=== PATIENT | female | born 1960 | race Caucasian/White ===

== ENCOUNTER 2017-10-13 09:09 | Inpatient (IN) | payer BC, SELFPAY ==
[2017-10-09 15:07] VITALS: BP 134/87; BMI 38.6
[2017-10-13] VITALS (36 sets, daily range): BP systolic 96–147; BP diastolic 53–96; PULSE 82–109; RESP 12–24; TEMP 36.4–37.4; O2SAT 92–100; BMI 38.4; BMI 38.5; BMI 38.7
--- NOTE | 2017-10-13 09:12 | RAD_ITS ---
STUDY: X-RAY CHEST REASON FOR EXAM: Female, 57 years old. Chest pain. TECHNIQUE: Single AP portable view of the chest. COMPARISON: Comparison is made with prior study dated August 28, 2014. FINDINGS: Stable elevation of the right hemidiaphragm. There is no demonstrated pleural abnormality. Normal size heart. Normal mediastinum and maria [place] carmen. Normal visualized pulmonary arteries. There is atherosclerotic tortuosity of the aortic arch and descending thoracic aorta. Normal visualized thoracic spine. Normal visualized ribs, clavicles, and shoulders. There is no demonstrated abnormality of the visualized soft tissue structures of the upper abdomen. RAD/Chest 1 View (Portable) IMPRESSION: Stable elevation of the right hemidiaphragm. The lungs are clear. Electronically Signed: Herb Ibarra MD at 9:41 EST Tel [phone], Service support ,
--- NOTE | 2017-10-13 09:12 | EKG12_ITS ---
Test Reason : CP REPEAT Blood Pressure : / mmHG Vent. Rate : 094 BPM Atrial Rate : 094 BPM P-R Int : 132 ms QRS Dur : 090 ms QT Int : 368 ms P-R-T Axes : 044 -17 065 degrees QTc Int : 460 ms AGE AND GENDER SPECIFIC ECG ANALYSIS Normal sinus rhythm Inferior infarct , possibly acute ACUTE AL / STEMI Consider right ventricular involvement in acute inferior infarct Abnormal ECG Confirmed by JOSE MARIA PETERSEN, BARBRA ([id number]), editor greeting card GRETCHEN TRUONG ([id number]) on 10/16/2017 1:05:50 PM Referred By: Robert Javed Confirmed By:BARBRA MOISE MD
--- NOTE | 2017-10-13 09:28 | ED.VISSUMM ---
- ER Visit Summary Date of Service: 10/13/17 Chief Complaint: Chest pain History of Present Illness: The patient is a 57 F 3 of nve-jbrospe-ububatgmt diabetes, cholesterolemia and sleep apnea. Long-term smoker. Currently significant family history his mom in her late 70s had coronary disease and MIs. Patient never had DVT or PE. She has no recent travel, surgery or mobilization. No hemoptysis. The pain is not pleuritic. She states she is having burning chest pain nearly constantly last 4 days. Worse supine. She also states that she does get exertional dyspnea with stairs or walking. She states she had a stress test at the [facility] approximately 1 year ago which was negative. Physical Examination: Well-appearing middle-age female. Vital signs are stable and afebrile. Pulse ox 96% on room air no signs of hypoxia. H EENT exam unremarkable. Neck nontender no JVD. Lungs clear to auscultation bilaterally. Heart regular rate and rhythm no murmur. Chest wall nontender. Abdomen soft nontender. Extremities moves all 4. Neurovascular intact. Calves nontender. Neurologic exam she is awake and alert without focal motor deficits. Test Results: Initial EKG was a sinus rhythm rate of 93 appears to be Q waves in the inferior leads and also a subtle ST elevation but similar to a recent EKG done within the past week that was a preop study. BC normal. BMP normal. Troponin is elevated 1.24. Chest x-ray normal with a normal cardiac silhouette and mediastinum read both by myself and the radiologist. Patient was given sublingual nitroglycerin after the first her pain got worse. After the second the pain improved. A repeat EKG was done with the worsening chest pain which appears to be an evolving acute inferior MD. Emergency Department Course and Treatment: To undergo cardiac workup. She will receive p.o. aspirin and sublingual nitro. One component of her pain does sound much more like reflux. However she is middle age. She is overweight and she is a smoker. She does have significant risk factors for underlying coronary disease and is having exertional dyspnea and at times chest pain. Treatment Plan: After the second EKG I spoke with Dr. Shaw Javed he and his team are awaiting the patient in the Assignment Clerk. Patient has been given IV heparin bolus and p.o. Brilinta. She had already received aspirin. Spoke at length with both her and her . Directly to the Assignment Clerk. Disposition: Admission Impression: Chest pain secondary to acute inferior MD History of jbi-ozjrgfl-bukvhyvbl diabetes and hypercholesterolemia. Tobacco abuse This note was generated with [employer] Angel dictation software. It may contain incorrect words, spelling, and punctuation that were not noted in review of the chart prior to signing ED Disposition - Plan for ED Patient: Chief Complaint: Chest Pain Referrals: Reese Elizalde MD [Primary Care Provider] -
[2017-10-13 09:31] LABS: Basophil# 0.03 X10^3/uL; Basophil% 0.3 % (0-1); Eosinophil# 0.08 X10^3/uL; Eosinophils% 0.8 % (0-5); Hematocrit 41.5 % (37-47); Hemoglobin 13.2 g/dl (12.0-15.0); Lymphocyte % 25.7 % (19-41); Mean Corp Hgb Conc 31.8 g/gl (32-36); Mean Corpuscular Hgb 27.6 pg (27.0-32.0); Mean Corpuscular Volume 86.8 fL (81-99); Mean Platelet Vol. 10.5 fl (6.2-12.0); Monocyte# 0.41 X10^3/uL; Monocyte% 4.1 % (0-10); Neutrophil # 6.98 X10^3/uL (2.7-7.7); Platelet Count 277 K/mm3 (150-450); RBC Distribution Width CV 14.1 % (11.6-14.6); RBC Distribution Width SD 44.2 fl (35.1-43.9); Red Blood Count 4.78 M/mm3 (4.2-5.4); White Blood Count 10.1 K/mm3 (4.4-11.0)
[2017-10-13] MEDS: Aspirin 81 MG TAB.CHEW 324 MG PO (09:40)
--- NOTE | 2017-10-13 09:40 | ED.DCSUM_ITS ---
- ER Visit Summary Date of Service: 10/13/17 Chief Complaint: Chest pain History of Present Illness: The patient is a 57 F 3 of zjx-qfwozye-gmtboibsf diabetes, cholesterolemia and sleep apnea. Long-term smoker. Currently significant family history his mom in her late 70s had coronary disease and MIs. Patient never had DVT or PE. She has no recent travel, surgery or mobilization. No hemoptysis. The pain is not pleuritic. She states she is having burning chest pain nearly constantly last 4 days. Worse supine. She also states that she does get exertional dyspnea with stairs or walking. She states she had a stress test at the [facility] approximately 1 year ago which was negative. Physical Examination: Well-appearing middle-age female. Vital signs are stable and afebrile. Pulse ox 96% on room air no signs of hypoxia. H EENT exam unremarkable. Neck nontender no JVD. Lungs clear to auscultation bilaterally. Heart regular rate and rhythm no murmur. Chest wall nontender. Abdomen soft nontender. Extremities moves all 4. Neurovascular intact. Calves nontender. Neurologic exam she is awake and alert without focal motor deficits. Test Results: Initial EKG was a sinus rhythm rate of 93 appears to be Q waves in the inferior leads and also a subtle ST elevation but similar to a recent EKG done within the past week that was a preop study. BC normal. BMP normal. Troponin is elevated 1.24. Chest x-ray normal with a normal cardiac silhouette and mediastinum read both by myself and the radiologist. Patient was given sublingual nitroglycerin after the first her pain got worse. After the second the pain improved. A repeat EKG was done with the worsening chest pain which appears to be an evolving acute inferior DE. Emergency Department Course and Treatment: To undergo cardiac workup. She will receive p.o. aspirin and sublingual nitro. One component of her pain does sound much more like reflux. However she is middle age. She is overweight and she is a smoker. She does have significant risk factors for underlying coronary disease and is having exertional dyspnea and at times chest pain. Treatment Plan: After the second EKG I spoke with Dr. Shaw Javed he and his team are awaiting the patient in the Title I Teacher. Patient has been given IV heparin bolus and p.o. Brilinta. She had already received aspirin. Spoke at length with both her and her . Directly to the Title I Teacher. Disposition: Admission Impression: Chest pain secondary to acute inferior DE History of efw-ywyicdj-bqtrjdyae diabetes and hypercholesterolemia. Tobacco abuse This note was generated with Lingoing dictation software. It may contain incorrect words, spelling, and punctuation that were not noted in review of the chart prior to signing ED Disposition - Plan for ED Patient: Chief Complaint: Chest Pain Referrals: Reese Elizalde MD [Primary Care Provider] -
[2017-10-13 09:41] LABS: POSITIVE COUNT NO; POSITIVE DIFFERENTIAL NO; POSITIVE MORPHOLOGY NO
--- NOTE | 2017-10-13 09:43 | NURSING ---
NO LW OR POA
--- NOTE | 2017-10-13 09:48 | ED.RN ---
Addendum entered by Nancy Bethea 10/13/17 10:24: Per patient, reported initial Nitroglycerin increased pain to chest. Also discussed ST elevation on 5 lead and noted old inferior infarct on 1st EKG. Will cont to monitor. Original Note: 0945-Dr. Avila notified of effects of Nitroglycerin. Requests 2nd dose be administered.
--- NOTE | 2017-10-13 09:49 | ED.RN ---
trop 1.[address] from [address] lab[address] dr tolbert aware
[2017-10-13 09:50] LABS: Anion Gap 5 (5-15); BUN 14 mg/dL (7-18); BUN/Creat Ratio 17.2 RATIO (10-20); Calcium,Total 8.7 mg/dL (8.5-10.1); Chloride 105 mmol/L (98-107); Creatinine, Serum 0.82 mg/dL (0.55-1.02); EST Glomerular Filtration Rate 77 mL/min (>60); Est Glom Filt Rate - Afr Amer 93 mL/min (>60); Estimated Creatinine Clearance 68.11 ml/min; Glucose 188 mg/dL (74-106); Potassium 3.9 mmol/L (3.5-5.1); Sodium Level 138 mmol/L (136-145)
--- NOTE | 2017-10-13 09:56 | NURSING ---
STEMI CALLED DR CANDELARIA CALLED BACK
[2017-10-13] MEDS: TICAGRELOR 90 MG TABLET 180 MG PO (10:00)
[2017-10-13] MEDS: Heparin 10,000 UNITS/10 ML Vial 4000 UNITS IV (10:00)
--- NOTE | 2017-10-13 10:01 | NURSING ---
NON LICENSED NUCLEAR PLANT OPERATOR READY
--- NOTE | 2017-10-13 10:09 | ED.DEP ---
ED Disposition - Plan for ED Patient: Chief Complaint: Chest Pain Referrals: Reese Elizalde MD [Primary Care Provider] -
--- NOTE | 2017-10-13 10:21 | ED.RN ---
0950-Critical Troponin result received and reported to Dr. Avila. Also notified of EKG changes. Repeat EKG completed and shown to Dr. Avila. Code STEMI activated. 1005-Transported to laboratory machinist and moved to table without incident. Report given. Dr. Javed and laboratory machinist team assumed care.
--- NOTE | 2017-10-13 10:30 | CASEMGMT ---
Social Work: Responded to STEMI alert in ED. Patient was already in warehouse laborer. Spent time with patient's in the warehouse laborer waiting area. Patient's was making calls to family members and voiced no other needs at this time. Patient's verbalized that patient has both a living will and DPOAHC and that the documents are in the car. Patient's stated that he will bring documents in when he is able. Emotional support and active listening provided as well as encouragement to contact this SW if additional needs arise. LILIA Linder
--- NOTE | 2017-10-13 10:46 | EKG12_ITS ---
Test Reason : Blood Pressure : / mmHG Vent. Rate : 092 BPM Atrial Rate : 092 BPM P-R Int : 134 ms QRS Dur : 086 ms QT Int : 380 ms P-R-T Axes : 053 -21 018 degrees QTc Int : 469 ms Normal sinus rhythm Left ventricular hypertrophy Inferior infarct , age undetermined Abnormal ECG When compared with ECG of 13-OCT-2017 09:55, MANUAL COMPARISON REQUIRED, DATA IS UNCONFIRMED Confirmed by ROSLYN PETERSEN, CONNER ([id number]), acquisition editor GRETCHEN TRUONG ([id number]) on 10/17/2017 2:00:15 PM Referred By: Robert Javed Confirmed By:CONNER MCGOWAN MD
--- NOTE | 2017-10-13 10:52 | CL.I_ITS ---
Patient Name: MC MICHAEL Study Date: 10/13/2017 Performing: Robert Javed MD Ht: 64.96 inches 165 cm : 1960 Wt: 231.49 lbs 105 kg Age: 57 Gender: female BSA: 2.1 PROCEDURE(S) PERFORMED SG32-FQC/COR/LV FZ38-OXO, JASSI AND/OR PTCA, ARTERY OR GRAFT, SINGLE VESSEL CLINICAL PROFILE AND CO-MORBIDITIES INDICATIONS: Unstable Angina Stress/Imaging Stress/Image Study Performed: No Angina Classification Anginal Classification w/in 2 Weeks: CCS II CAD Presentations: STEMI. 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 RECOMMENDATIONS Referred for immediate PCI Elective PCI of mid LAD in 3 weeks. Highly recommend quitting all tobacco products Follow up with primary ammonia print operator Risk factor modification ASA Indefinitley Plavix for at least 12 months Routine post interventional care Refer for Outpatient Cardiac Rehab Manual sheath removal per protocol Follow up with Dr. Javed Elective PCI of mid LAD in 3 weeks. Medical management of proximal and distal RCA lesions. Pt had evolving ECG in ER which progressed to acute inferior STEMI. D2B time taken off of 2nd ECG at 9:55 am. DESCRIPTION OF PROCEDURE The patient arrived to the procedure lab. The risks and benefits of the procedure as well as a full d escription of our services here and lack of surgical backup were fully explained to the patient and/o r their significant other prior to the catheterization. The Timeout was completed, verifying the jax ect patient and procedure. The patient's procedural site was prepped and draped in the usual fashion. Local anesthetic was given subcutaneously to right groin region with Lidocaine 2%. Using a modified Seldinger technique, arterial access was obtained via the right femoral artery, a 6Fr sheath was inse rted.. Left Coronary Artery selective angiography was performed in multiple views using a 6 Fr. JL 5 catheter. Right Coronary Artery selective angiography was then performed in multiple views using a 6 Fr. HS 2. Left Ventriculography was performed in DERAS projection using a 4 Fr. Pigtail catheter. LV t o AO pullback pressures were then recorded HS 2 Guide catheter was inserted and engaged into the RCA. Runthrough Guide wire was advanced to the RCA. 2.0 by 12 Balloon catheter was inserted. Balloon catheter was advanced across lesion in the righ t coronary, mid. PTCA balloon inflated at 6 atms for 10 secs Balloon catheter was advanced across les ion in the right coronary, mid. PTCA balloon inflated at 12 atms for 8 secs 3.5 by 8 synergy Drug Elu ting stent was inserted Drug Eluting stent was advanced across the lesion in the right coronary, mid. . . The arterial sheath was sutured in place and capped. CORONARY ANGIOGRAPHY DOMINANCE: Right Dominant LEFT HEART ASSESSMENT Left Ventricular Ejection Fraction: by LV Gram 55 % Inferior Mid Hypokinesis - Mild LEFT MAIN: Angiographically normal LEFT ANTERIOR DECENDING ARTERY: MID LAD: 80 % Stenosis CIRCUMFLEX ARTERY: Mild luminal irregularities less than 30% RIGHT CORONARY ARTERY: PROX RCA: Mild luminal irregularities less than 30% MID RCA: is occluded DISTAL RCA: Moderate luminal irregularities up to 50% COLLATERAL FLOW: Collateral flow from Left to Right INTERVENTION INFORMATION LESION SITE: RCA (Mid) Lesion Complexity: High/C, lesion at bifurcation: No, thrombus present: Yes, lesion length: 38 mm, cu lprit lesion: Yes Pre Stenosis: 100 % Pre intervention ISI flow: 0 PROCEDURE: Drug Eluting Stent with pre and post dilatation, Drug Eluting Stent with pre dilatation. Post Stenosis: 0 % Post intervention ISI flow: 3 Lesion Devices: E-House 6 Fr HSII 100cm Guide Catheter Edward Sci EMERGE MR 2.00x12 BALLOON Terumo .014 Runthrough Extra Floppy 180cm straight Edward Sci Synergy MR JASSI 3.50x38 COMPLICATIONS No Complications PROCEDURE MEDICATIONS Oxygen: 2 L/min via nasal cannula Atropine 1mg/10ml .25 amp @ 10/13/2017 10:16:32 Heparin 6000 unit(s) IV 10/13/2017 10:18:40 Nitro 200 mcg IC 10/13/2017 10:18:16 IV Bolus: .9 NaCl 500 ml total 10/13/2017 10:34:31 IV Fluids: .9 NaCl increased to wide open ml/hr 10/13/2017 10:23:06 IV Fluids: .9 NaCl decreased to kvo ml/hr 10/13/2017 10:34:24 SUMMARY OF HEMODYNAMIC DATA Time AIR REST ECG 10:09:12 AO 135/105 (119) SA 10:12:06 AO 139/69 (99) 10:13:36 AO 113/78 (92) 10:22:28 LV 146/-19, 6 10:29:36 LV 137/-24, 5 10:29:43 LVp 138/-25, 6 10:29:50 AOp 127/70 (94) 10:29:56 Signed By Robert Javed MD On 10/13/2017 10:52:03 Robert Javed MD
[2017-10-13 11:24] LABS: Hematocrit 37.5 % (37-47); Hemoglobin 12.1 g/dl (12.0-15.0); Mean Corp Hgb Conc 32.3 g/gl (32-36); Mean Corpuscular Hgb 28.1 pg (27.0-32.0); Mean Corpuscular Volume 87.2 fL (81-99); Mean Platelet Vol. 10.4 fl (6.2-12.0); Platelet Count 258 K/mm3 (150-450); RBC Distribution Width CV 14.1 % (11.6-14.6); RBC Distribution Width SD 44.7 fl (35.1-43.9); White Blood Count 11.1 K/mm3 (4.4-11.0)
[2017-10-13 11:25] LABS: Scan Indicated on CBC? Y/N NO
[2017-10-13 11:26] LABS: ACT Activated Clotting Time 175 sec (74-137)
[2017-10-13 11:26] LABS: ACT Activated Clotting Time 252 sec (74-137)
[2017-10-13] MEDS: 0.9% Normal Saline 1,000 ML 150 ML IV (11:30)
--- NOTE | 2017-10-13 11:57 | CRPHASE1 ---
Patient Data/Charges Byproducts Operator:: Robert Javed Date/Diagnosis #1:: 10/13/2017 STEMI /INT/PCI Phase II Referral:: [facility] Risk Factors/Lifestyle Smoking Status: Current every day smoker Hx Hypertension: Yes Hx Diabetes Mellitus Type 1: Yes Hx Dyslipidemia: Yes Hx Obesity: Yes Height: 1.65 m Weight:: 105 kg BMI: 38.5 ETOH: No Family History: Heart Disease - DAD HEART HX Issues Affecting Care:: None Medical/Surgical History Angina:: Yes CAD:: Yes Diabetes:: Yes Hypertension:: Yes Dyslipidemia:: Yes Thyroid:: Yes PTCA:: Yes Discharge/Home/Social Eval Discharge Disposition: Home Marital Status:
[2017-10-13 11:58] LABS: CPK Total, Creatine Kinase 165 U/L (26-192)
--- NOTE | 2017-10-13 12:02 | CRPHASE1_ITS ---
Patient Data/Charges Impregnating Helper:: Robert Javed Date/Diagnosis #1:: 10/13/2017 STEMI /INT/PCI Phase II Referral:: [facility] Risk Factors/Lifestyle Smoking Status: Current every day smoker Hx Hypertension: Yes Hx Diabetes Mellitus Type 1: Yes Hx Dyslipidemia: Yes Hx Obesity: Yes Height: 1.65 m Weight:: 105 kg BMI: 38.5 ETOH: No Family History: Heart Disease - DAD HEART HX Issues Affecting Care:: None Medical/Surgical History Angina:: Yes CAD:: Yes Diabetes:: Yes Hypertension:: Yes Dyslipidemia:: Yes Thyroid:: Yes PTCA:: Yes Discharge/Home/Social Eval Discharge Disposition: Home Marital Status:
--- NOTE | 2017-10-13 12:02 | CRPH1.INSTRU ---
General Education CAD and cardiac anatomy and function:: Not instructed Explanation of diagnoses and procedures:: Not instructed Sign/Symptoms of [place]:: Needs reinforcement Antiplatelet therapy: Needs reinforcement Proper use of NTG-SL: Not instructed Emergency procedures and activation of EMS: Not instructed Compliance of all prescribed medications: Not instructed Smoking Patient Nicotine/Smoking Risk Factors Are:: Cigarettes Nicotine/Smoking Response Code:: Not instructed Dyslipidemia Dyslipidemia Response Code:: Needs reinforcement Overweight/Obesity Patient Overweight/Obesity Risk Factors Are:: Obesity - > or = 30 Overweight/Obesity:: Not instructed Hypertension Hypertension:: Needs reinforcement Heart Disease Patient Heart Disease Risk Factors Are:: Family history of heart disease < 65 years old Heart Disease Response Code:: Needs reinforcement Diabetes Patient Diabetes Risk Factors Are:: Elevated blood sugars Diabetes:: Needs reinforcement Metabolic Syndrome Metabolic Syndrome Response Code:: Not instructed Sedentary Sedentary Response Code:: Not instructed Stress Stress Response Code:: Not instructed - PT STATES SHE IS TO HAVE A SECOND STENT IN APPOX 2-3 WEEKS, WILL F/U WITH REHAB AT THAT TIME. PROGRAM INTRODUCED, EXPLAINED AND BOOKLET GIVEN
--- NOTE | 2017-10-13 12:02 | PCM.HP.STD ---
Problem List (1) STEMI (ST elevation myocardial infarction) Status: Acute Qualifiers: Involved coronary artery: right coronary artery Qualified Code(s): I21.11 - ST elevation (STEMI) myocardial infarction involving right coronary artery (2) Hyperlipidemia Status: Chronic Qualifiers: Hyperlipidemia type: unspecified Qualified Code(s): E78.5 - Hyperlipidemia, unspecified (3) DM type 2 (diabetes mellitus, type 2) Status: Chronic Qualifiers: Diabetes mellitus complication status: with unspecified complications Diabetes mellitus nursing home insulin use: unspecified [facility] insulin use status Qualified Code(s): E11.8 - Type 2 diabetes mellitus with unspecified complications History of Present Illness Date of Admission: 10/13/17 Chief Complaint: Chest pain The patient is a 57 year old F with past medical history of DM type II, hypercholesterolemia, chronic smoker, positive family history of CAD in her mom with an NH after the age of 50, who comes in with complaints of chest pain with shortness of breath. Patient states she had a recent stress test that was reported as negative. Patient had come into the ED, EKG shows normal sinus rhythm with Q waves in inferior leads and a subtle ST elevation> She had improvement of her chest pain after sublingual nitro. Patient was diagnosed as evolving acute inferior NH and a STEMI alert was called and she was sent into the [facility]. Findings in the analyst microbiology lab was significant for acutely occluded RCA and 80% mid LAD. Patient underwent successful PCI with drug-eluting stent to the mid RCA. Her EF was assessed as 55% with mild inferior hypokinesis. She was started on Plavix and continued on aspirin, patient was transferred to the ICU for post cardiac cath management. Discussed with Dr. Javed, as a plan of elective PCI of the mid LAD in 3 weeks. Seen and examined in the ICU. She is undergoing post cardiac cath management. She denies any chest pain or dizziness or palpitations or shortness of breath. Past Medical History Past Medical History (Chronic Problems): Chronic Problems Hyperlipidemia (Chronic) DM type 2 (diabetes mellitus, type 2) (Chronic) Hypothyroidism following radioiodine therapy (Chronic) Allergies No Known Allergies Allergy (Verified 10/13/17 09:11) Home Medications: Ambulatory Orders Medication Instructions Recorded Atorvastatin Calcium [Lipitor] 10 mg PO DAILY 10/09/17 Cholecalciferol (Vitamin D3) 1,000 unit PO DAILY 10/09/17 [Vitamin D3] Levothyroxine [Synthroid] 75 mcg PO DAILY 10/09/17 Meloxicam [Mobic] 15 mg PO DAILY 10/09/17 Metformin HCl [Glucophage] 500 mg PO DAILY 10/09/17 Omeprazole [Prilosec] 20 mg PO BID 10/09/17 TraMADol [Ultram (G)] 100 mg PO Q6H PRN PRN 10/09/17 Varenicline Tartrate [Chantix] 1 each PO UD 10/09/17 Surgical History: - - ankle surgery Psychiatric History: No pertinent psych hx CUSTOMER SERVICE CONSULTANT History: No pertinent CUSTOMER SERVICE CONSULTANT history Lives: Spouse/ Significant Other Smoking Status: Current every day smoker Tobacco Use: Non-smoker Alcohol: None Drugs: None - *Family History Maternal History Items: Heart Disease Review of Systems Constitutional: Denies: Anorexia, Chills, Fever, Weakness, Weight Change Eyes: Denies: Blurred vision, Cataracts, Conjunctivae Inflammation, Redness, Vision Change HEENT: Denies: Difficulty Hearing, Difficulty Swallowing, Head Aches, Sinus Congestion, Sinus Drainage, Sore Throat Cardiovascular: Denies: Chest Pain, Claudication, Chest Pressure, Orthopnea, Palpitations Respiratory: Reports: Shortness of Breath. Denies: Cough, Hemoptysis, Shortness of breath at rest, Shortness of breath upon exertion, Sputum production Gastrointestinal: Denies: Abdominal Pain, Constipation, Dyspepsia, Nausea, Vomiting Genitourinary: Denies: Dysuria, Frequency, Incontinence Musculoskeletal: Denies: Joint Pain, Joint stiffness, Joint swelling, Joint Tenderness Skin: Denies: Dryness, Rash, Wounds Neurological: Denies: Numbness, Tingling, Focal weakness Psychiatric: Denies: Anxiety, Depression, Homicidal Ideations, Suicidal Ideations Hematologic/ Lymphatic: Denies: Easy Bruising, Easy Bleeding VTE Information - Inpt Only VTE Present on Admission: No VTE Mechan Device Prophylaxis: SCD's VTE Pharm Prophylaxis ordered?: No Patient Problems: Active and Suspected Problems STEMI (ST elevation myocardial infarction) (Acute) - Physical Exam General: Alert, Oriented x3, Cooperative, No apparent distress HEENT: Atraumatic, PERRLA, EOMI, Normocephalic Oral: Moist Mucosa Neck: Supple Lungs: Clear to auscultation, Normal air movement Cardiovascular: Regular rate, Regular Rhythm, Normal S1, Normal S2, No murmurs Abdomen: Bowel Sounds Present, Soft, Non Tender, Non-Distended, No Hepato-splenomegaly Extremities: No edema Skin: No rashes, No breakdown Musculoskeletal: No Tenderness to Palpation of Joints or Extremities Lymphatic: No Cervical, Supraclavicular, or Inguinal Adenopathy Neurological: Cranial nerves II-XII grossly intact Psych/Mental Status: Normal Affect, Appropriate Vital Signs Temp Pulse Resp BP Pulse Ox 97.6 F L 98 20 H 140/79 H 94 10/13/17 09:10 10/13/17 09:52 10/13/17 10:03 10/13/17 09:52 10/13/17 09:47 Weight: 105 kg Laboratory Tests Past 24 Hrs 10/13/17 10/13/17 10/13/17 10:13 10:34 11:20 WBC RBC Hgb Hct MCV MCH MCHC RDW RDW Differential Plt Count MPV Activated Clotting Time 175 H 252 H Total Creatine Kinase 165 MRSA (PCR) 10/13/17 10/13/17 11:20 11:20 WBC 11.1 H RBC 4.30 Hgb 12.1 Hct 37.5 MCV 87.2 MCH 28.1 MCHC 32.3 RDW 14.1 RDW Differential 44.7 H Plt Count 258 MPV 10.4 Activated Clotting Time Total Creatine Kinase MRSA (PCR) Pending Assessment/Plan Active and Suspected Problems STEMI (ST elevation myocardial infarction) (Acute) 57 year old F with past medical history of DM type II, hypercholesterolemia, chronic smoker, positive family history of CAD in her mom with an NH after the age of 50, who comes in with complaints of chest pain with shortness of breath. 1. Acute STEMI s/p PTCA, stent to the RCA, mid LAD has 80% stenosis, stable vitals, currently being managed in ICU, plan for mid-LAD PCI in 3 weeks On aspirin, brilinta, atorvastatin, lisinopril, follow with post-cath recommendations, cardiology following 2. Ischemic cardiomyopathy, EF 55%, no signs of active exacerbation 3. Hyperlipidemia, on statin 4. Hypothyroidism, on levothyroxine 5. Type 2DM, HbA1c 6.5, on metformin. Metformin held on account of contrast during cardiac cath, will put on accucheks and ISS. 6. Leucocytosis, likely reactive, will recheck in am. 7. DVT PPx - SCDs, early ambulation when able. Code Visit Inpatient E&M: 27977 Init Hosp L3
--- NOTE | 2017-10-13 12:05 | CRPH1.INST_ITS ---
General Education CAD and cardiac anatomy and function:: Not instructed Explanation of diagnoses and procedures:: Not instructed Sign/Symptoms of [place]:: Needs reinforcement Antiplatelet therapy: Needs reinforcement Proper use of NTG-SL: Not instructed Emergency procedures and activation of EMS: Not instructed Compliance of all prescribed medications: Not instructed Smoking Patient Nicotine/Smoking Risk Factors Are:: Cigarettes Nicotine/Smoking Response Code:: Not instructed Dyslipidemia Dyslipidemia Response Code:: Needs reinforcement Overweight/Obesity Patient Overweight/Obesity Risk Factors Are:: Obesity - > or = 30 Overweight/Obesity:: Not instructed Hypertension Hypertension:: Needs reinforcement Heart Disease Patient Heart Disease Risk Factors Are:: Family history of heart disease < 65 years old Heart Disease Response Code:: Needs reinforcement Diabetes Patient Diabetes Risk Factors Are:: Elevated blood sugars Diabetes:: Needs reinforcement Metabolic Syndrome Metabolic Syndrome Response Code:: Not instructed Sedentary Sedentary Response Code:: Not instructed Stress Stress Response Code:: Not instructed - PT STATES SHE IS TO HAVE A SECOND STENT IN APPOX 2-3 WEEKS, WILL F/U WITH REHAB AT THAT TIME. PROGRAM INTRODUCED, EXPLAINED AND BOOKLET GIVEN
[2017-10-13 12:56] LABS: ACT Activated Clotting Time 164 sec (74-137)
[2017-10-13 13:00] LABS: M R Staph aureus DNA By PCR Negative (Negative); Probe Check PASS; Specimen Processing Control PASS
--- NOTE | 2017-10-13 13:53 | CASEMGMT ---
DC PLAN: Home on discharge -Per pt no dc needs identified. [employer] savings card given.
[2017-10-13 13:56] LABS: ACT Activated Clotting Time 147 sec (74-137)
--- NOTE | 2017-10-13 15:42 | PCM.PN.BLA ---
Progress Note Pt. is scheduled for an office visit follow-up appointment with the [facility] on 11/02/2017 with Dao Driscoll Nurse Practitioner. At that time we will re-evaluate blood work, schedule left heart cath, and update H&P prior to staged PCI to the LAD.
--- NOTE | 2017-10-13 15:55 | CASEMGMT ---
Pt's is here, brought in POA papers and LW papers. SW copied for pt and put a copy in the chart, originals given back to . SW did point out to that the notary signature page is missing from the living will. No further needs at this time. LILIA Chadwick, DRUG INSPECTOR
[2017-10-13 17:26] LABS: Hematocrit 40.4 % (37-47); Hemoglobin 12.9 g/dl (12.0-15.0); Mean Corp Hgb Conc 31.9 g/gl (32-36); Mean Corpuscular Hgb 27.6 pg (27.0-32.0); Mean Corpuscular Volume 86.3 fL (81-99); Mean Platelet Vol. 10.6 fl (6.2-12.0); Platelet Count 280 K/mm3 (150-450); RBC Distribution Width CV 14.2 % (11.6-14.6); RBC Distribution Width SD 44.3 fl (35.1-43.9); Red Blood Count 4.68 M/mm3 (4.2-5.4); White Blood Count 11.6 K/mm3 (4.4-11.0)
[2017-10-13 17:27] LABS: Scan Indicated on CBC? Y/N NO
[2017-10-13 17:47] LABS: CPK Total, Creatine Kinase 181 U/L (26-192)
[2017-10-13 18:21] LABS: Bedside Glucose 111 mg/dL (70-110)
[2017-10-13] MEDS: 0.9% NaCl Peripheral Flush Adult/Peds IV (20:33)
[2017-10-13] MEDS: Metoprolol Tartrate 25 MG Tablet 12.5 MG PO (21:25)
[2017-10-13] MEDS: TICAGRELOR 90 MG TABLET PO (21:25)
[2017-10-13] MEDS: Atorvastatin Calcium 80 MG Tablet PO (21:25)
[2017-10-13] MEDS: Pantoprazole Sodium 20 MG Tablet PO (21:26)
[2017-10-13 21:36] LABS: Bedside Glucose 130 mg/dL (70-110)
--- NOTE | 2017-10-13 21:40 | NURSING ---
Pt still has Femostop on right groin, at this time this RN let out 10mm/Hg no bleeding, tenderness or hematoma noted at the site.
--- NOTE | 2017-10-13 21:45 | NURSING ---
At this time this RN reduced the pressure on the femostop from 30mm/Hg to 20mm/Hg again this RN noted no hematoma or bleeding at the site and pt has no tenderness at the site at this time.
--- NOTE | 2017-10-13 21:50 | NURSING ---
At this time this RN reduced the pressure on the Femostop from 20mm/Hg to 10mm/Hg pt tolerated well no hematoma or bleeding noted at the site and the site is still soft and without tenderness at this time.
[2017-10-13 22:10] LABS: Mucous, Urine 0 SEEN /hpf (<or=2+); Squamous Epithelial Cells - UA 0 SEEN /hpf (5-10)
[2017-10-13 22:11] LABS: Color, Urine Yellow (Yellow); Glucose, Dipstick Normal (Normal); Ketone-Dipstick 5 mg/dl (Negative); Leukocyte Esterase-Dipstick 100 /ul (Negative); Nitrite-Dipstick Negative (Negative); Occult Blood-Urine 250 /ul (Negative); Protein-Dipstick 30 mg/dl (Negative); Specific Gravity, Urine 1.025 (1.002-1.030); Urine Bilirubin Dipstick Negative (Negative); Urine Clarity Cloudy (Clear); Urine Urobilinogen 1 mg/dl (Normal)
[2017-10-13 22:18] LABS: Red Blood Cells-Urine 50-100 SEEN /hpf (0-5); White Blood Cells 10-25 SEEN /hpf (0-5)
[2017-10-13 22:20] LABS: Bacteria RARE /hpf (None Seen)
[2017-10-13 22:41] LABS: Hematocrit 39.6 % (37-47); Hemoglobin 12.5 g/dl (12.0-15.0); Mean Corp Hgb Conc 31.6 g/gl (32-36); Mean Corpuscular Hgb 27.4 pg (27.0-32.0); Mean Corpuscular Volume 86.8 fL (81-99); Mean Platelet Vol. 10.8 fl (6.2-12.0); Platelet Count 274 K/mm3 (150-450); RBC Distribution Width CV 14.3 % (11.6-14.6); RBC Distribution Width SD 45.2 fl (35.1-43.9); Red Blood Count 4.56 M/mm3 (4.2-5.4); White Blood Count 12.1 K/mm3 (4.4-11.0)
[2017-10-13 22:42] LABS: Scan Indicated on CBC? Y/N NO
[2017-10-13 23:00] LABS: CPK Total, Creatine Kinase 195 U/L (26-192)
[2017-10-14] VITALS (22 sets, daily range): BP systolic 94–139; BP diastolic 42–80; PULSE 72–100; RESP 11–118; TEMP 36.3–36.9; O2SAT 86–99
[2017-10-14] MEDS: 0.9% NaCl Peripheral Flush Adult/Peds IV ×3 (00:48→22:27)
[2017-10-14 04:04] LABS: Hematocrit 39.3 % (37-47); Hemoglobin 12.5 g/dl (12.0-15.0); Mean Corp Hgb Conc 31.8 g/gl (32-36); Mean Corpuscular Hgb 27.7 pg (27.0-32.0); Mean Corpuscular Volume 87.1 fL (81-99); Mean Platelet Vol. 10.5 fl (6.2-12.0); Platelet Count 277 K/mm3 (150-450); RBC Distribution Width CV 14.3 % (11.6-14.6); RBC Distribution Width SD 45.5 fl (35.1-43.9); Red Blood Count 4.51 M/mm3 (4.2-5.4); White Blood Count 11.2 K/mm3 (4.4-11.0)
[2017-10-14 04:05] LABS: Scan Indicated on CBC? Y/N NO
[2017-10-14 04:55] LABS: Anion Gap 9 (5-15); BUN 16 mg/dL (7-18); BUN/Creat Ratio 21.5 RATIO (10-20); Calcium,Total 8.4 mg/dL (8.5-10.1); Chloride 105 mmol/L (98-107); Cholesterol 146 mg/dL (200); Creatinine, Serum 0.74 mg/dL (0.55-1.02); EST Glomerular Filtration Rate 86 mL/min (>60); Est Glom Filt Rate - Afr Amer 104 mL/min (>60); Estimated Creatinine Clearance 75.48 ml/min; Glucose 126 mg/dL (74-106); High Density Lipoprotein 39 mg/dL; Potassium 4.1 mmol/L (3.5-5.1); Sodium Level 138 mmol/L (136-145); Triglycerides 143 mg/dL; Very Low Density Lipoprotein 29 mg/dL (5-40)
--- NOTE | 2017-10-14 05:55 | EKG12_ITS ---
Test Reason : AM EKG Blood Pressure : / mmHG Vent. Rate : 079 BPM Atrial Rate : 079 BPM P-R Int : 134 ms QRS Dur : 084 ms QT Int : 404 ms P-R-T Axes : 053 -24 048 degrees QTc Int : 463 ms Normal sinus rhythm Inferior infarct , age undetermined Abnormal ECG When compared with ECG of 13-OCT-2017 09:55, MANUAL COMPARISON REQUIRED, DATA IS UNCONFIRMED Confirmed by ROSLYN PETERSEN, CONNER ([id number]), field map editor GRETCHEN TRUONG ([id number]) on 10/17/2017 1:59:49 PM Referred By: Robert Javed Confirmed By:CONNER MCGOWAN MD
[2017-10-14] MEDS: Levothyroxine 75 MCG Tablet PO (06:42)
[2017-10-14 06:51] LABS: Bedside Glucose 118 mg/dL (70-110)
[2017-10-14] MEDS: Pantoprazole Sodium 20 MG Tablet PO ×2 (08:57→22:25)
[2017-10-14] MEDS: Aspirin E.C. 81 MG Tablet PO (08:57)
[2017-10-14] MEDS: TICAGRELOR 90 MG TABLET PO ×2 (08:57→22:25)
[2017-10-14] MEDS: Metoprolol Tartrate 25 MG Tablet 12.5 MG PO ×2 (08:58→22:25)
[2017-10-14] MEDS: Lisinopril 5 MG Tablet PO (09:00)
--- NOTE | 2017-10-14 09:57 | PCM.DC ---
- Discharge Diagnoses Current Active Problems: Current Active and Chronic Problems STEMI (ST elevation myocardial infarction) (Acute) Hyperlipidemia (Chronic) DM type 2 (diabetes mellitus, type 2) (Chronic) Reason(s) for Visit for Discharge Instructions: Chest pain You will use the following diet at home:: Calorie/Carbohydrate Controlled (specify 1200, 1400, etc), Cardiac Your food should be the consistency of: Regular Your liquids should be the consistency of: Regular/Thin Discharge Activity: Return to Normal Activity Allergies/Adverse Reactions: Allergies No Known Allergies Allergy (Verified 10/13/17 09:11) Medications to take at Discharge Cholecalciferol (Vitamin D3) [Vitamin D3] 1,000 unit PO DAILY 10/09/17 Levothyroxine [Synthroid] 75 mcg PO DAILY 10/09/17 Metformin HCl [Glucophage] 500 mg PO DAILY 10/09/17 Omeprazole [Prilosec] 20 mg PO BID 10/09/17 TraMADol [Ultram] 100 mg PO Q6H PRN PRN 10/09/17 Varenicline Tartrate [Chantix] 1 each PO UD 10/09/17 Aspirin E.C. [Ecotrin] 81 mg PO DAILY@0800 #30 tablet 10/14/17 Atorvastatin Calcium [Lipitor] 80 mg PO QHS #30 tablet 10/14/17 Lisinopril [Zestril] 5 mg PO DAILY #30 tablet 10/14/17 Metoprolol Tartrate [Lopressor (beta melania)] 12.5 mg PO BID #60 tablet 10/14/17 Ticagrelor [Brilinta] 90 mg PO BID #60 tablet 10/14/17 The following prescriptions were given: Aspirin E.C. [Ecotrin] 81 mg PO DAILY@0800 #30 tablet Atorvastatin Calcium [Lipitor] 80 mg PO QHS #30 tablet Lisinopril [Zestril] 5 mg PO DAILY #30 tablet Metoprolol Tartrate [Lopressor (beta melania)] 12.5 mg PO BID #60 tablet Ticagrelor [Brilinta] 90 mg PO BID #60 tablet Primary Care Physician: Reese Elizalde MD [Primary Care Provider] - Please follow up with your Primary Care Physician in: within 2 weeks Please Follow Up With: Robert Javed MD When: as scheduled Proposed Discharge Date: 10/14/17
--- NOTE | 2017-10-14 10:00 | PCM.PN.HOSP ---
Patient Problems: Active and Suspected Problems STEMI (ST elevation myocardial infarction) (Acute) Subjective: Patient was seen and examined. No new complains. Femstop kept in place; to be re-evaluated by cardiology. Denies chest pain, dizziness. Has back pain from lying flat the whole night. Objective: Physical Exam General: Alert, Oriented x3, Cooperative, No apparent distress HEENT: Atraumatic, PERRLA, EOMI, Normocephalic Oral: Moist Mucosa Neck: Supple Lungs: Clear to auscultation, Normal air movement Cardiovascular: Regular rate, Regular Rhythm, Normal S1, Normal S2, No murmurs Abdomen: Bowel Sounds Present, Soft, Non Tender, Non-Distended, No Hepato-splenomegaly Extremities: No edema, fem stop in right groin Skin: No rashes, No breakdown Musculoskeletal: No Tenderness to Palpation of Joints or Extremities Lymphatic: No Cervical, Supraclavicular, or Inguinal Adenopathy Neurological: Cranial nerves II-XII grossly intact Psych/Mental Status: Normal Affect, Appropriate Vitals/I&O's: Vital Signs Temp Pulse Resp BP Pulse Ox 97.7 F L 99 22 H 121/56 H 99 10/14/17 09:00 10/14/17 09:00 10/14/17 09:00 10/14/17 08:58 10/14/17 09:00 Oxygen Delivery Method Room Air Weight: 102.8 kg Body Mass Index (BMI) 38.7 Intake and Output for Last 24 Hours 10/12/17 10/13/17 10/14/17 23:59 23:59 23:59 Intake Total 1663.5 / 1663.5 400 / 400 Output Total 1950 / 1950 200 / 200 Balance -286.5 / -286.5 200 / 200 Laboratory Results 10/13/17 10:13: Activated Clotting Time 175 H 10/13/17 10:34: Activated Clotting Time 252 H 10/13/17 11:20: Total Creatine Kinase 165 10/13/17 11:20: WBC 11.1 H, RBC 4.30, Hgb 12.1, Hct 37.5, MCV 87.2, MCH 28.1, MCHC 32.3, RDW 14.1, RDW Differential 44.7 H, Plt Count 258, MPV 10.4 10/13/17 11:20: MRSA (PCR) Negative 10/13/17 12:44: Activated Clotting Time 164 H 10/13/17 13:41: Activated Clotting Time 147 H 10/13/17 13:55: Troponin I 2.05 H* 10/13/17 17:15: Total Creatine Kinase 181 10/13/17 17:15: WBC 11.6 H, RBC 4.68, Hgb 12.9, Hct 40.4, MCV 86.3, MCH 27.6, MCHC 31.9 L, RDW 14.2, RDW Differential 44.3 H, Plt Count 280, MPV 10.6 10/13/17 17:15: Troponin I 3.11 H* 10/13/17 18:14: POC Glucose 111 H 10/13/17 21:27: POC Glucose 130 H 10/13/17 21:45: Urine Color Yellow, Urine Clarity Cloudy, Urine pH 5.0, Ur Specific [place] 1.025, Urine Protein 30 H, Urine Glucose (UA) Normal, Urine Ketones 5 H, Urine Occult Blood 250 H, Urine Nitrite Negative, Urine Bilirubin Negative, Urine Urobilinogen 1 H, Ur Leukocyte Esterase 100 H, Urine RBC 50-100 SEEN, Urine WBC 10-25 SEEN, Ur Squamous Epith Cells 0 SEEN, Urine Bacteria RARE, Urine Mucus 0 SEEN 10/13/17 22:25: Total Creatine Kinase 195 H 10/13/17 22:25: WBC 12.1 H, RBC 4.56, Hgb 12.5, Hct 39.6, MCV 86.8, MCH 27.4, MCHC 31.6 L, RDW 14.3, RDW Differential 45.2 H, Plt Count 274, MPV 10.8 10/13/17 22:25: Troponin I 3.49 H* 10/14/17 03:50: WBC 11.2 H, RBC 4.51, Hgb 12.5, Hct 39.3, MCV 87.1, MCH 27.7, MCHC 31.8 L, RDW 14.3, RDW Differential 45.5 H, Plt Count 277, MPV 10.5 10/14/17 03:50: Sodium 138, Potassium 4.1, Chloride 105, Carbon Dioxide 24.0, Anion Gap 9, BUN 16, Creatinine 0.74, Estim Creat Clear Calc 75.48, Est GFR (MDRD) Af Amer 104, Est GFR (MDRD) Non-Af 86, BUN/Creatinine Ratio 21.5 H, Glucose 126 H, Calcium 8.4 L, Triglycerides 143, Cholesterol 146, LDL Cholesterol 78, VLDL Cholesterol 29, HDL Cholesterol 39 L 10/14/17 03:50: Troponin I 2.62 H* 10/14/17 06:41: POC Glucose 118 H Current Medications Aspirin (Ecotrin) 81 mg PO DAILY@0800 [facility] Last Admin: 10/14/17 08:57 Dose: 81 mg Atorvastatin Calcium (Lipitor) 80 mg PO QHS [facility] Last Admin: 10/13/17 21:25 Dose: 80 mg Atropine Sulfate () 0.5 mg IV UD PRN PRN Reason: HR <50 bpm Cholecalciferol (Vitamin D) 1,000 unit PO DAILY [facility] Last Admin: 10/14/17 08:57 Dose: 1,000 unit Dextrose (D50w Syringe) 0 gm IV X1 PRN; Protocol PRN Reason: Hypoglycemia Diazepam (Valium) 5 mg PO Q6H PRN PRN PRN Reason: BACK SPASMS/ANXIETY Glucagon () 1 mg IM .X1 PRN PRN Reason: Hypoglycemia Insulin Aspart (Novolog Flexpen (Bkc)) 0 units SC ACHS JAVIER PRN Reason: Protocol Last Admin: 10/14/17 06:43 Dose: Not Given Levothyroxine Sodium (Synthroid) 75 mcg PO DAILY@0600 [facility] Last Admin: 10/14/17 06:42 Dose: 75 mcg Lisinopril (Zestril) 5 mg PO DAILY [facility] Last Admin: 10/14/17 09:00 Dose: 5 mg Metoclopramide HCl (Reglan) 5 mg IV Q6H PRN PRN PRN Reason: NAUSEA/VOMITING Metoprolol Tartrate (Lopressor (Beta Daphnie)) 12.5 mg PO BID [facility] Last Admin: 10/14/17 08:58 Dose: 12.5 mg Pantoprazole Sodium (Protonix) 20 mg PO BID [facility] Last Admin: 10/14/17 08:57 Dose: 20 mg Sodium Chloride () 500 ml IV BOLUS PRN PRN Reason: VASO-VAGAL PROTOCOL Sodium Chloride () 5 - 30 ml IV UD PRN PRN Reason: SALINE FLUSH Last Admin: 10/14/17 06:43 Dose: 20 ml Ticagrelor (Brilinta) 90 mg PO BID [facility] Last Admin: 10/14/17 08:57 Dose: 90 mg Tramadol HCl (Ultram (G)) 100 mg PO Q6H PRN PRN PRN Reason: PAIN Last Admin: 10/14/17 00:46 Dose: 100 mg Assessment/Plan Active and Suspected Problems STEMI (ST elevation myocardial infarction) (Acute) 57 year old female with past medical history of DM type II, hypercholesterolemia, chronic smoker, positive family history of CAD(mom), [place] after the age of 50, who comes in with complaints of chest pain and shortness of breath. 1. Acute STEMI s/p PTCA, stent to the RCA, mid LAD has 80% stenosis, stable vitals, there is a plan for mid-LAD PCI in 3 weeks, on aspirin, brilinta, atorvastatin, lisinopril, managed in ICU, will transfer to PCU 2. Ischemic cardiomyopathy, EF 55%, no signs of active exacerbation 3. Hyperlipidemia, on statin 4. Hypothyroidism, on levothyroxine 5. Type 2DM, HbA1c 6.5, on metformin, BS are stable, will continue accucheks and ISS, metformin held. 6. Leucocytosis, likely reactive, slightly improved, 12.1 to 11.2. 7. DVT PPx - SCDs, early ambulation when able. Code Visit Inpatient E&M: 78160 Subs Hosp L2
--- NOTE | 2017-10-14 10:08 | PN_ITS ---
Patient Problems: Active and Suspected Problems STEMI (ST elevation myocardial infarction) (Acute) Subjective: Patient was seen and examined. No new complains. Femstop kept in place; to be re -evaluated by cardiology. Denies chest pain, dizziness. Has back pain from lying flat the whole night. Objective: Physical Exam General: Alert, Oriented x3, Cooperative, No apparent distress HEENT: Atraumatic, PERRLA, EOMI, Normocephalic Oral: Moist Mucosa Neck: Supple Lungs: Clear to auscultation, Normal air movement Cardiovascular: Regular rate, Regular Rhythm, Normal S1, Normal S2, No murmurs Abdomen: Bowel Sounds Present, Soft, Non Tender, Non-Distended, No Hepato- splenomegaly Extremities: No edema, fem stop in right groin Skin: No rashes, No breakdown Musculoskeletal: No Tenderness to Palpation of Joints or Extremities Lymphatic: No Cervical, Supraclavicular, or Inguinal Adenopathy Neurological: Cranial nerves II-XII grossly intact Psych/Mental Status: Normal Affect, Appropriate Vitals/I&O's: Vital Signs Temp Pulse Resp BP Pulse Ox 97.7 F L 99 22 H 121/56 H 99 10/14/17 09:00 10/14/17 09:00 10/14/17 09:00 10/14/17 08:58 10/14/17 09:00 Oxygen Delivery Method Room Air Weight: 102.8 kg Body Mass Index (BMI) 38.7 Intake and Output for Last 24 Hours 10/12/17 10/13/17 10/14/17 23:59 23:59 23:59 Intake Total 1663.5 / 1663.5 400 / 400 Output Total 1950 / 1950 200 / 200 Balance -286.5 / -286.5 200 / 200 Laboratory Results 10/13/17 10:13: Activated Clotting Time 175 H 10/13/17 10:34: Activated Clotting Time 252 H 10/13/17 11:20: Total Creatine Kinase 165 10/13/17 11:20: WBC 11.1 H, RBC 4.30, Hgb 12.1, Hct 37.5, MCV 87.2, MCH 28.1, MCHC 32.3, RDW 14.1, RDW Differential 44.7 H, Plt Count 258, MPV 10.4 10/13/17 11:20: MRSA (PCR) Negative 10/13/17 12:44: Activated Clotting Time 164 H 10/13/17 13:41: Activated Clotting Time 147 H 10/13/17 13:55: Troponin I 2.05 H* 10/13/17 17:15: Total Creatine Kinase 181 10/13/17 17:15: WBC 11.6 H, RBC 4.68, Hgb 12.9, Hct 40.4, MCV 86.3, MCH 27.6, MCHC 31.9 L, RDW 14.2, RDW Differential 44.3 H, Plt Count 280, MPV 10.6 10/13/17 17:15: Troponin I 3.11 H* 10/13/17 18:14: POC Glucose 111 H 10/13/17 21:27: POC Glucose 130 H 10/13/17 21:45: Urine Color Yellow, Urine Clarity Cloudy, Urine pH 5.0, Ur Specific [place] 1.025, Urine Protein 30 H, Urine Glucose (UA) Normal, Urine Ketones 5 H, Urine Occult Blood 250 H, Urine Nitrite Negative, Urine Bilirubin Negative, Urine Urobilinogen 1 H, Ur Leukocyte Esterase 100 H, Urine RBC 50-100 SEEN, Urine WBC 10-25 SEEN, Ur Squamous Epith Cells 0 SEEN, Urine Bacteria RARE , Urine Mucus 0 SEEN 10/13/17 22:25: Total Creatine Kinase 195 H 10/13/17 22:25: WBC 12.1 H, RBC 4.56, Hgb 12.5, Hct 39.6, MCV 86.8, MCH 27.4, MCHC 31.6 L, RDW 14.3, RDW Differential 45.2 H, Plt Count 274, MPV 10.8 10/13/17 22:25: Troponin I 3.49 H* 10/14/17 03:50: WBC 11.2 H, RBC 4.51, Hgb 12.5, Hct 39.3, MCV 87.1, MCH 27.7, MCHC 31.8 L, RDW 14.3, RDW Differential 45.5 H, Plt Count 277, MPV 10.5 10/14/17 03:50: Sodium 138, Potassium 4.1, Chloride 105, Carbon Dioxide 24.0, Anion Gap 9, BUN 16, Creatinine 0.74, Estim Creat Clear Calc 75.48, Est GFR ( MDRD) Af Amer 104, Est GFR (MDRD) Non-Af 86, BUN/Creatinine Ratio 21.5 H, Glucose 126 H, Calcium 8.4 L, Triglycerides 143, Cholesterol 146, LDL Cholesterol 78, VLDL Cholesterol 29, HDL Cholesterol 39 L 10/14/17 03:50: Troponin I 2.62 H* 10/14/17 06:41: POC Glucose 118 H Current Medications Aspirin (Ecotrin) 81 mg PO DAILY@0800 [facility] Last Admin: 10/14/17 08:57 Dose: 81 mg Atorvastatin Calcium (Lipitor) 80 mg PO QHS [facility] Last Admin: 10/13/17 21:25 Dose: 80 mg Atropine Sulfate () 0.5 mg IV UD PRN PRN Reason: HR <50 bpm Cholecalciferol (Vitamin D) 1,000 unit PO DAILY [facility] Last Admin: 10/14/17 08:57 Dose: 1,000 unit Dextrose (D50w Syringe) 0 gm IV X1 PRN; Protocol PRN Reason: Hypoglycemia Diazepam (Valium) 5 mg PO Q6H PRN PRN PRN Reason: BACK SPASMS/ANXIETY Glucagon () 1 mg IM .X1 PRN PRN Reason: Hypoglycemia Insulin Aspart (Novolog Flexpen (Bkc)) 0 units SC ACHS JAVIER PRN Reason: Protocol Last Admin: 10/14/17 06:43 Dose: Not Given Levothyroxine Sodium (Synthroid) 75 mcg PO DAILY@0600 [facility] Last Admin: 10/14/17 06:42 Dose: 75 mcg Lisinopril (Zestril) 5 mg PO DAILY [facility] Last Admin: 10/14/17 09:00 Dose: 5 mg Metoclopramide HCl (Reglan) 5 mg IV Q6H PRN PRN PRN Reason: NAUSEA/VOMITING Metoprolol Tartrate (Lopressor (Beta Daphnie)) 12.5 mg PO BID [facility] Last Admin: 10/14/17 08:58 Dose: 12.5 mg Pantoprazole Sodium (Protonix) 20 mg PO BID [facility] Last Admin: 10/14/17 08:57 Dose: 20 mg Sodium Chloride () 500 ml IV BOLUS PRN PRN Reason: VASO-VAGAL PROTOCOL Sodium Chloride () 5 - 30 ml IV UD PRN PRN Reason: SALINE FLUSH Last Admin: 10/14/17 06:43 Dose: 20 ml Ticagrelor (Brilinta) 90 mg PO BID [facility] Last Admin: 10/14/17 08:57 Dose: 90 mg Tramadol HCl (Ultram (G)) 100 mg PO Q6H PRN PRN PRN Reason: PAIN Last Admin: 10/14/17 00:46 Dose: 100 mg Assessment/Plan Active and Suspected Problems STEMI (ST elevation myocardial infarction) (Acute) 57 year old female with past medical history of DM type II, hypercholesterolemia , chronic smoker, positive family history of CAD(mom), [place] after the age of 50, who comes in with complaints of chest pain and shortness of breath. 1. Acute STEMI s/p PTCA, stent to the RCA, mid LAD has 80% stenosis, stable vitals, there is a plan for mid-LAD PCI in 3 weeks, on aspirin, brilinta, atorvastatin, lisinopril, managed in ICU, will transfer to PCU 2. Ischemic cardiomyopathy, EF 55%, no signs of active exacerbation 3. Hyperlipidemia, on statin 4. Hypothyroidism, on levothyroxine 5. Type 2DM, HbA1c 6.5, on metformin, BS are stable, will continue accucheks and ISS, metformin held. 6. Leucocytosis, likely reactive, slightly improved, 12.1 to 11.2. 7. DVT PPx - SCDs, early ambulation when able. Code Visit Inpatient E&M: 74779 Subs Hosp L2
--- NOTE | 2017-10-14 10:12 | NURSING ---
notified dr donnelly trop 2.62, no further orders received
--- NOTE | 2017-10-14 10:39 | ECHOCS_ITS ---
Version 2 Reason For Study: CAD/ASHD Procedure This was a 2D Doppler, Color Flow transthoracic echocardiogram. The exam was of poor technical quality due to body habitus. The study was technically difficult. Contrast injection was performed. Exam performed portable in ICU/CCU. Left Ventricle Normal LV size. Segmental dysfunction with preserved ejection fraction (see wall motion). The estimated ejection fraction is 65 %. Transmitral doppler flow suggestive of impaired relaxation of left ventricle. Infero-Basal: Severely Hypokinetic. Basal inferoseptal: Hypokinetic. Mid-Inferior: Hypokinetic. Right Ventricle Normal RV size. Normal systolic function. Atria Normal left atrium. Normal right atrium. No doppler evidence for ASD. Mitral Valve There is no mitral annular calcification. Normal mitral valve. Trivial mitral valve insufficiency. Tricuspid Valve Normal tricuspid valve. Trivial tricuspid valve insufficiency. Unable to estimate RV systolic pressure/pulmonary artery pressure due to technically difficult study. Aortic Valve Trisinus/trileaflet aortic valve. Normal aortic valve. Pulmonic Valve The pulmonic valve is not well visualized. Great Vessels Normal sized aortic root. Pericardium/Pleural No pericardial effusion. Medication Definity0.3ml given slow IV push to enhance endocardial definition. MMode/2D Measurements & Calculations LVIDd: 3.4 cm IVSd: 1.2 cm Ao root diam: 2.9 cm LVIDs: 2.4 cm LVPWd: 1.2 cm LA dimension: 3.6 cm RVDd: 2.9 cm FS: 31.2 % LAV(MOD-bp): 14.3 ml LA A4 area: 7.7 cm2 RA A4 area: 8.4 cm2 LAV(MOD-bp) Indexed: 6.9 ml/m2 LAV(MOD-sp2): 17.8 ml LAV(MOD-sp4): 11.2 ml Doppler Measurements & Calculations MV E max himanshu: 53.9 cm/sec Lat Peak E' Himanshu: 10.3 cm/sec Med Peak E' Himanshu: 5.8 cm/sec MV A max himanshu: 75.2 cm/sec E/E' lat: 5.2 E/E' med: 9.3 MV E/A: 0.72 Ao V2 max: 140.1 cm/sec LV V1 max: 105.7 cm/sec PA V2 max: 64.2 cm/sec Ao max P.8 mmHg LV V1 max P.5 mmHg Ao V2 mean: 95.4 cm/sec Ao mean P.0 mmHg Ao V2 VTI: 22.5 cm Interpretation Summary The study was technically difficult. Contrast injection was performed. Segmental dysfunction with preserved ejection fraction (see wall motion). The estimated ejection fraction is 65 %. Trivial mitral valve insufficiency. Trivial tricuspid valve insufficiency. Unable to estimate RV systolic pressure/pulmonary artery pressure due to technically difficult study. Transmitral doppler flow suggestive of impaired relaxation of left ventricle Ordering Physician: Robert Javed Referring Physician: Reese Elizalde Performed By: Margaux Dye RDCS, RVT
[2017-10-14 11:46] LABS: Bedside Glucose 171 mg/dL (70-110)
--- NOTE | 2017-10-14 13:18 | PCM.PN.CARD ---
Subjectve: The patient is awake and alert. She notes overall she feels better other than chronic back discomfort from being supine for prolonged period of time. She is not having any ongoing chest discomfort or difficulty breathing. She has had no adverse complications from her cardiovascular catheterization site-right femoral artery area. Objective: Vital Signs Temp Pulse Resp BP Pulse Ox 97.9 F 97 19 H 116/73 96 10/14/17 12:00 10/14/17 12:00 10/14/17 12:00 10/14/17 12:00 10/14/17 12:00 Oxygen Delivery Method Room Air Weight: 226 lb 10.163 oz Body Mass Index (BMI) 38.7 Intake and Output for Last 24 Hours 10/12/17 10/13/17 10/14/17 23:59 23:59 23:59 Intake Total 1663.5 / 1663.5 700 / 700 Output Total 1950 / 1950 350 / 350 Balance -286.5 / -286.5 350 / 350 General: Awake, Alert, Oriented x 3, Cooperative, No Acute Distress, Obese Neck: No JVD Lungs: Clear to auscultation Cardiovascular: Regular Rhythm, Normal S1, Normal S2 Vascular: Normal Femoral Pulses Abdomen: Bowel Sounds Present, Soft, Non Tender Extremities: No edema 10/13/17 13:55: Troponin I 2.05 H* 10/13/17 17:15: WBC 11.6 H, RBC 4.68, Hgb 12.9, Hct 40.4, MCV 86.3, MCH 27.6, MCHC 31.9 L, RDW 14.2, RDW Differential 44.3 H, Plt Count 280, MPV 10.6 10/13/17 17:15: Troponin I 3.11 H* 10/13/17 21:45: Urine Color Yellow, Urine Clarity Cloudy, Urine pH 5.0, Ur Specific [place] 1.025, Urine Protein 30 H, Urine Glucose (UA) Normal, Urine Ketones 5 H, Urine Occult Blood 250 H, Urine Nitrite Negative, Urine Bilirubin Negative, Urine Urobilinogen 1 H, Ur Leukocyte Esterase 100 H, Urine RBC 50-100 SEEN, Urine WBC 10-25 SEEN 10/13/17 22:25: WBC 12.1 H, RBC 4.56, Hgb 12.5, Hct 39.6, MCV 86.8, MCH 27.4, MCHC 31.6 L, RDW 14.3, RDW Differential 45.2 H, Plt Count 274, MPV 10.8 10/13/17 22:25: Troponin I 3.49 H* 10/14/17 03:50: WBC 11.2 H, RBC 4.51, Hgb 12.5, Hct 39.3, MCV 87.1, MCH 27.7, MCHC 31.8 L, RDW 14.3, RDW Differential 45.5 H, Plt Count 277, MPV 10.5 10/14/17 03:50: Sodium 138, Potassium 4.1, Chloride 105, Carbon Dioxide 24.0, Anion Gap 9, BUN 16, Creatinine 0.74, Est GFR (MDRD) Af Amer 104, Est GFR (MDRD) Non-Af 86, BUN/Creatinine Ratio 21.5 H, Glucose 126 H, Calcium 8.4 L, Triglycerides 143, Cholesterol 146, LDL Cholesterol 78, VLDL Cholesterol 29, HDL Cholesterol 39 L 10/14/17 03:50: Troponin I 2.62 H* Rhythm: Sinus rhythm EKG: Sinus rhythm; inferior LA of indeterminate age cannot be excluded ECHO: Preliminary evaluation: Left ventricle: Regional wall motion abnormalities-inferior with overall preserved LVEF of 65%: Please see official report Cardiac Cath: Please see official report PCI: Please see official report Assessment/Plan 1. Acute inferior ST segment elevation [place] The patient presented with an acute inferior ST segment elevation [place]. She underwent urgent/emergent diagnostic cardiac catheterization. This demonstrated an RCA lesion that required PCI. She appears to be symptomatically improved. Her cardiac enzymes are being followed. They are decreasing. Her ECG is being followed. She has had a transthoracic echocardiogram as noted above. At the present time she will continue medical management. This will include a combination of aspirin, antiplatelets, nitrates as needed, beta-blockers, afterload reducing agents as deemed appropriate, and lipid-lowering agents. The patient will be transferred from the ICU to the PCU. She will be followed. Over time she will be considered for discharge home for continued outpatient cardiovascular follow-up. 2. CAD The patient does have underlying CAD. She has undergone evaluation care as noted above. However, she does have an LAD lesion that will require a staged PCI. This is to be arranged by Dr. Javed to be performed in the near future barring unforeseen events in the interim. In the interim she will continue medical management as noted above. 3. Hyperlipidemia The patient will need to continue lipid-lowering therapy. 4. Diabetes mellitus The patient will continue under the care of her primary care physician. Comment: The above was discussed and reviewed with the patient and her spouse. This note was generated with [employer] software. It may contain incorrect words, spelling, and punctuation that were not noted in checking the note before signing.
--- NOTE | 2017-10-14 13:23 | PN.CARD_ITS ---
Subjectve: The patient is awake and alert. She notes overall she feels better other than chronic back discomfort from being supine for prolonged period of time. She is not having any ongoing chest discomfort or difficulty breathing. She has had no adverse complications from her cardiovascular catheterization site-right femoral artery area. Objective: Vital Signs Temp Pulse Resp BP Pulse Ox 97.9 F 97 19 H 116/73 96 10/14/17 12:00 10/14/17 12:00 10/14/17 12:00 10/14/17 12:00 10/14/17 12:00 Oxygen Delivery Method Room Air Weight: 226 lb 10.163 oz Body Mass Index (BMI) 38.7 Intake and Output for Last 24 Hours 10/12/17 10/13/17 10/14/17 23:59 23:59 23:59 Intake Total 1663.5 / 1663.5 700 / 700 Output Total 1950 / 1950 350 / 350 Balance -286.5 / -286.5 350 / 350 General: Awake, Alert, Oriented x 3, Cooperative, No Acute Distress, Obese Neck: No JVD Lungs: Clear to auscultation Cardiovascular: Regular Rhythm, Normal S1, Normal S2 Vascular: Normal Femoral Pulses Abdomen: Bowel Sounds Present, Soft, Non Tender Extremities: No edema 10/13/17 13:55: Troponin I 2.05 H* 10/13/17 17:15: WBC 11.6 H, RBC 4.68, Hgb 12.9, Hct 40.4, MCV 86.3, MCH 27.6, MCHC 31.9 L, RDW 14.2, RDW Differential 44.3 H, Plt Count 280, MPV 10.6 10/13/17 17:15: Troponin I 3.11 H* 10/13/17 21:45: Urine Color Yellow, Urine Clarity Cloudy, Urine pH 5.0, Ur Specific [place] 1.025, Urine Protein 30 H, Urine Glucose (UA) Normal, Urine Ketones 5 H, Urine Occult Blood 250 H, Urine Nitrite Negative, Urine Bilirubin Negative, Urine Urobilinogen 1 H, Ur Leukocyte Esterase 100 H, Urine RBC 50-100 SEEN, Urine WBC 10-25 SEEN 10/13/17 22:25: WBC 12.1 H, RBC 4.56, Hgb 12.5, Hct 39.6, MCV 86.8, MCH 27.4, MCHC 31.6 L, RDW 14.3, RDW Differential 45.2 H, Plt Count 274, MPV 10.8 10/13/17 22:25: Troponin I 3.49 H* 10/14/17 03:50: WBC 11.2 H, RBC 4.51, Hgb 12.5, Hct 39.3, MCV 87.1, MCH 27.7, MCHC 31.8 L, RDW 14.3, RDW Differential 45.5 H, Plt Count 277, MPV 10.5 10/14/17 03:50: Sodium 138, Potassium 4.1, Chloride 105, Carbon Dioxide 24.0, Anion Gap 9, BUN 16, Creatinine 0.74, Est GFR (MDRD) Af Amer 104, Est GFR (MDRD ) Non-Af 86, BUN/Creatinine Ratio 21.5 H, Glucose 126 H, Calcium 8.4 L, Triglycerides 143, Cholesterol 146, LDL Cholesterol 78, VLDL Cholesterol 29, HDL Cholesterol 39 L 10/14/17 03:50: Troponin I 2.62 H* Rhythm: Sinus rhythm EKG: Sinus rhythm; inferior [place] of indeterminate age cannot be excluded ECHO: Preliminary evaluation: Left ventricle: Regional wall motion abnormalities -inferior with overall preserved LVEF of 65%: Please see official report Cardiac Cath: Please see official report PCI: Please see official report Assessment/Plan 1. Acute inferior ST segment elevation [place] The patient presented with an acute inferior ST segment elevation [place]. She underwent urgent/emergent diagnostic cardiac catheterization. This demonstrated an RCA lesion that required PCI. She appears to be symptomatically improved. Her cardiac enzymes are being followed. They are decreasing. Her ECG is being followed. She has had a transthoracic echocardiogram as noted above. At the present time she will continue medical management. This will include a combination of aspirin, antiplatelets, nitrates as needed, beta-blockers, afterload reducing agents as deemed appropriate, and lipid-lowering agents. The patient will be transferred from the ICU to the PCU. She will be followed. Over time she will be considered for discharge home for continued outpatient cardiovascular follow-up. 2. CAD The patient does have underlying CAD. She has undergone evaluation care as noted above. However, she does have an LAD lesion that will require a staged PCI. This is to be arranged by Dr. Javed to be performed in the near future barring unforeseen events in the interim. In the interim she will continue medical management as noted above. 3. Hyperlipidemia The patient will need to continue lipid-lowering therapy. 4. Diabetes mellitus The patient will continue under the care of her primary care physician. Comment: The above was discussed and reviewed with the patient and her spouse. This note was generated with [employer] software. It may contain incorrect words, spelling, and punctuation that were not noted in checking the note before signing.
--- NOTE | 2017-10-14 14:00 | NURSING ---
report called to [facility] for transfer to room 108
[2017-10-14 16:41] LABS: Bedside Glucose 105 mg/dL (70-110)
[2017-10-14 16:52] LABS: Hematocrit 40.4 % (37-47); Hemoglobin 12.9 g/dl (12.0-15.0); Mean Corp Hgb Conc 31.9 g/gl (32-36); Mean Corpuscular Hgb 27.9 pg (27.0-32.0); Mean Corpuscular Volume 87.4 fL (81-99); Mean Platelet Vol. 10.8 fl (6.2-12.0); Platelet Count 257 K/mm3 (150-450); RBC Distribution Width CV 14.5 % (11.6-14.6); RBC Distribution Width SD 46.3 fl (35.1-43.9); Red Blood Count 4.62 M/mm3 (4.2-5.4); White Blood Count 13.3 K/mm3 (4.4-11.0)
[2017-10-14 16:53] LABS: Scan Indicated on CBC? Y/N NO
[2017-10-14] MEDS: Atorvastatin Calcium 80 MG Tablet PO (22:25)
[2017-10-14 22:41] LABS: Bedside Glucose 126 mg/dL (70-110)
[2017-10-15] VITALS (15 sets, daily range): BP systolic 111–122; BP diastolic 61–74; PULSE 78–97; RESP 14–18; TEMP 36.4–36.8; O2SAT 95–96
[2017-10-15] MEDS: Levothyroxine 75 MCG Tablet PO (05:22)
--- NOTE | 2017-10-15 05:55 | EKG12_ITS ---
Test Reason : AM EKG Blood Pressure : / mmHG Vent. Rate : 085 BPM Atrial Rate : 085 BPM P-R Int : 144 ms QRS Dur : 084 ms QT Int : 382 ms P-R-T Axes : 032 -27 031 degrees QTc Int : 454 ms Normal sinus rhythm Inferior infarct , age undetermined Abnormal ECG When compared with ECG of 14-OCT-2017 04:52, MANUAL COMPARISON REQUIRED, DATA IS UNCONFIRMED Confirmed by ROSLYN PETERSEN, CONNER ([id number]), editor news GRETCHEN TRUONG ([id number]) on 10/17/2017 2:01:23 PM Referred By: Robert Javed Confirmed By:CONNER MCGOWAN MD
[2017-10-15 07:06] LABS: Bedside Glucose 116 mg/dL (70-110)
[2017-10-15] MEDS: Aspirin E.C. 81 MG Tablet PO (08:21)
[2017-10-15] MEDS: Metoprolol Tartrate 25 MG Tablet 12.5 MG PO ×2 (10:33→21:48)
[2017-10-15] MEDS: Pantoprazole Sodium 20 MG Tablet PO ×2 (10:33→21:50)
[2017-10-15] MEDS: TICAGRELOR 90 MG TABLET PO ×2 (10:33→21:50)
[2017-10-15] MEDS: Lisinopril 5 MG Tablet PO (10:33)
[2017-10-15 11:01] LABS: Bedside Glucose 153 mg/dL (70-110)
--- NOTE | 2017-10-15 13:12 | PCM.PN.CARD ---
Subjectve: The patient is awake and alert. She states she is feeling better overall. She is not complaining of recurrent chest discomfort, etc. She has been up in the chair. She has had limited ambulation in the hallway. Objective: Vital Signs Temp Pulse Resp BP Pulse Ox 98.3 F 89 16 111/64 96 10/15/17 10:30 10/15/17 11:08 10/15/17 10:30 10/15/17 10:33 10/15/17 10:30 Oxygen Delivery Method Room Air Weight: 226 lb 10.163 oz Body Mass Index (BMI) 38.7 Intake and Output for Last 24 Hours 10/13/17 10/14/17 10/15/17 23:59 23:59 23:59 Intake Total 1663.5 / 1663.5 940 / 940 890 / 890 Output Total 1950 / 1950 350 / 350 Balance -286.5 / -286.5 590 / 590 890 / 890 General: Awake, Alert, Oriented x 3, Cooperative, No Acute Distress, Obese Neck: No JVD Lungs: Clear to auscultation Cardiovascular: Regular Rhythm, Normal S1, Normal S2, Positive S4 Vascular: No Carotid Bruits Abdomen: Bowel Sounds Present, Soft, Non Tender Extremities: No edema 10/14/17 16:30: WBC 13.3 H, RBC 4.62, Hgb 12.9, Hct 40.4, MCV 87.4, MCH 27.9, MCHC 31.9 L, RDW 14.5, RDW Differential 46.3 H, Plt Count 257, MPV 10.8 Rhythm: Sinus rhythm EKG: Sinus rhythm; leftward axis; poor R-wave progression; inferior FL of indeterminate age-possibly recent ECHO: Left ventricle: Left ventricular regional wall motion abnormality; estimated LVEF of 65%; trivial TR; decreased diastolic compliance Assessment/Plan 1. Acute inferior ST segment elevation [place] The patient presented with an acute inferior ST segment elevation [place]. She underwent urgent/emergent diagnostic cardiac catheterization. This demonstrated an RCA lesion that required PCI. She appears to be symptomatically improved. Her cardiac enzymes are being followed. They are decreasing. Her ECG is being followed. She has had a transthoracic echocardiogram as noted above. At the present time she will continue medical management. This will include a combination of aspirin, antiplatelets, nitrates as needed, beta-blockers, afterload reducing agents as deemed appropriate, and lipid-lowering agents. The patient will continue medical management. She will continue to be up and ambulating. She will be followed. 2. CAD The patient does have underlying CAD. She has undergone evaluation care as noted above. However, she does have an LAD lesion that will require a staged PCI. This is to be arranged by Dr. Javed to be performed in the near future barring unforeseen events in the interim. In the interim she will continue medical management as noted above. 3. Hyperlipidemia The patient will need to continue lipid-lowering therapy. 4. Diabetes mellitus The patient will continue under the care of her primary care physician. Overall, the tentative plan will be for continued monitoring, medical therapy, up and ambulating, and follow-up with the whole that if the patient continues to progress in a positive fashion she will be able to be released home on 10/16/2017. He will then need continued outpatient cardiovascular follow-up, staged PCI to the LAD, and subsequent cardiac rehabilitation therapy. Comment: The above was discussed and reviewed with the patient. This note was generated with [employer] dictation software. It may contain incorrect words, spelling, and punctuation that were not noted in checking the note before signing.
--- NOTE | 2017-10-15 13:17 | PN.CARD_ITS ---
Subjectve: The patient is awake and alert. She states she is feeling better overall. She is not complaining of recurrent chest discomfort, etc. She has been up in the chair. She has had limited ambulation in the hallway. Objective: Vital Signs Temp Pulse Resp BP Pulse Ox 98.3 F 89 16 111/64 96 10/15/17 10:30 10/15/17 11:08 10/15/17 10:30 10/15/17 10:33 10/15/17 10:30 Oxygen Delivery Method Room Air Weight: 226 lb 10.163 oz Body Mass Index (BMI) 38.7 Intake and Output for Last 24 Hours 10/13/17 10/14/17 10/15/17 23:59 23:59 23:59 Intake Total 1663.5 / 1663.5 940 / 940 890 / 890 Output Total 1950 / 1950 350 / 350 Balance -286.5 / -286.5 590 / 590 890 / 890 General: Awake, Alert, Oriented x 3, Cooperative, No Acute Distress, Obese Neck: No JVD Lungs: Clear to auscultation Cardiovascular: Regular Rhythm, Normal S1, Normal S2, Positive S4 Vascular: No Carotid Bruits Abdomen: Bowel Sounds Present, Soft, Non Tender Extremities: No edema 10/14/17 16:30: WBC 13.3 H, RBC 4.62, Hgb 12.9, Hct 40.4, MCV 87.4, MCH 27.9, MCHC 31.9 L, RDW 14.5, RDW Differential 46.3 H, Plt Count 257, MPV 10.8 Rhythm: Sinus rhythm EKG: Sinus rhythm; leftward axis; poor R-wave progression; inferior [place] of indeterminate age-possibly recent ECHO: Left ventricle: Left ventricular regional wall motion abnormality; estimated LVEF of 65%; trivial TR; decreased diastolic compliance Assessment/Plan 1. Acute inferior ST segment elevation [place] The patient presented with an acute inferior ST segment elevation [place]. She underwent urgent/emergent diagnostic cardiac catheterization. This demonstrated an RCA lesion that required PCI. She appears to be symptomatically improved. Her cardiac enzymes are being followed. They are decreasing. Her ECG is being followed. She has had a transthoracic echocardiogram as noted above. At the present time she will continue medical management. This will include a combination of aspirin, antiplatelets, nitrates as needed, beta-blockers, afterload reducing agents as deemed appropriate, and lipid-lowering agents. The patient will continue medical management. She will continue to be up and ambulating. She will be followed. 2. CAD The patient does have underlying CAD. She has undergone evaluation care as noted above. However, she does have an LAD lesion that will require a staged PCI. This is to be arranged by Dr. Javed to be performed in the near future barring unforeseen events in the interim. In the interim she will continue medical management as noted above. 3. Hyperlipidemia The patient will need to continue lipid-lowering therapy. 4. Diabetes mellitus The patient will continue under the care of her primary care physician. Overall, the tentative plan will be for continued monitoring, medical therapy, up and ambulating, and follow-up with the whole that if the patient continues to progress in a positive fashion she will be able to be released home on 2017. He will then need continued outpatient cardiovascular follow-up, staged PCI to the LAD, and subsequent cardiac rehabilitation therapy. Comment: The above was discussed and reviewed with the patient. This note was generated with [employer] dictation software. It may contain incorrect words, spelling, and punctuation that were not noted in checking the note before signing.
--- NOTE | 2017-10-15 13:25 | PCM.PN.HOSP ---
Patient Problems: Active and Suspected Problems STEMI (ST elevation myocardial infarction) (Acute) Subjective: Patient was seen and examined. no new complains. Been ambulating without chest pain or SOB. No acute events on telemetry. Objective: Physical Exam General: Alert, Oriented x3, Cooperative, No apparent distress HEENT: Atraumatic, PERRLA, EOMI, Normocephalic Oral: Moist Mucosa Neck: Supple Lungs: Clear to auscultation, Normal air movement Cardiovascular: Regular rate, Regular Rhythm, Normal S1, Normal S2, No murmurs Abdomen: Bowel Sounds Present, Soft, Non Tender, Non-Distended, No Hepato-splenomegaly Extremities: No edema, fem stop in right groin Skin: No rashes, No breakdown Musculoskeletal: No Tenderness to Palpation of Joints or Extremities Lymphatic: No Cervical, Supraclavicular, or Inguinal Adenopathy Neurological: Cranial nerves II-XII grossly intact Psych/Mental Status: Normal Affect, Appropriate Vitals/I&O's: Vital Signs Temp Pulse Resp BP Pulse Ox 98.3 F 89 16 111/64 96 10/15/17 10:30 10/15/17 11:08 10/15/17 10:30 10/15/17 10:33 10/15/17 10:30 Oxygen Delivery Method Room Air Weight: 102.8 kg Body Mass Index (BMI) 38.7 Intake and Output for Last 24 Hours 10/13/17 10/14/17 10/15/17 23:59 23:59 23:59 Intake Total 1663.5 / 1663.5 940 / 940 890 / 890 Output Total 1950 / 1950 350 / 350 Balance -286.5 / -286.5 590 / 590 890 / 890 Laboratory Results 10/14/17 16:30: WBC 13.3 H, RBC 4.62, Hgb 12.9, Hct 40.4, MCV 87.4, MCH 27.9, MCHC 31.9 L, RDW 14.5, RDW Differential 46.3 H, Plt Count 257, MPV 10.8 10/14/17 16:38: POC Glucose 105 10/14/17 22:29: POC Glucose 126 H 10/15/17 06:50: POC Glucose 116 H 10/15/17 10:48: POC Glucose 153 H Current Medications Aspirin (Ecotrin) 81 mg PO DAILY@0800 [facility] Last Admin: 10/15/17 08:21 Dose: 81 mg Atorvastatin Calcium (Lipitor) 80 mg PO QHS [facility] Last Admin: 10/14/17 22:25 Dose: 80 mg Atropine Sulfate () 0.5 mg IV UD PRN PRN Reason: HR <50 bpm Cholecalciferol (Vitamin D) 1,000 unit PO DAILY [facility] Last Admin: 10/15/17 10:33 Dose: 1,000 unit Dextrose (D50w Syringe) 0 gm IV X1 PRN; Protocol PRN Reason: Hypoglycemia Diazepam (Valium) 5 mg PO Q6H PRN PRN PRN Reason: BACK SPASMS/ANXIETY Glucagon () 1 mg IM .X1 PRN PRN Reason: Hypoglycemia Insulin Aspart (Novolog Flexpen (Bkc)) 0 units SC ACHS JAVIER PRN Reason: Protocol Last Admin: 10/15/17 11:50 Dose: Not Given Levothyroxine Sodium (Synthroid) 75 mcg PO DAILY@0600 [facility] Last Admin: 10/15/17 05:22 Dose: 75 mcg Lisinopril (Zestril) 5 mg PO DAILY [facility] Last Admin: 10/15/17 10:33 Dose: 5 mg Metoclopramide HCl (Reglan) 5 mg IV Q6H PRN PRN PRN Reason: NAUSEA/VOMITING Metoprolol Tartrate (Lopressor (Beta Daphnie)) 12.5 mg PO BID [facility] Last Admin: 10/15/17 10:33 Dose: 12.5 mg Pantoprazole Sodium (Protonix) 20 mg PO BID [facility] Last Admin: 10/15/17 10:33 Dose: 20 mg Sodium Chloride () 500 ml IV BOLUS PRN PRN Reason: VASO-VAGAL PROTOCOL Sodium Chloride () 5 - 30 ml IV UD PRN PRN Reason: SALINE FLUSH Last Admin: 10/14/17 22:27 Dose: 10 ml Ticagrelor (Brilinta) 90 mg PO BID [facility] Last Admin: 10/15/17 10:33 Dose: 90 mg Tramadol HCl (Ultram (G)) 100 mg PO Q6H PRN PRN PRN Reason: PAIN Last Admin: 10/14/17 18:31 Dose: 100 mg Assessment/Plan Active and Suspected Problems STEMI (ST elevation myocardial infarction) (Acute) 57 year old female with past medical history of DM type II, hypercholesterolemia, chronic smoker, positive family history of CAD(mom), [place] after the age of 50, who comes in with complaints of chest pain and shortness of breath. 1. Acute STEMI s/p PTCA, stent to the RCA, mid LAD has 80% stenosis, plan for mid-LAD PCI in 3 weeks, on aspirin, brilinta, atorvastatin, lisinopril, no acute events, will continue to monitor per cardiology recommendations. 2. Ischemic cardiomyopathy, EF 55%, no signs of active exacerbation 3. Hyperlipidemia, on statin 4. Hypothyroidism, on levothyroxine 5. Type 2DM, HbA1c 6.5, on metformin, BS are stable, on accucheks and ISS, metformin held during this admission 6. Leucocytosis, likely reactive 7. DVT PPx - SCDs, early ambulation when able. Code Visit Inpatient E&M: 17692 Subs Hosp L2
[2017-10-15 15:13] LABS: Anion Gap 9 (5-15); BUN 17 mg/dL (7-18); BUN/Creat Ratio 20.5 RATIO (10-20); Calcium,Total 8.7 mg/dL (8.5-10.1); Chloride 105 mmol/L (98-107); Creatinine, Serum 0.83 mg/dL (0.55-1.02); EST Glomerular Filtration Rate 75 mL/min (>60); Est Glom Filt Rate - Afr Amer 91 mL/min (>60); Estimated Creatinine Clearance 67.29 ml/min; Glucose 123 mg/dL (74-106); Sodium Level 139 mmol/L (136-145)
[2017-10-15 17:21] LABS: Bedside Glucose 97 mg/dL (70-110)
[2017-10-15] MEDS: 0.9% NaCl Peripheral Flush Adult/Peds IV (17:22)
[2017-10-15] MEDS: Atorvastatin Calcium 80 MG Tablet PO (21:50)
[2017-10-15 22:16] LABS: Bedside Glucose 111 mg/dL (70-110)
[2017-10-16] VITALS (7 sets, daily range): BP systolic 110–115; BP diastolic 55–72; PULSE 74–97; RESP 18; TEMP 36.3–36.6; O2SAT 94–95
--- NOTE | 2017-10-16 05:55 | EKG12_ITS ---
Test Reason : AM Blood Pressure : / mmHG Vent. Rate : 079 BPM Atrial Rate : 079 BPM P-R Int : 150 ms QRS Dur : 084 ms QT Int : 402 ms P-R-T Axes : 032 -22 011 degrees QTc Int : 460 ms Normal sinus rhythm Inferior infarct , age undetermined Abnormal ECG When compared with ECG of 15-OCT-2017 05:38, MANUAL COMPARISON REQUIRED, DATA IS UNCONFIRMED Confirmed by ROSLYN PETERSEN, CONNER ([id number]), editor & co founder GRETCHEN TRUONG ([id number]) on 10/17/2017 2:00:50 PM Referred By: Robert Javed Confirmed By:CONNER MCGOWAN MD
[2017-10-16 06:07] LABS: Absolute Lymphocyte Count 3.08 X10^3/ul (0.83-4.51); Absolute Neutrophil Count 6.2 X10^3/uL (2.0-7.7); Basophil# 0.03 X10^3/uL; Basophil% 0.3 % (0-1); Eosinophil# 0.15 X10^3/uL; Eosinophils% 1.5 % (0-5); Hematocrit 38.3 % (37-47); Hemoglobin 12.1 g/dl (12.0-15.0); Lymphocyte # 3.08 X10^3/ul (4.0); Mean Corp Hgb Conc 31.6 g/gl (32-36); Mean Corpuscular Hgb 27.4 pg (27.0-32.0); Mean Corpuscular Volume 86.7 fL (81-99); Mean Platelet Vol. 10.8 fl (6.2-12.0); Monocyte# 0.52 X10^3/uL; Monocyte% 5.2 % (0-10); Neutrophil # 6.15 X10^3/uL (2.7-7.7); Neutrophil % 61.8 % (47-70); Platelet Count 256 K/mm3 (150-450); RBC Distribution Width CV 14.3 % (11.6-14.6); RBC Distribution Width SD 44.9 fl (35.1-43.9); Red Blood Count 4.42 M/mm3 (4.2-5.4)
[2017-10-16] MEDS: Levothyroxine 75 MCG Tablet PO (06:12)
[2017-10-16 06:31] LABS: POSITIVE COUNT NO; POSITIVE DIFFERENTIAL NO; POSITIVE MORPHOLOGY NO
[2017-10-16 07:05] LABS: Bedside Glucose 116 mg/dL (70-110)
[2017-10-16 07:25] LABS: BUN 15 mg/dL (7-18); Creatinine, Serum 0.72 mg/dL (0.55-1.02); Estimated Creatinine Clearance 77.57 ml/min; Glucose 114 mg/dL (74-106)
[2017-10-16 07:26] LABS: Anion Gap 9 (5-15); BUN/Creat Ratio 20.9 RATIO (10-20); Calcium,Total 8.9 mg/dL (8.5-10.1); Chloride 106 mmol/L (98-107); EST Glomerular Filtration Rate 89 mL/min (>60); Est Glom Filt Rate - Afr Amer 108 mL/min (>60); Potassium 3.9 mmol/L (3.5-5.1); Sodium Level 140 mmol/L (136-145)
[2017-10-16] MEDS: Metoprolol Tartrate 25 MG Tablet PO (08:48)
[2017-10-16] MEDS: TICAGRELOR 90 MG TABLET PO (08:48)
[2017-10-16] MEDS: Aspirin E.C. 81 MG Tablet PO (08:48)
[2017-10-16] MEDS: Pantoprazole Sodium 20 MG Tablet PO (08:48)
[2017-10-16] MEDS: Lisinopril 5 MG Tablet PO (08:48)
--- NOTE | 2017-10-16 09:31 | DCINST_ITS ---
- Discharge Diagnoses Current Active Problems: Current Active and Chronic Problems STEMI (ST elevation myocardial infarction) (Acute) Hyperlipidemia (Chronic) DM type 2 (diabetes mellitus, type 2) (Chronic) You will use the following diet at home:: Calorie/Carbohydrate Controlled ( specify 1200, 1400, etc) - 1800 Jossue ADA diet Discharge Activity: May not drive while taking narcotic pain medications. Allergies/Adverse Reactions: Allergies No Known Allergies Allergy (Verified 10/13/17 09:11) Medications to take at Discharge Cholecalciferol (Vitamin D3) [Vitamin D3] 1,000 unit PO DAILY 10/09/17 Levothyroxine [Synthroid] 75 mcg PO DAILY 10/09/17 Metformin HCl [Glucophage] 500 mg PO DAILY 10/09/17 Omeprazole [Prilosec] 20 mg PO BID 10/09/17 TraMADol [Ultram] 100 mg PO Q6H PRN PRN 10/09/17 Varenicline Tartrate [Chantix] 1 each PO UD 10/09/17 Aspirin E.C. [Ecotrin] 81 mg PO DAILY@0800 #30 tablet 10/14/17 Atorvastatin Calcium [Lipitor] 80 mg PO QHS #30 tablet 10/14/17 Lisinopril [Zestril] 5 mg PO DAILY #30 tablet 10/14/17 Ticagrelor [Brilinta] 90 mg PO BID #60 tablet 10/14/17 Metoprolol Tartrate 25 mg PO BID #60 tab 10/16/17 The following prescriptions were given: Aspirin E.C. [Ecotrin] 81 mg PO DAILY@0800 #30 tablet Atorvastatin Calcium [Lipitor] 80 mg PO QHS #30 tablet Lisinopril [Zestril] 5 mg PO DAILY #30 tablet Metoprolol Tartrate 25 mg PO BID #60 tab Ticagrelor [Brilinta] 90 mg PO BID #60 tablet Primary Care Physician: Reese Elizalde MD [Primary Care Provider] - Please follow up with your Primary Care Physician in: in 2 weeks Please Follow Up With: Jose Clarke MD When: in 2-3 weeks for staged PCI in 3 weeks
--- NOTE | 2017-10-16 09:39 | PCM.PN.CARD ---
Subjectve: The patient remains awake and alert. She has been up and ambulating in the hallways without difficulty. She has had no new complaints of chest discomfort or difficulty breathing. Objective: Vital Signs Temp Pulse Resp BP Pulse Ox 97.9 F 97 18 115/72 94 10/16/17 08:42 10/16/17 08:48 10/16/17 08:56 10/16/17 08:42 10/16/17 08:42 Oxygen Delivery Method Room Air Weight: 223 lb 5.252 oz Body Mass Index (BMI) 38.7 Intake and Output for Last 24 Hours 10/14/17 10/15/17 10/16/17 23:59 23:59 23:59 Intake Total 940 / 940 1260 / 1260 Output Total 350 / 350 Balance 590 / 590 1260 / 1260 General: Awake, Alert, Oriented x 3, Cooperative, No Acute Distress Lungs: Clear to auscultation Cardiovascular: Regular Rhythm, Normal S1, Normal S2, Positive S4 Vascular: Normal Femoral Pulses Abdomen: Bowel Sounds Present, Soft, Non Tender Extremities: No edema 10/15/17 14:30: Sodium 139, Potassium 4.0, Chloride 105, Carbon Dioxide 25.0, Anion Gap 9, BUN 17, Creatinine 0.83, Est GFR (MDRD) Af Amer 91, Est GFR (MDRD) Non-Af 75, BUN/Creatinine Ratio 20.5 H, Glucose 123 H, Calcium 8.7 10/16/17 05:25: Sodium 140, Potassium 3.9, Chloride 106, Carbon Dioxide 25.0, Anion Gap 9, BUN 15, Creatinine 0.72, Est GFR (MDRD) Af Amer 108, Est GFR (MDRD) Non-Af 89, BUN/Creatinine Ratio 20.9 H, Glucose 114 H, Calcium 8.9 10/16/17 05:25: WBC 10.0, RBC 4.42, Hgb 12.1, Hct 38.3, MCV 86.7, MCH 27.4, MCHC 31.6 L, RDW 14.3, RDW Differential 44.9 H, Plt Count 256, MPV 10.8, Immature Gran % (Auto) 0.200, Neut % (Auto) 61.8, Lymph % (Auto) 31.0, Mccreary % (Auto) 5.2, Eos % (Auto) 1.5, Baso % (Auto) 0.3, Absolute Neuts (auto) 6.2, Total Counted Not Reportable Rhythm: Sinus rhythm EKG: Sinus rhythm; inferior DC of indeterminate age-possibly recent ECHO: As previously noted Assessment/Plan 1. Acute inferior ST segment elevation [place] The patient presented with an acute inferior ST segment elevation [place]. She underwent urgent/emergent diagnostic cardiac catheterization. This demonstrated an RCA lesion that required PCI. She appears to be symptomatically improved. At the present time she will continue medical management. This will include a combination of aspirin, antiplatelets, nitrates as needed, beta-blockers, afterload reducing agents as deemed appropriate, and lipid-lowering agents. Her beta-melania dose is being adjusted. 2. CAD The patient does have underlying CAD. She has undergone evaluation care as noted above. However, she does have an LAD lesion that will require a staged PCI. This is to be arranged by Dr. Javed to be performed in the near future barring unforeseen events in the interim. In the interim she will continue medical management as noted above. 3. Hyperlipidemia The patient will need to continue lipid-lowering therapy. 4. Diabetes mellitus The patient will continue under the care of her primary care physician. At the present time the patient does appear to be symptomatically improved. She will continue medical management. The tentative plan is for discharge home for continued outpatient cardiovascular follow-up and staged PCI of the LAD under the direction of Dr. Javed. Comment: The above was discussed and reviewed with the patient and her spouse. This note was generated with [employer] software. It may contain incorrect words, spelling, and punctuation that were not noted in checking the note before signing.
--- NOTE | 2017-10-16 09:44 | PN.CARD_ITS ---
Subjectve: The patient remains awake and alert. She has been up and ambulating in the hallways without difficulty. She has had no new complaints of chest discomfort or difficulty breathing. Objective: Vital Signs Temp Pulse Resp BP Pulse Ox 97.9 F 97 18 115/72 94 10/16/17 08:42 10/16/17 08:48 10/16/17 08:56 10/16/17 08:42 10/16/17 08:42 Oxygen Delivery Method Room Air Weight: 223 lb 5.252 oz Body Mass Index (BMI) 38.7 Intake and Output for Last 24 Hours 10/14/17 10/15/17 10/16/17 23:59 23:59 23:59 Intake Total 940 / 940 1260 / 1260 Output Total 350 / 350 Balance 590 / 590 1260 / 1260 General: Awake, Alert, Oriented x 3, Cooperative, No Acute Distress Lungs: Clear to auscultation Cardiovascular: Regular Rhythm, Normal S1, Normal S2, Positive S4 Vascular: Normal Femoral Pulses Abdomen: Bowel Sounds Present, Soft, Non Tender Extremities: No edema 10/15/17 14:30: Sodium 139, Potassium 4.0, Chloride 105, Carbon Dioxide 25.0, Anion Gap 9, BUN 17, Creatinine 0.83, Est GFR (MDRD) Af Amer 91, Est GFR (MDRD) Non-Af 75, BUN/Creatinine Ratio 20.5 H, Glucose 123 H, Calcium 8.7 10/16/17 05:25: Sodium 140, Potassium 3.9, Chloride 106, Carbon Dioxide 25.0, Anion Gap 9, BUN 15, Creatinine 0.72, Est GFR (MDRD) Af Amer 108, Est GFR (MDRD ) Non-Af 89, BUN/Creatinine Ratio 20.9 H, Glucose 114 H, Calcium 8.9 10/16/17 05:25: WBC 10.0, RBC 4.42, Hgb 12.1, Hct 38.3, MCV 86.7, MCH 27.4, MCHC 31.6 L, RDW 14.3, RDW Differential 44.9 H, Plt Count 256, MPV 10.8, Immature Gran % (Auto) 0.200, Neut % (Auto) 61.8, Lymph % (Auto) 31.0, Clinch % ( Auto) 5.2, Eos % (Auto) 1.5, Baso % (Auto) 0.3, Absolute Neuts (auto) 6.2, Total Counted Not Reportable Rhythm: Sinus rhythm EKG: Sinus rhythm; inferior [place] of indeterminate age-possibly recent ECHO: As previously noted Assessment/Plan 1. Acute inferior ST segment elevation [place] The patient presented with an acute inferior ST segment elevation [place]. She underwent urgent/emergent diagnostic cardiac catheterization. This demonstrated an RCA lesion that required PCI. She appears to be symptomatically improved. At the present time she will continue medical management. This will include a combination of aspirin, antiplatelets, nitrates as needed, beta-blockers, afterload reducing agents as deemed appropriate, and lipid-lowering agents. Her beta-melania dose is being adjusted. 2. CAD The patient does have underlying CAD. She has undergone evaluation care as noted above. However, she does have an LAD lesion that will require a staged PCI. This is to be arranged by Dr. Javed to be performed in the near future barring unforeseen events in the interim. In the interim she will continue medical management as noted above. 3. Hyperlipidemia The patient will need to continue lipid-lowering therapy. 4. Diabetes mellitus The patient will continue under the care of her primary care physician. At the present time the patient does appear to be symptomatically improved. She will continue medical management. The tentative plan is for discharge home for continued outpatient cardiovascular follow-up and staged PCI of the LAD under the direction of Dr. Javed. Comment: The above was discussed and reviewed with the patient and her spouse. This note was generated with [employer] software. It may contain incorrect words, spelling, and punctuation that were not noted in checking the note before signing.
--- NOTE | 2017-10-16 09:56 | CASEMGMT ---
Addendum entered by Sigrid Mallika 10/16/17 10:40: [facility] until tomorrow. Per pt, she would like Brilinta script transferred to [facility] retail pharm at this time so that they can pharmacy picking tech on their way out. Call to [facility] and they ask to have [facility] retail pharmacy to call them and get script transferred. Call to Bryan at [facility] retail pharm, made aware of situation and he states that he will call [facility] to get script transferred at this time. Florentin BARNES CM Original Note: Chart reviewed. Pt to be sent home on Brilinta and already has Brinlinta savings card. Pt states has been a 1pack/day smoker for over 30 years but states is no longer going to smoke now that she has had [facility]. Pt states drinks occasionally. 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 Pt states has CPAP at home from [employer] but does not use consistently. Pt states has the following specialists: Kirk, CHERELLE Clarke, and now [facility]. Pt states no further DME or need for any further DME at this time. Pt states living will and HPOA on file, as they brought them in on Monday and they were copied and placed on chart. Pt does inquire about having FMLA paperwork completed and advised pt to take paperwork to Dr. Elizalde or to Dr. Javed's office, voices understanding. Pt/ state no further concerns/needs at this time. Florentin BRANES CM
--- NOTE | 2017-10-16 15:06 | PCM.DC.SUM ---
Discharge Date and Diagnosis Date of Admission: 10/13/17 Date of Discharge: 10/16/17 - Primary Discharge Diagnosis 1. Acute inferior wall STEMI s/p PTCA, stent to the RCA, mid LAD has 80% stenosis: - Secondary Discharge Diagnosis Chronic Problems Hyperlipidemia (Chronic) DM type 2 (diabetes mellitus, type 2) (Chronic) Hypothyroidism following radioiodine therapy (Chronic) Hospital Course and Treatment Summary of Care Provided: The patient is a 57 year old female with past medical history of DM type II, hypercholesterolemia, chronic smoker, positive family history of CAD(mom), [place] after the age of 50, who comes in with complaints of chest pain and shortness of breath. 1. Acute inferior wall STEMI s/p PTCA, stent to the RCA, mid LAD has 80% stenosis: Patient was directly transferred to the propagator laborer from ER and then admitted in ICU. Patient was seen by the open cut examiner. Dose of beta-daphnie, metoprolol increased to 25 mg twice daily. Plan for mid-LAD PCI in 3 weeks, on aspirin, brilinta, atorvastatin, lisinopril. Discussed with the open cut examiner. Patient to follow-up with Dr. Javed in 2-3 weeks for staged PCI of mid LAD. 2. 2D echo was done and shows EF 65%. Inferobasal, mid inferior was hypokinetic. 3. Hyperlipidemia, on statin 4. Hypothyroidism, on levothyroxine 5. Type 2DM, HbA1c 6.5, on metformin, BS are stable, on accucheks and ISS, metformin held during this admission. Metformin resumed. 6. Leucocytosis, likely reactive 7. DVT PPx - SCDs, early ambulation when able. Discharge medication reconciliation done. Prescription sent to the pharmacy. Follow-up discharge instructions given to the patient and discussed with the patient and her . Total time spent more than 35 minutes in the discharge process and communication. Discharge Activity: May not drive while taking narcotic pain medications. Home Medications: Medications to take at Discharge Cholecalciferol (Vitamin D3) [Vitamin D3] 1,000 unit PO DAILY 10/09/17 Levothyroxine [Synthroid] 75 mcg PO DAILY 10/09/17 Metformin HCl [Glucophage] 500 mg PO DAILY 10/09/17 Omeprazole [Prilosec] 20 mg PO BID 10/09/17 TraMADol [Ultram] 100 mg PO Q6H PRN PRN 10/09/17 Varenicline Tartrate [Chantix] 1 each PO UD 10/09/17 Aspirin E.C. [Ecotrin] 81 mg PO DAILY@0800 #30 tab 10/14/17 Atorvastatin Calcium [Lipitor] 80 mg PO QHS #30 tab 10/14/17 Lisinopril [Zestril] 5 mg PO DAILY #30 tab 10/14/17 Ticagrelor [Brilinta] 90 mg PO BID #60 tab 10/14/17 Metoprolol Tartrate 25 mg PO BID #60 tab 10/16/17 Following Prescrptions Were Given to Patient: Aspirin E.C. [Ecotrin] 81 mg PO DAILY@0800 #30 tab Atorvastatin Calcium [Lipitor] 80 mg PO QHS #30 tab Lisinopril [Zestril] 5 mg PO DAILY #30 tab Metoprolol Tartrate 25 mg PO BID #60 tab Ticagrelor [Brilinta] 90 mg PO BID #60 tab Primary Care Physician: Reese Elizalde MD [Primary Care Provider] - Please follow up with your Primary Care Physician in: in 2 weeks Please Follow Up With: Jose Clarke MD When: in 2-3 weeks for staged PCI in 3 weeks Meaningful Use Info Meaningful Use Diagnoses (Choose all that apply): AMI - AMI Aspirin given w/in 24hrs of arrival?: Yes ASA at discharge?: Yes Statins at discharge?: Yes Gilmer/ARB at discharge?: Yes Beta Daphnie at discharge?: Yes Done w/ Acute [place] measure.: Yes Code Visit Inpatient E&M: 54655 Disch Hosp
--- NOTE | 2017-10-16 15:15 | DS.PCM_ITS ---
Discharge Date and Diagnosis Date of Admission: 10/13/17 Date of Discharge: 10/16/17 - Primary Discharge Diagnosis 1. Acute inferior wall STEMI s/p PTCA, stent to the RCA, mid LAD has 80% stenosis: - Secondary Discharge Diagnosis Chronic Problems Hyperlipidemia (Chronic) DM type 2 (diabetes mellitus, type 2) (Chronic) Hypothyroidism following radioiodine therapy (Chronic) Hospital Course and Treatment Summary of Care Provided: The patient is a 57 year old female with past medical history of DM type II, hypercholesterolemia, chronic smoker, positive family history of CAD(mom), [place] after the age of 50, who comes in with complaints of chest pain and shortness of breath. 1. Acute inferior wall STEMI s/p PTCA, stent to the RCA, mid LAD has 80% stenosis: Patient was directly transferred to the grinding and polishing laborer from ER and then admitted in ICU. Patient was seen by the email administrator. Dose of beta-daphnie, metoprolol increased to 25 mg twice daily. Plan for mid-LAD PCI in 3 weeks, on aspirin, brilinta, atorvastatin, lisinopril. Discussed with the email administrator. Patient to follow-up with Dr. Javed in 2-3 weeks for staged PCI of mid LAD. 2. 2D echo was done and shows EF 65%. Inferobasal, mid inferior was hypokinetic. 3. Hyperlipidemia, on statin 4. Hypothyroidism, on levothyroxine 5. Type 2DM, HbA1c 6.5, on metformin, BS are stable, on accucheks and ISS, metformin held during this admission. Metformin resumed. 6. Leucocytosis, likely reactive 7. DVT PPx - SCDs, early ambulation when able. Discharge medication reconciliation done. Prescription sent to the pharmacy. Follow-up discharge instructions given to the patient and discussed with the patient and her . Total time spent more than 35 minutes in the discharge process and communication. Discharge Activity: May not drive while taking narcotic pain medications. Home Medications: Medications to take at Discharge Cholecalciferol (Vitamin D3) [Vitamin D3] 1,000 unit PO DAILY 10/09/17 Levothyroxine [Synthroid] 75 mcg PO DAILY 10/09/17 Metformin HCl [Glucophage] 500 mg PO DAILY 10/09/17 Omeprazole [Prilosec] 20 mg PO BID 10/09/17 TraMADol [Ultram] 100 mg PO Q6H PRN PRN 10/09/17 Varenicline Tartrate [Chantix] 1 each PO UD 10/09/17 Aspirin E.C. [Ecotrin] 81 mg PO DAILY@0800 #30 tab 10/14/17 Atorvastatin Calcium [Lipitor] 80 mg PO QHS #30 tab 10/14/17 Lisinopril [Zestril] 5 mg PO DAILY #30 tab 10/14/17 Ticagrelor [Brilinta] 90 mg PO BID #60 tab 10/14/17 Metoprolol Tartrate 25 mg PO BID #60 tab 10/16/17 Following Prescrptions Were Given to Patient: Aspirin E.C. [Ecotrin] 81 mg PO DAILY@0800 #30 tab Atorvastatin Calcium [Lipitor] 80 mg PO QHS #30 tab Lisinopril [Zestril] 5 mg PO DAILY #30 tab Metoprolol Tartrate 25 mg PO BID #60 tab Ticagrelor [Brilinta] 90 mg PO BID #60 tab Primary Care Physician: Reese Elizalde MD [Primary Care Provider] - Please follow up with your Primary Care Physician in: in 2 weeks Please Follow Up With: Jose Clarke MD When: in 2-3 weeks for staged PCI in 3 weeks Meaningful Use Info Meaningful Use Diagnoses (Choose all that apply): AMI - AMI Aspirin given w/in 24hrs of arrival?: Yes ASA at discharge?: Yes Statins at discharge?: Yes Gilmer/ARB at discharge?: Yes Beta Daphnie at discharge?: Yes Done w/ Acute [place] measure.: Yes Code Visit Inpatient E&M: 55200 Disch Hosp
== END 2017-10-16 10:15 | disposition home or self-care (01) | DRG 247 ==
LOC: ED 10:00 → ICU 10:06 → PCU 10-14 14:26
PROVIDERS: Internal Medicine Cardiovascular Disease; Admitting Provider Internal Medicine Cardiovascular Disease; Emergency Provider Emergency Medicine; Family Provider Family Medicine; PCP Family Medicine; Visit Provider Internal Medicine
DX: I21.19 ST elevation (STEMI) myocardial infarction involving other coronary artery of inferior wall (principal); E03.9 Hypothyroidism, unspecified; I25.110 Atherosclerotic heart disease of native coronary artery with unstable angina pectoris; E11.9 Type 2 diabetes mellitus without complications; E78.5 Hyperlipidemia, unspecified; I25.5 Ischemic cardiomyopathy; F17.200 Nicotine dependence, unspecified, uncomplicated; Z79.84 Long term (current) use of oral hypoglycemic drugs; Z82.49 Family history of ischemic heart disease and other diseases of the circulatory system
CPT/HCPCS: 36415; 71045; 80048; 80061; 81001; 82550; 82962; 84484; 85025; 85027; 85347; 87641; 92941; 93005; 93306; 93458; 99284; 99406; J7030; Q9957; A4216; C1725; C1769; C1874; C1887; C1894; C8929; C9606; J1327; Q9967

== ENCOUNTER → 2017-10-18 10:44 | Outpatient (CLI) | payer BC, SELFPAY ==
[2017-10-13 12:02] VITALS: BMI 38.5
[2017-10-18 11:55] LABS: Absolute Lymphocyte Count 1.98 X10^3/ul (0.83-4.51); Absolute Neutrophil Count 5.2 X10^3/uL (2.0-7.7); Basophil# 0.02 X10^3/uL; Basophil% 0.3 % (0-1); Eosinophil# 0.11 X10^3/uL; Eosinophils% 1.4 % (0-5); Hemoglobin 12.5 g/dl (12.0-15.0); Lymphocyte # 1.98 X10^3/ul (4.0); Mean Corp Hgb Conc 32.1 g/gl (32-36); Mean Corpuscular Hgb 27.7 pg (27.0-32.0); Mean Corpuscular Volume 86.5 fL (81-99); Mean Platelet Vol. 11.4 fl (6.2-12.0); Monocyte# 0.35 X10^3/uL; Monocyte% 4.6 % (0-10); Neutrophil # 5.15 X10^3/uL (2.7-7.7); Neutrophil % 67.6 % (47-70); Platelet Count 306 K/mm3 (150-450); RBC Distribution Width CV 14.1 % (11.6-14.6); RBC Distribution Width SD 43.2 fl (35.1-43.9); Red Blood Count 4.51 M/mm3 (4.2-5.4); White Blood Count 7.6 K/mm3 (4.4-11.0)
[2017-10-18 11:56] LABS: POSITIVE COUNT NO; POSITIVE DIFFERENTIAL NO; POSITIVE MORPHOLOGY NO
[2017-10-18 12:00] LABS: Prothrombin Time (Protime)PT. 12.9 SECONDS (11.7-14.9)
[2017-10-18 12:15] LABS: Anion Gap 11 (5-15); BUN 17 mg/dL (7-18); BUN/Creat Ratio 23.2 RATIO (10-20); Calcium,Total 8.9 mg/dL (8.5-10.1); Chloride 106 mmol/L (98-107); Creatinine, Serum 0.73 mg/dL (0.55-1.02); EST Glomerular Filtration Rate 87 mL/min (>60); Est Glom Filt Rate - Afr Amer 105 mL/min (>60); Glucose 133 mg/dL (74-106); Sodium Level 139 mmol/L (136-145)
== END ==
PROVIDERS: Family Provider Family Medicine; PCP Family Medicine; Visit Provider Internal Medicine Cardiovascular Disease
DX: I25.10 Atherosclerotic heart disease of native coronary artery without angina pectoris (principal); I21.3 ST elevation (STEMI) myocardial infarction of unspecified site; E11.9 Type 2 diabetes mellitus without complications; Z95.5 Presence of coronary angioplasty implant and graft
CPT/HCPCS: 36415; 80048; 85025; 85610

== ENCOUNTER → 2017-10-20 14:09 | Outpatient (CLI) | payer BC, SELFPAY ==
[2017-10-13 12:02] VITALS: BMI 38.5
--- NOTE | 2017-10-20 14:44 | ADUL_ITS ---
Reason For Study: S/P injury to vessels, R/O pseudoaneurym Right Velocities Left Velocities RT TENNIS NET MAKER 0.78 x 0.78 cm. LEFT TENNIS NET MAKER 0.85 x 0.85 cm. Ext. Iliac Artery, dist = 151.3 cm./sec. Common Femoral Artery, mid = 99.0 cm./sec. Common Femoral Artery, mid = 112.9 cm./sec. Supf Femoral Artery, prox = 108.4 cm./sec. Profunda Femoral Artery = 92.7 cm./sec. NO evidence of pseudoaneurysm or fistula. Interpretation Summary 1. No pseudoaneurysm or fistula. Ordering Physician: Dao Dye Referring Physician: Dao Dye Performed By: Mayte Coker, RDCS, RVT
== END ==
PROVIDERS: Family Provider Family Medicine; PCP Family Medicine; Visit Provider Nurse Practitioner Family
DX: T14.8XXA Other injury of unspecified body region, initial encounter (principal)
CPT/HCPCS: 93926

== ENCOUNTER 2017-11-02 07:50 | Day surgery (SDC) | payer BC, SELFPAY ==
[2017-10-13 12:02] VITALS: BMI 38.5
[2017-11-02] VITALS (27 sets, daily range): BP systolic 92–149; BP diastolic 39–92; PULSE 63–91; RESP 14–22; TEMP 36.6–37.2; O2SAT 93–98; BMI 37.5
--- NOTE | 2017-11-02 09:25 | CL.I_ITS ---
Patient Name: MC MICHAEL Study Date: 11/02/2017 Performing: Robert Javed MD Ht: 65 inches 165.1 cm : 1960 Wt: 230.01 lbs 104.33 kg Age: 57 Gender: female BSA: 2.1 PROCEDURE(S) PERFORMED [id number] W OR WO PTCA, SINGLE CORONARY ARTERY [id number], CORONARY OR GRAFT, INITIAL VESSEL CLINICAL PROFILE AND CO-MORBIDITIES Angina Classification Anginal Classification w/in 2 Weeks: CCS IV CAD Presentations: No Sxs, no angina. Comorbidities/Risk Factors: Hypertension Dyslipidemia Prior AK Prior PCI Diabetes Mellitus: Diabetes Therapy: Oral CONCLUSIONS Successful PTCA/JASSI of the of mid LAD with a 3.0 x 16 Promus Synergy, post dilated with a 3.0 x 8 NC balloon, stent placement confirmed with IVUS; no evidence of proximal stent edge dissection. RECOMMENDATIONS Highly recommend quitting all tobacco products Follow up with primary bander operator Risk factor modification ASA Indefinitley Plavix for at least 12 months Routine post interventional care Refer for Outpatient Cardiac Rehab Manual sheath removal per protocol Follow up with Dr. Jvaed DESCRIPTION OF PROCEDURE The patient arrived to the procedure lab. The risks and benefits of the procedure as well as a full d escription of our services here and current unavailability of surgical backup were fully explained to the patient and/or their significant other prior to the catheterization. The Timeout was completed, verifying the correct patient and procedure. The patient's procedural site was prepped and draped in the usual fashion. Local anesthetic was given subcutaneously to right groin region with Lidocaine 2%. Using a modified Seldinger technique, arterial access was obtained via the right femoral artery, a 6 Fr sheath was inserted.. ebu 3.75 Guide catheter was inserted and engaged into the LCA. bmw Guide wire was advanced to the LAD . emerge 2.0x12 Balloon catheter was inserted. Angiogram performed pre balloon dilatation. PTCA ballo on inflated at 8 atms for 13 secs PTCA balloon inflated at 10 atms for 10 secs Angiogram performed po st balloon dilatation. synergy 3.0x16 Drug Eluting stent was inserted Angiogram performed post stent deployment. nc emerge 3.00x8 Balloon catheter was inserted. Angiogram performed pre balloon dilatatio n. PTCA balloon inflated at 12 atms for 9 secs PTCA balloon inflated at 14 atms for 12 secs Angiogram performed post balloon dilatation. IVUS pullback recording was performed on the LAD for post PCI as sessment. . The arterial sheath was sutured in place and capped. INTERVENTION INFORMATION LESION SITE: LAD (Mid) Lesion Complexity: Non-High/Non-C, lesion at bifurcation: No, thrombus present: No, lesion length: 16 mm Pre Stenosis: 75 % Pre intervention ISI flow: 3 PROCEDURE: Drug Eluting Stent with pre and post dilatation Post Stenosis: 0 % Post intervention ISI flow: 3 Lesion Devices: Mercari 6 Fr EBU3.75 100cm Guide Catheter Edward Sci EMERGE MR 2.00x12 BALLOON Edward Sci Synergy MR JASSI 3.00x16 Edward Sci NC EMERGE MR 3.00x08 BALLOON COMPLICATIONS No Complications PROCEDURE MEDICATIONS Oxygen: 2 L/min via nasal cannula Heparin 6000 unit(s) IV 11/02/2017 08:48:13 Nitro 200 mcg IC 11/02/2017 08:53:59 IV Bolus: .9 NaCl 500 ml total 11/02/2017 08:48:57 SUMMARY OF HEMODYNAMIC DATA Time AIR REST ECG 08:10:25 AO 96/54 (71) SA 08:49:16 Signed By Robert Javed MD On 11/02/2017 09:24:26 Robert Javed MD
--- NOTE | 2017-11-02 09:30 | EKG12_ITS ---
Test Reason : POST PCI Blood Pressure : / mmHG Vent. Rate : 064 BPM Atrial Rate : 064 BPM P-R Int : 156 ms QRS Dur : 092 ms QT Int : 432 ms P-R-T Axes : 009 -14 -10 degrees QTc Int : 445 ms Normal sinus rhythm Inferior infarct (cited on or before 09-OCT-2017) Abnormal ECG When compared with ECG of 16-OCT-2017 04:58, No significant change was found Confirmed by ROSLYN PETERSEN, CONNER ([id number]), purchasing expeditor GRETCHEN TRUONG ([id number]) on 11/08/2017 1:53:45 PM Referred By: Robert Javed Confirmed By:CONNER MCGOWAN MD
[2017-11-02 09:36] LABS: ACT Activated Clotting Time 191 sec (74-137)
[2017-11-02] MEDS: 0.9% Normal Saline 1,000 ML 150 ML IV (10:04)
[2017-11-02 11:26] LABS: ACT Activated Clotting Time 136 sec (74-137)
[2017-11-02 13:43] LABS: M R Staph aureus DNA By PCR Negative (Negative); Probe Check PASS; Specimen Processing Control PASS
[2017-11-02 14:35] LABS: Hematocrit 38.7 % (37-47); Hemoglobin 12.3 g/dl (12.0-15.0); Mean Corp Hgb Conc 31.8 g/gl (32-36); Mean Corpuscular Hgb 27.5 pg (27.0-32.0); Mean Corpuscular Volume 86.6 fL (81-99); Mean Platelet Vol. 10.9 fl (6.2-12.0); Platelet Count 234 K/mm3 (150-450); RBC Distribution Width SD 44.1 fl (35.1-43.9); Red Blood Count 4.47 M/mm3 (4.2-5.4); Scan Indicated on CBC? Y/N NO; White Blood Count 7.3 K/mm3 (4.4-11.0)
[2017-11-02 14:52] LABS: CPK Total, Creatine Kinase 108 U/L (26-192)
[2017-11-02 15:20] LABS: Bedside Glucose 135 mg/dL (70-110)
--- NOTE | 2017-11-02 15:34 | NURSING ---
resuming care of patient at 1515 report received from lamine BARNES
[2017-11-02] MEDS: 0.9% NaCl Peripheral Flush Adult/Peds IV (15:58)
--- NOTE | 2017-11-02 17:39 | DCINST_ITS ---
Discharge Diet: Low fat/ Low Cholesterol Discharge Activity: Return to Normal Activity May shower in (days): 1 May resume sexual activity in: 1-2 weeks Lifting Restrictions: Do not lift anything greater than 10 pounds for three days Call your doctor if your incision/area has: Continuous Slow Oozing, Sudden Increased Bleeding, Increased Pain/ Swelling, Increased Redness, Foul Smelling Discharge, Swelling at the incision site Call your doctor if you observe: Fever of 101 or Higher, Shortness of breath, Chest pain Remove Dressing in (days):: 1 Cleanse incision/area with: Soap & Water Additional Instructions: You will be on Brilinta for at least one year. You will be on Aspirin for life. If anyone asks you to stop your Brilinta, please call our office, , first. We will see you in the [facility] Office on December 19, 2017 at 10:30 AM. You will see Nurse Patrice Practitioner, for further evaluation. You may receive a phone call from cardiac rehab first. Allergies/Adverse Reactions: Allergies No Known Allergies Allergy (Verified 10/13/17 09:11) Medications to take at Discharge Cholecalciferol (Vitamin D3) [Vitamin D3] 1,000 unit PO DAILY 10/09/17 Levothyroxine [Synthroid] 75 mcg PO DAILY 10/09/17 Metformin HCl [Glucophage] 500 mg PO DAILY 10/09/17 Omeprazole [Prilosec] 20 mg PO BID 10/09/17 TraMADol [Ultram] 100 mg PO Q6H PRN PRN 10/09/17 Aspirin E.C. [Ecotrin] 81 mg PO DAILY@0800 #30 tab 10/14/17 Atorvastatin Calcium [Lipitor] 80 mg PO QHS #30 tab 10/14/17 Ticagrelor [Brilinta] 90 mg PO BID #60 tab 10/14/17 Lisinopril [Zestril] 5 mg PO DAILY 11/02/17 Metoprolol Tartrate 25 mg PO BID 11/02/17 Primary Care Physician: Reese Elizalde MD [Primary Care Provider] - Please Follow Up With: Dao Dye Nurse Practitioner When: [facility] Office December 19, 2017 at 10:30 AM Cardiac Rehabilitation Info Cardiac Rehabilitation Program Information: Cardiac Rehabilitation is important for patients like you who are recovering from a heart problem. Cardiac rehabilitation programs are recognized as integral to the continued care of the patient with coronary heart disease. The cardiac rehabilitation program is designed to optimize a patient's physical, psychological, and social functioning. Health healthcare administration intern work in cardiac rehabilitation programs and assist you with getting the treatments you need to get stronger and healthier - like exercise, healthy eating habits, and medications. Cardiac rehabilitation has been show to help people with heart problems live longer and have better life enjoyment than people who do not go to cardiac rehabilitation. Please contact the Cardiac Rehabilitation Program at [facility] at in two weeks if you have not heard from them.
[2017-11-02] MEDS: TICAGRELOR 90 MG TABLET PO (20:38)
[2017-11-02] MEDS: Atorvastatin Calcium 80 MG Tablet PO (20:39)
[2017-11-02] MEDS: Pantoprazole Sodium 20 MG Tablet PO (20:40)
[2017-11-02] MEDS: Metoprolol Tartrate 25 MG Tablet PO (20:40)
[2017-11-02 21:56] LABS: Hematocrit 35.9 % (37-47); Hemoglobin 11.6 g/dl (12.0-15.0); Mean Corp Hgb Conc 32.3 g/gl (32-36); Mean Corpuscular Hgb 27.9 pg (27.0-32.0); Mean Corpuscular Volume 86.3 fL (81-99); Mean Platelet Vol. 10.9 fl (6.2-12.0); Platelet Count 224 K/mm3 (150-450); RBC Distribution Width CV 14.1 % (11.6-14.6); RBC Distribution Width SD 44.4 fl (35.1-43.9); Red Blood Count 4.16 M/mm3 (4.2-5.4); White Blood Count 6.6 K/mm3 (4.4-11.0)
[2017-11-02 22:01] LABS: Bedside Glucose 98 mg/dL (70-110)
[2017-11-02 22:07] LABS: Scan Indicated on CBC? Y/N NO
[2017-11-02 22:10] LABS: CPK Total, Creatine Kinase 89 U/L (26-192)
[2017-11-03] VITALS (10 sets, daily range): BP systolic 99–132; BP diastolic 42–67; PULSE 69–86; RESP 10–20; TEMP 36.3–37.1; O2SAT 92–97
[2017-11-03 03:56] LABS: Hematocrit 38.1 % (37-47); Hemoglobin 12.4 g/dl (12.0-15.0); Mean Corp Hgb Conc 32.5 g/gl (32-36); Mean Corpuscular Hgb 28.1 pg (27.0-32.0); Mean Corpuscular Volume 86.4 fL (81-99); Mean Platelet Vol. 11.4 fl (6.2-12.0); Platelet Count 246 K/mm3 (150-450); RBC Distribution Width SD 43.4 fl (35.1-43.9); Red Blood Count 4.41 M/mm3 (4.2-5.4); White Blood Count 7.2 K/mm3 (4.4-11.0)
[2017-11-03 03:57] LABS: Scan Indicated on CBC? Y/N NO
[2017-11-03 04:23] LABS: AST(SGOT) 14 U/L (15-37); Alanine Aminotransfer ALT/SGPT 27 U/L (13-56); Albumin, Serum 3.3 g/dL (3.2-5.0); Alkaline Phosphatase 79 U/L (45-117); Anion Gap 7 (5-15); BUN 13 mg/dL (7-18); BUN/Creat Ratio 16.2 RATIO (10-20); Calcium,Total 8.6 mg/dL (8.5-10.1); Chloride 106 mmol/L (98-107); EST Glomerular Filtration Rate 78 mL/min (>60); Est Glom Filt Rate - Afr Amer 95 mL/min (>60); Estimated Creatinine Clearance 69.82 ml/min; Globulin 3.4 g/dL (2.2-4.2); Glucose 130 mg/dL (74-106); Protein, Total 6.7 g/dL (6.4-8.2); Sodium Level 140 mmol/L (136-145)
--- NOTE | 2017-11-03 05:55 | EKG12_ITS ---
Test Reason : Blood Pressure : / mmHG Vent. Rate : 085 BPM Atrial Rate : 085 BPM P-R Int : 142 ms QRS Dur : 088 ms QT Int : 384 ms P-R-T Axes : 047 -06 049 degrees QTc Int : 456 ms Normal sinus rhythm Possible Left atrial enlargement Left ventricular hypertrophy Inferior infarct , age undetermined Anterolateral infarct , age undetermined Abnormal ECG Confirmed by CONNER MCGOWAN MD ([id number]), department editor GRETCHEN TRUONG ([id number]) on 10/10/2017 8:28:21 AM Also confirmed by CONNER MCGOWAN MD ([id number]), department editor GRETCHEN TRUONG ([id number]) on 11/14/2017 11:57:31 AM Referred By: Robert Javed Confirmed By:CONNER MCGOWAN MD
[2017-11-03] MEDS: Pantoprazole Sodium 20 MG Tablet PO (07:41)
[2017-11-03] MEDS: TICAGRELOR 90 MG TABLET PO (07:41)
[2017-11-03] MEDS: Levothyroxine 75 MCG Tablet PO (07:41)
[2017-11-03] MEDS: Metoprolol Tartrate 25 MG Tablet PO (07:41)
[2017-11-03] MEDS: Lisinopril 5 MG Tablet PO (07:41)
[2017-11-03] MEDS: 0.9% NaCl Peripheral Flush Adult/Peds IV (07:41)
[2017-11-03] MEDS: Aspirin E.C. 81 MG Tablet PO (07:41)
[2017-11-03 07:45] LABS: Bedside Glucose 130 mg/dL (70-110)
--- NOTE | 2017-11-03 07:56 | PCM.DC.CCA ---
Discharge Diet: Low fat/ Low Cholesterol Discharge Activity: Return to Normal Activity May shower in (days): 1 May resume sexual activity in: 1-2 weeks Lifting Restrictions: Do not lift anything greater than 10 pounds for three days Call your doctor if your incision/area has: Continuous Slow Oozing, Sudden Increased Bleeding, Increased Pain/ Swelling, Increased Redness, Foul Smelling Discharge, Swelling at the incision site Call your doctor if you observe: Fever of 101 or Higher, Shortness of breath, Chest pain Remove Dressing in (days):: 1 Cleanse incision/area with: Soap & Water Additional Instructions: You will be on Brilinta for at least one year. You will be on Aspirin for life. If anyone asks you to stop your Brilinta, please call our office, , first. We will see you in the [facility] Office on December 19, 2017 at 10:30 AM. You will see Nurse Patrice Practitioner, for further evaluation. You may receive a phone call from cardiac rehab first. Allergies/Adverse Reactions: Allergies No Known Allergies Allergy (Verified 10/13/17 09:11) Medications to take at Discharge Cholecalciferol (Vitamin D3) [Vitamin D3] 1,000 unit PO DAILY 10/09/17 Levothyroxine [Synthroid] 75 mcg PO DAILY 10/09/17 Metformin HCl [Glucophage] 500 mg PO DAILY 10/09/17 Omeprazole [Prilosec] 20 mg PO BID 10/09/17 TraMADol [Ultram] 100 mg PO Q6H PRN PRN 10/09/17 Aspirin E.C. [Ecotrin] 81 mg PO DAILY@0800 #30 tab 10/14/17 Atorvastatin Calcium [Lipitor] 80 mg PO QHS #30 tab 10/14/17 Ticagrelor [Brilinta] 90 mg PO BID #60 tab 10/14/17 Lisinopril [Zestril] 5 mg PO DAILY 11/02/17 Metoprolol Tartrate 25 mg PO BID 11/02/17 Primary Care Physician: Reese Elizalde MD [Primary Care Provider] - Please Follow Up With: Dao Dye Nurse Practitioner When: [facility] December 19, 2017 at 10:30 AM Cardiac Rehabilitation Info Cardiac Rehabilitation Program Information: Cardiac Rehabilitation is important for patients like you who are recovering from a heart problem. Cardiac rehabilitation programs are recognized as integral to the continued care of the patient with coronary heart disease. The cardiac rehabilitation program is designed to optimize a patient's physical, psychological, and social functioning. Health career transition specialist work in cardiac rehabilitation programs and assist you with getting the treatments you need to get stronger and healthier - like exercise, healthy eating habits, and medications. Cardiac rehabilitation has been show to help people with heart problems live longer and have better life enjoyment than people who do not go to cardiac rehabilitation. Please contact the Cardiac Rehabilitation Program at [facility] at in two weeks if you have not heard from them.
--- NOTE | 2017-11-03 09:23 | PCM.PN.CARD ---
Subjectve: Patient doing very well, no 24 hour events. Right groin is clean/dry/intact, no thrills, bruits or hematoma. No chest pain overnight. Telemetry negative. EKG shows normal sinus rhythm, no acute changes. Hemoglobin and creatinine are within nominal limits. Objective: Vital Signs Temp Pulse Resp BP Pulse Ox 97.3 F L 74 10 L 107/65 93 11/03/17 08:00 11/03/17 08:00 11/03/17 08:00 11/03/17 08:00 11/03/17 08:00 Oxygen Delivery Method Room Air Weight: 225 lb 8.526 oz Body Mass Index (BMI) 37.5 Intake and Output for Last 24 Hours 11/01/17 11/02/17 11/03/17 23:59 23:59 23:59 Intake Total 1318 / 1318 720 / 720 Output Total 1050 / 1050 Balance 268 / 268 720 / 720 General: Awake, Alert, Oriented x 3 HEENT: PERRL, EOMI, Sclera Non Icteric Neck: Supple, Good ROM, No Lymph Node Enlargement Lungs: Clear to auscultation Cardiovascular: Regular Rhythm, Normal S1, Normal S2, No Murmurs, No Rubs, No Gallops Vascular: No Carotid Bruits, Normal Femoral Pulses, Normal Radial Pulses, Normal Dorsalis Pedal Pulse, Normal Posterior Tibial Pulses Abdomen: Bowel Sounds Present, Soft, Non Tender, No HSM, No Organomegaly Extremities: No Cyanosis, No Clubbing, No edema Neurological: No Focal Motor or Sensory Deficit 11/02/17 14:23: WBC 7.3, RBC 4.47, Hgb 12.3, Hct 38.7, MCV 86.6, MCH 27.5, MCHC 31.8 L, RDW 14.0, RDW Differential 44.1 H, Plt Count 234, MPV 10.9 11/02/17 21:35: WBC 6.6, RBC 4.16 L, Hgb 11.6 L, Hct 35.9 L, MCV 86.3, MCH 27.9, MCHC 32.3, RDW 14.1, RDW Differential 44.4 H, Plt Count 224, MPV 10.9 11/03/17 03:15: WBC 7.2, RBC 4.41, Hgb 12.4, Hct 38.1, MCV 86.4, MCH 28.1, MCHC 32.5, RDW 14.0, RDW Differential 43.4, Plt Count 246, MPV 11.4 11/03/17 03:15: Sodium 140, Potassium 4.0, Chloride 106, Carbon Dioxide 27.0, Anion Gap 7, BUN 13, Creatinine 0.80, Est GFR (MDRD) Af Amer 95, Est GFR (MDRD) Non-Af 78, BUN/Creatinine Ratio 16.2, Glucose 130 H, Calcium 8.6, Total Bilirubin 0.60 Rhythm: EKG: ECHO: Stress Test: Cardiac Cath: PCI: CT Surgery: Holter monitor: EPS: PPM: CXR: Chest CT Scan: Assessment/Plan 1. Coronary artery disease: Patient is status post elective angioplasty and drug-eluting stenting to the mid LAD with an excellent result. She is status post acute inferior wall myocardial infarction requiring emergent angioplasty and stenting ?2 to the RCA approximately 2 weeks ago. Her EKG shows no acute changes. CKs are negative. Hemoglobin and creatinine are within nominal limits. At this point she will continue baby aspirin and Plavix going forward as well as her other antihypertensive medications. She has a nonobstructive tubular 50% stenosis in her mid left circumflex, but we will leave this for medical management as it does not appear to be critically stenosed at this time. Should the patient have recurrent anginal symptoms, I have a low threshold to proceed with intervention of this vessel assuming all other stented areas are appropriately patent. Patient will be discharged home today and follow-up with Dao in 2 weeks time for a groin check followed by in several weeks time for follow-up. 2. Hyperlipidemia: Continue Lipitor therapy. Repeat lipid profile in 4 weeks. 3. Patient may be discharged home. Code Visit Inpatient E&M: 57868 Subs Hosp L2
--- NOTE | 2017-11-03 09:26 | PN.CARD_ITS ---
Subjectve: Patient doing very well, no 24 hour events. Right groin is clean/dry/intact, no thrills, bruits or hematoma. No chest pain overnight. Telemetry negative. EKG shows normal sinus rhythm, no acute changes. Hemoglobin and creatinine are within nominal limits. Objective: Vital Signs Temp Pulse Resp BP Pulse Ox 97.3 F L 74 10 L 107/65 93 11/03/17 08:00 11/03/17 08:00 11/03/17 08:00 11/03/17 08:00 11/03/17 08:00 Oxygen Delivery Method Room Air Weight: 225 lb 8.526 oz Body Mass Index (BMI) 37.5 Intake and Output for Last 24 Hours 11/01/17 11/02/17 11/03/17 23:59 23:59 23:59 Intake Total 1318 / 1318 720 / 720 Output Total 1050 / 1050 Balance 268 / 268 720 / 720 General: Awake, Alert, Oriented x 3 HEENT: PERRL, EOMI, Sclera Non Icteric Neck: Supple, Good ROM, No Lymph Node Enlargement Lungs: Clear to auscultation Cardiovascular: Regular Rhythm, Normal S1, Normal S2, No Murmurs, No Rubs, No Gallops Vascular: No Carotid Bruits, Normal Femoral Pulses, Normal Radial Pulses, Normal Dorsalis Pedal Pulse, Normal Posterior Tibial Pulses Abdomen: Bowel Sounds Present, Soft, Non Tender, No HSM, No Organomegaly Extremities: No Cyanosis, No Clubbing, No edema Neurological: No Focal Motor or Sensory Deficit 11/02/17 14:23: WBC 7.3, RBC 4.47, Hgb 12.3, Hct 38.7, MCV 86.6, MCH 27.5, MCHC 31.8 L, RDW 14.0, RDW Differential 44.1 H, Plt Count 234, MPV 10.9 11/02/17 21:35: WBC 6.6, RBC 4.16 L, Hgb 11.6 L, Hct 35.9 L, MCV 86.3, MCH 27.9 , MCHC 32.3, RDW 14.1, RDW Differential 44.4 H, Plt Count 224, MPV 10.9 11/03/17 03:15: WBC 7.2, RBC 4.41, Hgb 12.4, Hct 38.1, MCV 86.4, MCH 28.1, MCHC 32.5, RDW 14.0, RDW Differential 43.4, Plt Count 246, MPV 11.4 11/03/17 03:15: Sodium 140, Potassium 4.0, Chloride 106, Carbon Dioxide 27.0, Anion Gap 7, BUN 13, Creatinine 0.80, Est GFR (MDRD) Af Amer 95, Est GFR (MDRD) Non-Af 78, BUN/Creatinine Ratio 16.2, Glucose 130 H, Calcium 8.6, Total Bilirubin 0.60 Rhythm: EKG: ECHO: Stress Test: Cardiac Cath: PCI: CT Surgery: Holter monitor: EPS: PPM: CXR: Chest CT Scan: Assessment/Plan 1. Coronary artery disease: Patient is status post elective angioplasty and drug-eluting stenting to the mid LAD with an excellent result. She is status post acute inferior wall myocardial infarction requiring emergent angioplasty and stenting ?2 to the RCA approximately 2 weeks ago. Her EKG shows no acute changes. CKs are negative. Hemoglobin and creatinine are within nominal limits. At this point she will continue baby aspirin and Plavix going forward as well as her other antihypertensive medications. She has a nonobstructive tubular 50 % stenosis in her mid left circumflex, but we will leave this for medical management as it does not appear to be critically stenosed at this time. Should the patient have recurrent anginal symptoms, I have a low threshold to proceed with intervention of this vessel assuming all other stented areas are appropriately patent. Patient will be discharged home today and follow-up with [facility] in 2 weeks time for a groin check followed by in several weeks time for follow-up. 2. Hyperlipidemia: Continue Lipitor therapy. Repeat lipid profile in 4 weeks. 3. Patient may be discharged home. Code Visit Inpatient E&M: 26393 Subs Hosp L2
--- NOTE | 2017-11-03 09:30 | EKG12_ITS ---
Test Reason : AM EKG Blood Pressure : / mmHG Vent. Rate : 079 BPM Atrial Rate : 079 BPM P-R Int : 138 ms QRS Dur : 086 ms QT Int : 400 ms P-R-T Axes : 059 -18 -01 degrees QTc Int : 458 ms Normal sinus rhythm Inferior infarct (cited on or before 09-OCT-2017) Abnormal ECG When compared with ECG of 16-OCT-2017 04:58, No significant change was found Confirmed by ROSLYN PETERSEN, CONNER ([id number]), editor continuity and script GRETCHEN TRUONG ([id number]) on 11/08/2017 1:53:33 PM Referred By: Robert Javed Confirmed By:CONNER MCGOWAN MD
== END 2017-11-03 09:35 | disposition home or self-care (01) ==
LOC: CLSP 07:51 → ICU 10:02
PROVIDERS: Family Provider Family Medicine; PCP Family Medicine; Visit Provider Internal Medicine Cardiovascular Disease
DX: I21.19 ST elevation (STEMI) myocardial infarction involving other coronary artery of inferior wall (principal); I25.10 Atherosclerotic heart disease of native coronary artery without angina pectoris; E78.5 Hyperlipidemia, unspecified; E11.9 Type 2 diabetes mellitus without complications
CPT/HCPCS: 80053; 82550; 82962; 85027; 85347; 87641; 92928; 92978; 93005; J3010; J7030; J7040; Q9967; A4216; C1725; C1753; C1769; C1874; C1887; C9600

== ENCOUNTER → 2017-11-16 06:02 | Outpatient (CLI) | payer BC, SELFPAY ==
[2017-10-13 12:02] VITALS: BMI 38.5
--- NOTE | 2017-11-16 06:06 | PCM.CR.ITP ---
Exercise - Initial Assessment - Visit Date of Eval: 11/16/17 - establisehd initial ITP; starting CR 11/20/2017 - Stages of Change Stages of Change:: Action - Stress Test EKG: normal sinus rhythm - Exercise Prescription Mode:: Treadmill, Rower, Airdyne, NuStep Target Heart Rate:: 122-130 - Hypertension Do any of the following apply?: Yes, Medication Resting Blood Pressure:: 106/70 - Intervention Home Exercise/Activity Goal:: Sitting Time <3 hrs/day - Education Goals:: Warm-up, RPE ULICES Scale, S/S, Safe Exercise, Self-Monitoring - Exercise Program Goals Exercise Program Goals: Aerobic Activity >30 min Nutrition - Initial Assessment - Program Goals Nutrition Program Goals: LDL <70. Total Cholesterol <200. HDL >45. Triglycerides <150. HgbA1C <7%. BMI <25 - Visit Date of Assessment:: 11/16/17 - established initial ITP; starting CR 11/20/2017 - Stages of Change Stages of Change:: Action - Diabetes Diabetes:: Yes Insulin: No Non-Insulin Dependent?: Yes Do you monitor your blood sugar at home?: No - Weight Management Height: 5 ft 5 in Weight:: 230 lb Body Fat %:: 38.2 - Intervention Referral to dietitian:: Yes - Patient interested in Why Weight structured weight loss. Referral to Diabetic Clinic:: Yes Will attend diet classes:: Yes - Education Gave educational materials for:: Relate diabetes to coronary artery disease, Healthy eating Nutrition - 30-Day Assessment - Program Goals Nutrition Program Goals: LDL <70. Total Cholesterol <200. HDL >45. Triglycerides <150. HgbA1C <7%. BMI <25 - Diabetes Diabetes:: Yes Insulin: No Nutrition - 60-Day Assessment - Program Goals Nutrition Program Goals: LDL <70. Total Cholesterol <200. HDL >45. Triglycerides <150. HgbA1C <7%. BMI <25 - Diabetes Diabetes:: Yes Insulin: No Nutrition - 90-Day Assessment - Program Goals Nutrition Program Goals: LDL <70. Total Cholesterol <200. HDL >45. Triglycerides <150. HgbA1C <7%. BMI <25 - Diabetes Diabetes:: Yes Insulin: No Nutrition - Final Assessment - Program Goals Nutrition Program Goals: LDL <70. Total Cholesterol <200. HDL >45. Triglycerides <150. HgbA1C <7%. BMI <25 - Diabetes Diabetes:: Yes Insulin: No Tobacco - Initial Assessment - Program Goals Tobacco Program Goals: Complete smoking cessation. Attend education classes. Improve Knowledge Test score - Stage of Change Stages of Change:: Action - Learning Barriers Learning Barriers: Vision - wears glasses, Ready to Learn - Family Support Do you have family support?: Yes - Tobacco Use Tobacco Use: Cigarettes How long ago did you quit using tobacco products?: Less than 6 months ago How many cigarettes do you smoke per day?: 20 - Quit Oct 13, 2017 Years Smokin Do you use smokeless tobacco?: No - Intervention Smoking Cessation Referral:: Yes Individual Education/Counseling:: No Education Schedule Given:: Yes - Education Gave educational material for:: Tobacco triggers, Coronary artery disease, Risk factors, Sexuality, Medical compliance, Cardiac A&P, Angina signs & symptoms Psychosocial - Initial Assess - Target Goals Target Goals: Assess presence or absence of depression. Using a valid screening tool, maximizes coping skills. Positive support system - Stages of Change Stages of Change:: Action - Psychosocial Test Tool Used:: HANDS Depression Questionnaire Tests Completed: Mood Scale Test - Intervention PS - Interventions: Yes Attend Stress Management Classes, No Referral to Mental Health, No Referral to [facility] Case Management, No Referral to Physician, No Uses Stress Management Skills - Education Gave educational materials for:: Coping techniques, Signs & symptoms of depression, Stress management, Relaxation techniques - Patient/Program Goal Preventative Medication(s):: Aspirin, FRANK inhibitor, Clopidogrel, Beta melania, Statin/lipid - Assistive Devices Assistive Devices:: None Fall Risk Assessed:: Yes Patient Health Questionnaire Initial Assessment 1. Little interest or pleasure in doing things: Several days 2. Feeling down, depressed, or hopeless: Several days 3. Trouble falling or staying asleep, or sleeping too much: Not at all 4. Feeling tired or having little energy: Several days 5. Poor appetite or overeating: More than half the days 6. Feeling bad about yourself -- or that you are a failure or have let yourself or your family down: Not at all 7. Trouble concentrating on things, such as reading the newspaper or watching television: Not at all 8. Moving or speaking so slowly that other people could have noticed. Or the opposite - being so fidgety or restless that you have been moving around a lot more than usual: Not at all 9. Thoughts that you would be better off , or of hurting yourself in some way: Not at all How difficult have these problems made it for you to do your work, take care of things at home, or get along with other people?: Not difficult at all Total Score: 5 Knowledge Test - Check your knowledge Initial The #1 cause of in the [place] each year is:: Heart disease Which of the following is a common treatment for heart disease?: All of the above The arteries that feed the heart are called:: Coronary arteries HDL cholesterol is known as the good cholesterol.: True What disease increases your risk for heart disease?: Diabetes What food product raises blood cholesterol level the most?: Saturated fat The bad cholesterol in the blood is called:: LDL Hypertension is another word for:: High blood pressure A blood pressure reading of 148/88 is considered normal.: False Exercise will only benefit your health when your heart rate reaches a target level.: True Total Score:: 9 Self-Efficacy Initial Assessment We would like to know how confident you are in doing certain activities. Please select your confidence level for:: Select your confidence level for the following using the scale 1-10 where 1 is not at all confident and 10 is totally confident. Your score is the average of all 6 responses. Fatigue: How confident are you that you can keep the fatigue caused by your disease from interfering with the things you want to do? Select Number: 7 Physical Discomfort or Pain: How confident are you that you can keep the physical discomfort or pain of your disease from interfering with the things you want to do? Select Number: 7 Emotional Distress: How confident are you that you can keep the emotional distress caused by your disease from interfering with the things you want to do? Select Number: 6 Other Symptoms or Health Problems: How confident are you that you can keep other symptoms or health problems from interfering with the things you want to do? Select Number: 6 Different Tasks and Activities: How confident are you that you can do the different tasks and activities needed to manage your health condition so as to reduce your need to see a doctor? Select Number: 6 Medication: How confident are you that you can do things other than just taking medication to reduce how much your illness affects your everyday life? Select Number: 6 Total Score:: 6 Nutrition Survey - Nutrition Survey Instructions Scoring Instructions: Scoring is as follows: Yes = 1 points. No = 0 point. Patient score that is >/=12 is considered to be at potential nutritional risk and could benefit from a referral to a registered dietitian. - Nutrition Survey Initial Have you lost >10 lbs over the past 2 months without trying?: No Are you following a special diet at home for diabetes, low fat, or low salt?: No Are you interested in meeting with a dietitian for help understanding your diet?: Yes Do you eat less than 3 meals a day?: Yes Do you eat fatty meats (alva, sausage, ribs, etc), fried foods, desserts, large amounts of salad dressings, margarine, butter, or cheese most days?: Yes Do you have food allergies? [Enter types in comment field]: No Do you eat in restaurants more than 3 times a week?: Yes Do you season food with salt, seasoning salt, or garlic salt?: Yes Do you used canned, boxed, frozen meals, or soups, seasoning packets?: Yes - Potential Risk; patient referred to diabetic education clinic and Why Weight programs. Electronic referral non-order sent to Nutritional Services. Total Score:: 6 Cardiac Rehabilitation Goals - Cardiac Rehab Goals Cardiac Rehabilitation Goals: 1. Maintain the individual as the primary focus of care. 2. To improve the patient's quality of life. 3. Identification of cardiac risk factors and provide cardiac risk factor management. 4. Enhance the psychosocial status of the patient. 5. Reconditioning enough to allow the patient to resume customary activities. 6. Control symptoms of cardiac disease - Scale Scale for measuring improvement of personal goals: Enter appropriate number in Comments. 2 = Unchanged. 3 = Slightly Better. 4 = Moderate Improvement. 5 = Met my Goal Initial Assessment Personal Goals: 30-day Re-assessment: Quit smoking (participate in smoking cessation, Improve energy level, Participate in home exercise program, Improve diet and eating habits (eat healthier), Control risk factors (learn risk factor modification), Other goal: - Lose Weight.
--- NOTE | 2017-11-16 06:08 | PCM.CR.HP2 ---
CR - History & Physical - General Arrival date:: 11/16/17 Arrival time:: 06:08 Date of Admission: 11/16/17 Referring Physician: Dr. Jose Clarke Primary Diagnosis: STEMI, s/p coronary stent placement 10/13/17 - History of Present Cardiac Event Onset Date: Enter Onset Date of cardiac illnesses in Comment field below [facility]:: Yes - 05/2018 PTCA:: Yes - 10/13/2017 emergency; 11/02/2017 scheduled Type of Symptoms:: Burning in the chest in numbness and weakness in the arms. Interventions with present event:: Emergency cardiac cath w/coronary stent Were there any complications?: none - Medications Home Medications: Ambulatory Orders Medication Instructions Recorded Cholecalciferol (Vitamin D3) 1,000 unit PO DAILY 10/09/17 [Vitamin D3] Levothyroxine [Synthroid] 75 mcg PO DAILY 10/09/17 Metformin HCl [Glucophage] 500 mg PO DAILY 10/09/17 Omeprazole [Prilosec] 20 mg PO BID 10/09/17 TraMADol [Ultram] 100 mg PO Q6H PRN PRN 10/09/17 ticagrelor 90 mg tablet 90 mg PO BID #60 tab 11/07/17 aspirin 81 mg tablet,delayed 81 mg PO DAILY@0800 #30 tab 11/13/17 release atorvastatin 80 mg tablet 80 mg PO QHS #30 tab 11/13/17 lisinopril 5 mg tablet 5 mg PO DAILY #30 tab 11/13/17 metoprolol tartrate 25 mg tablet 25 mg PO BID #60 tab 11/13/17 - Allergies Allergies/Adverse Reactions: Allergies No Known Allergies Allergy (Verified 10/13/17 09:11) - Sleep Disorder Evaluation Hx of Sleep Apnea: Yes Do you snore loudly (louder than talking or can be heard through closed doors)?: Yes - has NELLY and uses CPAP at home. Do you often feel tired/ fatigued/ sleepy during daytime?: No Has anyone observed you stop breathing during sleep?: No History of Hypertension (for STOP score): Yes STOP Results: Positive Advanced Directives - Advanced Directives Power of Biomedical Equipment Specialist: Yes Living Will: Yes Advance Directives on File: Yes Past Medical History - Problems and Co-Morbidities Problems & Co-Morbidities: Smoking, Dyslipidemia, Diabetes, Obesity, Hypertension, - - hypothyroidism - Past Medical Illness Past Medical Illness: Diabetes - Past Cardiac Illness Past Cardiac Illness: Ejection Fraction - 55-59%, Coronary Artery Disease - Other Other: Vision/Eye Problems - wears glasses daily. - Cardiology Procedures/Interventions Cardiology Procedures/Interventions: Angioplasty, Heart Catheterization, Echocardiogram - Past Surgical History Surgical History: - - ankle surgery - Family History Summary Additional Family History: maternal family history of heart disease Review of Systems - Review of Systems Hints: Right click = Denies (Slash). Left click = Reports ([place]) Review of Present Symptoms: Reports: Shortness of Breath at Rest - describes as almost forgets to breathe and will suddenly take a deep breath, Shortness of Breath with Exertion - describes as same feeling, Angina - not the same burning a nd feeling as before, but on Monday after the second procedure still had some pressure described as feelig as if he was still putting the stent in place, continued to monitor and since has resolved itself., Appetite - Normal - there are days since the procudre that dont feel like eating though. Associated it with not really knowing what she can eat., Appetite - Special Diet - trying to read labels more, cut out saturated fats and sodium., Sleep - Normal. Denies: Dizziness/Lightheadedness, Fatigue - not any more than usual., Heart Arrhythmia/Irregularities Risk Factor Assessment - Chief Complaint Chief Complaint: Patient is a 57 female who presents to [facility] under the care of Dr. Jose Clarke. The patient was first seen as an emergency STEMI and s/p coronary stent placement. She was rescheduled for an additional stent a few weeks later. - Pulse Pulse Rate: 70 Pulse Rhythm: Regular - Hypertension Blood Pressure Sitting - Right Arm: 106/74 - Diabetes Diabetic History: Type II, Medication Dependent Nutrition Referral for Diabetes: Yes - Obesity Height: 5 ft 5 in Weight:: 230 lb Weight in Pounds: 230.0 lbs Body Mass Index (BMI): 38.2 Realistic Weight Goal (Loss of 1-2 lbs/week): 206 Nutritional Referral for Obesity: Yes - Physical Inactivity Physical Inactivity: None - Risk Stratification Risk Guidelines: Lowest Risk: Risk Factor for Diabetes, Risk Factor for Hypertension, Risk Factor for Depression, Highest Risk: Risk Factor for Smoking, Risk Factor for Obesity, Risk Factor for Sedentary Lifestyle - For Smoking Smoking Risk Guidelines: Smoking Low Risk: None or quit greater than 6 months ago. Smoking Moderate Risk: Smoker or quit 6 months or less ago. Smoking High Risk: Smoker - For Dyslipidemia Dyslipidemia Risk Guidelines: Low Risk: Moderate Risk: High Risk: 15-25% fat 25.1-29% fat >/= 30% fat. <7% sat fat 7-9% sat fat >9% sat fat. <150 mg chol 150-299 mg chol >/= 300 mg chol. LDL <100 LDL 100-129 LDL >/= 130. Chol/HDL ratio <5.0 Chol/HDL ratio 5.0-6.0 Chol/HDL ratio >6.0. Triglycerides <100 Triglycerides 100-149 Triglycerides >/= 150 - For Diabetes Mellitus Diabetes Risk Guidelines: Diabetes Low Risk: HgA1c <6.5% and/or FBG <120. Diabetes Moderate Risk: HgA1c 6.6-7.9% and/or FBG 120-180. Diabetes High Risk: HgA1c >/= 8% and/or FBG >180 - For Obesity/Overweight Obesity/Overweight Risk Guidelines: Obesity Low Risk: BMI <25.0. Obesity Moderate Risk: BMI 25-29.9. Obesity High Risk: BMI >/= 30.0 - For Hypertension Hypertension Risk Guidelines: Hypertension Low Risk: Systolic <120 and Diastolic <80. Hypertension Moderate Risk: Systolic 120-139 and Diastolic 80-89. Hypertension High Risk: Systolic >/= 140 and Diastolic >/= 90 - For Sedentary Lifestyle Sedentary Lifestyle Risk Guidelines: Sedentary Lifestyle Low Risk: >/= 1,500 kcal/week. Sedentary Lifestyle Moderate Risk: 700-1,499 kcal/week. Sedentary Lifestyle High Risk: < 700 kcal/week - For Depression Depression Risk Guidelines: Depression Low Risk: Not clinically depressed. Depression Moderate Risk: Mildly depressed. Depression High Risk: Clinically depressed Social History - Smoking History Smoking Status: Current every day smoker Years Smokin Packs Smoked per Day: 1 Hx Smoking Cessation Date: 10/13/2017 Hx Tobacco Use: Yes Hx Smoking Exposure: No - Alcohol Use Alcohol Usage: Yes - very very little. - Substance Abuse Hx Substance Use: No - Occupation Occupation (List type of work in comments):: Employed Hours worked per day:: 8 Returned to work on:: 10/24/17 - Hobbies, Recreation, Social Activities Recreational Activities: I am able to engage in all my recreational activities Marital Status - Status Marital Status: - Current Living Arrangements Living Environment:: Spouse - Children How many children do you have?: 0 Do any of your children live nearby?: No - Safety Do you feel safe in your surroundings?: Yes - Assistance Do you need any assistance at home?: none
--- NOTE | 2017-11-16 06:18 | CR.HP_ITS ---
CR - History & Physical - General Arrival date:: 11/16/17 Arrival time:: 06:08 Date of Admission: 11/16/17 Referring Physician: Dr. Jose Clarke Primary Diagnosis: STEMI, s/p coronary stent placement 10/13/17 - History of Present Cardiac Event Onset Date: Enter Onset Date of cardiac illnesses in Comment field below AL:: Yes - 05/2018 PTCA:: Yes - 10/13/2017 emergency; 11/02/2017 scheduled Type of Symptoms:: Burning in the chest in numbness and weakness in the arms. Interventions with present event:: Emergency cardiac cath w/coronary stent Were there any complications?: none - Medications Home Medications: Ambulatory Orders Medication Instructions Recorded Cholecalciferol (Vitamin D3) 1,000 unit PO DAILY 10/09/17 [Vitamin D3] Levothyroxine [Synthroid] 75 mcg PO DAILY 10/09/17 Metformin HCl [Glucophage] 500 mg PO DAILY 10/09/17 Omeprazole [Prilosec] 20 mg PO BID 10/09/17 TraMADol [Ultram] 100 mg PO Q6H PRN PRN 10/09/17 ticagrelor 90 mg tablet 90 mg PO BID #60 tab 11/07/17 aspirin 81 mg tablet,delayed 81 mg PO DAILY@0800 #30 tab 11/13/17 release atorvastatin 80 mg tablet 80 mg PO QHS #30 tab 11/13/17 lisinopril 5 mg tablet 5 mg PO DAILY #30 tab 11/13/17 metoprolol tartrate 25 mg tablet 25 mg PO BID #60 tab 11/13/17 - Allergies Allergies/Adverse Reactions: Allergies No Known Allergies Allergy (Verified 10/13/17 09:11) - Sleep Disorder Evaluation Hx of Sleep Apnea: Yes Do you snore loudly (louder than talking or can be heard through closed doors)? : Yes - has NELLY and uses CPAP at home. Do you often feel tired/ fatigued/ sleepy during daytime?: No Has anyone observed you stop breathing during sleep?: No History of Hypertension (for STOP score): Yes STOP Results: Positive Advanced Directives - Advanced Directives Power of Weed Controller: Yes Living Will: Yes Advance Directives on File: Yes Past Medical History - Problems and Co-Morbidities Problems & Co-Morbidities: Smoking, Dyslipidemia, Diabetes, Obesity, Hypertension, - - hypothyroidism - Past Medical Illness Past Medical Illness: Diabetes - Past Cardiac Illness Past Cardiac Illness: Ejection Fraction - 55-59%, Coronary Artery Disease - Other Other: Vision/Eye Problems - wears glasses daily. - Cardiology Procedures/Interventions Cardiology Procedures/Interventions: Angioplasty, Heart Catheterization, Echocardiogram - Past Surgical History Surgical History: - - ankle surgery - Family History Summary Additional Family History: maternal family history of heart disease Review of Systems - Review of Systems Hints: Right click = Denies (Slash). Left click = Reports ([place]) Review of Present Symptoms: Reports: Shortness of Breath at Rest - describes as almost forgets to breathe and will suddenly take a deep breath, Shortness of Breath with Exertion - describes as same feeling, Angina - not the same burning a nd feeling as before, but on Monday after the second procedure still had some pressure described as feelig as if he was still putting the stent in place, continued to monitor and since has resolved itself., Appetite - Normal - there are days since the procudre that dont feel like eating though. Associated it with not really knowing what she can eat., Appetite - Special Diet - trying to read labels more, cut out saturated fats and sodium., Sleep - Normal. Denies: Dizziness/Lightheadedness, Fatigue - not any more than usual., Heart Arrhythmia/ Irregularities Risk Factor Assessment - Chief Complaint Chief Complaint: Patient is a 57 female who presents to [facility] under the care of Dr. Jose Clarke. The patient was first seen as an emergency STEMI and s/p coronary stent placement. She was rescheduled for an additional stent a few weeks later. - Pulse Pulse Rate: 70 Pulse Rhythm: Regular - Hypertension Blood Pressure Sitting - Right Arm: 106/74 - Diabetes Diabetic History: Type II, Medication Dependent Nutrition Referral for Diabetes: Yes - Obesity Height: 5 ft 5 in Weight:: 230 lb Weight in Pounds: 230.0 lbs Body Mass Index (BMI): 38.2 Realistic Weight Goal (Loss of 1-2 lbs/week): 206 Nutritional Referral for Obesity: Yes - Physical Inactivity Physical Inactivity: None - Risk Stratification Risk Guidelines: Lowest Risk: Risk Factor for Diabetes, Risk Factor for Hypertension, Risk Factor for Depression, Highest Risk: Risk Factor for Smoking , Risk Factor for Obesity, Risk Factor for Sedentary Lifestyle - For Smoking Smoking Risk Guidelines: Smoking Low Risk: None or quit greater than 6 months ago. Smoking Moderate Risk: Smoker or quit 6 months or less ago. Smoking High Risk: Smoker - For Dyslipidemia Dyslipidemia Risk Guidelines: Low Risk: Moderate Risk: High Risk: 15-25% fat 25.1-29% fat >/= 30% fat. <7% sat fat 7-9% sat fat >9% sat fat. <150 mg chol 150-299 mg chol >/= 300 mg chol. LDL <100 LDL 100-129 LDL >/= 130. Chol/HDL ratio <5.0 Chol/HDL ratio 5.0-6.0 Chol/HDL ratio >6.0. Triglycerides <100 Triglycerides 100-149 Triglycerides >/= 150 - For Diabetes Mellitus Diabetes Risk Guidelines: Diabetes Low Risk: HgA1c <6.5% and/or FBG <120. Diabetes Moderate Risk: HgA1c 6.6-7.9% and/or FBG 120-180. Diabetes High Risk: HgA1c >/= 8% and/or FBG >180 - For Obesity/Overweight Obesity/Overweight Risk Guidelines: Obesity Low Risk: BMI <25.0. Obesity Moderate Risk: BMI 25-29.9. Obesity High Risk: BMI >/= 30.0 - For Hypertension Hypertension Risk Guidelines: Hypertension Low Risk: Systolic <120 and Diastolic <80. Hypertension Moderate Risk: Systolic 120-139 and Diastolic 80-89. Hypertension High Risk: Systolic >/= 140 and Diastolic >/= 90 - For Sedentary Lifestyle Sedentary Lifestyle Risk Guidelines: Sedentary Lifestyle Low Risk: >/= 1 ,500 kcal/week. Sedentary Lifestyle Moderate Risk: 700-1,499 kcal/week. Sedentary Lifestyle High Risk: < 700 kcal/week - For Depression Depression Risk Guidelines: Depression Low Risk: Not clinically depressed. Depression Moderate Risk: Mildly depressed. Depression High Risk: Clinically depressed Social History - Smoking History Smoking Status: Current every day smoker Years Smokin Packs Smoked per Day: 1 Hx Smoking Cessation Date: 10/13/2017 Hx Tobacco Use: Yes Hx Smoking Exposure: No - Alcohol Use Alcohol Usage: Yes - very very little. - Substance Abuse Hx Substance Use: No - Occupation Occupation (List type of work in comments):: Employed Hours worked per day:: 8 Returned to work on:: 10/24/17 - Hobbies, Recreation, Social Activities Recreational Activities: I am able to engage in all my recreational activities Marital Status - Status Marital Status: - Current Living Arrangements Living Environment:: Spouse - Children How many children do you have?: 0 Do any of your children live nearby?: No - Safety Do you feel safe in your surroundings?: Yes - Assistance Do you need any assistance at home?: none
[2017-11-16 06:36] VITALS: BP 106/74; PULSE 70; BMI 38.2
[2017-11-16 07:25] VITALS: BP 106/70
== END ==
PROVIDERS: Family Provider Family Medicine; PCP Family Medicine; Visit Provider Internal Medicine Cardiovascular Disease
DX: I21.3 ST elevation (STEMI) myocardial infarction of unspecified site (principal); Z95.5 Presence of coronary angioplasty implant and graft

== ENCOUNTER → 2017-11-28 07:55 | Outpatient (CLI) | payer BC, SELFPAY ==
[2017-10-09 15:07] VITALS: BP 134/87; PULSE 90; RESP 18; TEMP 37.3; O2SAT 97; BMI 38.6
--- NOTE | 2017-10-09 15:32 | SDCEKG_ITS ---
Test Reason : Blood Pressure : / mmHG Vent. Rate : 085 BPM Atrial Rate : 085 BPM P-R Int : 142 ms QRS Dur : 088 ms QT Int : 384 ms P-R-T Axes : 047 -06 049 degrees QTc Int : 456 ms Normal sinus rhythm Possible Left atrial enlargement Left ventricular hypertrophy Inferior infarct , age undetermined Anterolateral infarct , age undetermined Abnormal ECG Confirmed by ROSLYN PETERSEN, CONNER ([id number]), editor trade journal GRETCHEN TRUONG ([id number]) on 10/10/2017 8:28:21 AM Referred By: Reese Elizalde Confirmed By:CONNER MCGOWAN MD
[2017-10-09 16:09] LABS: Absolute Neutrophil Count 5.9 X10^3/uL (2.0-7.7); Basophil# 0.05 X10^3/uL; Basophil% 0.5 % (0-1); Eosinophil# 0.13 X10^3/uL; Eosinophils% 1.3 % (0-5); Hematocrit 39.1 % (37-47); Hemoglobin 12.5 g/dl (12.0-15.0); Lymphocyte % 35.3 % (19-41); Mean Corpuscular Hgb 27.8 pg (27.0-32.0); Mean Corpuscular Volume 87.1 fL (81-99); Mean Platelet Vol. 11.2 fl (6.2-12.0); Monocyte# 0.46 X10^3/uL; Monocyte% 4.5 % (0-10); Neutrophil # 5.94 X10^3/uL (2.7-7.7); Neutrophil % 58.3 % (47-70); Platelet Count 272 K/mm3 (150-450); RBC Distribution Width CV 14.2 % (11.6-14.6); RBC Distribution Width SD 44.9 fl (35.1-43.9); Red Blood Count 4.49 M/mm3 (4.2-5.4); White Blood Count 10.2 K/mm3 (4.4-11.0)
[2017-10-09 16:10] LABS: POSITIVE COUNT NO; POSITIVE DIFFERENTIAL NO; POSITIVE MORPHOLOGY NO
[2017-10-09 16:31] LABS: Anion Gap 6 (5-15); BUN 17 mg/dL (7-18); BUN/Creat Ratio 23.8 RATIO (10-20); Calcium,Total 8.6 mg/dL (8.5-10.1); Chloride 105 mmol/L (98-107); Creatinine, Serum 0.71 mg/dL (0.55-1.02); EST Glomerular Filtration Rate 90 mL/min (>60); Est Glom Filt Rate - Afr Amer 109 mL/min (>60); Estimated Creatinine Clearance 78.66 ml/min; Glucose 132 mg/dL (74-106); Potassium 3.6 mmol/L (3.5-5.1); Sodium Level 139 mmol/L (136-145); Thyroid Stim Hormone (TSH) 0.72 uIU/mL (0.358-3.74)
[2017-10-09 17:00] LABS: Hemoglobin A1c 6.5 % (4.2-6.3)
--- NOTE | 2017-10-10 14:24 | PCM.HP.BLA ---
History and Physical DATE OF SERVICE: 10/25/2017 SCHEDULED PROCEDURE: Right total knee arthroplasty HISTORY OF PRESENT ILLNESS: This is a 57-year-old female who is been having ongoing knee pain for several years. Patient states recently the right knee pain has increased over the past 6-7 months. Patient states her pain is intermittent, aching, stabbing, and sore. She has increased pain going up and down stairs, walking any amount of distance. Patient has difficult time with activities of daily living including doing housework. She has fallen secondary to her right knee pain. She feels unsafe walking and going up and down steps. Patient has tried previous conservative measures consisting of rest, ice, and oral medications with only minimal relief. Patient has undergone previous aspiration and corticosteroid injections in the right knee. She has received previously approximately 3-4 corticosteroid injections. Patient also underwent previous Euflexxa series. Patient denies previous surgery on the right knee. Patient has a hard time with her job on the weekends which requires her to do prolonged standing. She has had continued swelling in the right knee. After failing conservative measures and discussing all treatment options with Dr. Jackson, the patient would like to proceed with a right total knee arthroplasty. Patient has a medical history pertinent for thyroid disease as well as type 2 diabetes mellitus. Patient has obtained surgical clearance from her primary care physician Dr. Elizalde. Patient currently denies any chest pain, shortness of breath, fevers chills, or recent infections. REVIEW OF SYSTEMS: ROS: Const: Denies anorexia, change in appetite, fever, hard of hearing, vision problems and weight change. CV: Denies chest pain, heart murmur, irregular heartbeat and peripheral vascular disease. Resp: Denies asthma, cough, pneumonia, sleep apnea, SOB, tuberculosis and wheezing. GI: Denies constipation, diarrhea, difficulty swallowing, heartburn, nausea, bloody stools and vomiting. : . (F Genital Sx) Urinary: denies incontinence. Musculo: Denies leg swelling, limp, trouble walking and weakness. Skin: Denies Raynaud's, history of shingles and tattoo. Neuro: Denies ambulatory dysfunction, dizziness, numbness/tingling and tremor. Psych: Denies anxiety, depression, insomnia, mental illness and stress. Martin/Lymph: Denies anemia, bleeding/bruising tendency and past transfusion. Reviewed, no changes. PAST MEDICAL HISTORY: Advance Care Plan: PMH: Health Maintenance: Bone Density Test Medical Problems: Thyroid Disease - Hyperthyroid - treated by Dr. Ballesteros Thyroid Disease, Diabetes Accidents: Fell - (1988) FELL DOWN 25 STEPS ON BUTT-RESULTED IN BACK PROBLEMS Surgical Hx: Left Ankle Debridement With Excision Of Merrill Deformity, Debridement - (07/04/2013) G/WAS Anesthesia Complications: None Assistive Devices: Glasses - Contacts Reviewed, no changes. SOCIAL HISTORY: SH: Marital: .Occupation: Currently Working - [employer].Work Status: Currently Working.Hand Dominance: Right-handed. Personal Habits: Smoking: Patient is a current smoker, smokes every day.Cigarette Use: Patient is a current cigarette smoker, smokes every day.Alcohol: Currently consumes alcohol, Occasionally.Drug Use: Denies Use.Enjoy Exercising: Never Exercises. Reviewed, no changes. VITALS: Ht: 65 Wt: 231lb Wt k.782 BMI: 38.4 BP: 122/78 Pulse: 92 Resp: 16 T: 97 T: 36.1C ALLERGIES: No Known Drug Allergy MEDICATIONS: Mobic 15 mg 1 by mouth every day, Levothyroxine Sodium 75 mcg 1 PO qday, Vitamin D 100 Unit 1 twice daily, Ultram ER 50 mg 1 po qday prn pain, Metformin HCL 500 mg 1 by mouth every day, Atorvastatin Calcium 10 mg 1 by mouth every day, Omeprazole 20 mg 1 by mouth BID, Chantix Starting Month Jermaine 0.5 mg X 11 & 1 mg X 42 0.5 mg by mouth everyday for 3 days day 4-7 0.5 mg twice a day day 8 to end of treatment 1 mg twice a day PRE-OP EXAM: General appearance:NORMAL Other: Eyes: Conjunctivae and lids: NORMAL Pupils: ERR Ears, Nose, Mouth, and Throat: NORMAL Other: Inspection of lips, teeth and gums: NORMAL Other: Neck: Examination of neck: no masses noted. Respiratory: Assessment of respiratory effort: NORMAL Other: Ausculation of lungs: clear to ausculation no wheeses, ronchi or rales. Cardiovascular: Ausculation of heart: regular rate and rhythem, no mummurs, gallops or rubs. Exam of carotid arteries: NORMAL Other: Gastrointestinal: Exam of abdomen: soft, nontender, nondistended bowel sounds present. Lymphatic: Palpation of nodes in neck: NORMAL Other: Palpation of nodes in Axillae: NORMAL Other: Neurological: see below Psychiatric: Orientation to time, place and person: NORMAL Other: Mood and affect: NORMAL Other: PHYSICAL EXAMINATION: Patient walks with an antalgic gait. She has tenderness to palpation to the right knee over the lateral joint line and posterior knee. Patient does have large effusion. Right knee is cool to touch without erythema. Range of motion +5? of extension to 95? of flexion with increased pain. Sensations intact to light touch. IMAGING STUDIES: X-[facility] were [facility] on August 14, 2017 of the right knee which does reveal valgus alignment with progressive medial compartment joint space narrowing. There is progressive osteophyte formation and joint space narrowing on the sunrise view. Right knee is consistent with severe osteoarthritis. IMPRESSION: 1. Severe right knee osteoarthritis 2. Thyroid disease 3. Type 2 diabetes mellitus 4. Gastroesophageal reflux disease PLAN: Dr. Bradley did discuss and review with the patient all treatment options including surgical versus nonsurgical. Patient wishes to proceed with above-stated procedure. Potential risks, benefits, and complications of this procedure were discussed in detail including but not limited to , infection, nerve and blood vessel damage, persistent pain, numbness, tingling, paresthesias, blood clot, pulmonary embolism, and requirement for further surgery. The patient expressed full understanding has no further questions for the doctor. Patient does agree to proceed with the above-stated procedure and has signed the surgery consent form. ___ I have re-examined the patient. There are no clinical changes since date of exam. ___ See progress notes for changes. ___ Dictated on admission Date: Time: Signature:
--- NOTE | 2017-10-10 14:34 | HP.PCM_ITS ---
History and Physical DATE OF SERVICE: 10/25/2017 SCHEDULED PROCEDURE: Right total knee arthroplasty HISTORY OF PRESENT ILLNESS: This is a 57-year-old female who is been having ongoing knee pain for several years. Patient states recently the right knee pain has increased over the past 6-7 months. Patient states her pain is intermittent, aching, stabbing, and sore. She has increased pain going up and down stairs, walking any amount of distance. Patient has difficult time with activities of daily living including doing housework. She has fallen secondary to her right knee pain. She feels unsafe walking and going up and down steps. Patient has tried previous conservative measures consisting of rest, ice, and oral medications with only minimal relief. Patient has undergone previous aspiration and corticosteroid injections in the right knee. She has received previously approximately 3-4 corticosteroid injections. Patient also underwent previous Euflexxa series. Patient denies previous surgery on the right knee. Patient has a hard time with her job on the weekends which requires her to do prolonged standing. She has had continued swelling in the right knee. After failing conservative measures and discussing all treatment options with Dr. Jackson, the patient would like to proceed with a right total knee arthroplasty. Patient has a medical history pertinent for thyroid disease as well as type 2 diabetes mellitus. Patient has obtained surgical clearance from her primary care physician Dr. Elizalde. Patient currently denies any chest pain, shortness of breath, fevers chills, or recent infections. REVIEW OF SYSTEMS: ROS: Const: Denies anorexia, change in appetite, fever, hard of hearing, vision problems and weight change. CV: Denies chest pain, heart murmur, irregular heartbeat and peripheral vascular disease. Resp: Denies asthma, cough, pneumonia, sleep apnea, SOB, tuberculosis and wheezing. GI: Denies constipation, diarrhea, difficulty swallowing, heartburn, nausea, bloody stools and vomiting. : . (F Genital Sx) Urinary: denies incontinence. Musculo: Denies leg swelling, limp, trouble walking and weakness. Skin: Denies Raynaud's, history of shingles and tattoo. Neuro: Denies ambulatory dysfunction, dizziness, numbness/tingling and tremor. Psych: Denies anxiety, depression, insomnia, mental illness and stress. Martin/Lymph: Denies anemia, bleeding/bruising tendency and past transfusion. Reviewed, no changes. PAST MEDICAL HISTORY: Advance Care Plan: PMH: Health Maintenance: Bone Density Test Medical Problems: Thyroid Disease - Hyperthyroid - treated by Dr. Ballesteros Thyroid Disease, Diabetes Accidents: Fell - (1988) FELL DOWN 25 STEPS ON BUTT-RESULTED IN BACK PROBLEMS Surgical Hx: Left Ankle Debridement With Excision Of Merrill Deformity, Debridement - (2012) G/WAS Anesthesia Complications: None Assistive Devices: Glasses - Contacts Reviewed, no changes. SOCIAL HISTORY: SH: Marital: .Occupation: Currently Working - [employer].Work Status: Currently Working.Hand Dominance: Right-handed. Personal Habits: Smoking: Patient is a current smoker, smokes every day.Cigarette Use: Patient is a current cigarette smoker, smokes every day.Alcohol: Currently consumes alcohol, Occasionally.Drug Use: Denies Use.Enjoy Exercising: Never Exercises. Reviewed, no changes. VITALS: Ht: 65 Wt: 231lb Wt k.782 BMI: 38.4 BP: 122/78 Pulse: 92 Resp: 16 T: 97 T : 36.1C ALLERGIES: No Known Drug Allergy MEDICATIONS: Mobic 15 mg 1 by mouth every day, Levothyroxine Sodium 75 mcg 1 PO qday, Vitamin D 100 Unit 1 twice daily, Ultram ER 50 mg 1 po qday prn pain, Metformin HCL 500 mg 1 by mouth every day, Atorvastatin Calcium 10 mg 1 by mouth every day , Omeprazole 20 mg 1 by mouth BID, Chantix Starting Month Jermaine 0.5 mg X 11 & 1 mg X 42 0.5 mg by mouth everyday for 3 days day 4-7 0.5 mg twice a day day 8 to end of treatment 1 mg twice a day PRE-OP EXAM: General appearance:NORMAL Other: Eyes: Conjunctivae and lids: NORMAL Pupils: ERR Ears, Nose, Mouth, and Throat: NORMAL Other: Inspection of lips, teeth and gums: NORMAL Other: Neck: Examination of neck: no masses noted. Respiratory: Assessment of respiratory effort: NORMAL Other: Ausculation of lungs: clear to ausculation no wheeses, ronchi or rales. Cardiovascular: Ausculation of heart: regular rate and rhythem, no mummurs, gallops or rubs. Exam of carotid arteries: NORMAL Other: Gastrointestinal: Exam of abdomen: soft, nontender, nondistended bowel sounds present. Lymphatic: Palpation of nodes in neck: NORMAL Other: Palpation of nodes in Axillae: NORMAL Other: Neurological: see below Psychiatric: Orientation to time, place and person: NORMAL Other: Mood and affect: NORMAL Other: PHYSICAL EXAMINATION: Patient walks with an antalgic gait. She has tenderness to palpation to the right knee over the lateral joint line and posterior knee. Patient does have large effusion. Right knee is cool to touch without erythema. Range of motion +5? of extension to 95? of flexion with increased pain. Sensations intact to light touch. IMAGING STUDIES: X-rays were obtained that [facility] on August 14, 2017 of the right knee which does reveal valgus alignment with progressive medial compartment joint space narrowing. There is progressive osteophyte formation and joint space narrowing on the sunrise view. Right knee is consistent with severe osteoarthritis. IMPRESSION: 1. Severe right knee osteoarthritis 2. Thyroid disease 3. Type 2 diabetes mellitus 4. Gastroesophageal reflux disease PLAN: Dr. Bradley did discuss and review with the patient all treatment options including surgical versus nonsurgical. Patient wishes to proceed with above- stated procedure. Potential risks, benefits, and complications of this procedure were discussed in detail including but not limited to , infection , nerve and blood vessel damage, persistent pain, numbness, tingling, paresthesias, blood clot, pulmonary embolism, and requirement for further surgery. The patient expressed full understanding has no further questions for the doctor. Patient does agree to proceed with the above-stated procedure and has signed the surgery consent form. ___ I have re-examined the patient. There are no clinical changes since date of exam. ___ See progress notes for changes. ___ Dictated on admission Date: Time: Signature:
[2017-10-13 12:02] VITALS: BMI 38.5
== END ==
PROVIDERS: Anesthesiology; Family Provider Family Medicine; PCP Family Medicine; Visit Provider Specialist
DX: Z01.818 Encounter for other preprocedural examination (principal); E11.9 Type 2 diabetes mellitus without complications
CPT/HCPCS: 80048; 83036; 84443; 85025; 87081

== ENCOUNTER 2017-12-01 15:15 | Outpatient (RCR) | payer BC, SELFPAY ==
[2017-10-13 12:02] VITALS: BMI 38.5
[2017-11-27 11:53] VITALS: BP 108/60; BP 126/60
--- NOTE | 2017-11-27 11:54 | CR.ITP_ITS ---
Exercise - Initial Assessment - Stages of Change Stages of Change:: Action - Stress Test EKG: normal sinus rhythm - Exercise Prescription Mode:: Treadmill, Rower, Airdyne, NuStep Target Heart Rate:: 122-130 - Hypertension Do any of the following apply?: Yes, Medication - Intervention Home Exercise/Activity Goal:: Sitting Time <3 hrs/day - Education Goals:: Warm-up, RPE ULICES Scale, S/S, Safe Exercise, Self-Monitoring - Exercise Program Goals Exercise Program Goals: Aerobic Activity >30 min Exercise - 30-day Assessment - Visit Date of Eval: 11/27/17 - 11/20/2017-11/24/2017 Session #:: 3 - Stages of Change Stages of Change:: Action - Exercise Prescription Mode:: Treadmill, NuStep Frequency (x/week): 3 Duration:: 30 METs - Progression: 0.5-1 MET as tolerated: 2.5 Target Heart Rate:: 122-130 Max HR 103 - Hypertension Resting Blood Pressure:: 108/60 Peak Exercise Blood Pressure:: 126/60 Medication Changes:: No - Intervention Home Exercise/Activity Goal:: Sitting Time <3 hrs/day - Education Goals:: Warm-up, RPE ULICES Scale, S/S, Safe Exercise, Self-Monitoring Exercise - Final/Discharge - Hypertension Do any of the following apply?: Yes, Medication Nutrition - Initial Assessment - Program Goals Nutrition Program Goals: LDL <70. Total Cholesterol <200. HDL >45. Triglycerides <150. HgbA1C <7%. BMI <25 - Stages of Change Stages of Change:: Action - Diabetes Diabetes:: Yes Non-Insulin Dependent?: Yes Do you monitor your blood sugar at home?: No - Weight Management Body Fat %:: 38.2 Total Score:: 6 - Intervention Referral to dietitian:: Yes - Patient interested in Why Weight structured weight loss. Referral to Diabetic Clinic:: Yes Will attend diet classes:: Yes - Education Gave educational materials for:: Relate diabetes to coronary artery disease, Healthy eating Nutrition - 30-Day Assessment - Program Goals Nutrition Program Goals: LDL <70. Total Cholesterol <200. HDL >45. Triglycerides <150. HgbA1C <7%. BMI <25 - Visit Date of Eval: 11/27/17 - 11/20/2017-11/24/2017 - Stages of Change Stages of Change:: Action - Lipids Has the patient seen the dietitian?: No - Diabetes Diabetes:: Yes Insulin: No Non-Insulin Dependent?: Yes - Weight Management Weight:: 101.378 kg - Intervention Referral to dietitian:: Yes - Patient interested in Why Weight structured weight loss. Referral to Diabetic Clinic:: Yes Will attend diet classes:: Yes - Education Attended class for:: Relate diabetes to coronary artery disease, Healthy eating Nutrition - 60-Day Assessment - Program Goals Nutrition Program Goals: LDL <70. Total Cholesterol <200. HDL >45. Triglycerides <150. HgbA1C <7%. BMI <25 - Diabetes Diabetes:: Yes Insulin: No Non-Insulin Dependent?: Yes - Intervention Referral to dietitian:: Yes - Patient interested in Why Weight structured weight loss. Referral to Diabetic Clinic:: Yes Will attend diet classes:: Yes - Education Attended class for:: Relate diabetes to coronary artery disease, Healthy eating Nutrition - 90-Day Assessment - Program Goals Nutrition Program Goals: LDL <70. Total Cholesterol <200. HDL >45. Triglycerides <150. HgbA1C <7%. BMI <25 - Diabetes Diabetes:: Yes Insulin: No Non-Insulin Dependent?: Yes - Intervention Referral to dietitian:: Yes - Patient interested in Why Weight structured weight loss. Referral to Diabetic Clinic:: Yes Will attend diet classes:: Yes - Education Attended class for:: Relate diabetes to coronary artery disease, Healthy eating Nutrition - Final Assessment - Program Goals Nutrition Program Goals: LDL <70. Total Cholesterol <200. HDL >45. Triglycerides <150. HgbA1C <7%. BMI <25 - Diabetes Diabetes:: Yes Insulin: No Non-Insulin Dependent?: Yes - Weight Management Body Fat %:: 38.2 Total Score:: 6 - Intervention Referral to dietitian:: Yes - Patient interested in Why Weight structured weight loss. Referral to Diabetic Clinic:: Yes Will attend diet classes:: Yes Tobacco - Initial Assessment - Program Goals Tobacco Program Goals: Complete smoking cessation. Attend education classes. Improve Knowledge Test score - Stage of Change Stages of Change:: Action - Learning Barriers Learning Barriers: Vision - wears glasses, Ready to Learn Total Score:: 9 - Family Support Do you have family support?: Yes - Tobacco Use Tobacco Use: Cigarettes How long ago did you quit using tobacco products?: Less than 6 months ago How many cigarettes do you smoke per day?: 20 - Quit Oct 13, 2017 Years Smokin Do you use smokeless tobacco?: No - Intervention Smoking Cessation Referral:: Yes Individual Education/Counseling:: No Education Schedule Given:: Yes - Education Gave educational material for:: Tobacco triggers, Coronary artery disease, Risk factors, Sexuality, Medical compliance, Cardiac A&P, Angina signs & symptoms Tobacco - 30-Day Assessment - Program Goals Tobacco Program Goals: Complete smoking cessation. Attend education classes. Improve Knowledge Test score - Family Support Do you have family support?: Yes - Tobacco Use How many cigarettes do you smoke per day?: 20 - Quit Oct 13, 2017 Do you use smokeless tobacco?: No - Intervention Smoking Cessation Referral:: Yes Individual Education/Counseling:: No Education Schedule Given:: Yes - Education Attended class for:: Tobacco triggers, Coronary artery disease, Risk factors, Sexuality, Medical compliance, Cardiac A&P, Angina signs & symptoms Tobacco - 60-Day Assessment - Program Goals Tobacco Program Goals: Complete smoking cessation. Attend education classes. Improve Knowledge Test score - Family Support Do you have family support?: Yes - Tobacco Use How many cigarettes do you smoke per day?: 20 - Quit Oct 13, 2017 Do you use smokeless tobacco?: No - Intervention Smoking Cessation Referral:: Yes Individual Education/Counseling:: No Education Schedule Given:: Yes - Education Attended class for:: Tobacco triggers, Coronary artery disease, Risk factors, Sexuality, Medical compliance, Cardiac A&P, Angina signs & symptoms Tobacco - 90-Day Assessment - Program Goals Tobacco Program Goals: Complete smoking cessation. Attend education classes. Improve Knowledge Test score - Family Support Do you have family support?: Yes - Tobacco Use How many cigarettes do you smoke per day?: 20 - Quit Oct 13, 2017 Do you use smokeless tobacco?: No - Intervention Smoking Cessation Referral:: Yes Individual Education/Counseling:: No Education Schedule Given:: Yes - Education Attended class for:: Tobacco triggers, Coronary artery disease, Risk factors, Sexuality, Medical compliance, Cardiac A&P, Angina signs & symptoms Tobacco - Final Assessment - Program Goals Tobacco Program Goals: Complete smoking cessation. Attend education classes. Improve Knowledge Test score - Learning Barriers Cardiac Knowledge Test Score:: 9 - Family Support Do you have family support?: Yes - Tobacco Use How many cigarettes do you smoke per day?: 20 - Quit Oct 13, 2017 Do you use smokeless tobacco?: No - Intervention Smoking Cessation Referral:: Yes Individual Education/Counseling:: No Education Schedule Given:: Yes Psychosocial - Initial Assess - Target Goals Target Goals: Assess presence or absence of depression. Using a valid screening tool, maximizes coping skills. Positive support system - Stages of Change Stages of Change:: Action - Psychosocial Test Tool Used:: HANDS Depression Questionnaire Tests Completed: Mood Scale Test Self-Efficacy Score:: 6 - Intervention PS - Interventions: Yes Attend Stress Management Classes, No Referral to Mental Health, No Referral to [facility] Case Management, No Referral to Physician, No Uses Stress Management Skills - Education Gave educational materials for:: Coping techniques, Signs & symptoms of depression, Stress management, Relaxation techniques - Patient/Program Goal Preventative Medication(s):: Aspirin, FRANK inhibitor, Clopidogrel, Beta melania, Statin/lipid - Assistive Devices Assistive Devices:: None Fall Risk Assessed:: Yes Psychosocial - 30-Day Assess - Target Goals Target Goals: Assess presence or absence of depression. Using a valid screening tool, maximizes coping skills. Positive support system - Stages of Change Stages of Change:: Action - Psychosocial Test Tool Used:: HANDS Depression Questionnaire Self-Efficacy Score:: 6 - Intervention PS - Interventions: Yes Attend Stress Management Classes, Yes Uses Stress Management Skills, No Referral to Mental Health, No Referral to [facility] Case Management, No Referral to Physician - Patient/Program Goal Preventative Medication(s):: Aspirin, FRANK inhibitor, Clopidogrel, Beta melania, Statin/lipid - Assistive Devices Assistive Devices:: None Fall Risk Assessed:: Yes Psychosocial - 60-Day Assess - Target Goals Target Goals: Assess presence or absence of depression. Using a valid screening tool, maximizes coping skills. Positive support system - Psychosocial Test Tool Used:: HANDS Depression Questionnaire Self-Efficacy Score:: 6 - Education Attended classes for:: Coping techniques, Signs & symptoms of depression, Stress management, Relaxation techniques - Patient/Program Goal Preventative Medication(s):: Aspirin, FRANK inhibitor, Clopidogrel, Beta melania, Statin/lipid - Assistive Devices Assistive Devices:: None Fall Risk Assessed:: Yes Psychosocial - 90-Day Assess - Target Goals Target Goals: Assess presence or absence of depression. Using a valid screening tool, maximizes coping skills. Positive support system - Psychosocial Test Tool Used:: HANDS Depression Questionnaire Self-Efficacy Score:: 6 - Education Attended classes for:: Coping techniques, Signs & symptoms of depression, Stress management, Relaxation techniques - Patient/Program Goal Preventative Medication(s):: Aspirin, FRANK inhibitor, Clopidogrel, Beta melania, Statin/lipid - Assistive Devices Assistive Devices:: None Fall Risk Assessed:: Yes Psychosocial - Final Assessmen - Target Goals Target Goals: Assess presence or absence of depression. Using a valid screening tool, maximizes coping skills. Positive support system - Psychosocial Test Tool Used:: HANDS Depression Questionnaire Tests Completed: Mood Scale Test Self-Efficacy Score:: 6 - Patient/Program Goal Preventative Medication(s):: Aspirin, FRANK inhibitor, Clopidogrel, Beta melania, Statin/lipid - Assistive Devices Assistive Devices:: None Fall Risk Assessed:: Yes Patient Health Questionnaire 30-Day Re-eval Assessment 1. Little interest or pleasure in doing things: Not at all 2. Feeling down, depressed, or hopeless: Not at all 3. Trouble falling or staying asleep, or sleeping too much: Not at all 4. Feeling tired or having little energy: Several days 5. Poor appetite or overeating: Several days 6. Feeling bad about yourself -- or that you are a failure or have let yourself or your family down: Not at all 7. Trouble concentrating on things, such as reading the newspaper or watching television: Several days 8. Moving or speaking so slowly that other people could have noticed. Or the opposite - being so fidgety or restless that you have been moving around a lot more than usual: Not at all How difficult have these problems made it for you to do your work, take care of things at home, or get along with other people?: Not difficult at all Total Score: 3 Self-Efficacy 30-Day Re-eval Assessment We would like to know how confident you are in doing certain activities. Please select your confidence level for:: Select your confidence level for the following using the scale 1-10 where 1 is not at all confident and 10 is totally confident. Your score is the average of all 6 responses. Fatigue: How confident are you that you can keep the fatigue caused by your disease from interfering with the things you want to do? Select Number: 7 Physical Discomfort or Pain: How confident are you that you can keep the physical discomfort or pain of your disease from interfering with the things you want to do? Select Number: 7 Emotional Distress: How confident are you that you can keep the emotional distress caused by your disease from interfering with the things you want to do? Select Number: 7 Other Symptoms or Health Problems: How confident are you that you can keep other symptoms or health problems from interfering with the things you want to do? Select Number: 7 Different Tasks and Activities: How confident are you that you can do the different tasks and activities needed to manage your health condition so as to reduce your need to see a doctor? Select Number: 7 Medication: How confident are you that you can do things other than just taking medication to reduce how much your illness affects your everyday life? Select Number: 7 Total Score:: 7 Cardiac Rehabilitation Goals - Cardiac Rehab Goals Cardiac Rehabilitation Goals: 1. Maintain the individual as the primary focus of care. 2. To improve the patient's quality of life. 3. Identification of cardiac risk factors and provide cardiac risk factor management. 4. Enhance the psychosocial status of the patient. 5. Reconditioning enough to allow the patient to resume customary activities. 6. Control symptoms of cardiac disease - Scale Scale for measuring improvement of personal goals: Enter appropriate number in Comments. 2 = Unchanged. 3 = Slightly Better. 4 = Moderate Improvement. 5 = Met my Goal 30-Day Re-eval Assessment Personal Goals: 60-day Re-assessment: Quit smoking (participate in smoking cessation, Improve energy level, Participate in home exercise program, Get back to work, or to resume activities faster, Improve knowledge of cardiac disease, Improve muscle strength and endurance, Improve diet and eating habits (eat healthier), Control risk factors (learn risk factor modification)
== END 2017-12-02 23:59 ==
LOC: CR 15:15
PROVIDERS: Family Provider Family Medicine; PCP Family Medicine; Visit Provider Internal Medicine Cardiovascular Disease
DX: I25.10 Atherosclerotic heart disease of native coronary artery without angina pectoris (principal); I21.3 ST elevation (STEMI) myocardial infarction of unspecified site; E78.5 Hyperlipidemia, unspecified; E11.9 Type 2 diabetes mellitus without complications; Z95.5 Presence of coronary angioplasty implant and graft
CPT/HCPCS: 93798

== ENCOUNTER 2018-01-01 08:00 | Outpatient (RCR) | payer BC, SELFPAY ==
[2017-10-13 12:02] VITALS: BMI 38.5
[2017-12-03 01:17] VITALS: BP 108/60; BP 126/60
[2017-12-25 10:11] VITALS: BP 112/60
--- NOTE | 2017-12-25 10:12 | CR.ITP_ITS ---
General Information - General Information Admitting Diagnosis: STEMI, PCI with coronary stenting - Education/Goals Barriers to Learning: Vision Impairment Individual Counselin-Day Assessment: Abnormal Cholesterol Levels, High Blood Pressure, Overweight/Obesity, Diabetes Cardiac Rehabilitation Goals: 1. Maintain the individual as the primary focus of care. 2. To improve the patient's quality of life. 3. Identification of cardiac risk factors and provide cardiac risk factor management. 4. Enhance the psychosocial status of the patient. 5. Reconditioning enough to allow the patient to resume customary activities. 6. Control symptoms of cardiac disease Scale for measuring improvement of personal goals: Enter appropriate number in Comments. 2 = Unchanged. 3 = Slightly Better. 4 = Moderate Improvement. 5 = Met my Goal Personal Goals: 60-day Re-assessment: Improve energy level, Participate in home exercise program, Improve knowledge of cardiac disease, Improve muscle strength and endurance, Improve diet and eating habits (eat healthier) Exercise - 60-Day Assessment - Visit Date of Eval: 12/25/17 Session #:: 15 - Stages of Change Stages of Change:: Action - Exercise Prescription Mode:: Treadmill, NuStep Frequency (x/week): 3 Duration:: 30 METs: 4.5 Target Heart Rate:: 130-139 - Hypertension Resting Blood Pressure:: 112/60 Peak Exercise Blood Pressure:: 112/60 Medication Changes:: No - Intervention Home Exercise/Activity Goal:: Sitting Time <3 hrs/day - Education Goals:: Warm-up, RPE ULICES Scale, S/S, Safe Exercise, Self-Monitoring - Exercise Program Goals Exercise Program Goals: Aerobic Activity >30 min, B/P <140/90 Nutrition - Initial Assessment - Program Goals Nutrition Program Goals: LDL <70. Total Cholesterol <200. HDL >45. Triglycerides <150. HgbA1C <7%. BMI <25 - Diabetes Do you monitor your blood sugar at home?: No Nutrition - 60-Day Assessment - Program Goals Nutrition Program Goals: LDL <70. Total Cholesterol <200. HDL >45. Triglycerides <150. HgbA1C <7%. BMI <25 - Visit Date of Eval: 12/25/17 - Stages of Change Stages of Change:: Action - Lipids Has the patient seen the dietitian?: No - Diabetes Diabetes:: Yes - Weight Management Weight:: 100.017 kg - Intervention Referral to dietitian:: No Referral to Diabetic Clinic:: No Will attend diet classes:: Yes - Education Attended class for:: Signs & symptoms of hypoglycemia, Signs & symptoms of hyperglycemia, Relate diabetes to coronary artery disease, Healthy eating Tobacco - Initial Assessment - Program Goals Tobacco Program Goals: Complete smoking cessation. Attend education classes. Improve Knowledge Test score - Learning Barriers Learning Barriers: Vision - wears glasses, Ready to Learn Tobacco - 60-Day Assessment - Program Goals Tobacco Program Goals: Complete smoking cessation. Attend education classes. Improve Knowledge Test score - Stage of Change Stages of Change:: Action - Learning Barriers Learning Barriers: Participates in education - Family Support Do you have family support?: Yes - Tobacco Use Tobacco Use: Non-smoker - Intervention Smoking Cessation Referral:: No Individual Education/Counseling:: No Education Schedule Given:: Yes - Education Attended class for:: Tobacco triggers, Coronary artery disease, Risk factors, Medical compliance, Cardiac A&P, Angina signs & symptoms Psychosocial - Initial Assess - Target Goals Target Goals: Assess presence or absence of depression. Using a valid screening tool, maximizes coping skills. Positive support system - Psychosocial Test Tool Used:: HANDS Depression Questionnaire - Assistive Devices Fall Risk Assessed:: Yes Psychosocial - 60-Day Assess - Target Goals Target Goals: Assess presence or absence of depression. Using a valid screening tool, maximizes coping skills. Positive support system - Stages of Change Stages of Change:: Action - Psychosocial Test Tool Used:: HANDS Depression Questionnaire - Intervention PS - Interventions: Yes Attend Stress Management Classes, Yes Uses Stress Management Skills, No Referral to Mental Health, No Referral to [facility] Case Management, No Referral to Physician - Education Attended classes for:: Coping techniques, Signs & symptoms of depression, Stress management, Relaxation techniques - Assistive Devices Assistive Devices:: None Fall Risk Assessed:: Yes Patient Health Questionnaire 60-Day Re-eval Assessment 1. Little interest or pleasure in doing things: Not at all 2. Feeling down, depressed, or hopeless: Not at all 3. Trouble falling or staying asleep, or sleeping too much: Several days 4. Feeling tired or having little energy: Several days 5. Poor appetite or overeating: Several days 6. Feeling bad about yourself -- or that you are a failure or have let yourself or your family down: Not at all 7. Trouble concentrating on things, such as reading the newspaper or watching television: Not at all 8. Moving or speaking so slowly that other people could have noticed. Or the opposite - being so fidgety or restless that you have been moving around a lot more than usual: Not at all 9. Thoughts that you would be better off , or of hurting yourself in some way: Not at all Total Score: 3 Self-Efficacy 60-Day Re-eval Assessment We would like to know how confident you are in doing certain activities. Please select your confidence level for:: Select your confidence level for the following using the scale 1-10 where 1 is not at all confident and 10 is totally confident. Your score is the average of all 6 responses. Fatigue: How confident are you that you can keep the fatigue caused by your disease from interfering with the things you want to do? Select Number: 8 Physical Discomfort or Pain: How confident are you that you can keep the physical discomfort or pain of your disease from interfering with the things you want to do? Select Number: 8 Emotional Distress: How confident are you that you can keep the emotional distress caused by your disease from interfering with the things you want to do? Select Number: 8 Other Symptoms or Health Problems: How confident are you that you can keep other symptoms or health problems from interfering with the things you want to do? Select Number: 8 Different Tasks and Activities: How confident are you that you can do the different tasks and activities needed to manage your health condition so as to reduce your need to see a doctor? Select Number: 8 Medication: How confident are you that you can do things other than just taking medication to reduce how much your illness affects your everyday life? Select Number: 8 Total Score:: 8
== END 2018-01-01 23:59 ==
LOC: CR 08:00
PROVIDERS: Family Provider Family Medicine; PCP Family Medicine; Visit Provider Internal Medicine Cardiovascular Disease
DX: I21.3 ST elevation (STEMI) myocardial infarction of unspecified site (principal); I25.10 Atherosclerotic heart disease of native coronary artery without angina pectoris; E78.5 Hyperlipidemia, unspecified; E11.9 Type 2 diabetes mellitus without complications; Z95.5 Presence of coronary angioplasty implant and graft
CPT/HCPCS: 93798

== ENCOUNTER 2018-01-19 09:28 | Outpatient (RCR) | payer BC, SELFPAY ==
[2017-10-13 12:02] VITALS: BMI 38.5
== END 2018-02-01 23:59 ==
LOC: NS 09:28
PROVIDERS: Family Provider Family Medicine; PCP Family Medicine; Visit Provider Internal Medicine Cardiovascular Disease
DX: E11.9 Type 2 diabetes mellitus without complications (principal); I25.10 Atherosclerotic heart disease of native coronary artery without angina pectoris; I21.3 ST elevation (STEMI) myocardial infarction of unspecified site; E66.9 Obesity, unspecified; Z95.5 Presence of coronary angioplasty implant and graft
CPT/HCPCS: 97802

== ENCOUNTER 2018-01-24 15:15 | Outpatient (RCR) | payer BC, SELFPAY ==
[2017-10-13 12:02] VITALS: BMI 38.5
[2018-01-02 00:57] VITALS: BP 112/60
[2018-01-24 13:38] VITALS: BP 112/52
--- NOTE | 2018-01-24 13:38 | CR.ITP_ITS ---
General Information - General Information Admitting Diagnosis: STEMI, PCI with coronary stenting - Education/Goals Barriers to Learning: Vision Impairment Cardiac Rehabilitation Goals: 1. Maintain the individual as the primary focus of care. 2. To improve the patient's quality of life. 3. Identification of cardiac risk factors and provide cardiac risk factor management. 4. Enhance the psychosocial status of the patient. 5. Reconditioning enough to allow the patient to resume customary activities. 6. Control symptoms of cardiac disease Scale for measuring improvement of personal goals: Enter appropriate number in Comments. 2 = Unchanged. 3 = Slightly Better. 4 = Moderate Improvement. 5 = Met my Goal Personal Goals: Discharge Reassessment: Improve energy level, Participate in home exercise program, Improve knowledge of cardiac disease, Improve muscle strength and endurance, Improve diet and eating habits (eat healthier) Exercise - 90-Day Assessment - Visit Date of Eval: 01/24/18 Session #:: 28 - Stages of Change Stages of Change:: Action - Exercise Prescription Mode:: Treadmill, NuStep Frequency (x/week): 3 - 100% MET increase Duration:: 30 METs: 5 Target Heart Rate:: 130-139 Max HR 118 - Hypertension Resting Blood Pressure:: 112/52 Peak Exercise Blood Pressure:: 112/52 Medication Changes:: No - Intervention Home Exercise/Activity Goal:: Sitting Time <3 hrs/day - Education Goals:: Warm-up, RPE ULICES Scale, S/S, Safe Exercise, Self-Monitoring - Exercise Program Goals Exercise Program Goals: Aerobic Activity >30 min, B/P <130/80 Nutrition - Initial Assessment - Program Goals Nutrition Program Goals: LDL <70. Total Cholesterol <200. HDL >45. Triglycerides <150. HgbA1C <7%. BMI <25 - Diabetes Do you monitor your blood sugar at home?: No Nutrition - 90-Day Assessment - Program Goals Nutrition Program Goals: LDL <70. Total Cholesterol <200. HDL >45. Triglycerides <150. HgbA1C <7%. BMI <25 - Visit Date of Eval: 01/24/18 - Stages of Change Stages of Change:: Action - Lipids Has the patient seen the dietitian?: No - Diabetes Diabetes:: Yes - Intervention Referral to dietitian:: No Referral to Diabetic Clinic:: No Will attend diet classes:: Yes - Education Attended class for:: Signs & symptoms of hypoglycemia, Signs & symptoms of hyperglycemia, Relate diabetes to coronary artery disease, Healthy eating Tobacco - Initial Assessment - Program Goals Tobacco Program Goals: Complete smoking cessation. Attend education classes. Improve Knowledge Test score - Learning Barriers Learning Barriers: Vision - wears glasses, Ready to Learn Tobacco - 90-Day Assessment - Program Goals Tobacco Program Goals: Complete smoking cessation. Attend education classes. Improve Knowledge Test score - Stage of Change Stages of Change:: Action - Learning Barriers Learning Barriers: Participates in education - Family Support Do you have family support?: Yes - Tobacco Use Tobacco Use: Non-smoker Do you use smokeless tobacco?: No - Intervention Smoking Cessation Referral:: No Individual Education/Counseling:: No Education Schedule Given:: Yes - Education Attended class for:: Tobacco triggers, Coronary artery disease, Risk factors, Sexuality, Medical compliance, Cardiac A&P, Angina signs & symptoms Psychosocial - 90-Day Assess - Target Goals Target Goals: Assess presence or absence of depression. Using a valid screening tool, maximizes coping skills. Positive support system - Stages of Change Stages of Change:: Action - Psychosocial Test Tool Used:: HANDS Depression Questionnaire - Intervention PS - Interventions: Yes Attend Stress Management Classes, Yes Uses Stress Management Skills, No Referral to Mental Health, No Referral to [facility] Case Management, No Referral to Physician - Education Attended classes for:: Coping techniques, Signs & symptoms of depression, Stress management, Relaxation techniques - Assistive Devices Assistive Devices:: None Fall Risk Assessed:: Yes Patient Health Questionnaire 90-Day Re-eval Assessment 1. Little interest or pleasure in doing things: Not at all 2. Feeling down, depressed, or hopeless: Not at all 3. Trouble falling or staying asleep, or sleeping too much: Several days 4. Feeling tired or having little energy: Several days 5. Poor appetite or overeating: Several days 6. Feeling bad about yourself -- or that you are a failure or have let yourself or your family down: Not at all 7. Trouble concentrating on things, such as reading the newspaper or watching television: Not at all 8. Moving or speaking so slowly that other people could have noticed. Or the opposite - being so fidgety or restless that you have been moving around a lot more than usual: Not at all 9. Thoughts that you would be better off , or of hurting yourself in some way: Not at all How difficult have these problems made it for you to do your work, take care of things at home, or get along with other people?: Not difficult at all Total Score: 3 Self-Efficacy 90-Day Re-eval Assessment We would like to know how confident you are in doing certain activities. Please select your confidence level for:: Select your confidence level for the following using the scale 1-10 where 1 is not at all confident and 10 is totally confident. Your score is the average of all 6 responses. Fatigue: How confident are you that you can keep the fatigue caused by your disease from interfering with the things you want to do? Select Number: 9 Physical Discomfort or Pain: How confident are you that you can keep the physical discomfort or pain of your disease from interfering with the things you want to do? Select Number: 9 Emotional Distress: How confident are you that you can keep the emotional distress caused by your disease from interfering with the things you want to do? Select Number: 9 Other Symptoms or Health Problems: How confident are you that you can keep other symptoms or health problems from interfering with the things you want to do? Select Number: 9 Different Tasks and Activities: How confident are you that you can do the different tasks and activities needed to manage your health condition so as to reduce your need to see a doctor? Select Number: 9 Medication: How confident are you that you can do things other than just taking medication to reduce how much your illness affects your everyday life? Select Number: 9 Total Score:: 9
== END 2018-02-01 23:59 ==
LOC: CR 15:15
PROVIDERS: Family Provider Family Medicine; PCP Family Medicine; Visit Provider Internal Medicine Cardiovascular Disease
DX: I21.3 ST elevation (STEMI) myocardial infarction of unspecified site (principal); I25.10 Atherosclerotic heart disease of native coronary artery without angina pectoris; E78.5 Hyperlipidemia, unspecified; E11.9 Type 2 diabetes mellitus without complications; Z95.5 Presence of coronary angioplasty implant and graft
CPT/HCPCS: 93798

== ENCOUNTER 2018-01-24 22:18 | Observation (INO) | payer BC, SELFPAY ==
[2017-10-13 12:02] VITALS: BMI 38.5
[2018-01-24 22:19] VITALS: BP 140/82; PULSE 75; PULSE 78; RESP 17; RESP 18; TEMP 36.7; O2SAT 97; O2SAT 99; BMI 36.2
--- NOTE | 2018-01-24 22:40 | CT_ITS ---
STUDY: CTA OF THE BRAIN REASON FOR EXAM: Female, 57 years old. MID STERNAL CP RADIATES INTO BACK, RIGHT ARM NUMBNESS RADIATION DOSAGE (If Supplied By Facility): CTDIvol = ( 29.63 ) mGy, DLP = ( 1549.25 ) mGycm TECHNIQUE: CT angiography was performed with a multi-detector CT scanner. Data acquisition was obtained from the skull base through the vertex following intravenous administration of ml of . MIP images were reconstructed from the axial data set. Post-processing of the angiographic images was performed, with multiplanar reformation and 3D reconstruction. Individualized dose optimization techniques were used for this CT. COMPARISON: None. FINDINGS: Normal bilateral petrous carotid arteries. Normal right cavernous carotid artery with a normal supraclinoid bifurcation. Normal left cavernous carotid artery with a normal supraclinoid bifurcation. Normal right A1 segments of the anterior cerebral artery. Normal left A1 segments of the anterior cerebral artery. Normal intact anterior communicating artery (ACOM). Normal bilateral A2 segments of the anterior cerebral arteries. Normal right M1 and M2 segments of the middle cerebral arteries, with a normal M1 bifurcation. Normal left M1 and M2 segments of the middle cerebral arteries, with a normal M1 bifurcation. There is non-visualization of the right posterior communicating artery (PCOM). There is non-visualization of the left posterior communicating artery (PCOM). Normal bilateral vertebral arteries. Normal basilar artery with a normal basilar bifurcation. The visualized bilateral superior cerebellar (SCA) arteries are normal. Normal bilateral P1, P2 and visualized P3 segments of the posterior cerebral arteries. There is no demonstrated aneurysm of the [place]. There is no demonstrated abnormality of the visualized brain. CT/CTA Head W/WO Contrast IMPRESSION: Normal [place] without a demonstrated aneurysm or hemodynamically significant stenosis. Electronically Signed: Barbara Jones MD at 1:05 EDT Tel , Service support ,
--- NOTE | 2018-01-24 22:40 | EKG12_ITS ---
Test Reason : CP Blood Pressure : / mmHG Vent. Rate : 071 BPM Atrial Rate : 071 BPM P-R Int : 134 ms QRS Dur : 084 ms QT Int : 394 ms P-R-T Axes : 042 -11 024 degrees QTc Int : 428 ms Normal sinus rhythm Inferior infarct , age undetermined Abnormal ECG Confirmed by JOSE MARIA PETERSEN, BARBRA ([id number]), social media editor GRETCHEN TRUONG ([id number]) on 01/26/2018 10:58:51 AM Referred By: YEYO Confirmed By:BARBRA MOISE MD
--- NOTE | 2018-01-24 22:40 | CT_ITS ---
STUDY: CTA NECK WITH CONTRAST REASON FOR EXAM: Female, 57 years old. MID STERNAL CP RADIATES INTO BACK, RIGHT ARM NUMBNESS SINCE 2029, [place] OCT 2017, HTN, DIAB RADIATION DOSAGE (If Supplied By Facility): CTDIvol = ( 29.63 ) mGy, DLP = ( 1549.25 ) mGycm TECHNIQUE: CT angiography with multi-detector data acquisition was performed from the aortic arch to the skull base following intravenous administration of 75ML ml of Isovue 370 contrast. MIP images were reconstructed from the axial data set. Post-processing of the angiographic images was performed, with multiplanar reformation and 3D reconstruction. Individualized dose optimization techniques were used for this CT. COMPARISON: None. FINDINGS: AORTIC ARCH: There is a retroesophageal right subclavian artery. Normal origins of the right common carotid, left common carotid, and left subclavian arteries. RIGHT CAROTID ARTERIES: Normal right common carotid artery (CCA). Normal right common carotid bulb. Normal origin of the right internal carotid (ICA) artery without a hemodynamically significant stenosis. Normal visualized cervical portion of the right internal carotid artery. Normal origin of the right external carotid artery (ECA). LEFT CAROTID ARTERIES: Normal left common carotid artery (CCA). Normal left common carotid bulb. Normal origin of the left internal carotid (ICA) artery without a hemodynamically significant stenosis. There is atherosclerotic tortuous elongation of the cervical portion of the left internal carotid artery. 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 Normal origin of the left external carotid artery (ECA). VERTEBRAL ARTERIES: Normal bilateral vertebral arteries. 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 Normal remaining cervical carotid and vertebral arteries. Electronically Signed: Barbara Jones MD at 1:13 EDT Tel , Service support ,
--- NOTE | 2018-01-24 22:40 | CT_ITS ---
STUDY: CTA CHEST REASON FOR EXAM: Female, 57 years old. MID STERNAL CP RADIATES INTO BACK, RIGHT ARM NUMBNESS RADIATION DOSAGE (If Supplied By Facility): CTDIvol = ( 21.68 ) mGy, DLP = ( 749.39 ) mGycm TECHNIQUE: The examination was performed with the intravenous administration of 75ML ml of Isovue 370 contrast material. Post-processing of the angiographic images was performed, with multiplanar reformation and 3D reconstruction. Individualized dose optimization techniques were used for this CT. COMPARISON: None. FINDINGS: Normal enhancement of the main pulmonary artery and right and left pulmonary arteries. Normal enhancement of the bilateral peripheral pulmonary arteries. There is no demonstrated pulmonary embolism. There is atherosclerotic tortuosity of the aortic arch and descending thoracic aorta. There is no demonstrated aortic dissection. Normal heart and pericardium. Normal mediastinum. Normal hilar regions. Normal visualized trachea and bronchi. The lungs are well expanded. Normal pulmonary parenchyma. Normal pleura. Normal chest wall structures. There are degenerative changes of thoracic spine. Multiple stones are seen in the gallbladder. CT/CTA Chest W/WO Contrast IMPRESSION: Normal CTA chest examination, without a demonstrated pulmonary embolism or arterial dissection. Cholelithiasis. Electronically Signed: Barbara Jones MD at 1:25 EDT Tel , Service support ,
[2018-01-24 22:45] VITALS: O2SAT 99
--- NOTE | 2018-01-24 22:45 | RAD_ITS ---
STUDY: X-RAY CHEST REASON FOR EXAM: Female, 57 years old. Chest pain TECHNIQUE: Single AP portable view of the chest. COMPARISON: 08/28/2014. FINDINGS: The lungs are clear and expanded. There is no demonstrated pleural abnormality. Normal size heart. Normal mediastinum and [place]. Normal visualized pulmonary arteries. Normal visualized aortic arch and descending thoracic aorta. Normal visualized thoracic spine. Normal visualized ribs, clavicles, and shoulders. There is no demonstrated abnormality of the visualized soft tissue structures of the upper abdomen. RAD/Chest 1 View (Portable) IMPRESSION: Normal x-ray examination of the chest. Electronically Signed: Stuart Qureshi MD at 23:32 EDT , Service support ,
[2018-01-24] MEDS: Aspirin 81 MG TAB.CHEW 324 MG PO (22:49)
--- NOTE | 2018-01-24 22:58 | ED.VISSUMM ---
- ER Visit Summary Date of Service: 01/24/18 Chief Complaint: Chest pain History of Present Illness: The patient is a 57 F presenting with chest pain which started 2 hours prior to arrival. She states the pain is currently 7 out of 10. At its worse it was 8 out of 10. She denies nausea, vomiting, diaphoresis, shortness of breath. She has pain that goes into her upper back. She also complains of right arm and right face tingling. She has a history of recent [place] with 2 stents in October. She has a history of hypertension, diabetes, hypercholesterolemia, previous smoking. Denies PE/DVT risk factors. Physical Examination: Vitals are stable. Patient is afebrile. Alert no acute distress. HEENT exam is unremarkable. Neck is supple. Lungs are clear and equal bilaterally. Heart is regular rate and rhythm. Abdomen is soft nontender nondistended. Extremities are unremarkable. Skin is warm and dry. NIH 1: Decreased sensation right face Remainder of exam is unremarkable. Emergency Department Course and Treatment: EKG is sinus rate is 71 with no acute ischemic changes. Chest x-ray shows no acute process. CBC shows a white count of 11.9. Chemistries unremarkable. Troponin is negative. Patient is chest pain-free after medication. Repeat NIH continues to be 1 for decreased sensation right face. CTA head shows normal [place] without a demonstrated aneurysm or hemodynamically significant stenosis. CTA neck shows there is a small intimal flap from focal dissection without luminal narrowing in the upper part of the left internal carotid artery in the area of marked tortuosity just inferior to the skull base. Normal remaining cervical carotid and vertebral arteries. Normal CTA chest examination, without a demonstrated pulmonary embolism or arterial dissection. Discussed with Dr. Pascual. He recommends consulting cardiology to evaluate if she can be switched from Brilinta to Plavix. This was discussed with the hospitalist and she will be admitted. 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 It may contain incorrect words, spelling, and punctuation that were not noted in review of the chart prior to signing ED Disposition - Plan for ED Patient: Chief Complaint: Chest Pain Referrals: Reese Elizalde MD [Primary Care Provider] -
[2018-01-24 23:05] LABS: Absolute Lymphocyte Count 3.99 X10^3/ul (0.83-4.51); Absolute Neutrophil Count 6.8 X10^3/uL (2.0-7.7); Basophil# 0.05 X10^3/uL; Basophil% 0.4 % (0-1); Eosinophil# 0.18 X10^3/uL; Eosinophils% 1.5 % (0-5); Hematocrit 37.3 % (37-47); Hemoglobin 12.2 g/dl (12.0-15.0); Lymphocyte # 3.99 X10^3/ul (4.0); Lymphocyte % 33.7 % (19-41); Mean Corp Hgb Conc 32.7 g/gl (32-36); Mean Corpuscular Hgb 28.6 pg (27.0-32.0); Mean Corpuscular Volume 87.6 fL (81-99); Mean Platelet Vol. 11.6 fl (6.2-12.0); Monocyte# 0.81 X10^3/uL; Monocyte% 6.8 % (0-10); Neutrophil # 6.79 X10^3/uL (2.7-7.7); Neutrophil % 57.3 % (47-70); POSITIVE COUNT NO; POSITIVE DIFFERENTIAL NO; POSITIVE MORPHOLOGY NO; Platelet Count 275 K/mm3 (150-450); RBC Distribution Width CV 14.3 % (11.6-14.6); RBC Distribution Width SD 45.3 fl (35.1-43.9); Red Blood Count 4.26 M/mm3 (4.2-5.4); White Blood Count 11.9 K/mm3 (4.4-11.0)
[2018-01-24] MEDS: Morphine 4 MG/ML Syringe IV (23:10)
[2018-01-24] MEDS: Ondansetron 4 MG/2 ML Vial IV (23:10)
[2018-01-24 23:28] VITALS: BP 116/64; PULSE 76; RESP 16; O2SAT 95
[2018-01-24 23:29] LABS: Anion Gap 5 (5-15); BUN 15 mg/dL (7-18); Calcium,Total 8.9 mg/dL (8.5-10.1); Chloride 105 mmol/L (98-107); Creatinine, Serum 0.83 mg/dL (0.55-1.02); EST Glomerular Filtration Rate 75 mL/min (>60); Est Glom Filt Rate - Afr Amer 91 mL/min (>60); Estimated Creatinine Clearance 67.29 ml/min; Glucose 99 mg/dL (74-106); Potassium 4.3 mmol/L (3.5-5.1); Sodium Level 139 mmol/L (136-145)
[2018-01-25] VITALS (13 sets, daily range): BP systolic 101–121; BP diastolic 51–69; PULSE 63–76; RESP 14–18; TEMP 36.7–36.9; O2SAT 94–99; BMI 36.5
--- NOTE | 2018-01-25 03:06 | PCM.HP.STD ---
Problem List (1) Atypical chest pain Status: Acute (2) Hyperparathyroidism Status: Chronic (3) H/O Achilles tendon repair Status: Resolved (4) History of coronary artery stent placement Status: Resolved (5) Atherosclerosis of coronary artery of [place] heart without angina pectoris Status: Chronic (6) STEMI (ST elevation myocardial infarction) Status: Resolved Qualifiers: (7) Hyperlipidemia Status: Chronic Qualifiers: (8) DM type 2 (diabetes mellitus, type 2) Status: Chronic History of Present Illness Date of Admission: 01/25/18 Chief Complaint: Chest pain today The patient is a 57 year old F with history of NSTEMI in October 2017 status post stent in RCA and then a staged stent LAD after 3 weeks came to ER with sudden onset of chest pain while she was watching TV yesterday night. Pain was midsternal with radiation to interscapular region with numbness in right arm and right face. Patient denies any associated shortness of breath, nausea, vomiting, near syncope or syncope. She denies visual changes, headache but felt like subjective weakness in right arm. On exam her muscle strength is 5/5 major joints in all 4 extremities in ED. In ED, EKG shows normal sinus rhythm with with no new EKG changes As compared to previous EKG in October and November 2017. Basic blood work is within normal limit except WBC 11.9 thousand She also had CT angiogram of chest, head and neck of which CT angiogram of neck shows small intimal flap from focal dissection without luminal narrowing in the upper part of left ICA in the area of marked tortuosity just inferior to the skull base. Rest CT angiogram within normal limits. ER physician also talked to neurologist and he advised MRI brain and discussed with python consultant regarding conversant of Brilinta to Plavix Past Medical History Past Medical History (Chronic Problems): Chronic Problems (Last Updated 12/25/17 @ 09:25 by Emily Alvarez) Hyperparathyroidism (Chronic) Atherosclerosis of coronary artery of [place] heart without angina pectoris (Chronic) Hyperlipidemia (Chronic) DM type 2 (diabetes mellitus, type 2) (Chronic) Allergies No Known Allergies Allergy (Verified 01/24/18 22:18) Home Medications: Ambulatory Orders Medication Instructions Recorded Cholecalciferol (Vitamin D3) 1,000 unit PO DAILY 10/09/17 [Vitamin D3] Levothyroxine [Synthroid] 75 mcg PO SUMOTUWETHFR 10/09/17 Metformin HCl [Glucophage] 500 mg PO DAILY 10/09/17 Omeprazole [Prilosec] 20 mg PO BID 10/09/17 traMADol [Ultram] 100 mg PO BID PRN 10/09/17 ticagrelor 90 mg tablet 90 mg PO BID #60 tab 11/07/17 aspirin 81 mg tablet,delayed 81 mg PO DAILY@0800 #30 tab 11/13/17 release atorvastatin 80 mg tablet 80 mg PO QHS #30 tab 11/13/17 lisinopril 5 mg tablet 5 mg PO DAILY #30 tab 11/13/17 metoprolol tartrate 25 mg tablet 25 mg PO BID #60 tab 11/13/17 Levothyroxine [Synthroid] 112.5 mcg PO SA 01/24/18 Surgical History: - - ankle surgery Smoking Status: Former smoker - *Family History Maternal History Items: Heart Disease Review of Systems Constitutional: Denies: Chills, Fever, Weight Change HEENT: Denies: Head Aches, Sinus Congestion, Sinus Drainage Cardiovascular: Reports: Chest Pain. Denies: Palpitations Respiratory: Denies: Cough, Shortness of breath at rest, Sputum production Gastrointestinal: Denies: Abdominal Pain, Nausea, Vomiting Genitourinary: Denies: Dysuria Musculoskeletal: Denies: Joint Pain, Joint Tenderness Skin: Denies: Rash, Wounds Neurological: Reports: Numbness, Tingling. Denies: Focal weakness Psychiatric: Denies: Anxiety, Depression, Homicidal Ideations, Suicidal Ideations Hematologic/ Lymphatic: Denies: Easy Bruising, Easy Bleeding VTE Information - Inpt Only VTE Present on Admission: No VTE Mechan Device Prophylaxis: SCD's Reason prophylaxis not ordered:: Medical Contraindication - Small intimal flap resection of right ICA the base of skull Patient Problems: Active and Suspected Problems (Last Updated 12/25/17 @ 09:25 by Emily Alvarez) Atypical chest pain (Acute) - Physical Exam General: Alert, Oriented x3, Cooperative HEENT: Atraumatic, PERRLA, EOMI, Normocephalic Neck: Supple, No JVD, Negative Carotid Bruits Lungs: Clear to auscultation, Normal air movement Cardiovascular: Regular rate, Regular Rhythm, Normal S1, Normal S2, No murmurs Abdomen: Bowel Sounds Present, Soft, Non Tender Extremities: No edema, Capillary Refill Less than 3 Seconds Skin: No rashes, No breakdown Musculoskeletal: No Tenderness to Palpation of Joints or Extremities Neurological: Cranial nerves II-XII grossly intact, Neuro grossly intact, Motor Exam 5/5 strength throughout, - - Decreased sensation on the right side of face light and sharp touch Psych/Mental Status: Normal Affect, Appropriate Vital Signs Temp Pulse Resp BP Pulse Ox 98.0 F 69 14 110/53 L 98 01/24/18 22:19 01/25/18 02:32 01/25/18 02:32 01/25/18 02:32 01/25/18 02:32 Assessment/Plan Active and Suspected Problems (Last Updated 12/25/17 @ 09:25 by Emily Alvarez) Atypical chest pain (Acute) The patient is a 57 year old F with history of NSTEMI in October 2017 status post stent in RCA and then a staged stent LAD after 3 weeks came to ER with sudden onset of chest pain while she was watching TV yesterday night. Pain was midsternal with radiation to interscapular region with numbness in right arm and right face. Patient denies any associated shortness of breath, nausea, vomiting, near syncope or syncope. She denies visual changes, headache but felt like subjective weakness in right arm. On exam her muscle strength is 5/5 major joints in all 4 extremities in ED. In ED, EKG shows normal sinus rhythm with with no new EKG changes As compared to previous EKG in October and November 2017. Basic blood work is within normal limit except WBC 11.9 thousand She also had CT angiogram of chest, head and neck of which CT angiogram of neck shows small intimal flap from focal dissection without luminal narrowing in the upper part of left ICA in the area of marked tortuosity just inferior to the skull base. Rest CT angiogram within normal limits. ER physician also talked to neurologist and he advised MRI brain and discussed with python consultant regarding conversant of Brilinta to Plavix 1. Atypical midsternal chest pain with concern of unstable angina: Patient is being admitted in PCU with civil celebrant. On serial cardiac enzymes as per ACS protocol. Continue her home medications including aspirin, Brilinta, metoprolol, lisinopril. As the patient had recent cardiac cath infiltrate 2017 and November 02, 2017 and echo in October 2017, I do not think she needs any further cardiac imaging testing. Echo done in October 2017 shows EF 65% with hypokinesis and inferior wall. her python consultant Dr. Clarke and consult for further opinion 2. Right arm numbness and facial numbness: MRI of brain is ordered. Rest workup already done as mentioned above. Dr. Pascual suggested conversion of Brilinta to Plavix after discussion with the python consultant. 3. Hyperlipidemia, on statin 4. Hypothyroidism, on levothyroxine. TSH and free T4 ordered. 5. Type 2DM: Last HbA1c 6.5 in October 2017, on metformin, Hold metformin. 6. Leucocytosis, likely reactive 7. DVT PPx - SCDs, early ambulation when able. Code Visit OBSV E&M: 69689 Initial observation care L3
--- NOTE | 2018-01-25 03:19 | HP.PCM_ITS ---
Problem List (1) Atypical chest pain Status: Acute (2) Hyperparathyroidism Status: Chronic (3) H/O Achilles tendon repair Status: Resolved (4) History of coronary artery stent placement Status: Resolved (5) Atherosclerosis of coronary artery of [place] heart without angina pectoris Status: Chronic (6) STEMI (ST elevation myocardial infarction) Status: Resolved Qualifiers: (7) Hyperlipidemia Status: Chronic Qualifiers: (8) DM type 2 (diabetes mellitus, type 2) Status: Chronic History of Present Illness Date of Admission: 01/25/18 Chief Complaint: Chest pain today The patient is a 57 year old F with history of NSTEMI in October 2017 status post stent in RCA and then a staged stent LAD after 3 weeks came to ER with sudden onset of chest pain while she was watching TV yesterday night. Pain was midsternal with radiation to interscapular region with numbness in right arm and right face. Patient denies any associated shortness of breath, nausea, vomiting, near syncope or syncope. She denies visual changes, headache but felt like subjective weakness in right arm. On exam her muscle strength is 5/5 major joints in all 4 extremities in ED. In ED, EKG shows normal sinus rhythm with with no new EKG changes As compared to previous EKG in October and November 2017. Basic blood work is within normal limit except WBC 11.9 thousand She also had CT angiogram of chest, head and neck of which CT angiogram of neck shows small intimal flap from focal dissection without luminal narrowing in the upper part of left ICA in the area of marked tortuosity just inferior to the skull base. Rest CT angiogram within normal limits. ER physician also talked to neurologist and he advised MRI brain and discussed with animal maintenance supervisor regarding conversant of Brilinta to Plavix Past Medical History Past Medical History (Chronic Problems): Chronic Problems (Last Updated 12/25/17 @ 09:25 by Emily Alvarez) Hyperparathyroidism (Chronic) Atherosclerosis of coronary artery of [place] heart without angina pectoris ( Chronic) Hyperlipidemia (Chronic) DM type 2 (diabetes mellitus, type 2) (Chronic) Allergies No Known Allergies Allergy (Verified 01/24/18 22:18) Home Medications: Ambulatory Orders Medication Instructions Recorded Cholecalciferol (Vitamin D3) 1,000 unit PO DAILY 10/09/17 [Vitamin D3] Levothyroxine [Synthroid] 75 mcg PO SUMOTUWETHFR 10/09/17 Metformin HCl [Glucophage] 500 mg PO DAILY 10/09/17 Omeprazole [Prilosec] 20 mg PO BID 10/09/17 traMADol [Ultram] 100 mg PO BID PRN 10/09/17 ticagrelor 90 mg tablet 90 mg PO BID #60 tab 11/07/17 aspirin 81 mg tablet,delayed 81 mg PO DAILY@0800 #30 tab 11/13/17 release atorvastatin 80 mg tablet 80 mg PO QHS #30 tab 11/13/17 lisinopril 5 mg tablet 5 mg PO DAILY #30 tab 11/13/17 metoprolol tartrate 25 mg tablet 25 mg PO BID #60 tab 11/13/17 Levothyroxine [Synthroid] 112.5 mcg PO SA 01/24/18 Surgical History: - - ankle surgery Smoking Status: Former smoker - *Family History Maternal History Items: Heart Disease Review of Systems Constitutional: Denies: Chills, Fever, Weight Change HEENT: Denies: Head Aches, Sinus Congestion, Sinus Drainage Cardiovascular: Reports: Chest Pain. Denies: Palpitations Respiratory: Denies: Cough, Shortness of breath at rest, Sputum production Gastrointestinal: Denies: Abdominal Pain, Nausea, Vomiting Genitourinary: Denies: Dysuria Musculoskeletal: Denies: Joint Pain, Joint Tenderness Skin: Denies: Rash, Wounds Neurological: Reports: Numbness, Tingling. Denies: Focal weakness Psychiatric: Denies: Anxiety, Depression, Homicidal Ideations, Suicidal Ideations Hematologic/ Lymphatic: Denies: Easy Bruising, Easy Bleeding VTE Information - Inpt Only VTE Present on Admission: No VTE Mechan Device Prophylaxis: SCD's Reason prophylaxis not ordered:: Medical Contraindication - Small intimal flap resection of right ICA the base of skull Patient Problems: Active and Suspected Problems (Last Updated 12/25/17 @ 09:25 by Emily Alvarez) Atypical chest pain (Acute) - Physical Exam General: Alert, Oriented x3, Cooperative HEENT: Atraumatic, PERRLA, EOMI, Normocephalic Neck: Supple, No JVD, Negative Carotid Bruits Lungs: Clear to auscultation, Normal air movement Cardiovascular: Regular rate, Regular Rhythm, Normal S1, Normal S2, No murmurs Abdomen: Bowel Sounds Present, Soft, Non Tender Extremities: No edema, Capillary Refill Less than 3 Seconds Skin: No rashes, No breakdown Musculoskeletal: No Tenderness to Palpation of Joints or Extremities Neurological: Cranial nerves II-XII grossly intact, Neuro grossly intact, Motor Exam 5/5 strength throughout, - - Decreased sensation on the right side of face light and sharp touch Psych/Mental Status: Normal Affect, Appropriate Vital Signs Temp Pulse Resp BP Pulse Ox 98.0 F 69 14 110/53 L 98 01/24/18 22:19 01/25/18 02:32 01/25/18 02:32 01/25/18 02:32 01/25/18 02:32 Assessment/Plan Active and Suspected Problems (Last Updated 12/25/17 @ 09:25 by Emily Alvarez) Atypical chest pain (Acute) The patient is a 57 year old F with history of NSTEMI in October 2017 status post stent in RCA and then a staged stent LAD after 3 weeks came to ER with sudden onset of chest pain while she was watching TV yesterday night. Pain was midsternal with radiation to interscapular region with numbness in right arm and right face. Patient denies any associated shortness of breath, nausea, vomiting, near syncope or syncope. She denies visual changes, headache but felt like subjective weakness in right arm. On exam her muscle strength is 5/5 major joints in all 4 extremities in ED. In ED, EKG shows normal sinus rhythm with with no new EKG changes As compared to previous EKG in October and November 2017. Basic blood work is within normal limit except WBC 11.9 thousand She also had CT angiogram of chest, head and neck of which CT angiogram of neck shows small intimal flap from focal dissection without luminal narrowing in the upper part of left ICA in the area of marked tortuosity just inferior to the skull base. Rest CT angiogram within normal limits. ER physician also talked to neurologist and he advised MRI brain and discussed with animal maintenance supervisor regarding conversant of Brilinta to Plavix 1. Atypical midsternal chest pain with concern of unstable angina: Patient is being admitted in PCU with quality assurance monitor body. On serial cardiac enzymes as per ACS protocol. Continue her home medications including aspirin, Brilinta, metoprolol, lisinopril. As the patient had recent cardiac cath infiltrate 2017 and November 02, 2017 and echo in October 2017, I do not think she needs any further cardiac imaging testing. Echo done in October 2017 shows EF 65% with hypokinesis and inferior wall. her animal maintenance supervisor Dr. Clarke and consult for further opinion 2. Right arm numbness and facial numbness: MRI of brain is ordered. Rest workup already done as mentioned above. Dr. Pascual suggested conversion of Brilinta to Plavix after discussion with the animal maintenance supervisor. 3. Hyperlipidemia, on statin 4. Hypothyroidism, on levothyroxine. TSH and free T4 ordered. 5. Type 2DM: Last HbA1c 6.5 in October 2017, on metformin, Hold metformin. 6. Leucocytosis, likely reactive 7. DVT PPx - SCDs, early ambulation when able. Code Visit OBSV E&M: 34988 Initial observation care L3
[2018-01-25] MEDS: traMADol 50 MG Tablet 100 MG PO (04:11)
[2018-01-25] MEDS: 0.9% NaCl Peripheral Flush Adult/Peds IV (04:13)
[2018-01-25] MEDS: 0.9% Normal Saline 1,000 ML 75 ML IV (04:13)
[2018-01-25] MEDS: Levothyroxine 75 MCG Tablet PO (05:42)
--- NOTE | 2018-01-25 05:55 | MRI_ITS ---
STUDY: MRI BRAIN WITHOUT CONTRAST REASON FOR EXAM: Female, 57 years old. Numbness and tingling in the right arm and face. TECHNIQUE: Standardized multiplanar fat and water weighted pulse sequences were obtained. COMPARISON: CTA of the head dated January 24, 2018. FINDINGS: There is mild cerebral atrophy with widening of the extra-axial spaces and ventricular dilatation. There are tiny foci of abnormal T2 hyperintensity within the subcortical white matter measuring 1 or 2 mm in size. These are of uncertain clinical significance. There are tiny foci of restricted diffusion within the high left paramedian posterior frontal lobe, possibly related to acute infarct. There is also questionable acute infarct of the left basal ganglia. Normal T2* images of the brain without demonstrated susceptibility artifact. There is no demonstrated hemosiderin stain. Normal bilateral basal ganglia, otherwise. Normal thalami. There is no extra-axial fluid accumulation. Normal flow voids within the major intracranial circulation suggesting patency by spin echo criteria. Normal sella turcica, pituitary gland, infundibular stalk, optic chiasm and hypothalamus. Normal tectal plate and pineal gland. Normal midbrain, teddy and medulla. Normal cerebellum. There are large basal cisterns. Normal bilateral temporal bones. Normal bilateral internal auditory canals. No demonstrated orbital abnormality, within the constraints of a routine brain study. Normal visualized paranasal sinuses. Normal calvarium and skull base. Normal visualized soft tissue structures. Normal visualized upper cervical spine. MRI/Brain without Contrast IMPRESSION: 1. Involutional changes of the brain, as described above. 2. Questionable tiny infarcts involving the high left paramedian frontal lobe and left basal ganglia. N.B. : The above information has been verbally conveyed by Elo Manning MD to cherelle navarro , [facility]- In-Patient RN, on 01/25/2018 09:51:06 (ET). Electronically Signed: Elo Manning MD at 9:47 EDT , Service support , N.B. : The above information has been verbally conveyed by Elo Manning MD to cherelle navarro , Hospital- In-Patient RN, on 01/25/2018 09:51:06 (ET).
--- NOTE | 2018-01-25 06:58 | EKG12_ITS ---
Test Reason : AM EKG Blood Pressure : / mmHG Vent. Rate : 068 BPM Atrial Rate : 068 BPM P-R Int : 154 ms QRS Dur : 086 ms QT Int : 422 ms P-R-T Axes : 045 -13 021 degrees QTc Int : 448 ms Normal sinus rhythm Inferior infarct , age undetermined , cannot be excluded Abnormal ECG Confirmed by JOSE MARIA PETERSEN, BARBRA ([id number]), food expeditor GRETCHEN TRUONG ([id number]) on 01/31/2018 2:55:43 PM Referred By: DR SYKES Confirmed By:BARBRA MOISE MD
[2018-01-25 07:05] LABS: Bedside Glucose 112 mg/dL (70-110)
[2018-01-25 07:28] LABS: Cholesterol 109 mg/dL (200); High Density Lipoprotein 34 mg/dL; T4 Free Direct 1.27 ng/dL (0.76-1.46); Thyroid Stim Hormone (TSH) 1.02 uIU/mL (0.358-3.74); Triglycerides 194 mg/dL; Very Low Density Lipoprotein 39 mg/dL (5-40)
[2018-01-25] MEDS: TICAGRELOR 90 MG TABLET PO (09:10)
[2018-01-25] MEDS: Metoprolol Tartrate 25 MG Tablet PO (09:10)
[2018-01-25] MEDS: Aspirin E.C. 81 MG Tablet PO (09:10)
[2018-01-25] MEDS: Pantoprazole Sodium 20 MG Tablet PO (09:11)
[2018-01-25] MEDS: Lisinopril 5 MG Tablet PO (09:12)
--- NOTE | 2018-01-25 10:56 | PCM.CONS.C ---
Problem List (1) Atypical chest pain Status: Acute (2) Atherosclerosis of coronary artery of [place] heart without angina pectoris Status: Chronic (3) Hyperlipidemia Status: Chronic Qualifiers: Reason for Consult Date of Consultation: 01/25/18 Reason for Consultation: Atypical chest pain, coronary artery disease History of Present Illness: The patient is a 57 year old F with a history of diabetes, positive family history of premature coronary disease, hypertension, hypercholesterolemia, coronary artery disease status post angioplasty and ESTHER guided stenting of her LAD in November 2017. Prior to that I believe the patient had a acute ST elevation myocardial infarction underwent emergent angioplasty and stenting of her right coronary artery 10/13/17. The patient has been participating in cardiac rehab and exerting herself without any difficulty. She was doing well up until the day of admission when she developed atypical midsternal chest pain radiating up into her right shoulder and down her right arm. This occurred while she was watching television. It also radiated up into her neck. She sought medical attention in the [facility] ER where an EKG was performed which showed normal sinus rhythm and evidence of old inferior/posterior wall myocardial infarction, no acute changes. She is ruled out for myocardial infarction. A CTA of her neck demonstrated a possiblesmall intimal flap from focal dissection without luminal narrowing in the upper part of the left internal carotid artery in the area of marked tortuosity just inferior to the skull base. Normal remaining cervical carotid and vertebral arteries. This gave way to an MRI which was performed this morning with results pending. On physical exam the patient has reproducible chest pain over her midsternal area which is consistent with her chest pain she described at home. Her previous myocardial infarction pain was chest burning, and she has had none of that. She has had no symptoms while she is been dissipating in cardiac rehab. In addition the patient has right shoulder pain reproduced with moving her arm medially as well as above her head. Her troponins are negative ?3. [] Past Medical History Allergies/Adverse Reactions: Allergies No Known Allergies Allergy (Verified 01/24/18 22:18) Home Medications: Ambulatory Orders Medication Instructions Recorded Cholecalciferol (Vitamin D3) 1,000 unit PO DAILY 10/09/17 [Vitamin D3] Levothyroxine [Synthroid] 75 mcg PO SUMOTUWETHFR 10/09/17 Metformin HCl [Glucophage] 500 mg PO DAILY 10/09/17 Omeprazole [Prilosec] 20 mg PO BID 10/09/17 traMADol [Ultram] 50 mg PO BID PRN 10/09/17 ticagrelor 90 mg tablet 90 mg PO BID #60 tab 11/07/17 aspirin 81 mg tablet,delayed 81 mg PO DAILY@0800 #30 tab 11/13/17 release atorvastatin 80 mg tablet 80 mg PO QHS #30 tab 11/13/17 lisinopril 5 mg tablet 5 mg PO DAILY #30 tab 11/13/17 metoprolol tartrate 25 mg tablet 25 mg PO BID #60 tab 11/13/17 Levothyroxine [Synthroid] 112.5 mcg PO SA 01/24/18 Past Medical History (Chronic Problems): Chronic Problems (Last Updated 12/25/17 @ 09:25 by Emily Alvarez) Hyperparathyroidism (Chronic) Atherosclerosis of coronary artery of [place] heart without angina pectoris (Chronic) Hyperlipidemia (Chronic) DM type 2 (diabetes mellitus, type 2) (Chronic) Surgical History: - - ankle surgery - *Family History Maternal Family History: Family History (Last Updated 12/25/17 @ 09:27 by Emily Alvarez) Mother Diabetes Heart disease Hypertension Hypercholesterolemia CVA (cerebral vascular accident) Thyroid disorder Father Cancer History Items: Heart Disease Smoking Status: Former smoker Tobacco Use: Cigarettes Review of Systems - Review of Systems General: Denies: Fever, Night Sweats, Fatigue Cardiovascular: Reports: Chest Discomfort at Rest. Denies: Chest Discomfort, Shortness of Breath, Orthopnea, PND, Peripheral Edema, Palpitations, Lightheadedness, Dizziness, Near Syncope, Syncope Respiratory: Denies: Cough, Sputum Production, Hemoptysis Gastrointestinal: Denies: Hematemesis, Hematochezia, Melena Genitourinary: Denies: Dysuria, Hematuria Muscoloskeletal: Reports: Neck Pain, Shoulder Pain, Arm Pain Skin: Denies: Rash Subjectve: Patient laying in bed, no acute distress. Objective: Vital Signs Temp Pulse Resp BP Pulse Ox 98.1 F 67 16 121/60 H 95 01/25/18 07:50 01/25/18 09:10 01/25/18 07:50 01/25/18 07:50 01/25/18 07:50 Oxygen Delivery Method Room Air Weight: 219 lb 9.286 oz Body Mass Index (BMI) 36.5 Intake and Output for Last 24 Hours 01/23/18 01/24/18 01/25/18 23:59 23:59 23:59 Intake Total 678 / 678 Balance 678 / 678 General: Awake, Alert, Oriented x 3 HEENT: PERRL, EOMI, Sclera Non Icteric Neck: Supple, Good ROM, No Lymph Node Enlargement Lungs: Clear to auscultation Cardiovascular: Regular Rhythm, Normal S1, Normal S2, No Murmurs, No Rubs, No Gallops Vascular: No Carotid Bruits, Normal Femoral Pulses, Normal Radial Pulses, Normal Dorsalis Pedal Pulse, Normal Posterior Tibial Pulses Abdomen: Bowel Sounds Present, Soft, Non Tender, No HSM, No Organomegaly Extremities: No Cyanosis, No Clubbing, No edema Neurological: No Focal Motor or Sensory Deficit 01/25/18 03:56: Troponin I < 0.015 01/25/18 06:45: Troponin I < 0.015, Triglycerides 194, Cholesterol 109, LDL Cholesterol 36, VLDL Cholesterol 39, HDL Cholesterol 34 L 01/25/18 09:45: Troponin I < 0.015 Rhythm: EKG: ECHO: Stress Test: Cardiac Cath: PCI: CT Surgery: Holter monitor: EPS: PPM: CXR: Chest CT Scan: Assessment/Plan 1. Coronary artery disease: Patient has atypical reproducible nonexertional chest pain dissimilar from her previous anginal symptoms that she experienced in October 2017 at which time she had her inferior CT. At that time her symptoms were chest burning sensation. She has been participating in cardiac rehab without any difficulty or exertional symptoms. Her EKG is negative for acute changes in her troponins are negative ?3. Patient has reproducible chest wall pain and has pain with manipulation into her right shoulder. In addition she has a possible intimal flap of her right carotid internal artery so would not recommend stress testing at this time. Her MRI results are pending. Would recommend consultation with peripheral vascular specialist regarding the findings on her carotid CTA. She is currently taking and tolerating baby aspirin and Brilinta and would recommend continuing to do so. I would not recommend repeat echocardiogram or stress test. Her chest pain presentation is dissimilar from her previous angina, and appears to be noncardiac in origin. 2. Hyperlipidemia: Continue Lipitor. 3. Return to the cardiac care of your patient. Consultation time took place between 1015 and 10:45 AM. Code Visit Inpatient E&M: 93260 Init Hosp L2
[2018-01-25 11:38] LABS: Hemoglobin A1c 6.6 % (4.2-6.3)
[2018-01-25 11:46] LABS: Bedside Glucose 162 mg/dL (70-110)
--- NOTE | 2018-01-25 12:46 | PCM.DC.SUM ---
Discharge Date and Diagnosis Date of Admission: 01/25/18 Date of Discharge: 01/25/18 - Primary Discharge Diagnosis Active and Suspected Problems (Last Updated 12/25/17 @ 09:25 by Emily Alvarez) 1. Atypical chest pain- ACS ruled out. 2. Possible acute ischemic CVA - Secondary Discharge Diagnosis Chronic Problems (Last Updated 12/25/17 @ 09:25 by Emily Alvarez) Hyperparathyroidism (Chronic) Atherosclerosis of coronary artery of [place] heart without angina pectoris (Chronic) Hyperlipidemia (Chronic) DM type 2 (diabetes mellitus, type 2) (Chronic) Hospital Course and Treatment Imaging Results: Diagnostic Data Chest CTA 01/24/18 22:40 IMPRESSION: Normal CTA chest examination, without a demonstrated pulmonary embolism or arterial dissection. Cholelithiasis. Electronically Signed: Barbara Jones MD at 1:25 EDT Tel , Service support , Head CTA 01/24/18 22:40 IMPRESSION: Normal [place] without a demonstrated aneurysm or hemodynamically significant stenosis. Electronically Signed: Barbara Jones MD at 1:05 EDT Tel , Service support , Neck CTA 01/24/18 22:40 IMPRESSION: There is a small intimal flap from focal dissection without luminal narrowing in the upper part of the left internal carotid artery in the area of marked tortuosity just inferior to the skull base. Normal remaining cervical carotid and vertebral arteries. Electronically Signed: Barbara Jones MD at 1:13 EDT Tel , Service support , Chest X-Ray 01/24/18 22:45 IMPRESSION: Normal x-ray examination of the chest. Electronically Signed: Stuart Qureshi MD at 23:32 EDT , Service support , Brain MRI 01/25/18 05:55 IMPRESSION: 1. Involutional changes of the brain, as described above. 2. Questionable tiny infarcts involving the high left paramedian frontal lobe and left basal ganglia. N.B. : The above information has been verbally conveyed by Elo Manning MD to cherelle navarro , Hospital- In-Patient RN, on 01/25/2018 09:51:06 (ET). Electronically Signed: Elo Manning MD at 9:47 EDT , Service support , N.B. : The above information has been verbally conveyed by Elo Manning MD to cherelle navarro , [facility]- In-Patient RN, on 01/25/2018 09:51:06 (ET). Dr. Javed- Cardiology Dr. Pascual- Neurology Operations: None Procedures: None Summary of Care Provided: The patient is a 57 year old F admitted 01/21/2014 due to chest pain. She has a past medical history of STEMI, CAD status post PCI, hyperlipidemia, type 2 diabetes mellitus, hyperparathyroidism, obesity. Patient follows with Dr. Clarke. Patient underwent angioplasty and drug-eluting stenting to the mid LAD 11/02/17 with prior acute inferior wall STEMI status post emergent angioplasty and stenting ?2 to the RCA approximately 2 weeks prior. Cardiology consulted during admission. Troponin negative ?4. Echocardiogram October 2017 showed an ejection fraction of 65%. Patient has been undergoing outpatient cardiac rehab without any exertional chest pain or shortness of breath. EKG negative for ischemia on admission. Chest pain is reproducible with right shoulder movement. No further testing such as echocardiogram or stress test was found to be necessary at this time. Chest pain suspected to be musculoskeletal in nature. Chest CTA unremarkable. In addition, patient complained of right facial numbness and right hand/arm numbness. Next CTA showed a small intimal flap from focal dissection without luminal narrowing in the upper part of the left internal carotid artery. Otherwise normal carotid and vertebral arteries. MRI of brain was reported to show questionable tiny infarction involving the left paramedian frontal lobe and left basal ganglia. Neurology consulted. Patient will follow up with Dr. Pascual in two weeks. CTA will be repeated by neurology as outpatient. Patient will continue aspirin, statin. Brilinta regimen changed to Plavix. Patient was loaded with Plavix 300 mg ?1 and will continue Plavix 75 mg daily at discharge. General: Alert, Oriented x3, Cooperative HEENT: Atraumatic, PERRLA, EOMI, Normocephalic Neck: Supple, No JVD, Negative Carotid Bruits Lungs: Clear to auscultation, Normal air movement Cardiovascular: Regular rate, Regular Rhythm, Normal S1, Normal S2, No murmurs Abdomen: Bowel Sounds Present, Soft, Non Tender Extremities: No edema, Capillary Refill Less than 3 Seconds Skin: No rashes, No breakdown Musculoskeletal: No Tenderness to Palpation of Joints or Extremities Neurological: Cranial nerves II-XII grossly intact, Neuro grossly intact, Motor Exam 5/5 strength throughout Psych/Mental Status: Normal Affect, Appropriate Patient seen and examined prior to discharge. Physical assessment as noted above. Patient stable for discharge home with the follow-up recommendations as noted above. Discharge Diet: Low fat/ Low Cholesterol, Carb Control Diet Call your doctor if you observe: Numbness or Tingling, Dizziness, Fainting spells, Chest pain, Increased palpitations (irregular heartbeat) Home Medications: Medications to take at Discharge Cholecalciferol (Vitamin D3) [Vitamin D3] 1,000 unit PO DAILY 10/09/17 Levothyroxine [Synthroid] 75 mcg PO SUMOTUWETHFR 10/09/17 Metformin HCl [Glucophage] 500 mg PO DAILY 10/09/17 Omeprazole [Prilosec] 20 mg PO BID 10/09/17 traMADol [Ultram] 50 mg PO BID PRN 10/09/17 aspirin 81 mg tablet,delayed release 81 mg PO DAILY@0800 #30 tab 11/13/17 atorvastatin 80 mg tablet 80 mg PO QHS #30 tab 11/13/17 lisinopril 5 mg tablet 5 mg PO DAILY #30 tab 11/13/17 metoprolol tartrate 25 mg tablet 25 mg PO BID #60 tab 11/13/17 Levothyroxine [Synthroid] 112.5 mcg PO SA 01/24/18 Clopidogrel Bisulfate [Plavix] 75 mg PO DAILY #30 tab 01/25/18 Following Prescrptions Were Given to Patient: Clopidogrel Bisulfate [Plavix] 75 mg PO DAILY #30 tab Primary Care Physician: Reese Elizalde MD [Primary Care Provider] - Please follow up with your Primary Care Physician in: 1 Week Please Follow Up With: Nayla Pascual MD When: 2 Weeks Disposition: Home Minutes spent on discharge:: 35 Patient Condition:: Stable Medical Necessity - Tobacco Use Smoking Status: Former smoker Tobacco Use: Cigarettes Meaningful Use Info Meaningful Use Diagnoses (Choose all that apply): Ischemic CVA - CVA Therapy Assessed for PT,OT and/or ST?: Yes - Ischemic Stroke Antithrombotic order at d/c?: Yes Dx of Atrial fib/flutter?: No Statins at discharge?: Yes Primary Dx Acute Ischemic CVA?: Yes IV tPA ordered during stay?: No Reason IV t-PA not ordered: Treatment not Indicated
--- NOTE | 2018-01-25 12:59 | DS.PCM_ITS ---
Addendum entered and electronically signed by LAUREN Pack 01/25/18 14:18: Code Visit After discussion with cardiology and neurology, it was decided that patient remain on home Brilinta regimen 90 mg twice daily as opposed to Plavix. Original Note: Discharge Date and Diagnosis Date of Admission: 01/25/18 Date of Discharge: 01/25/18 - Primary Discharge Diagnosis Active and Suspected Problems (Last Updated 12/25/17 @ 09:25 by Emily Alvarez) 1. Atypical chest pain- ACS ruled out. 2. Possible acute ischemic CVA - Secondary Discharge Diagnosis Chronic Problems (Last Updated 12/25/17 @ 09:25 by Emiyl Alvarez) Hyperparathyroidism (Chronic) Atherosclerosis of coronary artery of [place] heart without angina pectoris ( Chronic) Hyperlipidemia (Chronic) DM type 2 (diabetes mellitus, type 2) (Chronic) Hospital Course and Treatment Imaging Results: Diagnostic Data Chest CTA 01/24/18 22:40 IMPRESSION: Normal CTA chest examination, without a demonstrated pulmonary embolism or arterial dissection. Cholelithiasis. Electronically Signed: Barbara Jones MD at 1:25 EDT Tel , Service support , Head CTA 01/24/18 22:40 IMPRESSION: Normal [place] without a demonstrated aneurysm or hemodynamically significant stenosis. Electronically Signed: Barbara Jones MD at 1:05 EDT Tel , Service support , Neck CTA 01/24/18 22:40 IMPRESSION: There is a small intimal flap from focal dissection without luminal narrowing in the upper part of the left internal carotid artery in the area of marked tortuosity just inferior to the skull base. Normal remaining cervical carotid and vertebral arteries. Electronically Signed: Barbara Jones MD at 1:13 EDT Tel , Service support , Chest X-Ray 01/24/18 22:45 IMPRESSION: Normal x-ray examination of the chest. Electronically Signed: Stuart Qureshi MD at 23:32 EDT , Service support , Brain MRI 01/25/18 05:55 IMPRESSION: 1. Involutional changes of the brain, as described above. 2. Questionable tiny infarcts involving the high left paramedian frontal lobe and left basal ganglia. N.B. : The above information has been verbally conveyed by Elo Manning MD to cherelle navarro , Hospital- In-Patient RN, on 01/25/2018 09:51:06 (ET). Electronically Signed: Elo Manning MD at 9:47 EDT , Service support , N.B. : The above information has been verbally conveyed by Elo Manning MD to cherelle navarro , [facility]- In-Patient RN, on 01/25/2018 09:51:06 (ET). Dr. Javed- Cardiology Dr. Pascual- Neurology Operations: None Procedures: None Summary of Care Provided: The patient is a 57 year old F admitted 01/21/2014 due to chest pain. She has a past medical history of STEMI, CAD status post PCI, hyperlipidemia, type 2 diabetes mellitus, hyperparathyroidism, obesity. Patient follows with Dr. Clarke. Patient underwent angioplasty and drug-eluting stenting to the mid LAD 11/02/17 with prior acute inferior wall STEMI status post emergent angioplasty and stenting ?2 to the RCA approximately 2 weeks prior. Cardiology consulted during admission. Troponin negative ?4. Echocardiogram October 2017 showed an ejection fraction of 65%. Patient has been undergoing outpatient cardiac rehab without any exertional chest pain or shortness of breath. EKG negative for ischemia on admission. Chest pain is reproducible with right shoulder movement. No further testing such as echocardiogram or stress test was found to be necessary at this time. Chest pain suspected to be musculoskeletal in nature. Chest CTA unremarkable. In addition, patient complained of right facial numbness and right hand/arm numbness. Next CTA showed a small intimal flap from focal dissection without luminal narrowing in the upper part of the left internal carotid artery. Otherwise normal carotid and vertebral arteries. MRI of brain was reported to show questionable tiny infarction involving the left paramedian frontal lobe and left basal ganglia. Neurology consulted. Patient will follow up with Dr. Pascual in two weeks. CTA will be repeated by neurology as outpatient. Patient will continue aspirin, statin. Brilinta regimen changed to Plavix. Patient was loaded with Plavix 300 mg ?1 and will continue Plavix 75 mg daily at discharge. General: Alert, Oriented x3, Cooperative HEENT: Atraumatic, PERRLA, EOMI, Normocephalic Neck: Supple, No JVD, Negative Carotid Bruits Lungs: Clear to auscultation, Normal air movement Cardiovascular: Regular rate, Regular Rhythm, Normal S1, Normal S2, No murmurs Abdomen: Bowel Sounds Present, Soft, Non Tender Extremities: No edema, Capillary Refill Less than 3 Seconds Skin: No rashes, No breakdown Musculoskeletal: No Tenderness to Palpation of Joints or Extremities Neurological: Cranial nerves II-XII grossly intact, Neuro grossly intact, Motor Exam 5/5 strength throughout Psych/Mental Status: Normal Affect, Appropriate Patient seen and examined prior to discharge. Physical assessment as noted above. Patient stable for discharge home with the follow-up recommendations as noted above. Discharge Diet: Low fat/ Low Cholesterol, Carb Control Diet Call your doctor if you observe: Numbness or Tingling, Dizziness, Fainting spells, Chest pain, Increased palpitations (irregular heartbeat) Home Medications: Medications to take at Discharge Cholecalciferol (Vitamin D3) [Vitamin D3] 1,000 unit PO DAILY 10/09/17 Levothyroxine [Synthroid] 75 mcg PO SUMOTUWETHFR 10/09/17 Metformin HCl [Glucophage] 500 mg PO DAILY 10/09/17 Omeprazole [Prilosec] 20 mg PO BID 10/09/17 traMADol [Ultram] 50 mg PO BID PRN 10/09/17 aspirin 81 mg tablet,delayed release 81 mg PO DAILY@0800 #30 tab 11/13/17 atorvastatin 80 mg tablet 80 mg PO QHS #30 tab 11/13/17 lisinopril 5 mg tablet 5 mg PO DAILY #30 tab 11/13/17 metoprolol tartrate 25 mg tablet 25 mg PO BID #60 tab 11/13/17 Levothyroxine [Synthroid] 112.5 mcg PO SA 01/24/18 Clopidogrel Bisulfate [Plavix] 75 mg PO DAILY #30 tab 01/25/18 Following Prescrptions Were Given to Patient: Clopidogrel Bisulfate [Plavix] 75 mg PO DAILY #30 tab Primary Care Physician: Reese Elizalde MD [Primary Care Provider] - Please follow up with your Primary Care Physician in: 1 Week Please Follow Up With: Nayla Pascual MD When: 2 Weeks Disposition: Home Minutes spent on discharge:: 35 Patient Condition:: Stable Medical Necessity - Tobacco Use Smoking Status: Former smoker Tobacco Use: Cigarettes Meaningful Use Info Meaningful Use Diagnoses (Choose all that apply): Ischemic CVA - CVA Therapy Assessed for PT,OT and/or ST?: Yes - Ischemic Stroke Antithrombotic order at d/c?: Yes Dx of Atrial fib/flutter?: No Statins at discharge?: Yes Primary Dx Acute Ischemic CVA?: Yes IV tPA ordered during stay?: No Reason IV t-PA not ordered: Treatment not Indicated
--- NOTE | 2018-01-25 13:46 | DCINST_ITS ---
You will use the following diet at home:: Calorie/Carbohydrate Controlled ( specify 1200, 1400, etc), Cardiac Discharge Activity: Return to Normal Activity Call your doctor if you observe: Numbness or Tingling, Dizziness, Fainting spells, Chest pain, Increased palpitations (irregular heartbeat) Allergies/Adverse Reactions: Allergies No Known Allergies Allergy (Verified 01/24/18 22:18) Medications to take at Discharge Cholecalciferol (Vitamin D3) [Vitamin D3] 1,000 unit PO DAILY 10/09/17 Levothyroxine [Synthroid] 75 mcg PO SUMOTUWETHFR 10/09/17 Metformin HCl [Glucophage] 500 mg PO DAILY 10/09/17 Omeprazole [Prilosec] 20 mg PO BID 10/09/17 traMADol [Ultram] 50 mg PO BID PRN 10/09/17 aspirin 81 mg tablet,delayed release 81 mg PO DAILY@0800 #30 tab 11/13/17 atorvastatin 80 mg tablet 80 mg PO QHS #30 tab 11/13/17 lisinopril 5 mg tablet 5 mg PO DAILY #30 tab 11/13/17 metoprolol tartrate 25 mg tablet 25 mg PO BID #60 tab 11/13/17 Levothyroxine [Synthroid] 112.5 mcg PO SA 01/24/18 Clopidogrel Bisulfate [Plavix] 75 mg PO DAILY #30 tab 01/25/18 The following prescriptions were given: Clopidogrel Bisulfate [Plavix] 75 mg PO DAILY #30 tab Primary Care Physician: Reese Elizalde MD [Primary Care Provider] - Please follow up with your Primary Care Physician in: 1 Week Please Follow Up With: Nayla Pascual MD When: 2 Weeks Proposed Discharge Date: 01/25/18
--- NOTE | 2018-01-25 13:50 | PCM.CONS.GEN ---
Problem List (1) Numbness on right side Status: Acute Reason for Consult Date of Consultation: 01/25/18 Reason for Consultation: right arm numbness and weakness History of Present Illness: The patient is a 57 year old CF with PMH HTN, HLD, DM, CAD s/p stents October and november 2017, on ASA and Brilinta admitted with chest pain, right sided arm and face numbness/tingling , started around 8:30 PM last night (01/24/18), NIHSS was 1 on admission, CTA head/neck done showed small intimal flap from focal dissection without luminal narrowing in the upper part of left ICA in the area of marked tortuosity just inferior to the skull base, MRI brain reported to show questionable left paramedian posterior frontal and BG possible infarct by Dr. Elo Manning (but there is no DWI restriction on my review). At present per patient she feels her right arm/face tingling and numbness is getting better. Denies any WILDER, visual disturbances, denies any trauma or chiropractor manipulation. [] Past Medical History Past Medical History (Chronic Problems): Chronic Problems (Last Updated 12/25/17 @ 09:25 by Emily Alvarez) Hyperparathyroidism (Chronic) Atherosclerosis of coronary artery of [place] heart without angina pectoris (Chronic) Hyperlipidemia (Chronic) DM type 2 (diabetes mellitus, type 2) (Chronic) Allergies No Known Allergies Allergy (Verified 01/24/18 22:18) Home Medications: Ambulatory Orders Medication Instructions Recorded Cholecalciferol (Vitamin D3) 1,000 unit PO DAILY 10/09/17 [Vitamin D3] Levothyroxine [Synthroid] 75 mcg PO SUMOTUWETHFR 10/09/17 Metformin HCl [Glucophage] 500 mg PO DAILY 10/09/17 Omeprazole [Prilosec] 20 mg PO BID 10/09/17 traMADol [Ultram] 50 mg PO BID PRN 10/09/17 aspirin 81 mg tablet,delayed 81 mg PO DAILY@0800 #30 tab 11/13/17 release atorvastatin 80 mg tablet 80 mg PO QHS #30 tab 11/13/17 lisinopril 5 mg tablet 5 mg PO DAILY #30 tab 11/13/17 metoprolol tartrate 25 mg tablet 25 mg PO BID #60 tab 11/13/17 Levothyroxine [Synthroid] 112.5 mcg PO SA 01/24/18 Ticagrelor [Brilinta] 90 mg PO BID #60 tab 01/25/18 Surgical History: - - ankle surgery Lives: Spouse/ Significant Other Smoking Status: Former smoker Tobacco Use: Cigarettes - quit in October 2017, before that smoked about 1 PPD Alcohol: None Drugs: None - *Family History Maternal History Items: Heart Disease Review of Systems Constitutional: Reports: - - complete ROS negative except as documented in HPI - Physical Exam General: Alert, Oriented x3, Cooperative HEENT: PERRLA, EOMI, Normocephalic Neck: Supple Lungs: Clear to auscultation Cardiovascular: Regular rate, Regular Rhythm Abdomen: Bowel Sounds Present Extremities: No cyanosis Skin: No rashes Musculoskeletal: No Tenderness to Palpation of Joints or Extremities Neurological: - - consious, alert, CN 2-12 grossly intact, power 5/5 all 4 extremities, no pronator drift, no cerebellar signs, mild sensoryloss right UE and right face, no extinction, no aphasia/dysarthria, NIHSS 1 at present. Vital Signs Temp Pulse Resp BP Pulse Ox 98.4 F 63 16 101/54 L 95 01/25/18 11:48 01/25/18 11:56 01/25/18 11:48 01/25/18 11:48 01/25/18 11:48 Oxygen Delivery Method Room Air Weight: 99.6 kg Body Mass Index (BMI) 36.5 Intake and Output for Last 24 Hours 01/23/18 01/24/18 01/25/18 23:59 23:59 23:59 Intake Total 1180 / 1180 Balance 1180 / 1180 Laboratory Tests Past 24 Hrs 01/25/18 01/25/18 01/25/18 03:56 06:45 09:45 Troponin I < 0.015 < 0.015 < 0.015 Triglycerides 194 Cholesterol 109 LDL Cholesterol 36 VLDL Cholesterol 39 HDL Cholesterol 34 L TSH 1.02 Free T4 1.27 POC Glucose 01/25/18 01/25/18 11:29 06:55 POC Glucose 162 H 112 H Assessment/Plan The patient is a 57 year old CF with PMH HTN, HLD, DM, CAD s/p stents October and november 2017, on ASA and Brilinta admitted with chest pain, right sided arm and face numbness/tingling , started around 8:30 PM last night (01/24/18), NIHSS was 1 on admission, CTA head/neck done showed small intimal flap from focal dissection without luminal narrowing in the upper part of left ICA in the area of marked tortuosity just inferior to the skull base, MRI brain reported to show questionable left paramedian posterior frontal and BG possible infarct by Kylie Manning (but there is no DWI restriction on my review). At present per patient she feels her right arm/face tingling and numbness is getting better. Denies any WILDER, visual disturbances, denies any trauma or chiropractor manipulation. Impression Left Extracranial ICA small dissection ? left frontal/BG infarct (per Radiology Dr. Elo Manning's report but I do not see any DWI restriction on my image review) Plan -Continue ASA. Will recommend switching Brilinta to Plavix given the Radiology Dr. Elo Manning's report of questionable stroke on MRI brain but will defer to Cardiology since patient recently had cardiac stent placement in October and November 2017. -on Lipitor 80 mg PO q hs -MRI brain images reviewed- no acute stroke on my image review but per Dr. Elo Manning Radiology report there is possibly a questionable infarct in the left paramedian posterior frontal and BG. -CTA head/neck-small intimal flap from focal dissection without luminal narrowing in the upper part of left ICA in the area of marked tortuosity just inferior to the skull base -TTE done in October 2017 shows EF 65% with hypokinesis and inferior wall, normal LA size, no ASD. -LDL-36, Fgl3p-8.6% -group home goal of BP < 130/80 mmHg and Hba1c < 7% -Counseled not to lift heavy weight, avoid chiropractor manipulation or exercise. -Stroke risk factors discussed in detail and stroke eduction provided -Further medical management per primary team -GI/DVT prophylaxis -Fall precautions -PT/OT -Follow up with Neurology in 2 weeks as outpatient, will repeat CTA head/neck in 3 months as outpatient -Please call with questions if any -Thank you for allowing us to participate in patient's care and management I spent 60 minutes taking history, doing physical examination, reviewing medical records, coordinating care and counseling the patient. Code Visit Inpatient E&M: 78019 Init Hosp L3
[2018-01-25 16:36] LABS: Bedside Glucose 105 mg/dL (70-110)
== END 2018-01-25 13:46 | disposition home or self-care (01) ==
LOC: ED 22:49 → PCU 01-25 02:46
PROVIDERS: Psychiatry & Neurology Neurology; Admitting Provider Internal Medicine; Emergency Provider Emergency Medicine; Family Provider Family Medicine; PCP Family Medicine; Visit Provider Internal Medicine
DX: R07.89 Other chest pain (principal); I25.10 Atherosclerotic heart disease of native coronary artery without angina pectoris; E78.5 Hyperlipidemia, unspecified; E11.9 Type 2 diabetes mellitus without complications; I25.2 Old myocardial infarction; M25.511 Pain in right shoulder; E21.3 Hyperparathyroidism, unspecified; E03.9 Hypothyroidism, unspecified; Z79.899 Other long term (current) drug therapy; Z95.5 Presence of coronary angioplasty implant and graft; Z79.82 Long term (current) use of aspirin; Z79.84 Long term (current) use of oral hypoglycemic drugs; Z87.891 Personal history of nicotine dependence
CPT/HCPCS: 36415; 70496; 70498; 70551; 71045; 71275; 80048; 80061; 82962; 83036; 84439; 84443; 84484; 85025; 92523; 93005; 93880; 96361; 96374; 96375; 97162; 97165; 99218; 99285; J7030; Q9967; A4216; G0378; J2405

== ENCOUNTER 2018-02-16 08:02 | Outpatient (RCR) | payer BC, SELFPAY ==
[2017-10-13 12:02] VITALS: BMI 38.5
== END 2018-02-16 23:59 ==
LOC: NS 08:02
PROVIDERS: Family Provider Family Medicine; PCP Family Medicine; Visit Provider Internal Medicine Cardiovascular Disease
DX: E11.9 Type 2 diabetes mellitus without complications (principal); I25.10 Atherosclerotic heart disease of native coronary artery without angina pectoris; I21.3 ST elevation (STEMI) myocardial infarction of unspecified site; E66.9 Obesity, unspecified; Z95.5 Presence of coronary angioplasty implant and graft; Z71.3 Dietary counseling and surveillance
CPT/HCPCS: 97803

== ENCOUNTER → 2018-05-17 16:54 | Outpatient (CLI) | payer BC, SELFPAY ==
[2017-10-13 12:02] VITALS: BMI 38.5
--- NOTE | 2018-05-17 16:56 | CT_ITS ---
STUDY: CT BRAIN WITHOUT CONTRAST REASON FOR EXAM: Female, 57 years old. History of carotid dissection and stroke. RADIATION DOSAGE (If Supplied By Facility): CTDIvol = ( 44.99 ) mGy, DLP = ( 812.98 ) mGycm TECHNIQUE: Transaxial CT imaging of the brain was performed without administration of intravenous contrast material. Individualized dose optimization techniques were used for this CT. COMPARISON: 01/24/2018 FINDINGS: Normal soft tissue structures. Normal calvarium. Normal size ventricles and extra-axial spaces for the patient's age. Normal white matter tracts of the cerebral hemispheres. Normal basal ganglia and thalami. Normal brainstem. Normal cerebellum. There is no intracranial hemorrhage. There are no findings of an acute ischemic infarction. Normal visualized paranasal sinuses. CT/Brain/Head without Contrast IMPRESSION: Normal unenhanced CT scan of the brain. Electronically Signed: Ezequiel Renee MD at 4:03 EDT Tel , Service support ,
--- NOTE | 2018-05-17 16:57 | CT_ITS ---
STUDY: CTA NECK WITH CONTRAST REASON FOR EXAM: Female, 57 years old. Follow-up of carotid dissection. RADIATION DOSAGE (If Supplied By Facility): CTDIvol = ( 18.12 ) mGy, DLP = ( 636.17 ) mGycm TECHNIQUE: CT angiography with multi-detector data acquisition was performed from the aortic arch to the skull base following intravenous administration of 100 ml of Isovue 370 contrast. MIP images were reconstructed from the axial data set. Post-processing of the angiographic images was performed, with multiplanar reformation and 3D reconstruction. Individualized dose optimization techniques were used for this CT. COMPARISON: CTA of the neck dated January 24, 2018. FINDINGS: AORTIC ARCH: Patient has a right-sided retroesophageal subclavian artery. The origins of the great vessels are otherwise within normal limits. RIGHT CAROTID ARTERIES: Normal right common carotid artery (CCA). Normal right common carotid bulb. Normal origin of the right internal carotid (ICA) artery without a hemodynamically significant stenosis. Normal visualized cervical portion of the right internal carotid artery. Normal origin of the right external carotid artery (ECA). LEFT CAROTID ARTERIES: Normal left common carotid artery (CCA). Normal left common carotid bulb. Normal origin of the left internal carotid (ICA) artery without a hemodynamically significant stenosis. The cervical ICA has multifocal undulations suggesting possible sequela of fibromuscular dysplasia. There is residual dissection of the distal left cervical internal carotid artery with dilatation of the distal cervical internal carotid artery of approximately 6.8 mm. Normal origin of the left external carotid artery (ECA). VERTEBRAL ARTERIES: Normal bilateral vertebral arteries. Normal bilateral parotid glands. Normal bilateral tacker off spaces. Normal bilateral parapharyngeal spaces. Normal bilateral carotid spaces. Normal bilateral sublingual and submandibular glands and spaces. Normal visualized nasopharynx. Normal retropharyngeal space. Normal perivertebral space. Normal visualized bilateral faucial tonsils. The visualized tongue, tongue base and oropharynx are normal. The visualized cervical lymph nodes (levels I-) are within normal size limits, and maintain normal morphology. There is no demonstrated solid or cystic mass lesion. There is no abnormal contrast enhancement. Normal epiglottis, bilateral vallecula and hypopharynx. The pre-epiglottic and paraglottic adipose spaces are normal. Normal visualized bilateral piriform sinuses, aryepiglottic folds, vocal cords, and arytenoid-cricoid articulations. Normal subglottic trachea. The thyroid appears very atrophic. Normal visualized pulmonary apices. Normal visualized paranasal sinuses. Normal visualized cervical spine. CT/CTA Neck W/WO Contrast IMPRESSION: 1. 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 2. 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 3. No CT evidence for hemodynamically significant stenosis or thrombosis since the previous CTA. Electronically Signed: Elo Manning MD at 11:13 EDT , Service support ,
== END ==
PROVIDERS: Family Provider Family Medicine; PCP Family Medicine; Visit Provider Nurse Practitioner Acute Care
DX: Z86.73 Personal history of transient ischemic attack (TIA), and cerebral infarction without residual deficits (principal)
CPT/HCPCS: 70450; 70498; Q9967

== ENCOUNTER → 2019-05-02 | Outpatient (CLI) | payer BC, SELFPAY ==
[2017-10-13 12:02] VITALS: BMI 38.5
[2019-04-18 13:01] VITALS: BMI 39.2
--- NOTE | 2019-05-02 16:52 | RAD_ITS ---
STUDY: X-RAY - UNILATERAL RIBS ( RIGHT ) WITH CHEST REASON FOR EXAM: Female, 58 years old. Pain following chiropractic adjustment TECHNIQUE - RIBS: 5 view(s) of the ribs. TECHNIQUE - CHEST: Single PA view of the chest. COMPARISON: Prior chest study of 01/24/2018 FINDINGS - RIBS: Normal visualized ribs without a demonstrated fracture. FINDINGS - CHEST: The lungs are clear and expanded. There is no demonstrated pleural abnormality. Normal size heart. Normal mediastinum and [place]. Normal visualized pulmonary arteries. Normal visualized aortic arch and descending thoracic aorta. Normal visualized thoracic spine. Normal visualized ribs, clavicles, and shoulders. There is no demonstrated abnormality of the visualized soft tissue structures of the upper abdomen. RAD/Ribs Uni Min 3V w/PA Chest IMPRESSION: RIBS: Normal x-ray examination of the ribs. CHEST: Normal x-ray examination of the chest. Electronically Signed: Magno Park MD at 20:54 EDT , Service support ,
== END | disposition home or self-care (01) ==
PROVIDERS: Family Provider Family Medicine; PCP Family Medicine; Referring Provider Chiropractor; Visit Provider Chiropractor
DX: S23.9XXA Sprain of unspecified parts of thorax, initial encounter (principal)
CPT/HCPCS: 71101

== ENCOUNTER → 2019-06-20 | Outpatient (CLI) | payer BC, SELFPAY ==
[2017-10-13 12:02] VITALS: BMI 38.5
[2019-04-18 13:01] VITALS: BMI 39.2
--- NOTE | 2019-06-20 14:52 | CT_ITS ---
STUDY: CTA NECK WITH CONTRAST REASON FOR EXAM: Female, 58 years old. Left ICA dissection. RADIATION DOSAGE (If Supplied By Facility): CTDIvol = ( 18.60 ) mGy, DLP = ( 646.80 ) mGycm TECHNIQUE: CT angiography with multi-detector data acquisition was performed from the aortic arch to the skull base following intravenous administration of IV Isovue 370 100. MIP images were reconstructed from the axial data set. Post-processing of the angiographic images was performed, with multiplanar reformation and 3D reconstruction. Individualized dose optimization techniques were used for this CT. COMPARISON: 05/17/2018 and 01/24/2018. FINDINGS: AORTIC ARCH: Normal visualized aortic arch. Normal origins of the brachiocephalic, left common carotid, and left subclavian arteries. RIGHT CAROTID ARTERIES: Normal right common carotid artery (CCA). Normal right common carotid bulb. Normal origin of the right internal carotid (ICA) artery without a hemodynamically significant stenosis. Normal visualized cervical portion of the right internal carotid artery. Normal origin of the right external carotid artery (ECA). LEFT CAROTID ARTERIES: Normal left common carotid artery (CCA). Normal left common carotid bulb. There is a stable short segment of focal dissection in the left distal internal carotid artery with stable mild aneurysmal dilatation, measuring approximately 7 mm. Normal origin of the left external carotid artery (ECA). VERTEBRAL ARTERIES: Normal bilateral vertebral arteries. CT/CTA Neck W/WO Contrast IMPRESSION: Stable short segment of focal dissection in the left distal internal carotid artery with stable mild aneurysmal dilatation, measuring approximately 7 mm. Normal right ICA and vertebral arteries. Electronically Signed: Kirill Reyes, at 16:44 EDT Tel , Service support ,
== END | disposition home or self-care (01) ==
LOC: CT 14:50
PROVIDERS: Family Provider Family Medicine; PCP Family Medicine; Referring Provider Surgery Vascular Surgery; Visit Provider Surgery Vascular Surgery
DX: I65.23 Occlusion and stenosis of bilateral carotid arteries (principal); I25.2 Old myocardial infarction; E78.70 Disorder of bile acid and cholesterol metabolism, unspecified; E11.9 Type 2 diabetes mellitus without complications; I11.9 Hypertensive heart disease without heart failure; Z87.891 Personal history of nicotine dependence; Z86.73 Personal history of transient ischemic attack (TIA), and cerebral infarction without residual deficits
CPT/HCPCS: 70498; Q9967

== ENCOUNTER → 2019-10-12 | Outpatient (CLI) | payer BC, SELFPAY ==
[2017-10-13 12:02] VITALS: BMI 38.5
[2019-04-18 13:01] VITALS: BMI 39.2
[2019-10-12 08:27] LABS: AST(SGOT) 16 U/L (15-37); Alanine Aminotransfer ALT/SGPT 28 U/L (13-56); Albumin, Serum 3.3 g/dL (3.2-5.0); Alkaline Phosphatase 97 U/L (45-117); Bilirubin, Direct 0.14 mg/dL (0.00-0.30); Cholesterol 151 mg/dL (200); Globulin 3.8 g/dL (2.2-4.2); High Density Lipoprotein 43 mg/dL; Protein, Total 7.1 g/dL (6.4-8.2); Triglycerides 161 mg/dL; Very Low Density Lipoprotein 32 mg/dL (5-40)
== END | disposition home or self-care (01) ==
LOC: LAB 07:27
PROVIDERS: Nurse Practitioner Family; PCP Family Medicine; Referring Provider Internal Medicine Cardiovascular Disease; Visit Provider Internal Medicine Cardiovascular Disease
DX: E78.5 Hyperlipidemia, unspecified (principal)
CPT/HCPCS: 36415; 80061; 80076

== ENCOUNTER → 2019-10-24 | Outpatient (CLI) | payer BC, SELFPAY ==
[2017-10-13 12:02] VITALS: BMI 38.5
[2019-10-14 13:23] VITALS: BMI 39.2
--- NOTE | 2019-10-24 13:32 | STEWCON_ITS ---
Reason For Study: CAD, Pre-Op Stress Results Protocol: Manuel Protocol WITH DEFINITY Maximum Predicted HR: 161 bpm Target HR: 137 bpm % Maximum Predicted HR: 95 % DurationHeart Rate Stage (mm:ss) (bpm) BP Comment Baseline 73 132/80No Chest Pain; 3 ML Diluted Definity Manuel Protocol Stage I 3:00 136 146/78No Chest Pain; Mild Dyspnea Manuel Protocol Stage II 2:15 153 160/64No Chest Pain; Moderate Dyspnea Recovery 108 124/86No Chest Pain; No Dyspnea Stress Duration: 5:15 mm:ss Maximum Stress HR: 153 bpm METS: 7 Baseline Echocardiogram Findings The estimated ejection fraction is 65 %. Stress Echo Wall motion Data Resting WM Intermediate WM Stress WM Resting Wall Motion Wall Motion Stress No regional wall motion No regional wall motion abnormalities noted. abnormalities noted. EKG Data The baseline ECG displays normal sinus rhythm. The patient exercised according to the regular Manuel protocol for a total duration of 5:15. The maximum heart rate attained was 155 beats per minute. This was 96% of maximum predicted heart rate. The patient exercised into stage 2 of the Manuel protocol. During stress, there were no ST or T wave changes noted to suggest ischemia. No clinical angina was noted. Interpretation Summary The estimated ejection fraction is 65 %. Normal, adequate, treadmill echocardiogram. Negative for ischemia by EKG and echocardiographic criteria. No anginal symptoms noted. Rare PVCs noted. Appropriate blood pressure response to exercise. Below average exercise capacity for age. Test terminated due to dyspnea and bilateral knee pain. Final LVEF is 75%. Decrease sensitivity due to poor echo windows requiring Definity agent. Patient tolerated the procedure well. No complications. The study was technically difficult. Contrast injection was performed. Ordering Physician: Robert Javed Referring Physician: Reese Elizalde Performed By: Mk Calixto RCS
== END | disposition home or self-care (01) ==
LOC: CVS 13:32
PROVIDERS: PCP Family Medicine; Referring Provider Internal Medicine Cardiovascular Disease; Visit Provider Internal Medicine Cardiovascular Disease
DX: I25.10 Atherosclerotic heart disease of native coronary artery without angina pectoris (principal); E78.5 Hyperlipidemia, unspecified
CPT/HCPCS: 93017; 93350; Q9957; A4216; C8928

== ENCOUNTER → 2020-05-26 | Outpatient (CLI) | payer BC, SELFPAY ==
[2017-10-13 12:02] VITALS: BMI 38.5
[2019-10-14 13:23] VITALS: BMI 39.2
[2020-05-26 08:39] LABS: AST(SGOT) 12 U/L (15-37); Alanine Aminotransfer ALT/SGPT 20 U/L (13-56); Albumin, Serum 3.4 g/dL (3.2-5.0); Alkaline Phosphatase 98 U/L (45-117); Bilirubin, Direct 0.14 mg/dL (0.00-0.30); Cholesterol 147 mg/dL (200); Globulin 3.9 g/dL (2.2-4.2); High Density Lipoprotein 46 mg/dL; Protein, Total 7.3 g/dL (6.4-8.2); Triglycerides 164 mg/dL; Very Low Density Lipoprotein 33 mg/dL (5-40)
== END | disposition home or self-care (01) ==
LOC: LAB 07:00
PROVIDERS: Internal Medicine Cardiovascular Disease; PCP Family Medicine; Referring Provider Nurse Practitioner Family; Visit Provider Nurse Practitioner Family
DX: E78.00 Pure hypercholesterolemia, unspecified (principal); E78.5 Hyperlipidemia, unspecified
CPT/HCPCS: 36415; 80061; 80076

== ENCOUNTER → 2020-09-24 15:47 | Outpatient (CLI) | payer BC, SELFPAY ==
[2017-10-13 12:02] VITALS: BMI 38.5
[2020-05-29 15:17] VITALS: BMI 39.9
--- NOTE | 2020-09-24 15:49 | CT_ITS ---
HISTORY: STENOSIS. Hx of lt side endarterectomy and prior stroke 2018. Hx of diabetes and HTN-both rx controlled. EXAMINATION: CTA Neck WO/W Contrast Injection TECHNIQUE: Routine carotid CT angiogram protocol was performed without and with IV contrast. Nascet criteria using the distal ICAs for comparison were used for evaluation of stenoses. 2-D linear reformats, and 3D reconstructions were reviewed. A radiation dose optimization technique was used for this scan. IV Contrast dosage and agent: 100 ML of Isovue-370 COMPARISON: CTA of the neck from June 20, 2019, CTA of the neck from May 17, 2018, and ultrasound of the carotid arteries from January 25, 2018. FINDINGS: NECK SOFT TISSUES: Minimal nasopharyngeal soft tissue swelling is present. This may just be due to some mucosal prominence. A small calcification is present within the nasal aspect of the right tonsillar pillar. This is new, and may be related to chronic infection. One is present on the left as well. The one on the left was present previously. LUNG APICES: Clear. BONES: Paranasal sinuses and mastoid air cells are free of disease. Within the cervical spine there is minimal degenerative disc disease and some facet arthropathy. 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 This is obviously unchanged. Small focus of calcific plaque at the origin of the left subclavian artery does not contribute to a stenosis, and was present previously. As is common with patients with aberrant origins of the right subclavian there is a bovine arch, with a common origin for the left and right common carotid arteries. RIGHT CCA: No occlusion, significant stenosis, or dissection RIGHT ICA: No occlusion, significant stenosis or dissection. LEFT CCA: No occlusion, significant stenosis or dissection. LEFT ICA: Within the very distal aspects of the left ICA, before it enters into the foramen lacerum it is very tortuous. Focal dissection within this tortuous segment and minimal aneurysmal dilatation to this tortuous segment is the same as the previous study from June 20, 2019, as well as the previous study of May 17, 2018. On today's study, I measure the most fusiform aneurysmally dilated area of the distal left ICA to be 7 mm. This is the same as the previous study RIGHT VERTEBRAL ARTERY: No occlusion, significant stenosis or dissection. LEFT VERTEBRAL ARTERY: No occlusion, significant stenosis or dissection. Flow within both ICAs remain patent into ACAs and MCAs. Flow within both vertebral arteries remain patent to the basilar artery and the sheeter operator. CT/CTA Neck W/WO Contrast IMPRESSION: CTA neck demonstrates no evidence of hemodynamically significant stenosis, aneurysm or malformation. Stable fusiform aneurysmal dilatation to the distal left ICA just prior to the foramen lacerum at the skull base. Findings the aneurysmal dilatation greatest at 7 mm, which is the same as the previous study. Focal area of dissection within this distal left ICA remains confined to the location without extension intracranially. Individualized dose optimization techniques were used for this CT. at 0659 Reported and signed by: Jeffy Stone MD Electronically Signed: Jeffy Stone MD at 6:58 EST Tel , Service support ,
[2020-09-24 16:06] LABS: CREATININE FINGERSTICK 1.4 mg/dL (0.55-1.02)
== END ==
PROVIDERS: PCP Family Medicine; Referring Provider Surgery Vascular Surgery; Visit Provider Surgery Vascular Surgery
DX: I65.23 Occlusion and stenosis of bilateral carotid arteries (principal)
CPT/HCPCS: 70498; Q9967

== ENCOUNTER 2020-09-27 19:50 | Emergency (ER) | payer BC, SELFPAY ==
[2017-10-13 12:02] VITALS: BMI 38.5
[2020-05-29 15:17] VITALS: BMI 39.9
[2020-09-27 19:50] VITALS: BP 152/89; PULSE 90; RESP 16; TEMP 36.2; O2SAT 95; BMI 40.4
--- NOTE | 2020-09-27 20:05 | ED.RN ---
rn called for ekg, pulled old ekgs for
--- NOTE | 2020-09-27 20:31 | EKG12_ITS ---
Test Reason : CP Blood Pressure : / mmHG Vent. Rate : 088 BPM Atrial Rate : 088 BPM P-R Int : 142 ms QRS Dur : 084 ms QT Int : 352 ms P-R-T Axes : 052 -12 012 degrees QTc Int : 425 ms Sinus rhythm with Premature atrial complexes Inferior infarct (cited on or before 09-OCT-2017) Anterolateral infarct , age undetermined Abnormal ECG Confirmed by JOSE MARIA PETERSEN, BARBRA ([id number]), video editor ALEXANDRA FUNK ([id number]) on 09/30/2020 11:02:14 AM Referred By: HOMER Confirmed By:BARBRA MOISE MD
[2020-09-27 20:40] LABS: Absolute Lymphocyte Count 3.49 X10^3/uL (0.83-4.51); Absolute Neutrophil Count 6.4 X10^3/uL (2.0-7.7); Basophil# 0.07 X10^3/uL; Basophil% 0.6 % (0-1); Eosinophil# 0.13 X10^3/uL; Eosinophils% 1.2 % (0-5); Hematocrit 38.4 % (37-47); Hemoglobin 12.1 g/dL (12.0-15.0); Lymphocyte # 3.49 X10^3/ul (4.0); Lymphocyte % 32.4 % (19-41); Mean Corp Hgb Conc 31.5 g/dL (32-36); Mean Corpuscular Hgb 26.7 pg (27.0-32.0); Mean Corpuscular Volume 84.8 fL (81-99); Mean Platelet Vol. 11.3 fl (6.2-12.0); Monocyte# 0.66 X10^3/uL; Monocyte% 6.1 % (0-10); NRBC Flagged by Analyzer 0 % (0-5); Neutrophil # 6.41 X10^3/uL (2.7-7.7); Neutrophil % 59.5 % (47-70); Platelet Count 323 K/mm3 (150-450); RBC Distribution Width CV 15.6 % (11.6-14.6); Red Blood Count 4.53 M/mm3 (4.2-5.4); White Blood Count 10.8 K/mm3 (4.4-11.0)
--- NOTE | 2020-09-27 20:44 | RAD_ITS ---
STUDY: X-RAY CHEST REASON FOR EXAM: Female, 60 years old. CHEST PAIN X1 WEEK, HX NM TECHNIQUE: Frontal and lateral views COMPARISON: 01/24/2018. FINDINGS: The lungs are clear and expanded. There is no demonstrated pleural abnormality. Normal size heart. Normal mediastinum and [place]. Normal visualized pulmonary arteries. Normal visualized aortic arch and descending thoracic aorta. Degenerative changes of the thoracic spine. Normal visualized ribs, clavicles, and shoulders. There is no demonstrated abnormality of the visualized soft tissue structures of the upper abdomen. RAD/Chest PA and Lateral IMPRESSION: Normal x-ray examination of the chest. Electronically Signed: Kunal Pierre DO at 21:10 EST Tel [phone], Service support ,
[2020-09-27 20:59] LABS: Anion Gap 6 (5-15); BUN 18 mg/dL (7-18); BUN/Creat Ratio 22.4 RATIO (10-20); Chloride 108 mmol/L (98-107); EST Glomerular Filtration Rate 77 mL/min (>60); Est Glom Filt Rate - Afr Amer 94 mL/min (>60); Estimated Creatinine Clearance 67.29 ml/min; Glucose 138 mg/dL (74-106); Potassium 3.7 mmol/L (3.5-5.1); Sodium Level 139 mmol/L (136-145); Thyroid Stim Hormone (TSH) 0.37 uIU/mL (0.358-3.74)
[2020-09-27 21:00] VITALS: BP 102/64; PULSE 89; RESP 21; O2SAT 93
[2020-09-27 21:05] LABS: BNP,B-Type NATRIURETIC PEPTIDE 41.2 pg/mL (0-100); D-Dimer Quantitative (DVT/PE) 0.47 FEU/ug/m (0.27-0.49)
[2020-09-27 22:00] VITALS: BP 115/60; PULSE 87; RESP 20; O2SAT 95
[2020-09-27 22:02] VITALS: O2SAT 95
--- NOTE | 2020-09-27 22:09 | ED.DCSUM_ITS ---
History of Present Illness Chief Complaint: Chest Pain Informant: Patient Onset: Days Activity at onset: Exertion Timing: Intermittent Quality: Heaviness, Tightness Narrative: Patient is a 60-year-old female with history of coronary artery disease status post stenting x2 3 years ago presenting with 1 week of intermittent chest pressure/tightness and shortness of breath. Patient also states intermittently she is feeling her heart is racing for the past 3 to 4 days. Nothing seems to make it better or worse however she does become more short of breath with her normal walking and activity. She states that is mild. States she had increased episodes of chest tightness and heart racing which brought her to the emergency room. She does note that she did have a relatively uncomplicated c case of Covid 1 month ago. She currently denies any fever, cough or upper respiratory symptoms. Patient is currently on Brilinta and aspirin. She denies any other complaints at this time. She has a history of DVT or PE. She denies any swelling of her legs. Prior Similar Symptoms: No Past Medical History - Allergies and Home Meds Allergies/Adverse Reactions: Allergies No Known Allergies Allergy (Verified 09/27/20 19:52) Primary Care Physician: Jose Clarke MD [STAFF PHYSICIAN] - Reese Elizalde MD [Primary Care Provider] - Past Medical History: - - Coronary artery disease, hypothyroid, Carotid artery dissection, hyperlipidemia, type 2 diabetes mellitus Surgical History: - - ankle surgery Lives: Spouse/ Significant Other Smoking Status: Former smoker - Family History Maternal Family History: Family History (This Medical Record has been edited. Action required.) Mother Diabetes Heart disease Hypertension Hypercholesterolemia CVA (cerebral vascular accident) Thyroid disorder Father Cancer Family History: Reports: Heart Disease Review of Systems General: Denies: Chills, Fever, Sweats Eyes: Denies: Visual changes - bilaterally, Diplopia ENT: Denies: Rhinorrhea, Sore throat Cardiovascular: Reports: Chest pain, Palpitations, Heart racing Respiratory: Reports: Dyspnea, Dyspnea on exertion. Denies: Cough, Orthopnea, Paroxysmal nocturnal dyspnea Gastrointestinal: Denies: Abdominal pain, Nausea, Vomiting, Diarrhea, Melena, Hematochezia Genitourinary: Denies: Dysuria, Hematuria, Frequency Musculoskeletal: Denies: Back pain, Extremity Pain Skin: Denies: Rash, Wounds Neurological: Denies: Headache, Weakness, Numbness Physical Exam Vital Signs/Narrative: Vital Signs Temp Pulse Resp BP Pulse Ox 09/27/20 21:00 89 21 H 102/64 93 09/27/20 19:50 97.2 F L 90 16 152/89 H 95 Inital Vital Signs reviewed: Yes General: Well nourished, Well developed, No Acute Distress Head: Normocephalic, Atraumatic Eyes: Perrl, EOMI ENT: Moist mucous membranes, No rhinorrhea Neck: Supple, Nontender Cardiovascular: Regular rate, Regular rhythm, No murmurs, - - 2+ bilateral radial pulses. Negative for: Murmur Respiratory: No distress, CTA bilaterally, Chest nontender Abdomen: Soft, Nontender, Nondistended, Normal bowel sounds Back: Nontender, Normal Inspection Extremities: Nontender, No edema. Negative for: Calf Tenderness Skin: Normal color, No rash Neurological: Alert, Oriented x3, Cranial nerves II-XII grossly intact, Normal Strength, Normal Sensation Psychological: Normal affect, Normal Mood Diagnostic/Tx/Re-eval Chest X-Ray - ED: 1 View, Read by ED Physician, Read by Radiologist, No Acute Disease Clinical Impression(s) from Imaging Studies Chest X-Ray 09/27/20 20:44 IMPRESSION: Normal x-ray examination of the chest. Electronically Signed: Kunal Pierre DO at 21:10 EST Tel [phone], Service support , Laboratory Data 09/27/20 09/27/20 09/27/20 20:05 20:05 20:05 WBC 10.8 RBC 4.53 Hgb 12.1 Hct 38.4 MCV 84.8 MCH 26.7 L MCHC 31.5 L RDW Std Deviation 48.0 H RDW Coeff of Talat 15.6 H Plt Count 323 MPV 11.3 Immature Gran % (Auto) 0.200 Neut % (Auto) 59.5 Lymph % (Auto) 32.4 [place] % (Auto) 6.1 Eos % (Auto) 1.2 Baso % (Auto) 0.6 Absolute Neuts (auto) 6.4 Absolute Lymphs (auto) 3.49 Nucleated RBC % 0 D-Dimer Quant (PE/DVT) 0.47 Sodium 139 Potassium 3.7 Chloride 108 H Carbon Dioxide 25.0 Anion Gap 6 BUN 18 Creatinine 0.80 Estim Creat Clear Calc 67.29 Est GFR (MDRD) Af Amer 94 Est GFR (MDRD) Non-Af 77 BUN/Creatinine Ratio 22.4 H Glucose 138 H Calcium 9.0 Troponin I < 0.015 B-Natriuretic Peptide TSH 0.37 09/27/20 20:05 WBC RBC Hgb Hct MCV MCH MCHC RDW Std Deviation RDW Coeff of [place] Plt Count MPV Immature Gran % (Auto) Neut % (Auto) Lymph % (Auto) [place] % (Auto) Eos % (Auto) Baso % (Auto) Absolute Neuts (auto) Absolute Lymphs (auto) Nucleated RBC % D-Dimer Quant (PE/DVT) Sodium Potassium Chloride Carbon Dioxide Anion Gap BUN Creatinine Estim Creat Clear Calc Est GFR (MDRD) Af Amer Est GFR (MDRD) Non-Af BUN/Creatinine Ratio Glucose Calcium Troponin I B-Natriuretic Peptide 41.2 TSH - Rhythm Strip Rhythm Strip: Sinus Rhythm Rate: 88 Ectopy: PVC(s) - EKG Initial EKG Interpretation: Sinus Rhythm, - - Normal sinus rhythm at a rate of 88 Multiple PVCs Left axis Normal intervals Nonspecific T wave inversion in lead III PVCs are new compared to prior EKG on 01/25/2018 but no other significant changes - Medical Decision Making Patient is evaluated for about a week of tightness in her chest and heaviness. She is also had some palpitations and feeling her heart racing for the past 3 to 4 days. Patient elicits some mild shortness of breath. Patient not have any sharp pain. She is not have any fever other infectious symptoms. She is low risk for DVT and a dimer is obtained. This is negative. Patient's chest discomfort is atypical and she is not have any acute EKG changes. Her troponin is negative. Given that her just symptoms been going on for a week and negative troponin I do not think she requires emergent hospitalization for further cardiac work-up. Patient is ambulated emergency room and does not have any associated hypoxia or arrhythmia that is noted. She has not had PVCs in the ER throughout her stay which might be contributing to her sensation of heart racing. Patient will follow up with her sports physiologist, Dr. Clarke for further evaluation. It is possible that her symptoms are associated with the sequela of her Covid infection that occurred about 6 weeks ago. ED Disposition - Plan for ED Patient: Disposition: Home or Assisted Living Diagnosis: Chest tightness, Dyspnea, Frequent PVCs Instructions: ED Chest Pain, Uncertain Cause, ED Dyspnea Referrals: Reese Elizalde MD [Primary Care Provider] - Jose Clarke MD [STAFF PHYSICIAN] -
[2020-09-27 22:16] VITALS: BP 115/60; PULSE 87; RESP 20; O2SAT 95
== END 2020-09-27 22:15 | disposition home or self-care (01) ==
PROVIDERS: Emergency Provider Emergency Medicine; PCP Family Medicine
DX: R07.89 Other chest pain (principal); I49.3 Ventricular premature depolarization; R06.00 Dyspnea, unspecified; I25.10 Atherosclerotic heart disease of native coronary artery without angina pectoris; Z95.5 Presence of coronary angioplasty implant and graft; E11.9 Type 2 diabetes mellitus without complications; E78.5 Hyperlipidemia, unspecified; E03.9 Hypothyroidism, unspecified; Z79.84 Long term (current) use of oral hypoglycemic drugs; Z79.02 Long term (current) use of antithrombotics/antiplatelets; Z79.899 Other long term (current) drug therapy; Z87.891 Personal history of nicotine dependence; Z86.16 Personal history of COVID-19
CPT/HCPCS: 71046; 80048; 83880; 84443; 84484; 85025; 85379; 93005; 99284

== ENCOUNTER → 2020-10-01 12:55 | Outpatient (CLI) | payer BC, SELFPAY ==
[2017-10-13 12:02] VITALS: BMI 38.5
[2020-09-27 19:50] VITALS: BMI 40.4
== END ==
PROVIDERS: PCP Family Medicine; Referring Provider Internal Medicine Cardiovascular Disease; Visit Provider Internal Medicine Cardiovascular Disease
DX: R07.89 Other chest pain (principal); I49.3 Ventricular premature depolarization; I25.10 Atherosclerotic heart disease of native coronary artery without angina pectoris; R06.00 Dyspnea, unspecified; Z95.5 Presence of coronary angioplasty implant and graft
CPT/HCPCS: 93225; 93226

== ENCOUNTER → 2020-10-06 06:40 | Outpatient (CLI) | payer BC, SELFPAY ==
[2017-10-13 12:02] VITALS: BMI 38.5
[2020-09-27 19:50] VITALS: BMI 40.4
--- NOTE | 2020-10-06 06:42 | ECHOCS_ITS ---
Reason For Study: CHEST PAIN Procedure This was a 2D Doppler, Color Flow transthoracic echocardiogram. The study was technically difficult. Contrast injection was performed. Exam performed in department. Left Ventricle Normal LV size. Left ventricular systolic function is normal. The estimated ejection fraction is 65 %. No evidence for diastolic dysfunction. No regional wall motion abnormalities noted. Right Ventricle Normal RV size. Normal systolic function. Atria The left atrium is mildly enlarged. Normal right atrium. No doppler evidence for ASD. Mitral Valve There is no mitral annular calcification. Normal mitral valve. Trivial mitral valve insufficiency. Tricuspid Valve Normal tricuspid valve. Trivial tricuspid valve insufficiency. Right ventricular systolic pressure estimated to be 28 mmHg. Aortic Valve Trisinus/trileaflet aortic valve. Normal aortic valve. Pulmonic Valve The pulmonic valve is not well visualized. Trivial pulmonic valve insufficiency. Great Vessels Normal sized aortic root. Pericardium/Pleural No pericardial effusion. Medication Diluted definity 5.0ml given slow IV push to enhance endocardial definition. MMode/2D Measurements & Calculations LVIDd: 4.7 cm IVSd: 0.94 cm Ao root diam: 3.5 cm LVIDs: 3.2 cm LVPWd: 0.98 cm RVDd: 3.0 cm FS: 32.4 % LAV(MOD-bp): 63.5 ml EDV(MOD-sp4): 102.0 ml EDV(MOD-sp2): 90.7 ml LAV(MOD-bp) Indexed: 29.7 ml/m2 ESV(MOD-sp4): 26.5 ml EF(MOD-sp2): 73.4 % LAV(MOD-sp2): 61.5 ml EF(MOD-sp4): 74.1 % LAV(MOD-sp4): 66.4 ml SV(MOD-sp4): 75.6 ml SV(MOD-sp2): 66.6 ml LA A4 area: 22.0 cm2 LA dimension(2D): 4.5 cm RA A4 area: 15.2 cm2 Time Measurements MV dec time: 0.18 sec Doppler Measurements & Calculations MV E max himanshu: 81.6 cm/sec Lat Peak E' Himanshu: 11.2 cm/sec Med Peak E' Himanshu: 6.9 cm/sec MV A max himanshu: 92.5 cm/sec E/E' lat: 7.3 E/E' med: 11.8 MV E/A: 0.88 Ao V2 max: 142.5 cm/sec LV V1 max: 106.9 cm/sec TR max himanshu: 249.2 cm/sec Ao max P.1 mmHg LV V1 max P.6 mmHg TR max P.8 mmHg Interpretation Summary The study was technically difficult. Contrast injection was performed. Left ventricular systolic function is normal. The estimated ejection fraction is 65 %. The left atrium is mildly enlarged. Trivial mitral valve insufficiency. Trivial tricuspid valve insufficiency. Trivial pulmonic valve insufficiency. Right ventricular systolic pressure estimated to be 28 mmHg. No evidence for diastolic dysfunction. Ordering Physician: Jose Clarke Referring Physician: TORIBIO PLASCENCIA Performed By: Breann Johansen, JANUSZ, RVT
--- NOTE | 2020-10-06 08:05 | STRESSREP ---
Stress Test Report Date: 10-06-2020 Procedure: Exercise tolerance test/imaging study Indications: Chest pain; shortness of breath/dyspnea; PVCs; CAD; status post PCI Consent: Per the patient Procedure: The patient exercised on a Manuel protocol for 4 minutes and 30 seconds completing completing Stage I and 1 minute and 30 seconds of Stage II achieving a peak heart rate of 164 bpm (102% predicted maximal heart rate) with a peak blood pressure 168/60 mmHg and a peak MET capacity of 6 METs. The baseline ECG demonstrated normal sinus rhythm. The peak exercise ECG demonstrated no obvious ECG changes. There was an isolated PVC pretest and during recovery. The functional capacity was considered decreased. There was no complaint of chest discomfort during exercise or recovery. The examination was discontinued secondary to dyspnea. Impression: 1. Technically adequate (percent predicted maximal heart rate greater than 85%) exercise tolerance test 2. Peak exercise ECG with no obvious ECG changes 3. There was an isolated PVC pretest and during recovery 4. Nuclear images pending Myocardial perfusion imaging study: Technique: The patient was injected with 14.6 mCi of technetium 99m Cardiolite and subsequently rest SPECT Cardiolite nuclear imaging was obtained in the horizontal long, vertical long, and short axis views. The patient exercised on a Manuel protocol for 4 minutes and 30 seconds completing completing Stage I and 1 minute and 30 seconds of Stage II achieving a peak heart rate of 164 bpm (102% predicted maximal heart rate) with a peak blood pressure 168/60 mmHg and a peak MET capacity of 6 METs. The patient was injected with 44.7 mCi of technetium 99m Cardiolite and subsequently stress SPECT Cardiolite nuclear imaging was obtained in the horizontal long, vertical long, and short axis views. A gated Cardiolite study at peak stress was obtained. Interpretation: Rest and stress SPECT Cardiolite nuclear imaging status post realignment, normalization, and attenuation correction, demonstrates the appearance of relative uniform tracer uptake and myocardial perfusion appearing within normal limits. There is end systolic thickening and brightening. The gated Cardiolite study demonstrates myocardial thickening and inward wall motion. The reported LVEF is 72%. Impression: 1. Rest and stress SPECT Cardiolite nuclear imaging demonstrate relative uniform tracer uptake and myocardial perfusion appearing within normal limits. 2. The gated Cardiolite study reports an LVEF of 72%. This note was generated with [employer] software. It may contain incorrect words, spelling, and punctuation that were not noted in checking the note before signing.
== END ==
PROVIDERS: PCP Family Medicine; Referring Provider Internal Medicine Cardiovascular Disease; Visit Provider Internal Medicine Cardiovascular Disease
DX: R07.89 Other chest pain (principal); R06.00 Dyspnea, unspecified; I49.3 Ventricular premature depolarization; I25.10 Atherosclerotic heart disease of native coronary artery without angina pectoris; I25.2 Old myocardial infarction; Z95.5 Presence of coronary angioplasty implant and graft
CPT/HCPCS: 78452; 93017; 93306; A9500; Q9957; A4216; C8929

== ENCOUNTER → 2020-11-05 06:54 | Outpatient (CLI) | payer BC, SELFPAY ==
[2017-10-13 12:02] VITALS: BMI 38.5
[2020-10-29 15:58] VITALS: BMI 39.1
--- NOTE | 2020-11-05 16:35 | PFTCOMP_ITS ---
COMPLETE PULMONARY FUNCTION TEST INTERPRETATION Brief HPI: Patient is a 60 year old female, currently under the care of Dr. Clarke, who presents to [facility] for complete pulmonary function tests secondary to diagnosis of dyspnea. Respiratory therapist reports good effort and reproducible results. Interpretation: Forced expiration spirometry shows no large airways obstructive ventilatory defect with an FEV1 of 108% predicted. There is no significant bronchodilator response by strict ATS criteria. Spirograms are of good quality and plateau normally. The respiratory flow volume loop shows a normal pattern. Lung volumes by body plethysmography show a normal total lung capacity at 4.53 L, 89% predicted. All other lung volumes are within normal limits. Diffusion capacity by carbon monoxide is decreased at 68% predicted. The airway resistance is normal. No previous pulmonary function tests were available for review. Impression: Isolated reduction in diffusion capacity consistent with a pulmonary vascular disorder.
== END ==
PROVIDERS: PCP Family Medicine; Referring Provider Internal Medicine Cardiovascular Disease; Visit Provider Internal Medicine Cardiovascular Disease
DX: R06.00 Dyspnea, unspecified (principal)
CPT/HCPCS: 94060; 94726; 94729

== ENCOUNTER → 2020-12-22 08:06 | Outpatient (CLI) | payer BC, SELFPAY ==
[2017-10-13 12:02] VITALS: BMI 38.5
[2020-11-23 10:57] VITALS: BMI 39.1
[2020-12-22 08:47] VITALS: PULSE 104; PULSE 105; PULSE 106; PULSE 107; PULSE 108; PULSE 67; PULSE 71; PULSE 81; O2SAT 92; O2SAT 93; O2SAT 94; O2SAT 96; O2SAT 98
--- NOTE | 2020-12-22 13:31 | PCM.PSN.6M ---
PSN 6 Minute Walk Test - 6 Minute Walk Test 6 Minute Walk Test: 6 Minute Walk Test PSN:6-Minute Walk Test Start: 12/22/20 08:47 Freq: Status: Active Protocol: RESP.6MINW Document 12/22/20 08:47 [facility] (Rec: 12/22/20 08:51 [facility] [id number]) 6 Minute Walk Test Date Performed 12/22/20 Time Performed 08:15 Height 5 ft 5 in Weight: 240 lb Weight in Pounds 240.[address]: Guille Patiño Assistive device used: None Pre-test Oxygen Delivery Method Room Air Pulse Ox (%) 98 Pulse Rate (60-100 beats/min) 67 Dyspnea Charles Scale (0-10) 1 1st minute Oxygen Delivery Method Room Air Pulse Ox (%) 96 Pulse Rate (60-100 beats/min) 81 Dyspnea Charles Scale (0-10) 2 Number of Rests Taken 0 2nd minute Oxygen Delivery Method Room Air Pulse Ox (%) 93 Pulse Rate (60-100 beats/min) 106 H Dyspnea Charles Scale (0-10) 3 Number of Rests Taken 0 Reported Symptoms Increased Work of Breathing 3rd minute Oxygen Delivery Method Room Air Pulse Ox (%) 92 Pulse Rate (60-100 beats/min) 104 H Dyspnea Charles Scale (0-10) 3 Number of Rests Taken 0 Reported Symptoms Increased Work of Breathing 4th minute Oxygen Delivery Method Room Air Pulse Ox (%) 93 Pulse Rate (60-100 beats/min) 105 H Dyspnea Charles Scale (0-10) 3 Number of Rests Taken 0 Reported Symptoms Increased Work of Breathing 5th minute Oxygen Delivery Method Room Air Pulse Ox (%) 93 Pulse Rate (60-100 beats/min) 107 H Dyspnea Charles Scale (0-10) 3 Number of Rests Taken 0 Reported Symptoms Increased Work of Breathing 6th minute Oxygen Delivery Method Room Air Pulse Ox (%) 94 Pulse Rate (60-100 beats/min) 108 H Dyspnea Charles Scale (0-10) 3 Number of Rests Taken 0 Reported Symptoms Increased Work of Breathing Post-test Oxygen Delivery Method Room Air Pulse Ox (%) 98 Pulse Rate (60-100 beats/min) 71 Dyspnea Charles Scale (0-10) 1 Full Laps Walked 17 Partial Lap, Number of Tiles Walked 34 Total Distance Walked (ft) 1037 - Interpretation Interpretation: The patient ambulated 1037 feet over the course of 6 minutes beginning on room air without assistive devices or breaks. Pretesting oxygen saturation was noted to be 98% on room air. With ambulation, the zeferino oxygen saturation was 92%. This represents a significant exertional oxygen desaturation. - Recommendations Recommendations: There is no indication for the use of supplemental oxygen at this time. However, close interval follow-up is recommended, given the degree of oxygen desaturation noted during the study.
== END ==
PROVIDERS: PCP Family Medicine; Visit Provider Internal Medicine Critical Care Medicine
DX: R06.00 Dyspnea, unspecified (principal)
CPT/HCPCS: 94618

== ENCOUNTER → 2021-02-08 08:08 | Outpatient (CLI) | payer BC, SELFPAY ==
[2017-10-13 12:02] VITALS: BMI 38.5
[2021-01-29 09:00] VITALS: BMI 39.9
--- NOTE | 2021-02-08 08:33 | EKG12_ITS ---
Test Reason : PRE OP Blood Pressure : / mmHG Vent. Rate : 067 BPM Atrial Rate : 067 BPM P-R Int : 154 ms QRS Dur : 084 ms QT Int : 398 ms P-R-T Axes : 008 -20 007 degrees QTc Int : 420 ms Normal sinus rhythm Anterolateral infarct , age undetermined Abnormal ECG Confirmed by JOSE MARIA PETERSEN, BARBRA ([id number]), news video editor BERNARDO KHOURY ([id number]) on 02/09/2021 10:26:36 AM Referred By: Tc Carr Confirmed By:BARBRA MOISE MD
[2021-02-08 08:35] LABS: Hematocrit 40.4 % (37-47); Hemoglobin 12.5 g/dL (12.0-15.0); Mean Corp Hgb Conc 30.9 g/dL (32-36); Mean Corpuscular Hgb 26.7 pg (27.0-32.0); Mean Corpuscular Volume 86.1 fL (81-99); Mean Platelet Vol. 10.9 fl (6.2-12.0); Platelet Count 266 K/mm3 (150-450); RBC Distribution Width SD 47.2 fl (35.1-43.9); Red Blood Count 4.69 M/mm3 (4.2-5.4); White Blood Count 7.9 K/mm3 (4.4-11.0)
[2021-02-08 09:03] LABS: AST(SGOT) 19 U/L (15-37); Alanine Aminotransfer ALT/SGPT 28 U/L (13-56); Albumin, Serum 3.4 g/dL (3.2-5.0); Alkaline Phosphatase 96 U/L (45-117); Anion Gap 8 (5-15); BUN 17 mg/dL (7-18); BUN/Creat Ratio 22.5 RATIO (10-20); Bilirubin, Direct 0.11 mg/dL (0.00-0.30); Calcium,Total 8.7 mg/dL (8.5-10.1); Chloride 105 mmol/L (98-107); Cholesterol 172 mg/dL (200); Creatinine, Serum 0.76 mg/dL (0.55-1.02); EST Glomerular Filtration Rate 83 mL/min (>60); Est Glom Filt Rate - Afr Amer 101 mL/min (>60); Globulin 3.9 g/dL (2.2-4.2); Glucose 129 mg/dL (74-106); High Density Lipoprotein 59 mg/dL; Potassium 4.3 mmol/L (3.5-5.1); Protein, Total 7.3 g/dL (6.4-8.2); Sodium Level 140 mmol/L (136-145); Triglycerides 144 mg/dL; Very Low Density Lipoprotein 29 mg/dL (5-40)
[2021-02-08 09:10] LABS: Hemoglobin A1c 6.5 % (3.8-5.6)
== END ==
PROVIDERS: Internal Medicine Cardiovascular Disease; PCP Family Medicine; Referring Provider Physician Assistant; Visit Provider Physician Assistant
DX: Z01.818 Encounter for other preprocedural examination (principal); E78.00 Pure hypercholesterolemia, unspecified; E78.5 Hyperlipidemia, unspecified
CPT/HCPCS: 36415; 80048; 80061; 80076; 83036; 85027; 93005

== ENCOUNTER → 2021-04-21 14:33 | Outpatient (CLI) | payer BC, SELFPAY ==
[2017-10-13 12:02] VITALS: BMI 38.5
--- NOTE | 2021-04-21 15:10 | VDLE_ITS ---
Reason For Study: Pain in LLE RIGHT LEFT CFV is compressible, spontaneous, phasic, GSV is normal. competent and demonstrates normal CFV is compressible, spontaneous, phasic, augmentation. competent, and demonstrates normal Procedure augmentation. This is a venous duplex using B-mode, color FV is compressible, spontaneous, phasic, flow and spectral Doppler. competent and demonstrates normal Exam performed in department. augmentation. A preliminary report was called and/or faxed POP V is compressible, spontaneous, phasic, to [place]. competent and demonstrates normal augmentation. T/P Trunk is compressible. PTV is compressible. LT PerV is compressible. Nonvascularized structure noted in the left popliteal fossa measuring approximently 1.02 x 2.21 x 3.62 cm. VL/Venous Duplex US, Unilateral Interpretation Summary Deep veins of the left lower extremity are patent and compressible segmentally. There is no evidence of left lower extremity deep vein thrombosis. Valvular competence appears intac t within the proximal deep venous system on the left . The left great saphenous vein appears patent a nd compressible segmentally. A non-vascular, hypoechoic structure is noted in the left poplitea l space, measuring 1.02 cm x 2.21 cm x 3.62 cm. This may represent a popliteal cyst. Clinical jax elation is advised. Ordering Physician: Buddy Caro Referring Physician: Reees Elizalde Performed By: Sigrid Saenz RVT
== END ==
PROVIDERS: PCP Family Medicine; Referring Provider Orthopaedic Surgery; Visit Provider Orthopaedic Surgery
DX: M79.605 Pain in left leg (principal)
CPT/HCPCS: 93971

== ENCOUNTER 2021-11-20 08:06 | Outpatient (CLI) | payer BC, SELFPAY ==
[2017-10-13 12:02] VITALS: BMI 38.5
[2021-11-20 10:15] LABS: AST(SGOT) 14 U/L (15-37); Alanine Aminotransfer ALT/SGPT 23 U/L (13-56); Albumin, Serum 3.5 g/dL (3.2-5.0); Alkaline Phosphatase 119 U/L (45-117); Bilirubin, Direct 0.13 mg/dL (0.00-0.30); Cholesterol 158 mg/dL (200); High Density Lipoprotein 48 mg/dL; Protein, Total 7.5 g/dL (6.4-8.2); Triglycerides 130 mg/dL; Very Low Density Lipoprotein 26 mg/dL (5-40)
== END 2021-11-20 23:59 | disposition home or self-care (01) ==
LOC: LAB 08:08
PROVIDERS: PCP Family Medicine; Referring Provider Internal Medicine Cardiovascular Disease; Visit Provider Internal Medicine Cardiovascular Disease
DX: E78.00 Pure hypercholesterolemia, unspecified (principal)
CPT/HCPCS: 36415; 80061; 80076

== ENCOUNTER → 2022-03-15 | Outpatient (CLI) | payer BC, SELFPAY ==
[2017-10-13 12:02] VITALS: BMI 38.5
--- NOTE | 2022-03-15 09:39 | STRESSREP_ITS ---
Stress Test Report Date: 03-15-2022 Procedure: Exercise tolerance test/imaging study Indications: Chest pain; CAD; status post PA; status post PCI; status post CO VID-19 Consent: Per the patient Procedure: The patient exercised on a Manuel protocol for 4 minutes and 20 seconds completing Stage I and 1 minute and 20 seconds of Stage II achieving a peak heart rate of 140 bpm (91% predicted maximal heart rate) with a peak blood pressure 170/74 mmHg and a peak MET capacity of 7 METs. The baseline ECG demonstrated normal sinus rhythm. The peak exercise ECG d emonstrated no obvious ECG changes. There were no cardiac dysrhythmias pretest, during exercise, or recovery. The functional capacity was considered decreased. There was no complaint of chest discomfort during exercise or recovery. The examination was discontinued secondary to dyspnea. Impression: 1. Technically adequate (percent predicted maximal heart rate greater than 85%) exercise tolerance test 2. Peak exercise ECG with no obvious ECG changes 3. There were no cardiac dysrhythmias pretest, during exercise, or recovery 4. Nuclear images pending Myocardial perfusion imaging study: Technique: The patient was injected with 14.5 mCi of technetium 99m Cardiolite and subsequently rest SPECT Cardiolite nuclear imaging was obtained in the horizontal long, vertical long, and short axis views. The patient exercised on a Manuel protocol for 4 minutes and 20 seconds completing Stage I and 1 minute and 20 seconds of Stage II achieving a peak heart rate of 140 bpm (91% predicted max imal heart rate) with a peak blood pressure 170/74 mmHg and a peak MET capacity of 7 METs. The patient was injected with 44.6 mCi of technetium 99m Cardiolite and subsequently stress SPECT Cardiolite nuclear imaging was obtained in the horizontal long, vertical long, and short axis views. A gated Cardiolite study at peak stress was obtained. Interpretation: Rest and stress SPECT Cardiolite nuclear imaging status post realignment, normalization, and attenuation correction, demonstrates the appearance of relative uniform tracer uptake and myocardial perfusion appearing within normal limits. There is end systolic thickening and brightening. The gated Cardiolite study demonstrates myocardial thickening and inward wall motion. The reported LVEF is 83%. Impression: 1. Rest and stress SPECT Cardiolite nuclear imaging demonstrate relative uniform tracer uptake and myocardial perfusion appearing within normal limits. 2. The gated Cardiolite study reports an LVEF of 83%. This note was generated with Dragon dictation software. It may contain incorrect words, spelling, and punctuation that were not noted in checking the note before signing.
== END | disposition home or self-care (01) ==
PROVIDERS: PCP Family Medicine; Referring Provider Internal Medicine Cardiovascular Disease; Visit Provider Internal Medicine Cardiovascular Disease
DX: R07.9 Chest pain, unspecified (principal); I25.10 Atherosclerotic heart disease of native coronary artery without angina pectoris; E78.00 Pure hypercholesterolemia, unspecified; Z95.5 Presence of coronary angioplasty implant and graft
CPT/HCPCS: 78452; 93017; A9500; A4216

== ENCOUNTER → 2022-05-13 | Outpatient (CLI) | payer BC, SELFPAY ==
[2017-10-13 12:02] VITALS: BMI 38.5
[2022-05-13 08:33] LABS: AST(SGOT) 10 U/L (15-37); Alanine Aminotransfer ALT/SGPT 23 U/L (13-56); Albumin, Serum 3.2 g/dL (3.2-5.0); Alkaline Phosphatase 104 U/L (45-117); Bilirubin, Direct 0.11 mg/dL (0.00-0.30); Cholesterol 154 mg/dL (200); Globulin 3.8 g/dL (2.2-4.2); High Density Lipoprotein 48 mg/dL; Triglycerides 147 mg/dL; Very Low Density Lipoprotein 29 mg/dL (5-40)
== END | disposition home or self-care (01) ==
LOC: LAB 07:18
PROVIDERS: PCP Family Medicine; Referring Provider Internal Medicine Cardiovascular Disease; Visit Provider Internal Medicine Cardiovascular Disease
DX: E78.00 Pure hypercholesterolemia, unspecified (principal)
CPT/HCPCS: 36415; 80061; 80076

== ENCOUNTER 2022-10-25 10:34 | Emergency (ER) | payer OTHER, SELFPAY ==
[2017-10-13 12:02] VITALS: BMI 38.5
[2022-10-25 10:35] VITALS: BP 120/60; PULSE 84; RESP 18; TEMP 36.4; O2SAT 97
[2022-10-25 10:37] VITALS: BMI 40.3
--- NOTE | 2022-10-25 10:51 | RAD_ITS ---
STUDY: X-RAY CHEST REASON FOR EXAM: Female, 62 years old. Chest pain TECHNIQUE: Single AP portable view of the chest. COMPARISON: Comparison is made with prior study dated 09/27/2020. FINDINGS: EKG electrodes are seen. There is elevation of the right hemidiaphragm. There is no demonstrated pleural abnormality. Normal size heart. Normal mediastinum and maria [place] carmen. Normal visualized pulmonary arteries. Normal visualized aortic arch and descending thoracic aorta. Normal visualized thoracic spine. Normal visualized ribs, clavicles, and shoulders. There is no demonstrated abnormality of the visualized soft tissue structures of the upper abdomen. RAD/Chest 1 View (Portable) IMPRESSION: Elevation of the right hemidiaphragm. There has been no change since prior study. Electronically Signed: Herb Ibarra MD at 11:36 EST ,
--- NOTE | 2022-10-25 10:51 | EKG12_ITS ---
Test Reason : CP Blood Pressure : / mmHG Vent. Rate : 088 BPM Atrial Rate : 088 BPM P-R Int : 140 ms QRS Dur : 078 ms QT Int : 384 ms P-R-T Axes : 034 -21 008 degrees QTc Int : 464 ms Sinus rhythm with frequent Premature ventricular complexes Minimal voltage criteria for LVH, may be normal variant ( R in aVL ) Inferior infarct , age undetermined , cannot be excluded Anterolateral infarct , age undetermined, cannot be excluded Abnormal ECG Confirmed by JOSE MARIA PETERSEN, BARBRA ([id number]), electronic news gathering editor BERNARDO KHOURY ([id number]) on 10/26/2022 8:49:27 AM Referred By: Confirmed By:BARBRA MOISE MD
--- NOTE | 2022-10-25 10:52 | ED.VIS.CHEST ---
HPI History of Present Illness Chief Complaint: Chest Pain Informant: patient Onset/Context/Timing Onset: Today Activity at onset: gradual Timing: Waxes and wanes Quality: Positive for Heaviness and Pressure Current Severity: Mild Maximum Severity: Moderate Narrative Narrative: Patient presents secondary to chest pain. She states over the past 3 hours she had chest heaviness and pressure. She tried 3 nitro without improvement. She does have a history of prior [place] 5 years ago. She has 2 cardiac stents. [facility] Medical History Atherosclerosis of coronary artery of [place] without angina pectoris Carotid artery dissection Hyperthyroidism Presence of stent in coronary artery (~11/02/17) Pure hypercholesterolemia STEMI (ST elevation myocardial infarction) Home Medications cholecalciferol (vitamin D3) 25 mcg (1,000 unit) capsule 1,000 unit PO DAILY supplement 10/09/17 [History Last Taken 11/01/17 08:00] metformin 500 mg tablet 500 mg PO DAILY DIABETES 10/09/17 [History Last Taken 11/01/17 08:00] levothyroxine 100 mcg tablet 100 mcg PO DAILY 09/10/18 [History Last Taken Unknown] oxybutynin chloride 10 mg tablet,extended release 24 hr 10 mg PO DAILY 05/29/20 [History Last Taken Unknown] omeprazole 40 mg capsule,delayed release 40 mg PO DAILY 09/27/20 [History Last Taken Unknown] aspirin 81 mg tablet,delayed release 81 mg PO DAILY@0800 #90 tabs 12/27/21 [Rx Last Taken Unknown] lisinopril 5 mg tablet 5 mg PO DAILY blood pressure #90 tabs 04/08/22 [Rx Last Taken Unknown] atorvastatin 80 mg tablet 80 mg PO QHS #90 tabs 05/02/22 [Rx Last Taken Unknown] gabapentin 300 mg capsule 300 mg PO TID 08/18/22 [History Last Taken Unknown] nitroglycerin 0.4 mg sublingual tablet 0.4 mg sublingual Q5-15M PRN chest pain #25 tabs 08/18/22 [Rx Last Taken Unknown] ticagrelor 90 mg tablet 90 mg PO BID #180 tabs 09/06/22 [Rx Last Taken Unknown] metoprolol tartrate 50 mg tablet 50 mg PO BID #180 tabs 09/30/22 [Rx Last Taken Unknown] Allergy/AdvReac Type Severity Reaction Status Date / Time No Known Allergies Allergy Verified 10/25/22 10:34 Family History Mother Diabetes Heart disease Hypertension Hypercholesterolemia CVA (cerebral vascular accident) Thyroid disorder Father Cancer Surgical History H/O Achilles tendon repair History of rotator cuff surgery (~2020) Presence of coronary angioplasty implant and graft (~11/02/17) Social History Smoking Status: Former smoker alcohol intake: current substance use type: does not use caffeine: Yes Type: carbonated beverages Number of servings: 3 what type of physical activity do you participate in: other details: cardiac rehab ROS ROS ED Constitutional Constitutional ED: Denies chills or fever(s) Eyes Eyes: Denies change in vision or discharge from eye(s) ENT ENT ED: Denies discharge from eye(s), rhinorrhea or sore throat Cardiovascular Cardiovascular: Reports chest pain; Denies palpitations Respiratory/Chest Respiratory/Chest: Reports dyspnea; Denies cough Gastrointestinal Gastrointestinal: Denies abdominal pain, nausea or vomiting Genitourinary Genitourinary ED: Denies difficulty urinating or dysuria Musculoskeletal Musculoskeletal: Denies back pain or extremity pain Integumentary Denies Abrasions or rash Neurologic Neurologic: Denies headache(s) or weakness Psychiatric Psychiatric: Denies anxiety or depression Allergic/Immunologic Allergic/Immunologic ED: Denies lip swelling or urticaria EXAM Physical Exam Const Vital Signs: 10/25/22 10:35 10/25/22 10:55 10/25/22 10:55 Temperature 97.6 F L Temperature Source Temporal Pulse Rate 84 Respiratory Rate 18 Respiratory Effort Normal Blood Pressure 120/60 Blood Pressure Mean 80 Pulse Ox 97 Oxygen Delivery Method Room Air Room Air 10/25/22 11:47 10/25/22 12:00 10/25/22 13:00 Temperature Temperature Source Pulse Rate 87 89 75 Respiratory Rate 16 16 16 Respiratory Effort Blood Pressure 134/78 H 134/78 H 145/78 H Blood Pressure Mean 96 96 100 Pulse Ox 96 98 98 Oxygen Delivery Method Room Air Room Air Room Air Positive well nourished and well developed General Appearance ED: well developed HEENT Reports normocephalic and head/scalp atraumatic Eyes PERRL and EOMs intact bilaterally Neck supple Chest Wall inspection of chest normal and palpation of chest normal Resp normal respiratory effort and clear to auscultation bilaterally Cardio regular rate and regular rhythm GI normal to inspection, nondistended, normoactive bowel sounds Palpation: soft Extremity normal to inspection Neuro oriented x3 and no sensory deficits noted Sensorium / Orientation: alert Motor Exam: strength 5/5 throughout Psych mental status grossly normal Skin no rashes or lesions noted Heart Score History: Moderately Suspicious ECG: Normal Age: >45 - <65 years Risk Factors: >/= 3 Risk Factors or History of CAD Troponin: </= Normal Limit Score: 4 MDM MDM MDM Narrative Medical decision making narrative: Given aspirin on arrival. Patient placed on color television console monitor. EKG obtained to evaluate for ischemia and/or cardiac arrhythmia. Lab work obtained to evaluate for leukocytosis, anemia, electrolyte derangement. D-dimer obtained to evaluate for possible blood clot and troponin obtained x2 to evaluate for cardiac ischemia. Portable chest x-ray obtained to evaluate for lung pathology and cardiac size. Lab Data Attestation: I reviewed the patient's lab results. Labs: Laboratory Results - last 24 hr 10/25/22 10/25/22 10/25/22 11:35 11:35 11:35 WBC 9.2 RBC 4.37 Hgb 11.6 L Hct 37.4 MCV 85.6 MCH 26.5 L MCHC 31.0 L RDW Std Deviation 46.9 H RDW Coeff of [place] 14.8 H Plt Count 298 MPV 11.3 Immature Gran % (Auto) 0.300 Neut % (Auto) 65.8 Lymph % (Auto) 25.7 [place] % (Auto) 6.1 Eos % (Auto) 1.4 Baso % (Auto) 0.7 Absolute Neuts (auto) 6.1 Absolute Lymphs (auto) 2.36 Nucleated RBC % 0 D-Dimer Quant (PE/DVT) 0.27 Sodium 142 Potassium 3.6 Chloride 108 H Carbon Dioxide 29.0 Anion Gap 5 BUN 14 Creatinine 0.78 Estim Creat Clear Calc 67.29 Est GFR (MDRD) Af Amer 96 Est GFR (MDRD) Non-Af 79 BUN/Creatinine Ratio 17.8 Glucose 163 H Calcium 8.8 Troponin I High Sens 4 10/25/22 13:58 WBC RBC Hgb Hct MCV MCH MCHC RDW Std Deviation RDW Coeff of [place] Plt Count MPV Immature Gran % (Auto) Neut % (Auto) Lymph % (Auto) [place] % (Auto) Eos % (Auto) Baso % (Auto) Absolute Neuts (auto) Absolute Lymphs (auto) Nucleated RBC % D-Dimer Quant (PE/DVT) Sodium Potassium Chloride Carbon Dioxide Anion Gap BUN Creatinine Estim Creat Clear Calc Est GFR (MDRD) Af Amer Est GFR (MDRD) Non-Af BUN/Creatinine Ratio Glucose Calcium Troponin I High Sens 4 Radiography Chest X-Ray - ED: 1 View, Read by ED Physician, Chronic Changes and No Infiltrates Diagnostic Testing: Clinical Impression(s) from Imaging Studies Chest X-Ray 10/25/22 10:51 IMPRESSION: Elevation of the right hemidiaphragm. There has been no change since prior study. Electronically Signed: Herb Ibarra MD at 11:36 EST , EKG Initial EKG: Attestation: I personally reviewed and interpreted this EKG as follows: Interpretation: Sinus Rhythm (Sinus 88 with frequent PVCs. No acute ST change.) Treatment and Re-Evaluation Narrative: CBC was normal white count with hemoglobin 11.6. Chemistry studies unremarkable. Troponin is normal at 4 and D-dimer is normal at 0.27. 2-hour repeat troponin is also 4. EKG is sinus rhythm with PVCs. On observation for color television console monitor she continues to have frequent PVCs with up to 2 or 3 at a time, but no true runs of V. tach. Patient does report having some palpitations. I have 2 prior EKGs that did not reveal PVCs. In light of this I spoke with her [employer], Dr. Clarke. He states the patient did have a Holter monitor in the past that revealed significant PVCs. This may or may not be causing her symptoms that she does sense them. Her blood pressure and heart rate doing well for an increase in her metoprolol which should help decrease the amount of PVCs she is having. She will increase her metoprolol to 100 mg twice daily. She states she has plenty of pills at home to double up on to see if this helps her symptoms. Return instructions provided. Patient is comfortable with the plan. Discharge Plan Triage Chief Complaint: Chest Pain ED Provider: Kelin Gray Dx/Rx/DC Orders Clinical Impression: Chest pain, Frequent PVCs Instructions: ED About Arrhythmias Prescriptions: No Action levothyroxine 100 mcg tablet 100 mcg PO DAILY gabapentin 300 mg capsule 300 mg PO TID oxybutynin chloride 10 mg tablet extended release 24hr 10 mg PO DAILY nitroglycerin 0.4 mg tablet, sublingual 0.4 mg sublingual Q5-15M PRN (Reason: chest pain) Qty: 25 3RF Rx Instructions: do not exceed 3 doses per episode metformin 500 MG tablet 500 mg PO DAILY cholecalciferol (vitamin D3) 1,000 UNIT capsule 1,000 unit PO DAILY omeprazole 40 MG capsule,delayed release(DR/EC) 40 mg PO DAILY aspirin 81 mg tablet,delayed release (DR/EC) 81 mg PO DAILY@0800 Qty: 90 3RF Label Comments: heart lisinopril 5 mg tablet 5 mg PO DAILY Qty: 90 3RF atorvastatin 80 mg tablet 80 mg PO QHS Qty: 90 3RF Label Comments: cholesterol ticagrelor 90 mg tablet 90 mg PO BID Qty: 180 3RF metoprolol tartrate 50 mg tablet 50 mg PO BID Qty: 180 4RF Primary Care Provider: Reese Elizalde Referrals: Jose Clarke MD [Med Staff - Active Staff] - 1-2 Weeks Reese Elizalde MD [Primary Care Provider] - Activity Restrictions/Additional Instructions: As discussed, please double your metoprolol to 100 mg twice a day. Please call [email or web address] office next week with an update on your symptoms. Return to the ER for any concerning symptoms. Disposition Disposition: Home, Self Care
[2022-10-25 11:47] VITALS: BP 134/78; PULSE 87; RESP 16; O2SAT 96
[2022-10-25] MEDS: Aspirin 81 MG TAB.CHEW 324 MG PO (11:48)
[2022-10-25] MEDS: 0.9% Normal Saline 1,000 ML 150 ML IV (11:48)
[2022-10-25 11:50] LABS: Absolute Lymphocyte Count 2.36 X10^3/uL (0.83-4.51); Absolute Neutrophil Count 6.1 X10^3/uL (2.0-7.7); Basophil# 0.06 X10^3/uL; Basophil% 0.7 % (0-1); Eosinophil# 0.13 X10^3/uL; Eosinophils% 1.4 % (0-5); Hematocrit 37.4 % (37-47); Hemoglobin 11.6 g/dL (12.0-15.0); Lymphocyte # 2.36 X10^3/ul (0.83-4.51); Lymphocyte % 25.7 % (19-41); Mean Corpuscular Hgb 26.5 pg (27.0-32.0); Mean Corpuscular Volume 85.6 fL (81-99); Mean Platelet Vol. 11.3 fl (6.2-12.0); Monocyte# 0.56 X10^3/uL; Monocyte% 6.1 % (0-10); NRBC Flagged by Analyzer 0 % (0-5); Neutrophil # 6.06 X10^3/uL (2.7-7.7); Neutrophil % 65.8 % (47-70); Platelet Count 298 K/mm3 (150-450); RBC Distribution Width CV 14.8 % (11.6-14.6); RBC Distribution Width SD 46.9 fl (35.1-43.9); Red Blood Count 4.37 M/mm3 (4.2-5.4); White Blood Count 9.2 K/mm3 (4.4-11.0)
[2022-10-25 12:00] VITALS: BP 134/78; PULSE 89; RESP 16; O2SAT 98
[2022-10-25 12:02] LABS: Anion Gap 5 (5-15); BUN 14 mg/dL (7-18); BUN/Creat Ratio 17.8 RATIO (10-20); Calcium,Total 8.8 mg/dL (8.5-10.1); Chloride 108 mmol/L (98-107); Creatinine, Serum 0.78 mg/dL (0.55-1.02); EST Glomerular Filtration Rate 79 mL/min (>60); Est Glom Filt Rate - Afr Amer 96 mL/min (>60); Estimated Creatinine Clearance 67.29 ml/min; Glucose 163 mg/dL (74-106); Potassium 3.6 mmol/L (3.5-5.1); Sodium Level 142 mmol/L (136-145); Troponin-I HS (w/2H Reflex) 4 pg/mL (3.0-54.0)
[2022-10-25 12:10] LABS: D-Dimer Quantitative (DVT/PE) 0.27 FEU/ug/m (0.27-0.49)
[2022-10-25 13:00] VITALS: BP 145/78; PULSE 75; RESP 16; O2SAT 98
[2022-10-25 13:42] LABS: Reflex Troponin-HS? (from REC) Y
[2022-10-25 14:24] LABS: Troponin-I HS 4 pg/mL (3.0-54.0)
[2022-10-25 15:00] VITALS: BP 120/68; PULSE 100; RESP 18; TEMP 36.6; O2SAT 99
[2022-10-25] MEDS: Metoprolol Tartrate 5 MG/5 ML Vial IV (15:10)
== END 2022-10-25 15:14 | disposition home or self-care (01) ==
PROVIDERS: Emergency Provider Emergency Medicine; PCP Family Medicine; Visit Provider Emergency Medicine
DX: R07.89 Other chest pain (principal); I49.3 Ventricular premature depolarization; Z87.891 Personal history of nicotine dependence; I25.10 Atherosclerotic heart disease of native coronary artery without angina pectoris; E78.00 Pure hypercholesterolemia, unspecified; Z95.5 Presence of coronary angioplasty implant and graft; I25.2 Old myocardial infarction
CPT/HCPCS: 71045; 80048; 84484; 85025; 85379; 93005; 96361; 96374; 99284; J7030

== ENCOUNTER → 2022-11-16 | Outpatient (CLI) | payer OTHER, SELFPAY ==
[2017-10-13 12:02] VITALS: BMI 38.5
[2022-11-16 18:59] LABS: BUN 17 mg/dL (7-18); Creatinine, Serum 0.79 mg/dL (0.55-1.02); EST Glomerular Filtration Rate 78 mL/min (>60); Est Glom Filt Rate - Afr Amer 94 mL/min (>60)
== END | disposition home or self-care (01) ==
PROVIDERS: PCP Family Medicine; Visit Provider Surgery Vascular Surgery
DX: I65.23 Occlusion and stenosis of bilateral carotid arteries (principal); I63.9 Cerebral infarction, unspecified; I21.3 ST elevation (STEMI) myocardial infarction of unspecified site; E11.9 Type 2 diabetes mellitus without complications; E78.70 Disorder of bile acid and cholesterol metabolism, unspecified; I10 Essential (primary) hypertension; Z87.891 Personal history of nicotine dependence
CPT/HCPCS: 36415; 82565; 84520

== ENCOUNTER → 2022-11-19 | Outpatient (CLI) | payer OTHER, SELFPAY ==
[2017-10-13 12:02] VITALS: BMI 38.5
[2022-11-19 09:33] LABS: AST(SGOT) 11 U/L (15-37); Alanine Aminotransfer ALT/SGPT 19 U/L (13-56); Albumin, Serum 3.2 g/dL (3.2-5.0); Alkaline Phosphatase 94 U/L (45-117); Bilirubin, Direct 0.19 mg/dL (0.00-0.30); Cholesterol 139 mg/dL (200); Globulin 3.8 g/dL (2.2-4.2); High Density Lipoprotein 52 mg/dL; Triglycerides 74 mg/dL; Very Low Density Lipoprotein 15 mg/dL (5-40)
== END | disposition home or self-care (01) ==
PROVIDERS: PCP Family Medicine; Visit Provider Internal Medicine Cardiovascular Disease
DX: E78.00 Pure hypercholesterolemia, unspecified (principal)
CPT/HCPCS: 36415; 80061; 80076

== ENCOUNTER → 2022-11-21 | Outpatient (CLI) | payer OTHER, SELFPAY ==
[2017-10-13 12:02] VITALS: BMI 38.5
--- NOTE | 2022-11-21 17:42 | CT_ITS ---
STUDY: CTA HEAD AND NECK WITH CONTRAST REASON FOR EXAM: Female, 62 years old. HAD DISSECTED LT CAROTID IN 2018 FOLLOW UP, STENOSIS RADIATION DOSAGE (If Supplied By Facility): CTDIvol = ( 20.79 ) mGy, DLP = ( 546.25 ) mGycm TECHNIQUE: CT angiography was performed with a multi-detector CT scanner. Data acquisition was obtained from the skull base through the vertex following intravenous administration of IV 100mL Isovue-370. MIP images were reconstructed from the axial data set. Post-processing of the angiographic images was performed, with multiplanar reformation and 3D reconstruction. Individualized dose optimization techniques were used for this CT. COMPARISON: May 17, 2018 and September 24, 2020 FINDINGS: Normal bilateral petrous carotid arteries. Normal right cavernous carotid artery with a normal supraclinoid bifurcation. Normal left cavernous carotid artery with a normal supraclinoid bifurcation. Normal right A1 segments of the anterior cerebral artery. Normal left A1 segments of the anterior cerebral artery. Normal intact anterior communicating artery (ACOM). Normal bilateral A2 segments of the anterior cerebral arteries. Normal right M1 and M2 segments of the middle cerebral arteries, with a normal M1 bifurcation. Normal left M1 and M2 segments of the middle cerebral arteries, with a normal M1 bifurcation. Normal right posterior communicating artery (PCOM). Normal left posterior communicating artery (PCOM). Normal bilateral vertebral arteries. Normal basilar artery with a normal basilar bifurcation. The visualized bilateral superior cerebellar (SCA) arteries are normal. Normal bilateral P1, P2 and visualized P3 segments of the posterior cerebral arteries. There is no demonstrated aneurysm of the [place]. There is no demonstrated abnormality of the visualized brain. AORTIC ARCH: There is a bovine origin of the great vessels arising from the aortic arch with a common origin of the brachiocephalic and left common carotid artery. Normal origin of the left subclavian artery. There is aberrant right subclavian artery arising as a final branch of the aortic arch passing posterior to the esophagus. RIGHT CAROTID ARTERIES: Normal right common carotid artery (CCA). Normal right common carotid bulb. Normal origin of the right internal carotid (ICA) artery without a hemodynamically significant stenosis. Normal visualized cervical portion of the right internal carotid artery. Normal origin of the right external carotid artery (ECA). LEFT CAROTID ARTERIES: Normal left common carotid artery (CCA). Normal left common carotid bulb. Normal origin of the left internal carotid (ICA) artery without a hemodynamically significant stenosis. There is atherosclerotic tortuous elongation of the cervical portion of the left internal carotid artery. There is stable mild dilatation (0.7 cm) of the distal aspect of this tortuous segment with focal dissection, series 2 images 280/458 through 286/458. Normal origin of the left external carotid artery (ECA). VERTEBRAL ARTERIES: Normal bilateral vertebral arteries. CT/CTA Neck W/WO Contrast IMPRESSION: Stable focal dissection of tortuous ectatic left distal internal carotid artery. Electronically Signed: Nabil Rodarte MD at 23:42 EDT ,
== END | disposition home or self-care (01) ==
LOC: CT 17:38
PROVIDERS: PCP Family Medicine; Referring Provider Surgery Vascular Surgery; Visit Provider Surgery Vascular Surgery
DX: I65.23 Occlusion and stenosis of bilateral carotid arteries (principal); I63.9 Cerebral infarction, unspecified
CPT/HCPCS: 70498; Q9967; A4216

== ENCOUNTER → 2022-11-29 | Outpatient (CLI) | payer OTHER, SELFPAY ==
[2017-10-13 12:02] VITALS: BMI 38.5
--- NOTE | 2022-11-29 07:54 | ECHOCS_ITS ---
Reason For Study: SOB Procedure This was a 2D Doppler, Color Flow transthoracic echocardiogram. The study was technically difficult. Contrast injection was performed. Exam performed in department. Left Ventricle Normal LV size. Mild concentric left ventricular hypertrophy. Left ventricular systolic function is normal. The estimated ejection fraction is 60 %. Stage 1 diastolic dysfunction. No regional wall motion abnormalities noted. Right Ventricle Normal RV size. Normal systolic function. Atria Normal left atrium. Normal right atrium. Mitral Valve Normal mitral valve. Tricuspid Valve Normal tricuspid valve. Aortic Valve The aortic valve is not well visualized. Pulmonic Valve The pulmonic valve is not well visualized. Great Vessels Normal aortic root. The pulmonary artery is normal size. Normal inferior vena cava. Pericardium/Pleural No pericardial effusion. Medication 22 gauge I.V. with prn adaptor inserted into right arm. Diluted definity 4ml given slow IV push to enhance endocardial definition. MMode/2D Measurements & Calculations LVIDd: 4.1 cm IVSd: 1.6 cm Ao root diam: 3.1 cm LVIDs: 3.1 cm LVPWd: 1.3 cm LA dimension: 4.3 cm FS: 24.7 % LAV(MOD-bp): 49.6 ml LA A4 area: 18.3 cm2 LAV(MOD-bp) Indexed: 23.2 ml/m2 LAV(MOD-sp2): 42.8 ml LAV(MOD-sp4): 52.5 ml Time Measurements MV dec time: 0.23 sec Doppler Measurements & Calculations MV E max himanshu: 77.5 cm/sec Lat Peak E' Himanshu: 11.8 cm/sec Med Peak E' Himanshu: 8.2 cm/sec MV A max himanshu: 86.9 cm/sec E/E' lat: 6.6 E/E' med: 9.4 MV E/A: 0.89 MV V2 max: 102.0 cm/sec MV dec slope: 352.1 cm/sec2 Ao V2 max: 119.3 cm/sec MV max P.2 mmHg Ao max P.7 mmHg MV V2 mean: 49.9 cm/sec Ao V2 mean: 81.9 cm/sec MV mean P.2 mmHg Ao mean P.1 mmHg MV V2 VTI: 29.6 cm Ao V2 VTI: 27.2 cm AV (velocity ratio): 0.81 LV V1 max: 102.9 cm/sec PA V2 max: 101.5 cm/sec LV V1 max P.2 mmHg PA V2 mean: 68.9 cm/sec LV V1 mean P.4 mmHg LV V1 mean: 71.8 cm/sec LV V1 VTI: 22.0 cm ECHO/Echo Complete W/ Contrast Interpretation Summary Normal LV size. Left ventricular systolic function is normal. The estimated ejection fraction is 60 %. Stage 1 diastolic dysfunction. Mild concentric left ventricular hypertrophy. Contrast injection was performed. Ordering Physician: Dao Dye Referring Physician: Reese Elizalde Performed By: Mk Calixto RCS
== END | disposition home or self-care (01) ==
LOC: CVS 07:53
PROVIDERS: PCP Family Medicine; Visit Provider Nurse Practitioner Family
DX: I49.3 Ventricular premature depolarization (principal); I77.71 Dissection of carotid artery; E78.00 Pure hypercholesterolemia, unspecified; R06.02 Shortness of breath
CPT/HCPCS: 93225; 93226; 93306; Q9957; A4216; C8929

== ENCOUNTER 2023-10-26 17:48 | Emergency (ER) | payer OTHER, SELFPAY ==
[2017-10-13 12:02] VITALS: BMI 38.5
[2023-10-26 17:49] VITALS: BP 117/71; PULSE 68; RESP 16; TEMP 36.9; O2SAT 94; BMI 40.9
--- NOTE | 2023-10-26 18:00 | CT_ITS ---
STUDY: CT ORBITS WITH CONTRAST REASON FOR EXAM: Female, 63 years old. Retro-orbital pain, pain with eye movement RADIATION DOSAGE (If Supplied By Facility): CTDIvol = ( 29.38 ) mGy, DLP = ( 650.30 ) mGycm TECHNIQUE: The patient was scanned in a multi detector CT scanner. Transaxial imaging was performed following the intravenous administration of IV 100mL Isovue-370. Sagittal and coronal images were reconstructed. Individualized dose optimization techniques were used for this CT. COMPARISON: None. FINDINGS: Normal globes. Normal intraconal spaces. Normal optic nerve sheath complex. Normal bilateral extraocular muscles. Normal lacrimal glands. Normal bilateral medial and inferior orbital kirk. Normal bilateral maxillary bones. Normal bilateral frontozygomatic arches. Normal bilateral zygomatic temporal arches. Normal frontal sinus. Normal ethmoidal sinuses. Normal maxillary sinuses. Normal sphenoid sinuses. Mild infraorbital soft tissue swelling of the left orbit There is no demonstrated abnormal enhancement. CT/Orb Sella Post Fossa Ear W/CON IMPRESSION: Mild nonspecific infraorbital soft tissue swelling of the left orbit Otherwise normal bilateral orbits MRI may be useful for further evaluation if indicated Electronically Signed: Alexandr Alvarado MD at 19:45 EST ,
--- NOTE | 2023-10-26 18:02 | EDS_ITS ---
HPI History of Present Illness Chief Complaint: Eye Problem Detail of Chief Complaint: Patient was ill with viral-like symptoms a week ago. Now presents with lef Informant: patient and spouse/S.O. Onset/Context/Timing Location: Left Eye Onset: Yesterday Context: Sudden Onset Timing: Continuous Current Severity: Mild Maximum Severity: Moderate Worsened by: Eye-movement Relieved by: Nothing Associated Symptoms Associated Symptoms - Eyes: Pain; Negative for Burning, Crusting, Drainage, Eyelid swelling, Foreign body sensation, Itching, Matting, Photophobia or Redness History of injury: No Visual correction: Glasses Narrative Narrative: Patient is a 63-year-old woman who was sick with upper respiratory tract infectious symptoms last week and GI. She states she got better last Monday. She had eye pain last week. The pain resolved she has recurrence of the pain. She feels pressure with pushing on the eye. She has pain with movement of her eye. She denies double vision, blurred vision loss of vision. She does not have history of glaucoma's or family history of glaucoma. She denies rhinorrhea. She denies allergies. She presently only complains of left eye pain and specifically left retro-orbital discomfort. Prior similar symptoms: No Recent Illness/Hospitalization: Yes (Viral illness) [facility] Medical History Atherosclerosis of coronary artery of [place] heart without angina pectoris Carotid artery dissection Hyperthyroidism Presence of stent in coronary artery (~11/02/17) Pure hypercholesterolemia STEMI (ST elevation myocardial infarction) Home Medications cholecalciferol (vitamin D3) 25 mcg (1,000 unit) capsule 1,000 unit PO DAILY supplement 10/09/17 [History Last Taken 11/01/17 08:00] metformin 500 mg tablet 500 mg PO DAILY DIABETES 10/09/17 [History Last Taken 11/01/17 08:00] levothyroxine 100 mcg tablet 100 mcg PO DAILY 09/10/18 [History Last Taken Unknown] oxybutynin chloride 10 mg tablet,extended release 24 hr 10 mg PO DAILY 05/29/20 [History Last Taken Unknown] omeprazole 40 mg capsule,delayed release 40 mg PO DAILY 09/27/20 [History Last Taken Unknown] aspirin 81 mg tablet,delayed release 81 mg PO DAILY@0800 #90 tabs 04/25/22 [Rx Last Taken Unknown] gabapentin 300 mg capsule 300 mg PO TID 08/18/22 [History Last Taken Unknown] nitroglycerin 0.4 mg sublingual tablet 0.4 mg sublingual Q5-15M PRN chest pain #25 tabs 08/18/22 [Rx Last Taken Unknown] lisinopril 5 mg tablet 5 mg PO DAILY blood pressure #90 tabs 02/12/23 [Rx Last Taken Unknown] atorvastatin 80 mg tablet 80 mg PO QHS #90 tabs 03/06/23 [Rx Last Taken Unknown] metoprolol tartrate 100 mg tablet 100 mg PO BID #180 tabs 09/07/23 [Rx Last Taken Unknown] Allergy/AdvReac Type Severity Reaction Status Date / Time No Known Allergies Allergy Verified 10/26/23 17:48 Family History Mother Diabetes Heart disease Hypertension Hypercholesterolemia CVA (cerebral vascular accident) Thyroid disorder Father Cancer Surgical History H/O Achilles tendon repair History of rotator cuff surgery (~2020) Presence of coronary angioplasty implant and graft (~11/02/17) Social History Smoking Status: Former smoker alcohol intake: current substance use type: does not use caffeine: Yes Type: carbonated beverages Number of servings: 3 what type of physical activity do you participate in: other details: cardiac rehab ROS ROS ED Constitutional Constitutional ED: Denies chills, fever(s), subjective or sweats Eyes Eyes: Reports other Details: Per HPI narrative ; Denies blurry vision, change in vision or diplopia ENT ENT ED: Denies ear pain, rhinorrhea or sore throat Cardiovascular Cardiovascular: Denies chest pain, palpitations or racing heartbeat Respiratory/Chest Respiratory/Chest: Denies cough, dyspnea or dyspnea on exertion Gastrointestinal Gastrointestinal: Denies abdominal pain, nausea or vomiting Musculoskeletal Musculoskeletal: Denies arthralgias or myalgias Integumentary Denies rash Neurologic Neurologic: Denies headache(s) EXAM Physical Exam Const Vital Signs: 10/26/23 17:49 Temperature 98.5 F Temperature Source Temporal Pulse Rate 68 Respiratory Rate 16 Blood Pressure 117/71 Blood Pressure Mean 86 Pulse Ox 94 Oxygen Delivery Method Room Air Positive well nourished, well developed and obese General Appearance ED: well developed and NAD Nutritional Appearance: obese HEENT HEENT Narrative: Ears normal. TMs normal. Nares there is slight clear drainage noted. Nasal mucosa is [place] consistent with allergic rhinitis, which patient denies. There is tenderness to palpation over the left frontal sinus. There is no tenderness to palpation over the right frontal, ethmoid or maxillary sinuses. atraumatic Eyes Eyes Narrative: Pupils equal round reactive. Extraocular muscle intact. Sclera is anicteric. Conjunctive is not injected. There is no limited range of motion. There is no preauricular lymphadenopathy. Funduscopic exam reveals normal cup-to-disc ratio and no papilledema. Visual acuity 20/40 right and left eye. Neck no lymphadenopathy, supple and no JVD Resp normal respiratory effort, no retractions, no use of accessory muscles and clear to auscultation bilaterally Cardio regular rate, regular rhythm, S1 normal heart sound, S2 normal heart sound and no murmurs Extremity normal to inspection Neuro oriented x3, CN's II-XII intact bilaterally and moves all extremities Psych Psych Narrative: Mood and affect are normal. Skin no wounds Lesions: no lesions Rashes: no rashes MDM MDM MDM Narrative Medical decision making narrative: Patient was sent because of concern for orbital cellulitis. This needs to be considered however unlikely. Concern patient has a frontal sinusitis on the left. Clinically she has findings consistent with allergic rhinitis. With normal cup-to-disc ratio reactive pupil and no injection doubt glaucoma. CT with contrast of the orbits sella and mastoids were ordered to evaluate for orbital cellulitis. [facility] blood work was ordered as well. Lab Data Attestation: I reviewed the patient's lab results. Lab results narrative: CBC is normal. Basic metabolic panel with slightly elevated glucose with normal CO2 anion gap. Renal function is normal. ESR is normal. Management Discussion w/another healthcare provider: [facility] (Dr. Kennedy who is on-call for ophthalmology was contacted. He was made aware of patient's history, physical findings, visual acuity laboratory results and CAT scan results. He recommended mended dose of Decadron. He asked for the patient to call at 8 AM and he will see her first thing in the [facility]) Discharge Plan Triage Chief Complaint: Eye Problem ED Provider: Montez,Daniel Dx/Rx/DC Orders Clinical Impression: Acute left eye pain, Pure hypercholesterolemia, DM type 2 (diabetes mellitus, type 2), Localized soft tissue swelling, Hypothyroidism Prescriptions: No Action levothyroxine 100 mcg tablet 100 mcg PO DAILY gabapentin 300 mg capsule 300 mg PO TID oxybutynin chloride 10 mg tablet extended release 24hr 10 mg PO DAILY nitroglycerin 0.4 mg tablet, sublingual 0.4 mg sublingual Q5-15M PRN (Reason: chest pain) Qty: 25 3RF Rx Instructions: do not exceed 3 doses per episode metformin 500 MG tablet 500 mg PO DAILY cholecalciferol (vitamin D3) 1,000 UNIT capsule 1,000 unit PO DAILY omeprazole 40 MG capsule,delayed release(DR/EC) 40 mg PO DAILY aspirin 81 mg tablet,delayed release (DR/EC) 81 mg PO DAILY@0800 Qty: 90 3RF Patient Comments: heart lisinopril 5 mg tablet 5 mg PO DAILY Qty: 90 3RF atorvastatin 80 mg tablet 80 mg PO QHS Qty: 90 3RF Patient Comments: cholesterol metoprolol tartrate 100 mg tablet 100 mg PO BID Qty: 180 3RF Primary Care Provider: Reese Elizalde Referrals: Alexandr Kennedy MD [Med Staff - Active Staff] - 1 Day for another exam Reese Elizalde MD [Primary Care Provider] - Disposition Disposition: Home, Self Care
[2023-10-26 18:39] LABS: Absolute Lymphocyte Count 3.41 X10^3/uL (0.83-4.51); Absolute Neutrophil Count 6.2 X10^3/uL (2.0-7.7); Basophil# 0.06 X10^3/uL; Basophil% 0.6 % (0-1); Eosinophil# 0.15 X10^3/uL; Eosinophils% 1.4 % (0-5); Hematocrit 38.6 % (37-47); Lymphocyte # 3.41 X10^3/ul (0.83-4.51); Lymphocyte % 32.7 % (19-41); Mean Corp Hgb Conc 31.1 g/dL (32-36); Mean Corpuscular Hgb 26.3 pg (27.0-32.0); Mean Corpuscular Volume 84.6 fL (81-99); Mean Platelet Vol. 11.3 fl (6.2-12.0); Monocyte# 0.52 X10^3/uL; NRBC Flagged by Analyzer 0 % (0-5); Neutrophil # 6.24 X10^3/uL (2.7-7.7); Neutrophil % 59.9 % (47-70); Platelet Count 309 K/mm3 (150-450); RBC Distribution Width SD 46.3 fl (35.1-43.9); Red Blood Count 4.56 M/mm3 (4.2-5.4); White Blood Count 10.4 K/mm3 (4.4-11.0)
[2023-10-26 18:50] LABS: Anion Gap 3 (5-15); BUN 13 mg/dL (7-18); BUN/Creat Ratio 17.6 RATIO (10-20); Calcium,Total 9.3 mg/dL (8.5-10.1); Chloride 108 mmol/L (98-107); Creatinine, Serum 0.74 mg/dL (0.55-1.02); EST Glomerular Filtration Rate 85 mL/min (>60); Est Glom Filt Rate - Afr Amer 102 mL/min (>60); Estimated Creatinine Clearance 96.88 ml/min; Glucose 116 mg/dL (74-106); Potassium 3.9 mmol/L (3.5-5.1); Sodium Level 139 mmol/L (136-145)
[2023-10-26 18:57] LABS: Erythrocyte Sedimentation Rate 30 mm/hr (0-30)
--- OUTSIDE RECORDS SUMMARY | 2023-10-26 19:38 | XMS RPT_ITS | CCD ---
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 Name Role Phone Brenda Clarke NP Unavailable [phone] REESE ELIZALDE Unavailable Unavailable Reese Elizalde MD Primary Care Provider Reese Elizalde MD Primary Care Provider Reese Elizalde MD Primary Care Provider Reese Elizalde MD Primary Care Provider FRANK SANDERS Attending Unavailable REESE ELIZALDE Primary Care Unavailable REESE ELIZALDE Referring Unavailable RESEE ELIZALDE Primary Care Unavailable REESE ELIZALDE Referring Unavailable REESE ELIZALDE Primary Care Unavailable REESE ELIZALDE Attending Unavailable REESE ELIZALDE Primary Care Unavailable REESE ELIZALDE Primary Care Unavailable REESE ELIZALDE Referring Unavailable REESE ELIZALDE Primary Care Unavailable REESE ELIZALDE Attending Unavailable REESE ELIZALDE Primary Care Unavailable REESE ELIZALDE Referring Unavailable REESE VERDIN JR Attending Unavailable REESE ELIZALDE Primary Care Unavailable REESE ELIZALDE Referring Unavailable FRANK SANDERS Referring Unavailable REESE ELIZALDE Primary Care Unavailable Medications Current Medications Medication Drug Class(es) Dates Sig (Normalized) Sig (Original) gabapentin 300 mg oral capsule (20 sources) Anti-epileptic Agent Start: 08-11-2022 End: 12-06-2023 take 1 capsule by mouth three times daily gabapentin (NEURONTIN) 300 mg capsule Indications: Neuropathy , Paresthesia Take 1 capsule by mouth three times a day for 90 days. 270 capsule 0 09/07/2023 12/06/2023 Active Completed/Discontinued Medications Medication Drug Class(es) Dates Sig (Normalized) Sig (Original) aspirin 81 mg delayed release oral tablet (20 sources) Platelet Aggregation Inhibitor, Nonsteroidal Anti-inflammatory Drug take 1 tablet by mouth once daily aspirin, enteric coated (ASPIRIN, ENTERIC COATED) 81 mg EC tablet Take 81 mg by mouth once daily. 0 Active Problems Active Problems Problem Classification Problem Date Documented Date Episodic/Chronic Acute cerebrovascular disease (20 sources) Cerebrovascular accident; Translations: [Cerebral infarction, unspecified] Onset: 1 03-19-2021 Chronic Complications of surgical procedures or medical care (13 sources) Postablative hypothyroidism; Translations: [Postprocedural hypothyroidism] Onset: 7 01-05-2010 Chronic Coronary atherosclerosis and other heart disease (20 sources) Coronary atherosclerosis; Translations: [Atherosclerotic heart disease of [place] coronary artery without angina pectoris] Onset: 8 03-18-2021 Chronic Diabetes mellitus with complications (20 sources) Type 2 diabetes mellitus; Translations: [Type 2 diabetes mellitus with diabetic polyneuropathy] Onset: 1 03-19-2021 Chronic Diabetes mellitus without complication (20 sources) Hyperglycemia; Translations: [Hyperglycemia, unspecified] 08-30-2021 Episodic Disorders of lipid metabolism (20 sources) Hyperlipidemia; Translations: [Hyperlipidemia, unspecified] Onset: 1 08-30-2021 Chronic Esophageal disorders (20 sources) Gastroesophageal reflux disease; Translations: [Gastro-esophageal reflux disease without esophagitis] Onset: 7 07-19-2012 Chronic Essential hypertension (1 source) Essential hypertension; Translations: [Essential (primary) hypertension] Chronic Immunizations and screening for infectious disease (1 source) Encounter for immunization; Translations: [Encounter for immunization] Onset: 3 Episodic Menopausal disorders (3 sources) Postmenopausal bleeding; Translations: [Postmenopausal bleeding] Chronic Nutritional deficiencies (20 sources) Vitamin D deficiency; Translations: [Vitamin D deficiency, unspecified] Onset: 2 07-19-2012 Chronic Other and ill-defined cerebrovascular disease (20 sources) 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; Translations: [Cerebral aneurysm, nonruptured] Onset: 1 03-19-2021 Chronic Other and ill-defined cerebrovascular disease (1 source) Cerebral aneurysm, nonruptured; Translations: [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] Onset: 2 Chronic Other circulatory disease (1 source) H/O: hypertension; Translations: [Personal history of other diseases of the circulatory system] 07-07-2023 Episodic Other endocrine disorders (2 sources) Hyperparathyroidism; Translations: [Hyperparathyroidism, unspecified] Onset: 7 06-22-2017 Chronic Other endocrine disorders (20 sources) Secondary hyperparathyroidism of nonrenal origin; Translations: [Secondary hyperparathyroidism, not elsewhere classified] Onset: 7 10-03-2018 Chronic Other female genital disorders (1 source) Abnormal uterine bleeding; Translations: [Abnormal uterine and vaginal bleeding, unspecified] Chronic Other female genital disorders (20 sources) Abnormal uterine bleeding due to endocervical polyp; Translations: [Abnormal uterine and vaginal bleeding, unspecified] Onset: 1 03-18-2021 Chronic Other gastrointestinal disorders (20 sources) Irritable bowel syndrome; Translations: [Irritable bowel syndrome without diarrhea] Onset: 9 01-05-2010 Chronic Other hereditary and degenerative nervous system conditions (20 sources) Cerebral atrophy; Translations: [Degenerative disease of nervous system, unspecified] Onset: 1 03-19-2021 Chronic Other lower respiratory disease (20 sources) Chronic cough; Translations: [Chronic cough] Onset: 9 10-03-2018 Episodic Other nervous system disorders (4 sources) Neuropathy; Translations: [Polyneuropathy, unspecified] Chronic Other nervous system disorders (5 sources) Paresthesia; Translations: [Paresthesia of skin] Episodic Other nutritional; endocrine; and metabolic disorders (1 source) Obesity; Translations: [Obesity, unspecified] 07-07-2023 Chronic Other nutritional; endocrine; and metabolic disorders (1 source) H/O: diabetes mellitus; Translations: [Personal history of other endocrine, nutritional and metabolic disease] 07-07-2023 Episodic Other screening for suspected conditions (not mental disorders or infectious disease) (9 sources) Patient encounter status; Translations: [Encounter for screening mammogram for malignant neoplasm of breast] Onset: 3 Episodic Other upper respiratory infections (2 sources) Sore throat symptom; Translations: [Acute pharyngitis, unspecified] Episodic Residual codes; unclassified (20 sources) Obstructive sleep apnea syndrome; Translations: [Obstructive sleep apnea (adult) (pediatric)] Onset: 5 08-19-2021 Chronic Residual codes; unclassified (1 source) Obstructive sleep apnea (adult) (pediatric); Translations: [NELLY (obstructive sleep apnea)] Onset: 3 Chronic Residual codes; unclassified (1 source) Tobacco user; Translations: [Tobacco use] 04-04-2023 Episodic Thyroid disorders (20 sources) Acquired hypothyroidism; Translations: [Hypothyroidism, unspecified] Onset: 8 06-12-2018 Chronic Past or Other Problems Problem Classification Problem Date Documented Da te Episodic/Chronic Genitourinary symptoms and ill-defined conditions (20 sources) Microalbuminuria; Translations: [Proteinuria, unspecified] Onset: 06-03-2017 06-03-2017 Episodic Other acquired deformities (20 sources) Acquired unequal leg length; Translations: [Unequal limb length (acquired), unspecified site] Onset: 10-12-2009 01-05-2010 Episodic Other connective tissue disease (20 sources) Capsulitis of ankle; Translations: [Other enthesopathy of unspecified foot and ankle] Onset: 05-30-2011 05-30-2011 Episodic Other connective tissue disease (20 sources) Bilateral metatarsalgia; Translations: [Metatarsalgia, right foot] Onset: 01-25-2017 01-25-2017 Episodic Other connective tissue disease (20 sources) Bilateral dysfunction of posterior tibial tendon of feet; Translations: [Posterior tibial tendinitis, right leg] Onset: 01-25-2017 01-25-2017 Episodic Other nervous system disorders (1 source) Paresthesia of skin; Translations: [Paresthesia of skin] Onset: 06-29-2017 Episodic Screening and history of mental health and substance abuse codes (4 sources) Tobacco use and exposure - finding; Translations: [Personal history of nicotine dependence] Onset: 03-21-2023 03-21-2023 Episodic Spondylosis; intervertebral disc disorders; other back problems (20 sources) Spinal stenosis of lumbar region; Translations: [Spinal stenosis, lumbar region without neurogenic claudication] Onset: 11-21-2005 08-30-2021 Episodic Results Test Name Value Interpretation Reference Range Facil ity Vital Signs Date Time Vital Sign Value Performing Clinician Facility 07-07-2023 08:00-0400 Body weight 106.69 kg Reese Verdin Jr., MD Work Phone: [facility] 07-07-2023 08:00-0400 Diastolic blood pressure 68 mm[Hg] Reese Verdin Jr., MD Work Phone: [facility] 07-07-2023 08:00-0400 Heart rate 70 /min Reese Verdin Jr., MD Work Phone: [facility] 07-07-2023 08:00-0400 Respiratory rate 18 /min eRese Verdin Jr., MD Work Phone: [facility] 07-07-2023 08:00-0400 SaO2% (BldA) [Mass fraction] 99 % Reese Verdin Jr., MD Work Phone: [facility] 07-07-2023 08:00-0400 Systolic blood pressure 110 mm[Hg] Reese Verdin Jr., MD Work Phone: [facility] 03-21-2023 13:53-0400 Body weight 109.32 kg Frank Collinsesau PLUNKETTWIRELESS SALES EXPERT Work Phone: [facility] 12-27-2022 18:07-0400 Body temperature 97.59 [degF] Krislyn Aberegg PA Work Phone: [facility] 12-27-2022 18:07-0400 Body weight 110.68 kg Krislyn Aberegg PA Work Phone: [facility] 12-27-2022 18:07-0400 Diastolic blood pressure 76 mm[Hg] Krislyn Aberegg PA Work Phone: [facility] 12-27-2022 18:07-0400 Heart rate 60 /min Krislyn Aberegg PA Work Phone: [facility] 12-27-2022 18:07-0400 Respiratory rate 16 /min Krislyn Aberegg PA Work Phone: [facility] 04-25-2023 18:07-0400 SaO2% (BldA) [Mass fraction] 95 % Madhavi Weston PA Work Phone: [facility] 12-27-2022 18:07-0400 Systolic blood pressure 108 mm[Hg] Madhavi Weston PA Work Phone: [facility] 08-11-2022 16:43-0500 Body weight 106.59 kg Reese Elizalde MD Work Phone: [facility] 08-11-2022 16:43-0500 Diastolic blood pressure 82 mm[Hg] Reese Elizalde MD Work Phone: [facility] 08-11-2022 16:43-0500 Heart rate 70 /min Reese Elizalde MD Work Phone: [facility] 08-11-2022 16:43-0500 SaO2% (BldA) [Mass fraction] 97 % Reese Elizalde MD Work Phone: [facility] 08-11-2022 16:43-0500 Systolic blood pressure 122 mm[Hg] Reese Elizalde MD Work Phone: [facility] 02-07-2022 15:32-0400 Body weight 108.41 kg Loyda Stein MD Work Phone: [facility] 02-07-2022 15:32-0400 Diastolic blood pressure 74 mm[Hg] Loyda Stein MD Work Phone: [facility] 02-07-2022 15:32-0400 Systolic blood pressure 118 mm[Hg] Loyda Stein MD Work Phone: [facility] 01-18-2022 15:04-0400 Body weight 108.86 kg Annie Costa DEVELOPMENT SPEC.WIRELESS SALES EXPERT Work Phone: [facility] 01-18-2022 15:04-0400 Diastolic blood pressure 76 mm[Hg] Annie Costa DEVELOPMENT SPEC.WIRELESS SALES EXPERT Work Phone: [facility] 01-18-2022 15:04-0400 Systolic blood pressure 110 mm[Hg] Annie Lenox DEVELOPMENT SPEC.WIRELESS SALES EXPERT Work Phone: [facility] 06-22-2017 09:54-0400 BMI (Body Mass Index) 37.57 kg/m2 Brenda Clarke [facility] Work Phone: 06-22-2017 09:54-0400 BP Diastolic 80 mm[Hg] Brenda Clarke [facility] Work Phone: 06-22-2017 09:54-0400 BP Systolic 120 mm[Hg] Brenda Clarke [facility] Work Phone: 06-22-2017 09:54-0400 Height 167.64 cm Brenda Clarke [facility] Work Phone: 06-22-2017 09:54-0400 Pulse (Heart Rate) 88 /min Brenda Clarke NP [facility] Work Phone: 06-22-2017 09:54-0400 Respiratory Rate 20 /min Brenda Clarke [facility] Work Phone: 06-22-2017 09:54-0400 Weight 105.6 kg Brenda Clarke NP [facility] Work Phone: Encounters Encounter Date Encounter Type Care Provider Facility Start: 10-07-2023 Jv DENISE RN.WIRELESS SALES EXPERT Work Phone: OB/Gynecology Procedures Date Procedure Procedure Detail Performing Clinician Start: 04-03-2023 CT LUNG SCREEN ALBINO Sanders APRN.WIRELESS SALES EXPERT Work Phone: Start: 12-27-2022 STREP A MOLECULAR (POC) Donna Schofield PA-C Work Phone: Start: 08-11-2022 INFLUENZA VACCINE QUADRIVALENT 6 MO - 64 YRS IM Reese Elizalde MD Work Phone: Start: 08-11-2022 PFIZER-BIONTECH COVID-19 BIVALENT BOOSTER VACCINE, AGE 12+ YR Reese Elizalde MD Work Phone: Start: 06-02-2022 End: 06-02-2022 Screening mammography bi 2-view breast inc cad Bulk Order Provider Start: 05-13-2022 Lipid panel [facility] Provider Start: 11-08-2021 Adult depression screening assessment Annie Skelton APRN.CNP Work Phone: Start: 04-22-2021 Mammography Annie Skelton APRN.C [facility] Work Phone: Start: 03-18-2021 History of placement of stent for coronary artery disease S/P primary angioplasty with coronary stent Annie Skelton APRN.CNP Work Phone: Start: 05-04-2020 Colonoscopy Annie Skelton APRN.C [facility] Work Phone: Plan of Treatment Date Care Activity Detail Author Start: 05-04-2030 Colonoscopy COLONOSCOPY [facility] Start: 05-04-2030 COLORECTAL CANCER SCREENING COLORECTAL CANCER SCREENING [facility] Start: 05-04-2030 Screening for malign ant neoplasm of colon [facility] Start: 11-13-2024 HPV TESTING HPV TESTING [facility] Start: 11-13-2024 PAP TESTING PAP TESTING [facility] Start: 11-13-2024 Screening for malign ant neoplasm of cervix [facility] Start: 08-24-2024 Hepatitis B screening Urine Al bumin:Creatinine Ratio [facility] Start: 08-21-2024 Annual PCP Team Tuckpointer sukhwinder Disease Visit Annual PCP Team Chronic Disease Visit [facility] Start: 08-21-2024 Diabetic foot examination Diabetic F oot Exam [facility] Start: 08-21-2024 RSV Vaccine (1 - 1-d ose 60+ series) RSV Vaccine (1 - 1-dose 60+ series) [facility] Immunizations Immunization Date Immunization Notes Care Provider Rajinder castellanos 08-21-2023 COVID-19 vaccine, ag e 12+ yr, season (Ion Core) Cheri Schulz APRN.CNP Work Phone: [facility] 08-21-2023 influenza, injectabl e, quadrivalent, contains preservative Cheri Schulz APRN.CNP Work Phone: [facility] 08-11-2022 COVID-19 booster vaccine, age 12+ yr, bivalent ([employer]) Reese Elizalde MD Work Phone: [facility] 08-11-2022 influenza, injectabl e, quadrivalent, contains preservative Reese Elizalde MD Work Phone: [facility] 08-11-2022 influenza virus vacc ine, unspecified formulation Reese Elizalde MD Work Phone: [facility] 08-12-2021 COVID-19 original vaccine, age 12+ yr, monovalent (PFIZER-BIONTECH - PURPLE TOP) Reese Elizalde MD Work Phone: [facility] 08-05-2021 influenza, injectabl e, quadrivalent, contains preservative Annie Costa DEVELOPMENT SPEC.WIRELESS SALES EXPERT Work Phone: [facility] 08-05-2021 zoster vaccine recombinant Annie Lenox DEVELOPMENT SPEC.WIRELESS SALES EXPERT Work Phone: [facility] 04-30-2021 zoster vaccine recombinant Annie Costa DEVELOPMENT SPEC.WIRELESS SALES EXPERT Work Phone: [facility] 12-09-2020 COVID-19 vaccine, ag e 12+ yr (PFIZER-BIONTECH - PURPLE TOP) Annie Costa DEVELOPMENT SPEC.WIRELESS SALES EXPERT Work Phone: [facility] 11-19-2020 COVID-19 vaccine, ag e 12+ yr (PFIZER-BIONTECH - PURPLE TOP) Annie Lenox DEVELOPMENT SPEC.WIRELESS SALES EXPERT Work Phone: [facility] 07-15-2020 Influenza, injectabl e, Madin Buckeye Canine Kidney, preservative free, quadrivalent Annie Costa DEVELOPMENT SPEC.WIRELESS SALES EXPERT Work Phone: [facility] 07-15-2020 influenza, injectabl e, quadrivalent, contains preservative Annie Lenox DEVELOPMENT SPEC.WIRELESS SALES EXPERT Work Phone: [facility] 06-20-2019 influenza, injectabl e, quadrivalent, contains preservative Annie Costa DEVELOPMENT SPEC.WIRELESS SALES EXPERT Work Phone: [facility] Work Phone: 06-16-2018 influenza, injectabl e, quadrivalent, preservative free Annie Lenox DEVELOPMENT SPEC.WIRELESS SALES EXPERT Work Phone: [facility] 06-09-2017 influenza, injectabl e, quadrivalent, contains preservative Annie Costa DEVELOPMENT SPEC.WIRELESS SALES EXPERT Work Phone: [facility] 10-07-2016 influenza, injectabl e, quadrivalent, preservative free Annie Costa DEVELOPMENT SPEC.WIRELESS SALES EXPERT Work Phone: [facility] 08-13-2015 influenza, injectabl e, quadrivalent, contains preservative Annie Costa DEVELOPMENT SPEC.WIRELESS SALES EXPERT Work Phone: [facility] 10-20-2014 pneumococcal polysaccharide vaccine, 23 valent Annie Cotsa DEVELOPMENT SPEC.[facility] Work Phone: [facility] Work Phone: 06-13-1964 Chicken Pox (disease) Annie Lenox DEVELOPMENT SPEC.[facility] Work Phone: [facility] Work Phone: Payers Date Payer Category Payer Private Health Insurance [employer] OAP [id number] 2021-Present [phone] [address] [place] [address] Open Access [id number] 2021 Private Health Insurance [id number] 2016 Unknown [place] [employer] PPO [id number] 2016-Present [phone] [address] [place] [id number] PPO [id number] 2016 Unknown [employer] PPO [id number] 2016-Present [phone] [address] [place] [address] PPO [id number] Social History Date Type Detail Facility Start: 03-23-2018 End: 06-01-2022 Tobacco smoking status NHIS Ex-smoker [facility] End: 10-13-2017 History of tobacco use Current smoker [facility] End: 10-13-2017 History of tobacco use Cigarette Smoker [facility] Start: 03-23-2018 End: 02-13-2023 Cigarettes smoked current (pack per day) - Reported 1 [facility] Start: 03-23-2018 End: 06-01-2022 Tobacco use and exposure Smokeless tobacco non-user [facility] Start: 01-18-2022 End: 08-21-2023 Alcohol intake Current drinker of alcohol (finding) [facility] Start: 05-04-2020 End: 08-11-2022 History SDOH Alcohol Frequency 3 [facility] Start: 05-04-2020 End: 08-11-2022 History SDOH Alcohol Std Drinks 1 [facility] Start: 11-14-2019 End: 08-11-2022 History SDOH Social Connections Phone 5 [facility] Start: 11-14-2019 End: 08-11-2022 History SDOH Social Connections Get Together 2 [facility] Start: 11-14-2019 End: 08-11-2022 History SDOH Physical Activity DPW 0 [facility] Start: 02-09-2020 Education 12 [facility] Start: 1960 Sex Assigned At Female [facility] Start: 01-08-2022 End: 05-31-2022 Exposure to SARS-CoV-2 (event) Not sure [facility] Work Phone: Start: 08-11-2022 End: 02-13-2023 Social connection and isolation panel [facility] Do you belong to any clubs or organizations such as episcopalian groups, unions, fraternal or athletic groups, or school groups? No [facility] Are you now , , , , never or living with a partner? [facility] How often to you hav e a drink containing alcohol? Monthly or less [facility] How many standard dr inks containing alcohol do you have on a typical day? 1 or 2 [facility] How often do you hav e 6 or more drinks on 1 occasion? Never [facility] How hard is it for y ou to pay for the very basics like food, housing, medical care, and heating Not hard at all [facility] Work Phone: Do you feel stress - tense, restless, nervous, or anxious, or unable to sleep at night because your mind is troubled all the time - these days [OSQ] To some extent [facility] (I/We) worried sakshi er (my/our) food would run out before (I/we) got money to buy more. Never true [facility] Start: 03-09-2020 Gender identity Identifies as female gender (finding) [facility] Start: 03-09-2020 Sexual orientation Heterosexual (finding) [facility] Do you feel stress - tense, restless, nervous, or anxious, or unable to sleep at night because your mind is troubled all the time - these days [OSQ] Not at all [facility] Clinical Notes 04-01-2015 to 10-09-2023 Telephone Encounter - Kalpana Ricahrd RN - 10/09/2023 8:32 AM ESTTelephone Encounter - Lolly Bautista LPN - 08/09/2023 4:11 PM ESTTelephone Encounter - Meagan Corey LPN - 08/03/2023 6:02 PM EST Note Date & Type Note Facility 10-09-2023 Miscellaneous Notes Refill request received via [employer]. Last seen 06/01/22. Patient has upcoming annual exam on 11/16/23. Kalpana Richard RN documented in this encounter [facility] 08-21-2023 Note HNO ID: [id number] Author: Reese Elizalde MD Service: ? Author Type: Physician Type: Progress Notes Filed: 08/21/2023 6:33 PM Note Text: Patient presents with: 6 Month Exam HPI: Patient presents today for office visit for follow up. HYPERTENSION:no chest pain or shortness of breath. HYPOTHYROID:energy is down but feels it is related to her sleep apnea. Is not using her cpap currently. DM:not sugars. No polyuria or polydispsia. Vascular surgery: Dr Sutherland follows. Still seeing cardiology. NEURO: gabepentin working well. Has issues remembering her second dose. HLD: was tested by cardiology NELLY:ordered a new sleep test. They are going to try a new titration. They are trying to get it recovered. MEDICATIONS: Current Outpatient Medications Medication Sig oxybutynin ER (DITROPAN XL) 10 mg 24 hr tablet Take 1 tablet by mouth once daily. gabapentin (NEURONTIN) 300 mg capsule Take 1 capsule by mouth three times a day for 90 days. (Patient taking differently: Take 300 mg by mouth two times a day.) levothyroxine (SYNTHROID) 100 mcg tablet TAKE 1 TABLET DAILY EXCEPT ON MONDAY TAKE 1 AND 1/2 TABLETS metFORMIN ER (GLUCOPHAGE XR) 500 mg 24 hr tablet Take 1 tablet by mouth daily with breakfast. omeprazole (PRILOSEC) 40 mg capsule Take 1 capsule by mouth once daily. metoprolol tartrate, short acting, (LOPRESSOR) 50 mg tablet Take 100 mg by mouth two times a day. lisinopril (ZESTRIL, PRINIVIL) 10 mg tablet Take 5 mg tablet by mouth once daily. (Patient taking differently: Take 5 mg by mouth once daily.) Cholecalciferol, Vitamin D3, 1,000 unit cap Take 1 capsule by mouth once daily. (Patient taking differently: Take 2,000 Units by mouth once daily.) atorvastatin (LIPITOR) 80 mg tablet Take 80 mg by mouth once daily. ticagrelor (BRILINTA) 90 mg tablet Take 90 mg by mouth twice daily. aspirin, enteric coated (ASPIRIN, ENTERIC COATED) 81 mg EC tablet Take 81 mg by mouth once daily. clobetasol (TEMOVATE) 0.05 % cream Apply to affected area 2x/day for 2 weeks, then 1x/day for a week, than 1-3x/week for maintenance. CPAP Pressure change and supply order: APAP 8-16 cm H2O, mask (pt pref), filters, heated humidity AND tubing. Lifetime supplies. NELLY G47.33 (Patient not taking: Reported on 07/07/2023) No current facility-administered medications for this visit. ALLERGIES: ALLERGIES No Known Allergies PAST MEDICAL HISTORY Diagnosis Date Abnormal glandular Papanicolaou smear of cervix Abn. 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 Vitamin D deficiency PAST SURGICAL HISTORY Procedure Laterality Date CAUTERY CERVIX CRYOCAUTERY INITIAL/REPEAT remote h/o COLONOSCOPY FLX DX W/COLLJ SPEC WHEN PFRMD 10/08/2008 repeat due 2019 COLONOSCOPY FLX DX W/COLLJ SPEC WHEN PFRMD 05/04/2020 Colonoscopy 10 year interval ESOPHAGOGASTRODUODENOSCOPY TRANSORAL DIAGNOSTIC 06/26/2017 EGD EXTENSIVE ANKLE/HEEL SURGERY 06/2013 left heel spur/achilles EXTRACTION, ERUPTED TOOTH OR EXPOSED ROOT (ELEVATION AND/OR FORCEPS REMOVAL) wisdom teeth I-131 05/29/2006 thyroid ablation PT ED HEART AND VASCULAR 10/13/2017 stents placement X 2 REPAIR ROTATOR CUFF,ACUTE Right 02/10/2021 FAMILY HISTORY Problem Relation Age of Onset Coronary Artery Disease Mother Diabetes Mother Hypertension Mother Thyroid Mother Prostate Cancer Father Thyroid Brother Diabetes Maternal Grandmother Prostate Cancer Paternal Grandfather Thyroid Brother X 2 Social History Tobacco Use Smoking status: Former Packs/day: 1.00 Years: 27.00 Additional pack years: 0.00 Total pack years: 27.00 Types: Cigarettes Quit date: 10/13/2017 Years since quittin.8 Smokeless tobacco: Never Vaping Use Vaping Use: Never used Substance Use Topics Alcohol use: Yes Comment: very occasional Drug use: No Reviewed current medications, allergies, past medical history, surgical history, family history and social history today. REVIEW OF SYSTEMS All other reviewed and negative other than HPI. HEALTH MAINTENANCE: Reviewed health maintenance issues today and recommended the following in detail. RSV Vaccine(1 - 1-dose 60+ series) Never done Influenza Vaccine(1) due on 05/05/2023 Covid-19 Vaccine(2022-24 season) due on 05/05/2023 HbA1C due on 08/20/2023 Diabetic Foot Exam due on 08/11/2023 Urine Albumin:Creatinine Ratio due on 08/18/2023 (more content not included)... [facility] 08-09-2023 Miscellaneous Notes New order sent to [facility]. New referral placed. Lolly Bautista LPN The order is for PSG CPT code 57049. Called [facility] about the denial. Spoke with Isa. The insurance company would like a new referral processed if asking to change the CPT code 17940. Emailed the denial office. Started a new referral and emailed the Pre-access office. Denial documentation from [facility] for titration study scanned into chart 08/03/2023. Meagan Corey LPN Called [employer] at [phone] and spoke with Edilberto Bailey. She wasn't able to find the case# [id number]. Emailed the pre-access department for some help. Per the provider we could try to get approval for CPT code#35713. Received email from the pre-access department. Called the [employer] [facility] [facility] Spoke with Mrs. Waller Spoke with the nurse reviewer Aayush Purcell The clinical notes from 07/07/2023 were reviewed before the denial decision was decided. The provider was notified by email. The provider forward an email from the pre-cert department. The patient's insurance company denied the Polysomnogram CPT code 05969. Called the [employer] at [phone]. The clinical reviewer department is closed today. Floridalma with [facility] pre-cert department calling to confirm: The sleep study order - is the order for a PSG or a spilt night? The order faxed on Jul 24 is for a PSG. The pre-cert referral wasn't started. Sent a referral based on the order. Please update the referral if the order is changed. If the order is changed please fax new order to [facility]. Office notes from 07/07/23 Patient with known history of NELLY (Severe) for which she is not currently being treated with last regular PAP use approximately 3 years ago. Risk factors for NELLY include obesity, crowded airway, post menopause state and pt with multiple med conditions that could be exacerbated by untreated NELLY. Discussed with patient: the physiology of OSAS, medical conditions associated with OSAS (DM, HTN, CAD, Depression, Stroke, Headache...) and treatment options (UPPP, Dental appliances, CPAP, Inspire...). At this time feel appropriate to reevaluate for NELLY by means of split night sleep study with split if AHI >5. Pt agrees with plan. Pt requesting study be performed at [facility]. Advised patient to avoid activities that could harm self or others when tired/sleepy, including driving and/or operating heavy machinery. Encouraged weight loss, and continued compliance with other medications. Patient will follow up after sleep study to go over results and determine appropriate therapy. documented in this encounter [facility] 07-19-2023 Miscellaneous Notes July 20, 2023 PID: [id number] Jaleesa Bailey [address] [place] [address] Dear Ms. Bailey, We are pleased to inform you that the results of your recent breast imaging exam on 07/18/2023 are normal. Early detection of cancer is very important. We also understand recommendations regarding breast cancer screening are controversial. Please discuss with your primary care provider which strategy is best for you and whether a mammogram is right for you. Your imaging studies and report will be kept on file at [facility] as part of your permanent medical record and are available for your continuing care. Thank you for allowing us to help in meeting your health care needs. Sincerely, Dr. Kelly Interpreting Radiologist [facility] (Normal over 40) documented in this encounter [facility] 07-18-2023 Note HNO ID: [id number] Author: Clarice Carter Mammo Tech Service: ? Author Type: Vessel Captain Type: Progress Notes Filed: 07/18/2023 7:33 AM Note Text: Radiology Service Progress Note PATIENT NAME: Jaleesa Bailey DATE OF SERVICE: July 18, 2023 TIME: 7:07 AM PATIENT IDENTITY VERIFICATION COMPLETED USING TWO (2) IDENTIFIERS: Name and Date of confirmed by patient verbally. FALL SCREENING: Has the patient had 2 falls in the last year or 1 fall with injury or currently using an Ambulatory Assistive Device (Walker, Cane, Wheelchair, Crutches, etc.)? No PATIENT GENDER DATA: Female. status: : No status: NO. PATIENT RELEVANT IMPLANT DATA REVIEWED: Not Applicable RADIOLOGY DEPARTMENT: Mammography PERIPHERAL IV DATA: Not applicable SIGNED BY: Lillian Saenz July 18, 2023 7:07 AM [facility] 07-12-2023 Note Patient Outreach (IN [facility]) FERNANDAJALEESA ([id number]) 1960 F Date Time Provider Department 07/12/23 REESE ELIZALDE During your visit today, we recorded the following information about you: Allergies As of Date: 07/12/2023 (No Known Allergies) Date Reviewed: 07/07/2023 Reviewed by: Meagan Corey LPN - Fully Assessed Visit Diagnosis:Encounter for screening mammogram for breast cancer [Z12.31] Order(s):CÉSAR SCREENING [0302601] Order #: [id number] FUTURE Prescriptions as of 07/17/2023 - gabapentin (NEURONTIN) 300 mg capsule Take 1 capsule by mouth three times a day for 90 days. - levothyroxine (SYNTHROID) 100 mcg tablet TAKE 1 TABLET DAILY EXCEPT ON MONDAY TAKE 1 AND 1/2 TABLETS - metFORMIN ER (GLUCOPHAGE XR) 500 mg 24 hr tablet Take 1 tablet by mouth daily with breakfast. - oxybutynin ER (DITROPAN XL) 10 mg 24 hr tablet TAKE 1 TABLET ONCE DAILY - omeprazole (PRILOSEC) 40 mg capsule Take 1 capsule by mouth once daily. - clobetasol (TEMOVATE) 0.05 % cream Apply to affected area 2x/day for 2 weeks, then 1x/day for a week, than 1-3x/week for maintenance. - metoprolol tartrate, short acting, (LOPRESSOR) 50 mg tablet Take 50 mg by mouth twice daily. - lisinopril (ZESTRIL, PRINIVIL) 10 mg tablet Take 5 mg tablet by mouth once daily. - CPAP Pressure change and supply order: APAP 8-16 cm H2O, mask (pt pref), filters, heated humidity AND tubing. Lifetime supplies. NELLY G47.33 - Cholecalciferol, Vitamin D3, 1,000 unit cap Take 1 capsule by mouth once daily. - atorvastatin (LIPITOR) 80 mg tablet Take 80 mg by mouth once daily. - ticagrelor (BRILINTA) 90 mg tablet Take 90 mg by mouth twice daily. - aspirin, enteric coated (ASPIRIN, ENTERIC COATED) 81 mg EC tablet Take 81 mg by mouth once daily. Problem List As Of Date 07/12/2023 Noted Resolved Unspecified Contraceptive Surveillance [Z30.40] 10/20/2005 07/19/2012 Spinal Stenosis of Lumbar Region [M48.061] 11/21/2005 TOX DIF GOITER NO CRISIS [E05.00] 09/18/2006 Other postablative hypothyroidism [E89.0] 09/18/2006 08/11/2022 Secondary hyperparathyroidism, non-renal (HCC) *10/31/2006 Diarrhea [R19.7] 10/08/2008 01/05/2010 Irritable Bowel Syndrome [K58.9] 10/08/2008 Acute Gastritis without Mention of Hemorrhage [*10/08/2008 01/05/2010 Irritated//Inflamed Seborrheic Keratosis [L82.0]05/05/2009 12/30/2014 Viral warts, unspecified [B07.9] 05/05/2009 12/30/2014 Contact dermatitis and other eczema due to plan*05/05/2009 12/30/2014 Contact dermatitis and other eczema, due to uns*05/05/2009 12/30/2014 Skin Tag Papillomas [L91.9, L90.9] 05/05/2009 12/30/2014 Pain in limb [M79.609] 10/12/2009 07/19/2012 Congenital pes planus [Q66.50] 10/12/2009 12/30/2014 Unequal Leg Length (Acquired) [M21.70] 10/12/2009 Capsulitis [M77.9] 10/12/2009 12/30/2014 Routine general medical examination at a [facility]*01/05/2010 12/30/2014 Class: Chronic Routine gynecological examination [Z01.419] 01/05/2010 12/30/2014 Class: Chronic 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] 04/08/2010 12/30/2014 Solar Lentigines [L81.4] 05/11/2010 12/30/2014 Actinic Damage///Sun-Damaged Skin [L57.8] 05/11/2010 12/30/2014 Other seborrheic keratosis [L82.1] 05/11/2010 12/30/2014 Capsulitis of ankle [M77.50] 05/30/2011 Hyperlipidemia [E78.5] Chronic cough [R05.3] Vitamin d deficiency [E55.9] GERD (gastroesophageal reflux disease) [K21.9] 08/11/2022 Tobacco use disorder [F17.200] 01/26/2018 Hyperglycemia [R73.9] Unspecified sleep apnea [G47.30] 04/01/2015 04/04/2019 NELLY (obstructive sleep apnea) AHI 26.6 [G47.33] 04/30/2015 Metatarsalgia of both feet [M77.41, M77.42] 01/25/2017 Posterior tibial tendon dysfunction (PTTD) of b*01/25/2017 Microalbuminuria [R80.9] 06/03/2017 Gastroesophageal reflux disease without esophag*06/23/2017 Coronary artery disease involving chitimacha poole*01/26/2018 Hypothyroidism, acquired [E03.9] 06/12/2018 S/P primary angioplasty with coronary stent [Z9*03/18/2021 Abnormal uterine bleeding due to endocervical p*03/18/2021 Type 2 diabetes mellitus with diabetic polyneur*03/19/2021 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 Author Type: Physician Type: Progress Notes Filed: 07/07/2023 3:34 PM Note Text: 07/03/2023 PROMIS Global Health Physical Health Summary Physical health: Good Everyday physical activity, ability: Mostly Fatigue: Moderate Pain level: 3 General health: Good Social activities/roles, ability: Good Physical Health T-Score 44.9 (Good) PROMIS Global Health Mental Health Summary Quality of life: Good Mental health (mood,thinking): Good Social satisfaction: Good Emotional problems (anxious,depressed): Rarely Mental Health T-Score 45.8 (Good) Mental Health Percentile 34 PHQ-9 Score: 2(Minimal Depression) PHQ-9 Self-Harm: Not at all PROMIS NEUROQOL COGNITIVE FUNCTION SCORE 07/03/2023 [facility] Neuroqol Cognitive Percentile 58 PROMIS PHYSICAL FUNCTION SCORE 07/03/2023 Promis Physical Function Percentile 14 Percentiles provide an indication of how a patient's score ranks in relation to the [place] general population. > 31st percentile is within normal limits or better *< 31st percentile is at least ? SD worse than population, which may be clinically relevant < 16th percentile is at least 1 SD worse than population and warrants attention 07/03/2023 Sleep Apnea Probability Snores loudly: Yes Tired, fatigued or sleepy in daytime: Yes Stops breathing or choking/gasping during sleep: Yes High blood pressure: Yes Sleep Apnea Probability Score: 58 (Recommend sleep study) NEW PATIENT (CONSULT) HISTORY AND PHYSICAL EXAM PRIMARY CARE PHYSICIAN: Reese Elizalde MD REASON FOR CONSULT: NELLY REFERRING PHYSICIAN: Reese Elizalde MD CHIEF COMPLAINT: NELLY Consultation requested by Reese Elizalde MD for an opinion regarding chief complaint of Patient presents with: New Patient: Pt reported increased fatigue, snoring not using CPAP x1 mth, [facility]. and my final recommendations will be communicated back to the requesting physician by way of shared medical record or letter via [place] mail. HISTORY OF PRESENT ILLNESS: Jaleesa Bailey is a 62 year old female, BMI 39.75 kg/m2 with a PMH significant for NELLY for which PAP was Rx'd - last seen on 04/06/2020 and per office note: Patient with severe NELLY associated with significant desaturations as well as nocturnal hypoxia that may be unrelated to respiratory events. Concerning given history of DM, HTN and cardiac disease. Results of HSAT reviewed with patient in detail and she agrees with my recommendations of an inlab titration given severity of sleep related breathing disorder. Discussed with patient: the physiology of OSAS, medical conditions associated with OSAS (DM, HTN, CAD, Depression, Stroke, Headache...) and treatment options (UPPP, Dental appliances, CPAP...). Advised patient to avoid activities that could harm self or others when tired/sleepy, including driving and/or operating heavy machinery. Encouraged weight loss, and continued compliance with other medications. PAP titration recommended Auto PAP 14-20 cmH2O on review of records. Patient now returns over 3 years later with lack of PAP use for at least 2 years. Note that when I saw pt this AM, computers including Epic down. States primary reason she stopped using PAP is that DME would not help her get replacement equipment. She states she recently tried PAP but thinks settings off. States PAP mask will not seal to face and mask will be covered with sweat in AM. Feels air leaking from sides of masks. Pressure feels too high and too warm. Also indicates that PAP device is old and at least 5+ years old by history provided. +steady weigh gain since last sleep study. +Snoring even with PAP on. Bedtime about 9PM. No issues falling asleep. No RLS symptoms. Wakes 2-3 times nightly to use bathroom. When PAP was working, states was not waking up during the night. BMI currently 39.1 (note asked about Inspire and d/w pt during visit - less interested after hearing requirements and description of surgery). Wakes to start day about 530 AM. Feels tired upon waking. Works 8AM to 430PM - no intended naps, but falls asleep on the couch watching tv near nightly. No new med conditions since last seen. History of TX and mini stroke in 2018, Note additional history of DM, HTN, HLD, CAD, but no specific pulmonary disease. On Brilinta and ASA daily. REVIEW OF SYSTEMS GENERAL:No weight loss, malaise or fevers. HEENT:Negative for frequent or significant headaches, No changes in hearing or vision, no nose bleeds or other nasal problems NECK:Negative for lumps, goiter, pain and significant neck swelling RESPIRATORY: Negative for cough, or shortness of breath. CARDIOVASCULAR: Negative for chest pain, leg swelling or palpitations. GASTROINTESTINAL: Negative for abdominal discomfort, blood in stools or black stools or change in bowel habits GENITOURINARY: + Nocturia >2 MUSCULOSKELETAL: Negative for joint pain o (more content not included)... [facility] 07-07-2023 History of Presen t illness Narrative 07/03/2023 PROMIS Global Health Physical Health Summary Physical health: Good Everyday physical activity, ability: Mostly Fatigue: Moderate Pain level: 3 General health: Good Social activities/roles, ability: Good Physical Health T-Score 44.9 (Good) PROMIS Global Health Mental Health Summary Quality of life: Good Mental health (mood,thinking): Good Social satisfaction: Good Emotional problems (anxious,depressed): Rarely Mental Health T-Score 45.8 (Good) Mental Health Percentile 34 PHQ-9 Score: 2(Minimal Depression) PHQ-9 Self-Harm: Not at all PROMIS NEUROQOL COGNITIVE FUNCTION SCORE 07/03/2023 Promis Neuroqol Cognitive Percentile 58 PROMIS PHYSICAL FUNCTION SCORE 07/03/2023 Promis Physical Function Percentile 14 Percentiles provide an indication of how a patient's score ranks in relation to the [place] general population. > 31st percentile is within normal limits or better *< 31st percentile is at least SD worse than population, which may be clinically relevant < 16th percentile is at least 1 SD worse than population and warrants attention 07/03/2023 Sleep Apnea Probability Snores loudly: Yes Tired, fatigued or sleepy in daytime: Yes Stops breathing or choking/gasping during sleep: Yes High blood pressure: Yes Sleep Apnea Probability Score: 58 (Recommend sleep study) NEW PATIENT (CONSULT) HISTORY AND PHYSICAL EXAM PRIMARY CARE PHYSICIAN: Reese Elizalde MD REASON FOR CONSULT: NELLY REFERRING PHYSICIAN: Reese Elizalde MD CHIEF COMPLAINT: NELLY Consultation requested by Reese Elizalde MD for an opinion regarding chief complaint of Patient presents with: New Patient: Pt reported increased fatigue, snoring not using CPAP x1 mth, [facility]. and my final recommendations will be communicated back to the requesting physician by way of shared medical record or letter via [place] mail. HISTORY OF PRESENT ILLNESS: Jaleesa Bailey is a 62 year old female, BMI 39.75 kg/m2 with a PMH significant for NELLY for which PAP was Rx'd - last seen on 04/06/2020 and per office note: Patient with severe NELLY associated with significant desaturations as well as nocturnal hypoxia that may be unrelated to respiratory events. Concerning given history of DM, HTN and cardiac disease. Results of HSAT reviewed with patient in detail and she agrees with my recommendations of an inlab titration given severity of sleep related breathing disorder. Discussed with patient: the physiology of OSAS, medical conditions associated with OSAS (DM, HTN, CAD, Depression, Stroke, Headache...) and treatment options (UPPP, Dental appliances, CPAP...). Advised patient to avoid activities that could harm self or others when tired/sleepy, including driving and/or operating heavy machinery. Encouraged weight loss, and continued compliance with other medications. PAP titration recommended Auto PAP 14-20 cmH2O on review of records. Patient now returns over 3 years later with lack of PAP use for at least 2 years. Note that when I saw pt this AM, computers including Epic down. States primary reason she stopped using PAP is that DME would not help her get replacement equipment. She states she recently tried PAP but thinks settings off. States PAP mask will not seal to face and mask will be covered with sweat in AM. Feels air leaking from sides of masks. Pressure feels too high and too warm. Also indicates that PAP device is old and at least 5+ years old by history provided. +steady weigh gain since last sleep study. +Snoring even with PAP on. Bedtime about 9PM. No issues falling asleep. No RLS symptoms. Wakes 2-3 times nightly to use bathroom. When PAP was working, states was not waking up during the night. BMI currently 39.1 (note asked about Inspire and d/w pt during visit - less interested after hearing requirements and description of surgery). Wakes to start day about 530 AM. Feels tired upon waking. Works 8AM to 430PM - no intended naps, but falls asleep on the couch watching tv near nightly. No new med conditions since last seen. History of TX and mini stroke in 2018, Note additional history of DM, HTN, HLD, CAD, but no specific pulmonary disease. On Brilinta and ASA daily. REVIEW OF SYSTEMS GENERAL:No weight loss, malaise or fevers. HEENT:Negative for frequent or significant headaches, No changes in hearing or vision, no nose bleeds or other nasal problems NECK:Negative for lumps, goiter, pain and significant neck swelling RESPIRATORY: Negative for cough, or shortness of breath. CARDIOVASCULAR: Negative for chest pain, leg swelling or palpitations. GASTROINTESTINAL: Negative for abdominal discomfort, blood in stools or black stools or change in bowel habits GENITOURINARY: + Nocturia >2 MUSCULOSKELETAL: Negative for joint pain or swelling, back pain or muscle pain. NEUROLOGIC:Negative for focal numbness or weakness, headaches and dizziness or syncope, vision changes, speech/language changes, changes in gait or falls -- besides those complaints as above in HPI. SKIN:Negative for lesions, rash, and itching. HEMATOLOGIC/LYMPHATIC/IMMUNOLOGI C:Negative for prolonged bleeding, bruising easily or swollen nodes. ENDOCRINE: Negative for cold or heat intolerance, polyuria, polydipsia and goiter. The remainder of the ROS was reviewed and is negative. LAB/IMAGING: Reviewed and include: WBC (k/uL) Date Value 02/18/2023 8.74 RBC (m/uL) Date Value 02/18/2023 4.80 Hemoglobin (g/dL) Date Value 02/18/2023 12.6 Hematocrit (%) Date Value 02/18/2023 41.8 MCV (fL) Date Value 02/18/2023 87.1 MCH (pg) Date Value 02/18/2023 26.3 MCHC (g/dL) Date Value 02/18/2023 30.1 (L) RDW-CV (%) Date Value 02/18/2023 15.3 (H) Platelet Count (k/uL) Date Value 02/18/2023 297 MPV (fL) Date Value 02/18/2023 12.0 Glucose (mg/dL) Date Value 02/18/2023 134 (H) BUN (mg/dL) Date Value 02/18/2023 11 Creatinine (mg/dL) Date Value 02/18/2023 0.65 Sodium (mmol/L) Date Value 02/18/2023 138 Potassium (mmol/L) Date Value 02/18/2023 4.6 Chloride (mmol/L) Date Value 02/18/2023 103 CO2 (mmol/L) Date Value 02/18/2023 22 Protein, Total (g/dL) Date Value 02/18/2023 7.0 Albumin (g/dL) Date Value 02/18/2023 4.0 Calcium, Total (mg/dL) Date Value 02/18/2023 9.3 Alkaline Phosphatase (U/L) Date Value 02/18/2023 103 Bilirubin, Total (mg/dL) Date Value 02/18/2023 0.4 AST (U/L) Date Value 02/18/2023 23 ALT (U/L) Date Value 02/18/2023 14 Rheumatoid Factor (IU/mL) Date Value 11/11/2010 <7 Hep C Antibody IA (no units) Date Value 05/15/2017 Negative MEDICATIONS: gabapentin (NEURONTIN) 300 mg capsule Take 1 capsule by mouth three times a day for 90 days. (Patient taking differently: Take 300 mg by mouth two times a day.) metFORMIN ER (GLUCOPHAGE XR) 500 mg 24 hr tablet Take 1 tablet by mouth daily with breakfast. oxybutynin ER (DITROPAN XL) 10 mg 24 hr tablet TAKE 1 TABLET ONCE DAILY omeprazole (PRILOSEC) 40 mg capsule Take 1 capsule by mouth once daily. metoprolol tartrate, short acting, (LOPRESSOR) 50 mg tablet Take 50 mg by mouth twice daily. Cholecalciferol, Vitamin D3, 1,000 unit cap Take 1 capsule by mouth once daily. atorvastatin (LIPITOR) 80 mg tablet Take 80 mg by mouth once daily. ticagrelor (BRILINTA) 90 mg tablet Take 90 mg by mouth twice daily. aspirin, enteric coated (ASPIRIN, ENTERIC COATED) 81 mg EC tablet Take 81 mg by mouth once daily. levothyroxine (SYNTHROID) 100 mcg tablet TAKE 1 TABLET DAILY EXCEPT ON MONDAY TAKE 1 AND 1/2 TABLETS clobetasol (TEMOVATE) 0.05 % cream Apply to affected area 2x/day for 2 weeks, then 1x/day for a week, than 1-3x/week for maintenance. lisinopril (ZESTRIL, PRINIVIL) 10 mg tablet Take 5 mg tablet by mouth once daily. (Patient taking differently: 10 mg.) CPAP Pressure change and supply order: APAP 8-16 cm H2O, mask (pt pref), filters, heated humidity & tubing. Lifetime supplies. NELLY G47.33 (Patient not taking: Reported on 07/07/2023) HISTORIES PAST MEDICAL HISTORY Diagnosis Date Abnormal glandular Papanicolaou smear of cervix Abn. 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 Vitamin D deficiency FAMILY HISTORY Problem Relation Age of Onset Coronary Artery Disease Mother Diabetes Mother Hypertension Mother Thyroid Mother Prostate Cancer Father Thyroid Brother Diabetes Maternal Grandmother Prostate Cancer Paternal Grandfather Thyroid Brother X 2 SOCIAL HISTORY Social History Tobacco Use Smoking status: Former Packs/day: 1.00 Years: 27.00 Additional pack years: 0.00 Total pack years: 27.00 Types: Cigarettes Quit date: 10/13/2017 Years since quittin.7 Smokeless tobacco: Never Vaping Use Vaping Use: Never used Substance Use Topics Alcohol use: Yes Comment: very occasional Drug use: No PHYSICAL EXAMINATION BP 110/68 Pulse 70 Resp 18 Wt 106.7 kg (235 lb 3.2 oz) LMP 10/07/2009 (LMP Unknown) SpO2 99% BMI 39.75 kg/m GENERAL EXAM: General appearance: NAD, pleasant. HEENT: NC/AT, nasal congestion absent, no oral lesions, membranes moist. Ortiz III-IV. ++Retrognathia. NECK: ROM nml. Lungs: CTA bilaterally. CV: RRR nl S1, S2. Extr: No cyanosis, clubbing or edema. Skin: Cool to touch. NEUROLOGICAL EXAM: General: Awake, alert, oriented x3 (person,place,time), speech fluent, no dysarthria; comprehension, naming, repetition intact. CN: PERRL, EOMI and without nystagmus, VFF to confrontation, facial sensation and strength are normal and symmetric, hearing is intact to finger rub bilaterally, palate and tongue movements are intact and symmetric. SCM and trapezius strength normal. Motor: Normal tone, bulk and strength (5/5) bilaterally (throughout extremities x4). Coordination: FNF, BARB, HTS intact. No tremors. Sensation: LT intact throughout. No evidence of neglect. Gait: Stable with normal stride and arm swing. Assessment and Plan: ASSESSMENT/PLAN: 1. NELLY (obstructive sleep apnea) - ICD9: 327.23, ICD10: G47.33 (primary diagnosis) 2. Class 2 obesity with body mass index (BMI) of 39.0 to 39.9 in adult, unspecified obesity type, unspecified whether serious comorbidity present - ICD9: 278.00, V85.39, ICD10: E66.9, Z68.39 3. History of myocardial infarction - ICD9: 412, ICD10: I25.2 4. History of hypertension - ICD9: V12.59, ICD10: Z86.79 5. History of diabetes mellitus - ICD9: V12.29, ICD10: Z86.39 Patient with known history of NELLY (Severe) for which she is not currently being treated with last regular PAP use approximately 3 years ago. Risk factors for NELLY include obesity, crowded airway, post menopause state and pt with multiple med conditions that could be exacerbated by untreated NELLY. Discussed with patient: the physiology of OSAS, medical conditions associated with OSAS (DM, HTN, CAD, Depression, Stroke, Headache...) and treatment options (UPPP, Dental appliances, CPAP, Inspire...). At this time feel appropriate to reevaluate for NELLY by means of split night sleep study with split if AHI >5. Pt agrees with plan. Pt requesting study be performed at [facility]. Advised patient to avoid activities that could harm self or others when tired/sleepy, including driving and/or operating heavy machinery. Encouraged weight loss, and continued compliance with other medications. Patient will follow up after sleep study to go over results and determine appropriate therapy. Reese Verdin MD I spent a total of 45+ minutes on the date of the service which included preparing to see the patient, odny-gr-enai patient care, completing clinical documentation, obtaining and/or reviewing separately obtained history, performing a medically appropriate examination, counseling and educating the patient/family/caregiver, ordering medications, tests, or procedures, and communicating results to the patient/family/caregiver. 07/03/2023 PROMIS Global Health Physical Health Summary Physical health: Good Everyday physical activity, ability: Mostly Fatigue: Moderate Pain level: 3 General health: Good Social activities/roles, ability: Good Physical Health T-Score 44.9 (Good) PROMIS Global Health Mental Health Summary Quality of life: Good Mental health (mood,thinking): Good Social satisfaction: Good Emotional problems (anxious,depressed): Rarely Mental Health T-Score 45.8 (Good) Mental Health Percentile 34 PHQ-9 Score: 2(Minimal Depression) PHQ-9 Self-Harm: Not at all PROMIS NEUROQOL COGNITIVE FUNCTION SCORE 07/03/2023 [facility] Neuroqol Cognitive Percentile 58 PROMIS PHYSICAL FUNCTION SCORE 07/03/2023 [facility] Physical Function Percentile 14 Percentiles provide an indication of how a patient's score ranks in relation to the [place] general population. > 31st percentile is within normal limits or better *< 31st percentile is at least SD worse than population, which may be clinically relevant < 16th percentile is at least 1 SD worse than population and warrants attention 07/03/2023 Sleep Apnea Probability Snores loudly: Yes Tired, fatigued or sleepy in daytime: Yes Stops breathing or choking/gasping during sleep: Yes High blood pressure: Yes Sleep Apnea Probability Score: 58 (Recommend sleep study) documented in this encounter [facility] 07-07-2023 Note HNO ID: [id number] Author: Meagan Corey LPN Service: ? Author Type: ? Type: Progress Notes Filed: 07/07/2023 3:34 PM Note Text: 07/03/2023 PROMIS Global Health Physical Health Summary Physical health: Good Everyday physical activity, ability: Mostly Fatigue: Moderate Pain level: 3 General health: Good Social activities/roles, ability: Good Physical Health T-Score 44.9 (Good) PROMIS Global Health Mental Health Summary Quality of life: Good Mental health (mood,thinking): Good Social satisfaction: Good Emotional problems (anxious,depressed): Rarely Mental Health T-Score 45.8 (Good) Mental Health Percentile 34 PHQ-9 Score: 2(Minimal Depression) PHQ-9 Self-Harm: Not at all PROMIS NEUROQOL COGNITIVE FUNCTION SCORE 07/03/2023 [facility] Neuroqol Cognitive Percentile 58 PROMIS PHYSICAL FUNCTION SCORE 07/03/2023 [facility] Physical Function Percentile 14 Percentiles provide an indication of how a patient's score ranks in relation to the [place] general population. > 31st percentile is within normal limits or better *< 31st percentile is at least ? SD worse than population, which may be clinically relevant < 16th percentile is at least 1 SD worse than population and warrants attention 07/03/2023 Sleep Apnea Probability Snores loudly: Yes Tired, fatigued or sleepy in daytime: Yes Stops breathing or choking/gasping during sleep: Yes High blood pressure: Yes Sleep Apnea Probability Score: 58 (Recommend sleep study) [facility] 07-06-2023 Miscellaneous Notes Patient calling back she got call from [facility] to get information from her CPAP so she is on her way to [facility] in [place] so they can download her machine. Floridalma @ [facility] calling to say they received faxed request for download of CPAP use. She says the last download was 12/13/21 so they will need to contact patient for her SD card. Mariza Zurita RN documented in this encounter [facility] 06-12-2023 Miscellaneous Notes Patient phones requesting refills as follows: Requested Prescriptions Pending Prescriptions Disp Refills gabapentin (NEURONTIN) 300 mg capsule 90 capsule 2 Sig: Take 1 capsule by mouth three times a day for 90 days. levothyroxine (SYNTHROID) 100 mcg tablet 90 tablet 0 Sig: TAKE 1 TABLET DAILY EXCEPT ON MONDAY TAKE 1 AND 1/2 TABLETS Pt asking for 90 day supply of gabapentin. Please review and advise. Aayush Ledesma LPN documented in this encounter [facility] 05-24-2023 Miscellaneous Notes Patient phones requesting refills as follows: Requested Prescriptions Pending Prescriptions Disp Refills metFORMIN ER (GLUCOPHAGE XR) 500 mg 24 hr tablet 90 tablet 1 Sig: Take 1 tablet by mouth daily with breakfast. TRINA 02/13/23 NOV 08/21/23 Please review and advise. Aayush Ledesma LPN documented in this encounter [facility] 04-03-2023 Note HNO ID: [id number] Author: Audrey Blount RT(R) Service: ? Author Type: Vessel Captain Type: Progress Notes Filed: 04/03/2023 3:58 PM Note Text: Radiology Service Progress Note PATIENT NAME: Jaleesa Bailey DATE OF SERVICE: April 03, 2023 TIME: 3:57 PM PATIENT IDENTITY VERIFICATION COMPLETED USING TWO (2) IDENTIFIERS: Name and Date of confirmed by patient verbally. FALL SCREENING: Has the patient had 2 falls in the last year or 1 fall with injury or currently using an Ambulatory Assistive Device (Walker, Cane, Wheelchair, Crutches, etc.)? No PATIENT GENDER DATA: Female. status: : No status: NO. PATIENT RELEVANT IMPLANT DATA REVIEWED: Yes RADIOLOGY DEPARTMENT: CT; Exam(s) Completed: Chest PERIPHERAL IV DATA: Not applicable SIGNED BY: RT Rosa Elena(R) April 03, 2023 3:57 PM [facility] 04-03-2023 History of Presen t illness Narrative Radiology Service Progress Note PATIENT NAME: Jaleesa Bailey DATE OF SERVICE: April 03, 2023 TIME: 3:57 PM PATIENT IDENTITY VERIFICATION COMPLETED USING TWO (2) IDENTIFIERS: Name and Date of confirmed by patient verbally. FALL SCREENING: Has the patient had 2 falls in the last year or 1 fall with injury or currently using an Ambulatory Assistive Device (Walker, Cane, Wheelchair, Crutches, etc.)? No PATIENT GENDER DATA: Female. status: : No status: NO. PATIENT RELEVANT IMPLANT DATA REVIEWED: Yes RADIOLOGY DEPARTMENT: CT; Exam(s) Completed: Chest PERIPHERAL IV DATA: Not applicable SIGNED BY: RT Rosa Elena(R) April 03, 2023 3:57 PM documented in this encounter [facility] 03-21-2023 Note HNO ID: [id number] Author: Frank Sanders APRN.[employer] Service: ? Author Type: Nurse Practitioner Type: Progress Notes Filed: 03/21/2023 3:04 PM Note Text: LUNG SCREENING VISIT PRIMARY CARE PHYSICIAN: Reese Elizalde MD PULMONARY PROVIDER: None Results will be communicated via letter or electronic record if applicable. Visit Delivery: In Person Patient Visit Type: New to Screening Current or Ex-smoker? Ex Smoker Exam Type: baseline LDCT Number of Pack Years: 55.5 Number of Years since Quit: 5 REQUESTER: The referring provider advised the patient to have screening. HISTORY OF PRESENT ILLNESS: Jaleesa Bailey is a 62 year old Former smoker who presents for lung screening. Blood Bank Specialist: Dr. Clarke-he left. Brother had abd aorta blockage and they told her to get checked. Respiratory symptoms include: SOB: Yes, walking into building at work on an incline Chest tightness: No Coughing: No Hemoptysis: No Wheezing: No Fever/Chills: No Recent Respiratory Infection: No Unintentional weight loss: No Last 6 Encounter Wt Readings: Date: Wt: 03/21/2023 109.3 kg (241 lb) 02/13/2023 109.3 kg (241 lb) 12/27/2022 110.7 kg (244 lb) 08/11/2022 106.6 kg (235 lb) 06/01/2022 106.1 kg (234 lb) 02/07/2022 108.4 kg (239 lb) ECOG PERFORMANCE STATUS: 0- Fully active, able to carry on all pre-disease performance w/o restriction. Modified Medical Research Te-Moak Dyspnea Scale (MMRC) I only get breathless with strenous exercise 0 PAST MEDICAL HISTORY Diagnosis Date Abnormal glandular Papanicolaou smear of cervix Abn. 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 Vitamin D deficiency PAST SURGICAL HISTORY Procedure Laterality Date CAUTERY CERVIX CRYOCAUTERY INITIAL/REPEAT remote h/o COLONOSCOPY FLX DX W/COLLJ SPEC WHEN PFRMD 10/08/2008 repeat due 2018 COLONOSCOPY FLX DX W/COLLJ SPEC WHEN PFRMD 05/04/2020 Colonoscopy 10 year interval ESOPHAGOGASTRODUODENOSCOPY TRANSORAL DIAGNOSTIC 06/26/2017 EGD EXTENSIVE ANKLE/HEEL SURGERY 06/2013 left heel spur/achilles EXTRACTION, ERUPTED TOOTH OR EXPOSED ROOT (ELEVATION AND/OR FORCEPS REMOVAL) wisdom teeth I-131 05/29/2006 thyroid ablation PT ED HEART AND VASCULAR 10/13/2017 stents placement X 2 REPAIR ROTATOR CUFF,ACUTE Right 02/10/2021 FAMILY HISTORY Problem Relation Age of Onset Coronary Artery Disease Mother Diabetes Mother Hypertension Mother Thyroid Mother Prostate Cancer Father Thyroid Brother Diabetes Maternal Grandmother Prostate Cancer Paternal Grandfather Thyroid Brother X 2 gabapentin (NEURONTIN) 300 mg capsule Take 1 capsule by mouth three times daily for 90 days. omeprazole (PRILOSEC) 40 mg capsule Take 1 capsule by mouth once daily. levothyroxine (SYNTHROID) 100 mcg tablet TAKE 1 TABLET DAILY EXCEPT ON MONDAY TAKE 1 AND 1/2 TABLETS metFORMIN ER (GLUCOPHAGE XR) 500 mg 24 hr tablet Take 1 tablet by mouth daily with breakfast. oxybutynin ER (DITROPAN XL) 10 mg 24 hr tablet Take 1 tablet by mouth once daily. metoprolol tartrate, short acting, (LOPRESSOR) 50 mg tablet Take 50 mg by mouth twice daily. lisinopril (ZESTRIL, PRINIVIL) 10 mg tablet Take 5 mg tablet by mouth once daily. (Patient taking differently: 10 mg.) Cholecalciferol, Vitamin D3, 1,000 unit cap Take 1 capsule by mouth once daily. atorvastatin (LIPITOR) 80 mg tablet Take 80 mg by mouth once daily. ticagrelor (BRILINTA) 90 mg tablet Take 90 mg by mouth twice daily. aspirin, enteric coated (ASPIRIN, ENTERIC COATED) 81 mg EC tablet Take 81 mg by mouth once daily. clobetasol (TEMOVATE) 0.05 % cream Apply to affected area 2x/day for 2 weeks, then 1x/day for a week, than 1-3x/week for maintenance. CPAP Pressure change and supply order: APAP 8-16 cm H2O, mask (pt pref), filters, heated humidity AND tubing. Lifetime supplies. NELLY G47.33 ALLERGIES No Known Allergies The medications and allergies were reviewed and reconciled for this patient and deemed current. Lung Cancer Risk Factors: 1.Tobacco Use: Start Age 20, Quit Age: 57, Average packs per day 1.5, Pack Years 55.5 2. Passive Smoke Exposure: Yes, as an Adult 3. Personal hx of malignancy: No, Type of Cancer: 4. Significant exposures (1 year or more of exposure): None, 5. Race: White 6. Education: Some College 7. BMI:Body mass index is 40.73 kg/m?. Patient-entered Height: 5'5 Patient-e (more content not included)... [facility] 03-21-2023 Instructions Frank Sanders APRN.MACK - 03/21/2023 3:[address] Lung Screen Results The CT scan that you will have done will show if you have any nodules (small spots) in your lungs that are suspicious for cancer. Around 90% of the patients who have this scan done are found to have at least one nodule. Most nodules are benign (not cancer) and of no harm to you at all. A specialist will make a scientific evaluation about whether or not a nodule is worrisome based on its size and shape. The radiologist who will read your scan will put it into one of four categories: LUNG-RADS Category Description Overall Probability of Malignancy Recommended Follow-Up 1 Negative No nodules and definitely benign (non-cancerous nodules) Essentially 0. 1 Year - Follow-up Low dose CT 2 Benign Appearance or Behavior Nodules with a very low likelihood of becoming cancer due to size or lack of growth Less than 1% 1 Year - Follow-up Low dose CT 3 Probably Benign Probably benign finding, short term follow-up recommended 1 to 2% 6 Months - Follow-up CT 4 A,B,or X Suspicious Findings for which additional diagnostic testing and/or biopsy is recommended Will be calculated based on nodule characteristics. Dependent on what is seen on the exam. [address], PET, Biopsy At times, we may see something outside of the lungs on the scan that could be a health concern. Below are some of the most common findings: S Clinically Significant or Potentially Clinically Significant Findings (non lung cancer) Referral or additional imaging/labs depending on result. Approximately 10% of people receive this result. Coronary Artery Calcifications (Moderate or Severe) - Referral to cardiology or PCP for further work-up and recommendations. Thyroid Nodule - TSH level and Thyroid Ultrasound dependent on size, referral to endocrinology. Adrenal Nodule - Blood work and referral to endocrinology. Others Lung Cancer Screening hotline: [phone] Lung Cancer Screening [phone] Billing Questions: or [email or web address] Lung Cancer Screening Team: Dahiana Purdy CNP; Dalila Vasquez PA-C; Audrey Olson CNP; Luma Ruby CNP, Stephanie Shook PA-C, Briseyda Mae PA-C, Frank Sanders, [employer] EXPERT : [phone] documented in this encounter [facility] 03-21-2023 History of Presen t illness Narrative Images from the original note were not included. LUNG SCREENING VISIT PRIMARY CARE PHYSICIAN: Reese Elizalde MD PULMONARY PROVIDER: None Results will be communicated via letter or electronic record if applicable. Visit Delivery: In Person Patient Visit Type: New to Screening Current or Ex-smoker? Ex Smoker Exam Type: baseline LDCT Number of Pack Years: 55.5 Number of Years since Quit: 5 REQUESTER: The referring provider advised the patient to have screening. HISTORY OF PRESENT ILLNESS: Jaleesa Bailey is a 62 year old Former smoker who presents for lung screening. Blood Bank Specialist: Dr. Clarke-he left. Brother had abd aorta blockage and they told her to get checked. Respiratory symptoms include: SOB: Yes, walking into building at work on an incline Chest tightness: No Coughing: No Hemoptysis: No Wheezing: No Fever/Chills: No Recent Respiratory Infection: No Unintentional weight loss: No Last 6 Encounter Wt Readings: Date: Wt: 03/21/2023 109.3 kg (241 lb) 02/13/2023 109.3 kg (241 lb) 12/27/2022 110.7 kg (244 lb) 08/11/2022 106.6 kg (235 lb) 06/01/2022 106.1 kg (234 lb) 02/07/2022 108.4 kg (239 lb) ECOG PERFORMANCE STATUS: 0- Fully active, able to carry on all pre-disease performance w/o restriction. Modified Medical Research Te-Moak Dyspnea Scale (MMRC) I only get breathless with strenous exercise 0 PAST MEDICAL HISTORY Diagnosis Date Abnormal glandular Papanicolaou smear of cervix Abn. 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 Vitamin D deficiency PAST SURGICAL HISTORY Procedure Laterality Date CAUTERY CERVIX CRYOCAUTERY INITIAL/REPEAT remote h/o COLONOSCOPY FLX DX W/COLLJ SPEC WHEN PFRMD 10/08/2008 repeat due 2019 COLONOSCOPY FLX DX W/COLLJ SPEC WHEN PFRMD 05/04/2020 Colonoscopy 10 year interval ESOPHAGOGASTRODUODENOSCOPY TRANSORAL DIAGNOSTIC 06/26/2017 EGD EXTENSIVE ANKLE/HEEL SURGERY 06/2013 left heel spur/achilles EXTRACTION, ERUPTED TOOTH OR EXPOSED ROOT (ELEVATION AND/OR FORCEPS REMOVAL) wisdom teeth I-131 05/29/2006 thyroid ablation PT ED HEART AND VASCULAR 10/13/2017 stents placement X 2 REPAIR ROTATOR CUFF,ACUTE Right 02/10/2021 FAMILY HISTORY Problem Relation Age of Onset Coronary Artery Disease Mother Diabetes Mother Hypertension Mother Thyroid Mother Prostate Cancer Father Thyroid Brother Diabetes Maternal Grandmother Prostate Cancer Paternal Grandfather Thyroid Brother X 2 gabapentin (NEURONTIN) 300 mg capsule Take 1 capsule by mouth three times daily for 90 days. omeprazole (PRILOSEC) 40 mg capsule Take 1 capsule by mouth once daily. levothyroxine (SYNTHROID) 100 mcg tablet TAKE 1 TABLET DAILY EXCEPT ON MONDAY TAKE 1 AND 1/2 TABLETS metFORMIN ER (GLUCOPHAGE XR) 500 mg 24 hr tablet Take 1 tablet by mouth daily with breakfast. oxybutynin ER (DITROPAN XL) 10 mg 24 hr tablet Take 1 tablet by mouth once daily. metoprolol tartrate, short acting, (LOPRESSOR) 50 mg tablet Take 50 mg by mouth twice daily. lisinopril (ZESTRIL, PRINIVIL) 10 mg tablet Take 5 mg tablet by mouth once daily. (Patient taking differently: 10 mg.) Cholecalciferol, Vitamin D3, 1,000 unit cap Take 1 capsule by mouth once daily. atorvastatin (LIPITOR) 80 mg tablet Take 80 mg by mouth once daily. ticagrelor (BRILINTA) 90 mg tablet Take 90 mg by mouth twice daily. aspirin, enteric coated (ASPIRIN, ENTERIC COATED) 81 mg EC tablet Take 81 mg by mouth once daily. clobetasol (TEMOVATE) 0.05 % cream Apply to affected area 2x/day for 2 weeks, then 1x/day for a week, than 1-3x/week for maintenance. CPAP Pressure change and supply order: APAP 8-16 cm H2O, mask (pt pref), filters, heated humidity & tubing. Lifetime supplies. NELLY G47.33 ALLERGIES No Known Allergies The medications and allergies were reviewed and reconciled for this patient and deemed current. Lung Cancer Risk Factors: 1.Tobacco Use: Start Age 20, Quit Age: 57, Average packs per day 1.5, Pack Years 55.5 2. Passive Smoke Exposure: Yes, as an Adult 3. Personal hx of malignancy: No, Type of Cancer: 4. Significant exposures (1 year or more of exposure): None, 5. Race: White 6. Education: Some College 7. BMI:Body mass index is 40.73 kg/m . Patient-entered Height: 5'5 Patient-entered Weight: 240 pounds 8. COPD: No 9. Pneumonia in the past 5 years: No 10. Is there a history of lung cancer in a first degree relative? No 11. Is there a history of lung cancer in a non-first degree relative? Yes 12. Is there a history of any other cancer in a first degree relative? Yes Health Maintenance Immunization History Administered Date(s) Administered COVID-19 original vaccine, age 12+ yr, monovalent (Ion Core - PURPLE TOP) 11/19/2020 12/09/2020 08/12/2021 COVID-19 vaccine, age 12+ yr, bivalent (Ion Core) 08/11/2022 chicken pox (disease) 06/13/1964 influenza (IIV4) vaccine, age 6 mo - 64 yr, quadrivalent (AFLURIA, FLULAVAL, FLUZONE) 08/13/2015 06/09/2017 06/20/2019 07/15/2020 08/05/2021 08/11/2022 influenza (IIV4) vaccine, age 6 mo - 64 yr, quadrivalent, PF (AFLURIA, FLUARIX, FLULAVAL, FLUZONE) 10/07/2016 06/16/2018 influenza (ccIIV4) vaccine, age 6+ mo, quadrivalent, PF (FLUCELVAX) 07/15/2020 pneumococcal (PPV23) vaccine, 23 valent (PNEUMOVAX 23) 10/20/2014 zoster (RZV) vaccine, recombinant (SHINGRIX) 04/30/2021 08/05/2021 Colonoscopy: 05/04/2020 Mammogram: 06/02/2022 DATA REVIEW I have directly visualized the testing documented: None Prior Imaging: Last CT/CTA Chest/Lungs No resulted procedures found. Last CT Chest - Impression Only No resulted procedures found. Last XR Chest - Impression Only XR CHEST PA W RIBS LT Collected: 02/03/2015 1:59 PM (Final result) Impression: IMPRESSION: No acute finding Lumber Press Operator: JENSEN Transcribe Date/Time: Feb 03 2015 7:00P ... Pulmonary Function Testing: No textual results found for the specified procedure(s). PHYSICAL EXAM: BP (P) 104/62 Pulse (P) 79 Resp (P) 17 Wt 109.3 kg (241 lb) LMP 10/07/2009 (LMP Unknown) SpO2 (P) 95% BMI 40.73 kg/m Deferred ASSESSMENT and RECOMMENDATIONS: 1. Screening for lung cancer: Six year risk for lung cancer: 1.35% [email or web address] I have determined that the patient is eligible for a low dose CT based on age, absence of signs or symptoms of lung cancer, and total pack years: Yes. The patient and I engaged in shared decision making, including the use of one or more decision aids, to include benefits, harms, follow-up diagnostic testing, over-diagnosis, false positive rate, and total radiation exposure. The patient understands and feels comfortable with it: Yes. The patient was counseled on the importance of adherence to annual LDCT lung cancer screening, impact of comorbidities and ability or willingness to undergo diagnosis and treatment. The patient understands and feels comfortable with it:Yes. 2. Former Nicotine dependence: The patient was counseled on the importance of maintaining cigarette smoking abstinence - The patient is committed to remaining abstinent from tobacco. Frank Sanders APRN.CNP NPI #: March 21, 2023 2:16 PM documented in this encounter [facility] 02-27-2023 Miscellaneous Notes Last OV: 02/13/23 Patient has been identified by name and date of : Yes Requested Prescriptions Pending Prescriptions Disp Refills gabapentin (NEURONTIN) 300 mg capsule 90 capsule 2 Sig: Take 1 capsule by mouth three times daily for 90 days. RX INSTRUCTIONS: Patient aware RX will be sent to pharmacy. No need to notify patient. Delmy Springer LPN documented in this encounter [facility] 02-13-2023 Note HNO ID: [id number] Author: Reese Elizalde MD Service: ? Author Type: Physician Type: Progress Notes Filed: 02/13/2023 5:23 PM Note Text: No chief complaint on file. HPI: Patient presents today for office visit for follow up. Follows with [facility] Echo performed 11/29/22 Normal LV size Left ventricular systolic function normal Estimated ejection fraction 60% Stage 1 diastolic dysfunction Mild concentric left ventricular hypertrophy Thyroid: some fatigue but thinks it is due to nelly. HYPERTENSION: bp is well controlled. No chest pain. No shortness of breath. No edema. DM:not checking sugars. No polyuria or polydipsia. GERD:no heartburn. No myalgias NELLY: Does not use CPAP. Suggested she could see sleep meds. Still seeing Dr Sutherland. Checking every two years. Just saw him recently. MEDICATIONS: Current Outpatient Medications Medication Sig omeprazole (PRILOSEC) 40 mg capsule Take 1 capsule by mouth once daily. levothyroxine (SYNTHROID) 100 mcg tablet TAKE 1 TABLET DAILY EXCEPT ON MONDAY TAKE 1 AND 1/2 TABLETS metFORMIN ER (GLUCOPHAGE XR) 500 mg 24 hr tablet Take 1 tablet by mouth daily with breakfast. gabapentin (NEURONTIN) 300 mg capsule Take 1 capsule by mouth three times daily for 90 days. oxybutynin ER (DITROPAN XL) 10 mg 24 hr tablet Take 1 tablet by mouth once daily. clobetasol (TEMOVATE) 0.05 % cream Apply to affected area 2x/day for 2 weeks, then 1x/day for a week, than 1-3x/week for maintenance. metoprolol tartrate, short acting, (LOPRESSOR) 50 mg tablet Take 50 mg by mouth twice daily. lisinopril (ZESTRIL, PRINIVIL) 10 mg tablet Take 5 mg tablet by mouth once daily. (Patient taking differently: 10 mg.) CPAP Pressure change and supply order: APAP 8-16 cm H2O, mask (pt pref), filters, heated humidity AND tubing. Lifetime supplies. NELLY G47.33 Cholecalciferol, Vitamin D3, 1,000 unit cap Take 1 capsule by mouth once daily. atorvastatin (LIPITOR) 80 mg tablet Take 80 mg by mouth once daily. ticagrelor (BRILINTA) 90 mg tablet Take 90 mg by mouth twice daily. aspirin, enteric coated (ASPIRIN, ENTERIC COATED) 81 mg EC tablet Take 81 mg by mouth once daily. No current facility-administered medications for this visit. ALLERGIES: ALLERGIES No Known Allergies PAST MEDICAL HISTORY Diagnosis Date Abnormal glandular Papanicolaou smear of cervix Abn. 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 Vitamin D deficiency PAST SURGICAL HISTORY Procedure Laterality Date CAUTERY CERVIX CRYOCAUTERY INITIAL/REPEAT remote h/o COLONOSCOPY FLX DX W/COLLJ SPEC WHEN PFRMD 10/08/2008 repeat due 2019 COLONOSCOPY FLX DX W/COLLJ SPEC WHEN PFRMD 05/04/2020 Colonoscopy 10 year interval ESOPHAGOGASTRODUODENOSCOPY TRANSORAL DIAGNOSTIC 06/26/2017 EGD EXTENSIVE ANKLE/HEEL SURGERY 06/2013 left heel spur/achilles EXTRACTION, ERUPTED TOOTH OR EXPOSED ROOT (ELEVATION AND/OR FORCEPS REMOVAL) wisdom teeth I-131 05/29/2006 thyroid ablation PT ED HEART AND VASCULAR 10/13/2017 stents placement X 2 REPAIR ROTATOR CUFF,ACUTE Right 02/10/2021 FAMILY HISTORY Problem Relation Age of Onset Coronary Artery Disease Mother Diabetes Mother Hypertension Mother Thyroid Mother Prostate Cancer Father Thyroid Brother Diabetes Maternal Grandmother Prostate Cancer Paternal Grandfather Thyroid Brother X 2 Social History Tobacco Use Smoking status: Former Packs/day: 1.00 Years: 27.00 Pack years: 27.00 Types: Cigarettes Quit date: 10/13/2017 Years since quittin.3 Smokeless tobacco: Never Vaping Use Vaping Use: Never used Substance Use Topics Alcohol use: Yes Comment: very occasional Drug use: No Reviewed current medications, allergies, past medical history, surgical history, family history and social history today. REVIEW OF SYSTEMS Brother recently diagnosed with AAA. Discussed considering screening at some point. All other reviewed and negative other than HPI. HEALTH MAINTENANCE: Reviewed health maintenance issues today and recommended the following in detail. DTAP,TDAP,TD(1 - Tdap) Never done LUNG CANCER SCREENING Never done PNEUMOCOCCAL(2 - PCV) due on 10/20/2015 DEPRESSION ASSESSMENT Never done DILATED RETINAL EXAM -done a year and a half ago. VITALS: BP 108/72 Pulse 71 Wt 109.3 kg (241 lb) LMP 10/07/2009 (LMP Unknown) SpO2 95% BMI 40.73 kg/m (more content not included)... [facility] 02-08-2023 Miscellaneous Notes Patient has been identified by name and date of : Yes Requested Prescriptions Pending Prescriptions Disp Refills omeprazole (PRILOSEC) 40 mg capsule 90 capsule 1 Sig: Take 1 capsule by mouth once daily. RX INSTRUCTIONS: Patient aware RX will be sent to pharmacy. No need to notify patient. Madhuri Foster LPN documented in this encounter [facility] 01-16-2023 Miscellaneous Notes Patient has been identified by name and date of : Yes Requested Prescriptions Pending Prescriptions Disp Refills levothyroxine (SYNTHROID) 100 mcg tablet 90 tablet 0 Sig: TAKE 1 TABLET DAILY EXCEPT ON MONDAY TAKE 1 AND 1/2 TABLETS [facility] 08/11/22 NOV 02/13/23 Last TSH 08/18/22 RX INSTRUCTIONS: Patient aware RX will be sent to pharmacy. No need to notify patient. Talya Solano Ma documented in this encounter [facility] 12-27-2022 Note HNO ID: [id number] Author: RONAN Morataya Service: ? Author Type: Physician Call Center Coordinator Type: Progress Notes Filed: 12/27/2022 6:19 PM Note Text: This note was created using NanoDynamicsriter. Subjective Jaleesa Bailey is a 62 year old female. HPI 62-year-old female presents for sore throat. Patient states she has had a sore throat for about a week. States that she had nasal congestion and cough as well. The congestion and cough are improving, but she still has sore and scratchy throat. No fevers. No vomiting or diarrhea. Still able to eat and drink. No other complaints. No sick contacts PAST MEDICAL HISTORY Diagnosis Date Abnormal glandular Papanicolaou smear of cervix Abn. 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 Vitamin D deficiency PAST SURGICAL HISTORY Procedure Laterality Date CAUTERY CERVIX CRYOCAUTERY INITIAL/REPEAT remote h/o COLONOSCOPY FLX DX W/COLLJ SPEC WHEN PFRMD 10/08/2008 repeat due 2018 COLONOSCOPY FLX DX W/COLLJ SPEC WHEN PFRMD 05/04/2020 Colonoscopy 10 year interval ESOPHAGOGASTRODUODENOSCOPY TRANSORAL DIAGNOSTIC 06/26/2017 EGD EXTENSIVE ANKLE/HEEL SURGERY 06/2013 left heel spur/achilles EXTRACTION, ERUPTED TOOTH OR EXPOSED ROOT (ELEVATION AND/OR FORCEPS REMOVAL) wisdom teeth I-131 05/29/2006 thyroid ablation PT ED HEART AND VASCULAR 10/13/2017 stents placement X 2 REPAIR ROTATOR CUFF,ACUTE Right 02/10/2021 ALLERGIES Patient has no known allergies. MEDICATIONS metFORMIN ER (GLUCOPHAGE XR) 500 mg 24 hr tablet Take 1 tablet by mouth daily with breakfast. omeprazole (PRILOSEC) 40 mg capsule Take 1 capsule by mouth once daily. gabapentin (NEURONTIN) 300 mg capsule Take 1 capsule by mouth three times daily for 90 days. levothyroxine (SYNTHROID) 100 mcg tablet TAKE 1 TABLET DAILY EXCEPT ON MONDAY TAKE 1 AND 1/2 TABLETS oxybutynin ER (DITROPAN XL) 10 mg 24 hr tablet Take 1 tablet by mouth once daily. clobetasol (TEMOVATE) 0.05 % cream Apply to affected area 2x/day for 2 weeks, then 1x/day for a week, than 1-3x/week for maintenance. metoprolol tartrate, short acting, (LOPRESSOR) 50 mg tablet Take 50 mg by mouth twice daily. lisinopril (ZESTRIL, PRINIVIL) 10 mg tablet Take 5 mg tablet by mouth once daily. (Patient taking differently: 10 mg.) CPAP Pressure change and supply order: APAP 8-16 cm H2O, mask (pt pref), filters, heated humidity AND tubing. Lifetime supplies. NELLY G47.33 Cholecalciferol, Vitamin D3, 1,000 unit cap Take 1 capsule by mouth once daily. atorvastatin (LIPITOR) 80 mg tablet Take 80 mg by mouth once daily. ticagrelor (BRILINTA) 90 mg tablet Take 90 mg by mouth twice daily. aspirin, enteric coated (ASPIRIN, ENTERIC COATED) 81 mg EC tablet Take 81 mg by mouth once daily. FAMILY HISTORY Problem Relation Age of Onset Coronary Artery Disease Mother Diabetes Mother Hypertension Mother Thyroid Mother Prostate Cancer Father Thyroid Brother Diabetes Maternal Grandmother Prostate Cancer Paternal Grandfather Thyroid Brother X 2 Social History Tobacco Use Smoking status: Former Packs/day: 1.00 Years: 27.00 Pack years: 27.00 Types: Cigarettes Quit date: 10/13/2017 Years since quittin.2 Smokeless tobacco: Never Vaping Use Vaping Use: Never used Substance Use Topics Alcohol use: Yes Comment: very occasional Drug use: No Review of Systems Constitutional: Negative for chills and fever. HENT: Positive for congestion and sore throat. Negative for ear pain. Respiratory: Positive for cough. Negative for shortness of breath. Cardiovascular: Negative for chest pain. Gastrointestinal: Negative for diarrhea and vomiting. Objective BP 108/76 Pulse 60 Temp 36.4 ?C (97.6 ?F) Resp 16 Wt 110.7 kg (244 lb) LMP 10/07/2009 (LMP Unknown) SpO2 95% BMI 41.24 kg/m? Physical Exam Vitals and nursing note reviewed. Constitutional: General: She is not in acute distress. Appearance: Normal appearance. She is not toxic-appearing. HENT: Nose: Nose normal. Mouth/Throat: Mouth: Mucous membranes are moist. Pharynx: Uvula midline. Posterior oropharyngeal erythema present. No oropharyngeal exudate. Tonsils: No tonsillar exudate. 1+ on the right. 1+ on the left. Eyes: Conjunctiva/sclera: Conjunctivae normal. Cardiovascular: Rate and Rhythm: Normal rate and regular rhythm. Pulmonary: Effort: Pulmonary effort is normal. (more content not included)... [facility] 12-27-2022 Instructions RONAN Morataya - 12/27/2022 6:16 PM EDT PHARYNGITIS PATIENT INSTRUCTIONS DESCRIPTION: Inflammation and infection of the pharynx that can be caused by a variety of germs. SIGNS AND SYMPTOMS: -Sore throat. -Swallowing difficulty. -Tickle or lump in the throat. -Fever. -Swollen glands in the neck (sometimes). -Throat may be red or covered with a grayish membrane (sometimes). -Generalized aching. CAUSES: Infection from bacteria, viruses or fungi. PREVENTIVE MEASURES: -Avoid close contact with anyone with a sore throat. -Keep immunizations, including diphtheria, up to date. TREATMENT: -Home care is usually sufficient. -Use gargles to relieve throat pain. Prepare double strength tea, hot or cold, or a salt-water solution (1 teaspoon salt in 8 oz. warm water). Use to gargle as often as you wish. -Use a cool-mist ultrasonic humidifier to increase air moisture. This will relieve the dry, tight feeling in the throat. Clean humidifier daily. -If the glands are large and tender, apply moist, warm soaks at least 4 times a day for 30 to 60 minutes. The compresses will be more effective if they are kept warm. Be careful not to burn the skin. -Replace your toothbrush. It may be harboring germs. -Until infection is gone, don't share washcloths; or food. MEDICATIONS: -For minor discomfort you may use non-prescription drugs such as acetaminophen. Don't give aspirin to a child for any viral illness. -Non-prescription throat lozenges may help ease discomfort. Cepacol drops or throat sprays. ACTIVITY: Limited activity is necessary until symptoms disappear. DIET: Extra fluids are necessary. Drink at least 8 glasses of fluid daily, more for high fevers. If swallowing solid food is painful, try a liquid or soft diet for a few days. documented in this encounter [facility] 12-27-2022 History of Presen t illness Narrative This note was created using NoteWriter. Subjective Jaleesa Bailey is a 62 year old female. HPI 62-year-old female presents for sore throat. Patient states she has had a sore throat for about a week. States that she had nasal congestion and cough as well. The congestion and cough are improving, but she still has sore and scratchy throat. No fevers. No vomiting or diarrhea. Still able to eat and drink. No other complaints. No sick contacts PAST MEDICAL HISTORY Diagnosis Date Abnormal glandular Papanicolaou smear of cervix Abn. 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 Vitamin D deficiency PAST SURGICAL HISTORY Procedure Laterality Date CAUTERY CERVIX CRYOCAUTERY INITIAL/REPEAT remote h/o COLONOSCOPY FLX DX W/COLLJ SPEC WHEN PFRMD 10/08/2008 repeat due 2019 COLONOSCOPY FLX DX W/COLLJ SPEC WHEN PFRMD 05/04/2020 Colonoscopy 10 year interval ESOPHAGOGASTRODUODENOSCOPY TRANSORAL DIAGNOSTIC 06/26/2017 EGD EXTENSIVE ANKLE/HEEL SURGERY 06/2013 left heel spur/achilles EXTRACTION, ERUPTED TOOTH OR EXPOSED ROOT (ELEVATION AND/OR FORCEPS REMOVAL) wisdom teeth I-131 05/29/2006 thyroid ablation PT ED HEART AND VASCULAR 10/13/2017 stents placement X 2 REPAIR ROTATOR CUFF,ACUTE Right 02/10/2021 ALLERGIES Patient has no known allergies. MEDICATIONS metFORMIN ER (GLUCOPHAGE XR) 500 mg 24 hr tablet Take 1 tablet by mouth daily with breakfast. omeprazole (PRILOSEC) 40 mg capsule Take 1 capsule by mouth once daily. gabapentin (NEURONTIN) 300 mg capsule Take 1 capsule by mouth three times daily for 90 days. levothyroxine (SYNTHROID) 100 mcg tablet TAKE 1 TABLET DAILY EXCEPT ON MONDAY TAKE 1 AND 1/2 TABLETS oxybutynin ER (DITROPAN XL) 10 mg 24 hr tablet Take 1 tablet by mouth once daily. clobetasol (TEMOVATE) 0.05 % cream Apply to affected area 2x/day for 2 weeks, then 1x/day for a week, than 1-3x/week for maintenance. metoprolol tartrate, short acting, (LOPRESSOR) 50 mg tablet Take 50 mg by mouth twice daily. lisinopril (ZESTRIL, PRINIVIL) 10 mg tablet Take 5 mg tablet by mouth once daily. (Patient taking differently: 10 mg.) CPAP Pressure change and supply order: APAP 8-16 cm H2O, mask (pt pref), filters, heated humidity & tubing. Lifetime supplies. NELLY G47.33 Cholecalciferol, Vitamin D3, 1,000 unit cap Take 1 capsule by mouth once daily. atorvastatin (LIPITOR) 80 mg tablet Take 80 mg by mouth once daily. ticagrelor (BRILINTA) 90 mg tablet Take 90 mg by mouth twice daily. aspirin, enteric coated (ASPIRIN, ENTERIC COATED) 81 mg EC tablet Take 81 mg by mouth once daily. FAMILY HISTORY Problem Relation Age of Onset Coronary Artery Disease Mother Diabetes Mother Hypertension Mother Thyroid Mother Prostate Cancer Father Thyroid Brother Diabetes Maternal Grandmother Prostate Cancer Paternal Grandfather Thyroid Brother X 2 Social History Tobacco Use Smoking status: Former Packs/day: 1.00 Years: 27.00 Pack years: 27.00 Types: Cigarettes Quit date: 10/13/2017 Years since quittin.2 Smokeless tobacco: Never Vaping Use Vaping Use: Never used Substance Use Topics Alcohol use: Yes Comment: very occasional Drug use: No Review of Systems Constitutional: Negative for chills and fever. HENT: Positive for congestion and sore throat. Negative for ear pain. Respiratory: Positive for cough. Negative for shortness of breath. Cardiovascular: Negative for chest pain. Gastrointestinal: Negative for diarrhea and vomiting. Objective BP 108/76 Pulse 60 Temp 36.4 C (97.6 F) Resp 16 Wt 110.7 kg (244 lb) LMP 10/07/2009 (LMP Unknown) SpO2 95% BMI 41.24 kg/m Physical Exam Vitals and nursing note reviewed. Constitutional: General: She is not in acute distress. Appearance: Normal appearance. She is not toxic-appearing. HENT: Nose: Nose normal. Mouth/Throat: Mouth: Mucous membranes are moist. Pharynx: Uvula midline. Posterior oropharyngeal erythema present. No oropharyngeal exudate. Tonsils: No tonsillar exudate. 1+ on the right. 1+ on the left. Eyes: Conjunctiva/sclera: Conjunctivae normal. Cardiovascular: Rate and Rhythm: Normal rate and regular rhythm. Pulmonary: Effort: Pulmonary effort is normal. Breath sounds: Normal breath sounds. Neurological: Mental Status: She is alert. Assessment and Plan ASSESSMENT/PLAN: 1. Sore throat - ICD9: 462, ICD10: J02.9 (primary diagnosis) - suspect viral - Alere Strep Test negative, no culture pending - Discussed supportive care treatment with fluids, rest and analgesia. - The patient may also use warm salt water gargles, throat lozenges and/or OTC throat spray as needed. - STREP A MOLECULAR (POC) 2. URI, acute - ICD9: 465.9, ICD10: J06.9 - Discussed viral etiology and rationale for treatment. - Symptomatic treatment with prn analgesia - Supportive care with fluids and rest -Symptoms improving. OTC decongestants as needed. -Out of window for antiviral for COVID or Tamiflu. Declined swab Diagnosis and treatment plan were discussed and questions were answered to the patient's satisfaction. Pt acknowledged understanding of concepts and follow up plan. Specific signs and symptoms that would indicate the need for higher level of care were discussed in detail warranting prompt ER evaluation. RONAN Morataya documented in this encounter [facility] 12-26-2022 Miscellaneous Notes Patient has been identified by name and date of : Yes Requested Prescriptions Pending Prescriptions Disp Refills metFORMIN ER (GLUCOPHAGE XR) 500 mg 24 hr tablet 90 tablet 1 Sig: Take 1 tablet by mouth daily with breakfast. RX INSTRUCTIONS: Patient aware RX will be sent to pharmacy. No need to notify patient. Patient last office visit: 08/11/22 Patient next office visit: 02/13/23 Margaux Villagomez MA documented in this encounter [facility] 11-23-2022 Miscellaneous Notes Patient has been identified by name and date of : Yes Patient phones for refill(s): Requested Prescriptions Pending Prescriptions Disp Refills omeprazole (PRILOSEC) 40 mg capsule 90 capsule 0 Sig: Take 1 capsule by mouth once daily. Date of last office visit in primary care: 08/11/2022 Next appointment scheduled 02/13/2023 Please advise. Thank you. Belle Zhang LPN documented in this encounter [facility] 11-02-2022 Miscellaneous Notes Patient phones requesting refills as follows: Requested Prescriptions Pending Prescriptions Disp Refills gabapentin (NEURONTIN) 300 mg capsule 90 capsule 2 Sig: Take 1 capsule by mouth three times daily for 90 days. [facility]-08/11/22 Labs-08/24/22 NOV-02/13/23 med filled 08/11/22 Please review and advise. Heiid Allred LPN documented in this encounter [facility] 10-26-2022 Miscellaneous Notes Patient has been identified by name and date of : Yes Last office visit in this department: 08/11/2022 Labs-08/24/22Jul-02/13/23 med filled 07/18/22 RX INSTRUCTIONS: Patient aware RX will be sent to pharmacy. No need to notify patient. Patient phones requesting refills as follows: Requested Prescriptions Pending Prescriptions Disp Refills levothyroxine (SYNTHROID) 100 mcg tablet 90 tablet 0 Sig: TAKE 1 TABLET DAILY EXCEPT ON MONDAY TAKE 1 AND 1/2 TABLETS Please review and advise. WANDER Staley documented in this encounter [facility] 09-06-2022 Miscellaneous Notes Patient phones requesting refills as follows: Requested Prescriptions Pending Prescriptions Disp Refills omeprazole (PRILOSEC) 40 mg capsule 90 capsule 0 Sig: Take 1 capsule by mouth once daily. [facility] 08/11/22 NOV 02/13/23 Please review and advise. Aayush Ledesma LPN documented in this encounter [facility] 08-24-2022 Miscellaneous Notes C documented in this encounter [facility] 08-22-2022 Miscellaneous Notes Patient returned call and given provider's message below with verbalized understanding. Patient agreeable. VM left for patient to call PCP office for message below. If provider could also place order for recheck CBC in 1 week, as recommended below. Thank you. Labs are all ok, other than elevated white count Recheck cbc in one week. Is probably not significant. documented in this encounter [facility] 08-11-2022 History of Presen t illness Narrative Patient presents with: 6 Month Exam HPI: Patient presents today for office visit for follow up. Seeing Dr Clarke. Has recently seen [facility]. Thyroid: some fatigue but thinks it is due to nelly. HYPERTENSION: bp is well controlled. No chest pain. No shortness of breath. No edema. DM:not checking sugars. No polyuria or polydipsia. GERD:no heartburn. No myalgias NELLY:has trouble wearing a mask. Feels would benefit but has issues using. Her toes still get numb and cold. Is on gabapentin. Emg said they could not rule out a small fiber neuropathy. Offered neuro. Declines but willing to increase gabapentin. Sees vascular surgery every two years. Has several moles to look at. Unsure if any have changed. MEDICATIONS: Current Outpatient Medications Medication Sig levothyroxine (SYNTHROID) 100 mcg tablet TAKE 1 TABLET DAILY EXCEPT ON MONDAY TAKE 1 AND 1/2 TABLETS oxybutynin ER (DITROPAN XL) 10 mg 24 hr tablet Take 1 tablet by mouth once daily. metFORMIN ER (GLUCOPHAGE XR) 500 mg 24 hr tablet Take 1 tablet by mouth daily with breakfast. omeprazole (PRILOSEC) 40 mg capsule Take 1 capsule by mouth once daily. gabapentin (NEURONTIN) 300 mg capsule Take 1 capsule by mouth twice daily for 90 days. metoprolol tartrate, short acting, (LOPRESSOR) 50 mg tablet Take 50 mg by mouth twice daily. lisinopril (ZESTRIL, PRINIVIL) 10 mg tablet Take 5 mg tablet by mouth once daily. (Patient taking differently: 10 mg.) Cholecalciferol, Vitamin D3, 1,000 unit cap Take 1 capsule by mouth once daily. atorvastatin (LIPITOR) 80 mg tablet Take 80 mg by mouth once daily. ticagrelor (BRILINTA) 90 mg tablet Take 90 mg by mouth twice daily. aspirin, enteric coated (ASPIRIN, ENTERIC COATED) 81 mg EC tablet Take 81 mg by mouth once daily. clobetasol (TEMOVATE) 0.05 % cream Apply to affected area 2x/day for 2 weeks, then 1x/day for a week, than 1-3x/week for maintenance. CPAP Pressure change and supply order: APAP 8-16 cm H2O, mask (pt pref), filters, heated humidity & tubing. Lifetime supplies. NELLY G47.33 No current facility-administered medications for this visit. ALLERGIES: ALLERGIES No Known Allergies PAST MEDICAL HISTORY Diagnosis Date Abnormal glandular Papanicolaou smear of cervix Abn. 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 Vitamin D deficiency PAST SURGICAL HISTORY Procedure Laterality Date CAUTERY CERVIX CRYOCAUTERY INITIAL/REPEAT remote h/o COLONOSCOPY FLX DX W/COLLJ SPEC WHEN PFRMD 10/08/2008 repeat due 2019 COLONOSCOPY FLX DX W/COLLJ SPEC WHEN PFRMD 05/04/2020 Colonoscopy 10 year interval ESOPHAGOGASTRODUODENOSCOPY TRANSORAL DIAGNOSTIC 06/26/2017 EGD EXTENSIVE ANKLE/HEEL SURGERY 06/2013 left heel spur/achilles EXTRACTION, ERUPTED TOOTH OR EXPOSED ROOT (ELEVATION AND/OR FORCEPS REMOVAL) wisdom teeth I-131 05/29/2006 thyroid ablation PT ED HEART AND VASCULAR 10/13/2017 stents placement X 2 REPAIR ROTATOR CUFF,ACUTE Right 02/10/2021 FAMILY HISTORY Problem Relation Age of Onset Coronary Artery Disease Mother Diabetes Mother Hypertension Mother Thyroid Mother Prostate Cancer Father Thyroid Brother Diabetes Maternal Grandmother Prostate Cancer Paternal Grandfather Thyroid Brother X 2 Social History Tobacco Use Smoking status: Former Packs/day: 1.00 Years: 27.00 Pack years: 27.00 Types: Cigarettes Quit date: 10/13/2017 Years since quittin.8 Smokeless tobacco: Never Vaping Use Vaping Use: Never used Substance Use Topics Alcohol use: Yes Comment: very occasional Drug use: No Reviewed current medications, allergies, past medical history, surgical history, family history and social history today. REVIEW OF SYSTEMS All other reviewed and negative other than HPI. HEALTH MAINTENANCE: Reviewed health maintenance issues today and recommended the following in detail. DTAP,TDAP,TD(1 - Tdap) Never done LUNG CANCER SCREENING -will consider. PNEUMOCOCCAL(2 - PCV) due on 10/20/2015 COVID-19 VACCINE(4 - Booster for Pfizer series) due on 10/07/2021 DIABETIC FOOT EXAM due on 03/18/2022 URINE ALBUMIN:CREATININE RATIO due on 04/22/2022 INFLUENZA(1) due on 05/05/2022 HBA1C due on 05/05/2022 VITALS: BP 122/82 Pulse 70 Wt 106.6 kg (235 lb) LMP 10/07/2009 (LMP Unknown) SpO2 97% BMI 39.71 kg/m Last 4 Encounter Wt Readings: Date: Wt: 08/11/2022 106.6 kg (235 lb) 06/01/2022 106.1 kg (234 lb) 02/07/2022 108.4 kg (239 lb) 01/18/2022 108.9 kg (240 lb) PHYSICAL EXAMINATION: General appearance: Well appearing, alert, in no acute distress, well-hydrated, well nourished. Skin: several skin tags and seborrheic keratosis. Offered cryo if she desires. Neck: Supple, no adenopathy; thyroid symmetric, normal size, no bruits Back: Normal exam Lungs: Lungs clear to auscultation. No wheezing, rhonchi, rales Heart: RRR without murmur, gallop, or rubs. No ectopy Abdomen: Normal abdominal exam, Abdomen soft, non-tender. Bowel sounds normal. No masses, organomegaly Extremities: No deformities, edema, skin discoloration, clubbing or cyanosis. Good capillary refill. Musculoskeletal: No joint swelling, deformity, or tenderness Feet:Shoes and socks removed, No deformities, ulcers, calluses, normal distal pulses, and not sensitive to monofilament bilaterally ASSESSMENT/PLAN: 1. Type 2 diabetes mellitus with diabetic polyneuropathy, without long-term current use of insulin (HCC) - ICD9: 250.60, 357.2, ICD10: E11.42 (primary diagnosis) - check labs. - HGB A1C - ALBUMIN/CREAT RATIO RND UR 2. Encounter for immunization - ICD9: V03.89, ICD10: Z23 - INFLUENZA VACCINE QUADRIVALENT 6 MO - 64 YRS IM - Ion Core COVID-19 BIVALENT BOOSTER VACCINE, AGE 12+ YR 3. Ischemic stroke of frontal lobe (HCC) - ICD9: 434.91, ICD10: I63.9 - stable. 4. Coronary artery disease involving chitimacha coronary artery of chitimacha heart without angina pectoris - ICD9: 414.01, ICD10: I25.10 - per cardiology - BASIC METABOLIC PNL 5. Hyperlipidemia, unspecified hyperlipidemia type - ICD9: 272.4, ICD10: E78.5 - good control - Continue current medication. 6. NELLY (obstructive sleep apnea) AHI 26.6 - ICD9: 327.23, ICD10: G47.33 Encouraged use. 7. Chronic cough - ICD9: 786.2, ICD10: R05.3 - stable. 8. Irritable bowel syndrome without diarrhea - ICD9: 564.1, ICD10: K58.9 - stable. 9. Gastroesophageal reflux disease without esophagitis - ICD9: 530.81, ICD10: K21.9 - doing well. 10. Secondary hyperparathyroidism, non-renal (HCC) - ICD9: 252.02, ICD10: E21.1 - used to see endo. Recheck labs. - PTH INTACT BLD - CALCIUM IONIZED BLOOD - VITAMIN D 25 HYDROXY 11. Hypothyroidism, acquired - ICD9: 244.9, ICD10: E03.9 - follow labs. - TSH BLD 12. Hyperglycemia - ICD9: 790.29, ICD10: R73.9 13. Vitamin D deficiency - ICD9: 268.9, ICD10: E55.9 14. Microalbuminuria - ICD9: 791.0, ICD10: R80.9 15. 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 - ICD9: 437.3, ICD10: I67.1 - per vascular 16. Neuropathy - ICD9: 355.9, ICD10: G62.9 - increase dose. Declines neuro follow up - GABAPENTIN 300 MG CAPSULE 17. Paresthesia - ICD9: 782.0, ICD10: R20.2 - GABAPENTIN 300 MG CAPSULE 18. Primary hypertension - ICD9: 401.9, ICD10: I10 - good control - Continue current medication(s) - Goal of BP <130/80 - CBC + DIFF - BASIC METABOLIC PNL Reese Elizalde MD documented in this encounter [facility] 07-16-2022 Miscellaneous Notes Patient phones requesting refills as follows: Requested Prescriptions Pending Prescriptions Disp Refills levothyroxine (SYNTHROID) 100 mcg tablet 90 tablet 0 Sig: TAKE 1 TABLET DAILY EXCEPT ON MONDAY TAKE 1 AND 1/2 TABLETS TRINA 11/08/21 NOV no upcoming appt Please review and advise. Aayush Ledesma LPN documented in this encounter [facility] 06-02-2022 History of Presen t illness Narrative Radiology Service Progress Note PATIENT NAME: Jaleesa Bailey DATE OF SERVICE: June 02, 2022 TIME: 7:35 AM PATIENT IDENTITY VERIFICATION COMPLETED USING TWO (2) IDENTIFIERS: Name and Date of confirmed by patient verbally. FALL SCREENING: Has the patient had 2 falls in the last year or 1 fall with injury or currently using an Ambulatory Assistive Device (Walker, Cane, Wheelchair, Crutches, etc.)? No PATIENT GENDER DATA: Female. status: : No status: NO. PATIENT RELEVANT IMPLANT DATA REVIEWED: Not Applicable RADIOLOGY DEPARTMENT: Mammography PERIPHERAL IV DATA: Not applicable SIGNED BY: RT Blanca(R) June 02, 2022 7:35 AM documented in this encounter [facility] 05-24-2022 Miscellaneous Notes 1 st attempt Refill request received via [employer] for patients Ditropan Rx. Last annual exam on 04/20/21. PSS: Please contact patient to schedule annual exam. Kalpana Richard RN documented in this encounter [facility] 04-27-2022 Miscellaneous Notes Pharmacy called requesting refill. Requested Prescriptions Pending Prescriptions Disp Refills clobetasol (TEMOVATE) 0.05 % cream 120 g 1 Sig: Apply to affected area 2x/day for 2 weeks, then 1x/day for a week, than 1-3x/week for maintenance. Kelin Mckeon RN documented in this encounter [facility] 02-23-2022 Miscellaneous Notes Patient has been identified by name and date of : Yes Pharmacy phones for refill(s): Pending Prescriptions Disp Refills OMEPRAZOLE 40 MG CAPSULE,DELAYED RELEASE 90 capsule 0 Sig: Take 1 capsule by mouth once daily. AMELIA: No LEVOTHYROXINE 100 MCG TABLET 90 tablet 0 Sig: TAKE 1 TABLET DAILY EXCEPT ON MONDAY TAKE 1 AND 1/2 TABLETS AMELIA: No GABAPENTIN 300 MG CAPSULE 180 capsule 0 Sig: Take 1 capsule by mouth twice daily for 90 days. AMELIA: No Date of last office visit in primary care: 11/08/21 Future visit: none Last 2 Encounter Wt Readings: Date: Wt: 02/07/2022 108.4 kg (239 lb) 01/18/2022 108.9 kg (240 lb) Previous labs/tests for medication: Thyroid: TSH Date Value 11/02/2021 0.589 mIU/L 03/09/2021 0.422 uU/mL Blood Pressure: BUN (mg/dL) Date Value 11/02/2021 11 04/22/2021 14 Sodium (mmol/L) Date Value 11/02/2021 140 04/22/2021 136 Last 1 Encounter BP Readings: Date: BP: 02/07/2022 118/74 Liver Function: ALT (U/L) Date Value 04/22/2021 30 AST (U/L) Date Value 04/22/2021 30 Please advise. Thank you. Dahiana Gonzalez RN documented in this encounter [facility] 02-21-2022 Miscellaneous Notes Patient has been identified by name and date of : Yes Pharmacy phones for refill(s): Pending Prescriptions Disp Refills METFORMIN ER 500 MG TABLET,EXTENDED RELEASE 24 HR 90 tablet 1 Sig: Take 1 tablet by mouth daily with breakfast. AMELIA: No Date of last office visit in primary care: 11/08/21, NOV: not sheduled Last 2 Encounter Wt Readings: Date: Wt: 02/07/2022 108.4 kg (239 lb) 01/18/2022 108.9 kg (240 lb) Previous labs/tests for medication: Diabetes: Hemoglobin A1C Date Value 11/02/2021 6.9 % 04/22/2021 6.8 % 02/08/2021 6.5 07/27/2020 6.6 % Please advise. Thank you. Radha Rao RN documented in this encounter [facility] 02-07-2022 History of Presen t illness Narrative Jaleesa Bailey presents for hysteroscopy. Indication: PMB and possible polyp. Has bleeding for 1-2 days every three months for past 18 months. Age: [age] year old LMP: Patient's last menstrual period was 10/07/2009 (lmp unknown). Contraception: n/a test: negative VS: LMP 10/07/2009 UNIVERSAL PROTOCOL / SAFETY CHECKLIST Procedure to be Performed: ENdosee Sign In: A Moment of CARE was completed. Personnel directly involved with the procedure wore the appropriate PPE (Personal Protective Equipment). Patient/Surrogate Stated/Verified: PATIENT VERIFIED(optional for EMERGENT procedures): Patient name, Date of , Relevant allergies and The intended procedure Time Out Communication: Intended patient and procedure match the source documents. Consent documented and matches the intended procedure. No implant(s) inserted. Sign Out: SIGN OUT (optional for EMERGENT procedures): All specimen containers correctly labeled. All instruments, equipment, possible retained foreign bodies accounted for. Post-procedure follow-up management communicated and Plan of Care Visit completed when applicable. Loyda Stein M.D. OBJECTIVE: Cervix cleaned with betadine. A single tooth tenaculum was used to grasp cervix. Cervix was dilated. Under sterile conditions, using 9 mL normal saline as distention, ENDOSEE hysteroscopy performed without incident. No endocervical lesions seen. Endometrial lining is atrophic. No intrauterine lesions. Tubal ostia visualized and normal. PROCEDURE SUMMARY: Patient tolerated procedure well. ASSESMENT: Postmenopausal bleeding with no lesions on hysteroscopy. PLAN: call if further bleeding, EMB and endosee are negative Loyda Stein MD documented in this encounter [facility] 01-26-2022 Miscellaneous Notes Patient has been identified by name and date of : Yes Patient phones for refill(s): Pending Prescriptions Disp Refills LEVOTHYROXINE 100 MCG TABLET 90 tablet 0 Sig: TAKE 1 TABLET DAILY EXCEPT ON MONDAY TAKE 1 AND 1/2 TABLETS AMELIA: No Date of last office visit in primary care: 11/08/21 Last 2 Encounter Wt Readings: Date: Wt: 01/18/2022 108.9 kg (240 lb) 11/08/2021 108.9 kg (240 lb) Previous labs/tests for medication: Thyroid: TSH Date Value 11/02/2021 0.589 mIU/L 03/09/2021 0.422 uU/mL Please advise. Thank you. Mckenna Corey LPN documented in this encounter [facility] 01-24-2022 Miscellaneous Notes Patient notified. Appointment given. Kelin Mckeon RN Please let the patient know that her ultrasound is normal the lining of her uterus is thin but that EMB showed a benign polyp. Recommendation is to have a in office Endosee done for further evaluation of the polyp. Annie Skelton APRN.MACK documented in this encounter [facility] 01-18-2022 Instructions Nicole Gaxiola MA - 01/18/2022 2:59 PM EDT YOUR RECOVERY After your biopsy you may have: Vaginal bleeding (less than a normal menstrual period) Mild cramping Do NOT put anything in the vagina for 1 week after your endometrial biopsy. This includes: tampons douches and refraining from having sexual intercourse If you have any discomfort, you may take an over the counter pain medication (motrin, advil, ibuprofen, tylenol, etc). If this does not relieve your discomfort, contact the office. It is okay to wear a sanitary pad until the discharge and spotting stops. RISKS Although problems seldom occur with endometrial biopsies, there can be some complications. You may feel faint during and shortly after the procedure as well as have some bleeding after the procedure. There is also a risk of infection after the procedure. These complications are rare and can be easily treated. You should contact you doctor is you have any of the following: Heavy bleeding (more than your normal period) Bleeding with clots Severe abdominal pain Fever (more than 100.4F) Foul smelling vaginal discharge RESULTS We will have the results of your biopsy in 1-2 weeks. If you do not hear the results of your biopsy after 2 weeks, please contact the office for the results. If you have any additional questions or concerns please do not hesitate to contact the office. documented in this encounter [facility] 01-18-2022 History of Presen t illness Narrative Jaleesa is a 61 year old Female who presents today for an endometrial biopsy for post menopausal bleeding. Pt states that this bleeding started within the last 6 month or so. The 1st episode she remember the toilet being filled with bright red blood, then no bleeding following that. Since then she has had a few other episodes of bleeding/spotting, only see it on the toilet paper. Most recently episode was 01/14/22 test: n/a UNIVERSAL PROTOCOL / SAFETY CHECKLIST Procedure to be Performed: Endometrial biopsy Sign In: A Moment of CARE was completed. Personnel directly involved with the procedure wore the appropriate PPE (Personal Protective Equipment). Patient/Surrogate Stated/Verified: PATIENT VERIFIED(optional for EMERGENT procedures): Patient name, Date of , Relevant allergies and The intended procedure Time Out Communication: Intended patient and procedure match the source documents. Consent documented and matches the intended procedure. Sign Out: SIGN OUT (optional for EMERGENT procedures): All specimen containers correctly labeled. All instruments, equipment, possible retained foreign bodies accounted for. Post-procedure follow-up management communicated and Plan of Care Visit completed when applicable. PROCEDURE: EXTERNAL GENITALIA: Normal in appearance without lesions VAGINA: Normal in appearance without lesions BIOPSY: Speculum placed into the vagina with excellent visualization of the cervix. Cervix cleaned with betadine. Anterior lip of cervix grasped with single toothed tenaculum. Uterus sounded to 7 cm. Pipelle inserted into the uterus without difficulty and endometrial biopsy obtained. Specimen labeled and sent to pathology. Hemostasis achieved. Procedure Summary: Patient tolerated procedure well. ASSESSMENT: post menopausal bleeding PLAN: Specimens labeled and sent to Pathology. Will notify patient of results in 1-2 weeks. Post-procedure instructions reviewed and written material given to the patient. Annie Skelton APRN.CNP documented in this encounter [facility] documented as of this encounter (statuses as of 01/18/2022) [facility] History of Past illness Narrative* Problem Noted Date Resolved Date Unspecified sleep apnea 04/01/2015 04/04/20 19 Solar Lentigines 05/11/2010 12/30/2014 Actinic Damage///Sun-Damaged Skin 05/11/2010 12/30/2014 Other seborrheic keratosis 05/11/201012/30 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 12/30/2014 Routine general medical exam ination at a health care facility 01/05/2010 12/30/2014 Routine gynecological examination 01/05/2010 12/30/2014 Overview: [facility] [place] Pain in limb 10/12/2009 07/19/2012 Congenital pes planus 10/12/2009 12/30/2014 Capsulitis 10/12/2009 12/30/2014 Irritated//Inflamed Seborrheic Keratosis 009 12/30/2014 Viral warts, unspecified 05/05/2009 015 Contact dermatitis and other eczema due to plants (except food) 05/05/2009 12/30/2014 Contact dermatitis and other eczema, due to unspecified cause 05/05/2009 12/30/2014 Skin Tag Papillomas 05/05/2009 12/30/2014 Diarrhea 10/08/2008 01/05/2010 Acute gastritis without mention of hemorrhage 01/05/2010 Unspecified Contraceptive Surveillance 6 07/19/2012 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 Tobacco use disorder 01/26/2018 documented as of this encounter (statuses as of 01/20/2022) [facility] History of Past illness Narrative* Problem Noted Date Resolved Date Unspecified sleep apnea 04/01/2015 04/04/20 19 Solar Lentigines 05/11/2010 12/30/2014 Actinic Damage///Sun-Damaged Skin 05/11/2010 12/30/2014 Other seborrheic keratosis 05/11/201012/30 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 12/30/2014 Routine general medical exam ination at a health care facility 01/05/2010 12/30/2014 Routine gynecological examination 01/05/2010 12/30/2014 Overview: [facility], [facility] [place] Pain in limb 10/12/2009 07/19/2012 Congenital pes planus 10/12/2009 12/30/2014 Capsulitis 10/12/2009 12/30/2014 Irritated//Inflamed Seborrheic Keratosis 009 12/30/2014 Viral warts, unspecified 05/05/2009 015 Contact dermatitis and other eczema due to plants (except food) 05/05/2009 12/30/2014 Contact dermatitis and other eczema, due to unspecified cause 05/05/2009 12/30/2014 Skin Tag Papillomas 05/05/2009 12/30/2014 Diarrhea 10/08/2008 01/05/2010 Acute gastritis without mention of hemorrhage 01/05/2010 Unspecified Contraceptive Surveillance 6 07/19/2012 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 Tobacco use disorder 01/26/2018 documented as of this encounter (statuses as of 01/24/2022) [facility] History of Past illness Narrative* Problem Noted Date Resolved Date Unspecified sleep apnea 04/01/2015 04/04/20 19 Solar Lentigines 05/11/2010 12/30/2014 Actinic Damage///Sun-Damaged Skin 05/11/2010 12/30/2014 Other seborrheic keratosis 05/11/201012/30 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 12/30/2014 Routine general medical exam ination at a health care facility 01/05/2010 12/30/2014 Routine gynecological examination 01/05/2010 12/30/2014 Overview: [facility], [facility] [place] Pain in limb 10/12/2009 07/19/2012 Congenital pes planus 10/12/2009 12/30/2014 Capsulitis 10/12/2009 12/30/2014 Irritated//Inflamed Seborrheic Keratosis 009 12/30/2014 Viral warts, unspecified 05/05/2009 015 Contact dermatitis and other eczema due to plants (except food) 05/05/2009 12/30/2014 Contact dermatitis and other eczema, due to unspecified cause 05/05/2009 12/30/2014 Skin Tag Papillomas 05/05/2009 12/30/2014 Diarrhea 10/08/2008 01/05/2010 Acute gastritis without mention of hemorrhage 01/05/2010 Unspecified Contraceptive Surveillance 6 07/19/2012 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 Tobacco use disorder 01/26/2018 documented as of this encounter (statuses as of 01/26/2022) [facility] History of Past illness Narrative* Problem Noted Date Resolved Date Unspecified sleep apnea 04/01/2015 04/04/20 19 Solar Lentigines 05/11/2010 12/30/2014 Actinic Damage///Sun-Damaged Skin 05/11/2010 12/30/2014 Other seborrheic keratosis 05/11/201012/30 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 12/30/2014 Routine general medical exam ination at a health care facility 01/05/2010 12/30/2014 Routine gynecological examination 01/05/2010 12/30/2014 Overview: [facility] [place] Pain in limb 10/12/2009 07/19/2012 Congenital pes planus 10/12/2009 12/30/2014 Capsulitis 10/12/2009 12/30/2014 Irritated//Inflamed Seborrheic Keratosis 009 12/30/2014 Viral warts, unspecified 05/05/2009 015 Contact dermatitis and other eczema due to plants (except food) 05/05/2009 12/30/2014 Contact dermatitis and other eczema, due to unspecified cause 05/05/2009 12/30/2014 Skin Tag Papillomas 05/05/2009 12/30/2014 Diarrhea 10/08/2008 01/05/2010 Acute gastritis without mention of hemorrhage 01/05/2010 Unspecified Contraceptive Surveillance 6 07/19/2012 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 Tobacco use disorder 01/26/2018 documented as of this encounter (statuses as of 02/07/2022) [facility] History of Past illness Narrative* Problem Noted Date Resolved Date Unspecified sleep apnea 04/01/2015 04/04/20 19 Solar Lentigines 05/11/2010 12/30/2014 Actinic Damage///Sun-Damaged Skin 05/11/2010 12/30/2014 Other seborrheic keratosis 05/11/201012/30 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 12/30/2014 Routine general medical exam ination at a health care facility 01/05/2010 12/30/2014 Routine gynecological examination 01/05/2010 12/30/2014 Overview: [facility], [facility] [place] Pain in limb 10/12/2009 07/19/2012 Congenital pes planus 10/12/2009 12/30/2014 Capsulitis 10/12/2009 12/30/2014 Irritated//Inflamed Seborrheic Keratosis 009 12/30/2014 Viral warts, unspecified 05/05/2009 015 Contact dermatitis and other eczema due to plants (except food) 05/05/2009 12/30/2014 Contact dermatitis and other eczema, due to unspecified cause 05/05/2009 12/30/2014 Skin Tag Papillomas 05/05/2009 12/30/2014 Diarrhea 10/08/2008 01/05/2010 Acute gastritis without mention of hemorrhage 01/05/2010 Unspecified Contraceptive Surveillance 6 07/19/2012 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 Tobacco use disorder 01/26/2018 documented as of this encounter (statuses as of 02/21/2022) [facility] History of Past illness Narrative* Problem Noted Date Resolved Date Unspecified sleep apnea 04/01/2015 08/01/20 19 Solar Lentigines 05/11/2010 12/30/2014 Actinic Damage///Sun-Damaged Skin 05/11/2010 12/30/2014 Other seborrheic keratosis 05/11/201012/30 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 12/30/2014 Routine general medical exam ination at a health care facility 01/05/2010 12/30/2014 Routine gynecological examination 01/05/2010 12/30/2014 Overview: [facility], [facility] [place] Pain in limb 10/12/2009 07/19/2012 Congenital pes planus 10/12/2009 12/30/2014 Capsulitis 10/12/2009 12/30/2014 Irritated//Inflamed Seborrheic Keratosis 009 12/30/2014 Viral warts, unspecified 05/05/2009 015 Contact dermatitis and other eczema due to plants (except food) 05/05/2009 12/30/2014 Contact dermatitis and other eczema, due to unspecified cause 05/05/2009 12/30/2014 Skin Tag Papillomas 05/05/2009 12/30/2014 Diarrhea 10/08/2008 01/05/2010 Acute gastritis without mention of hemorrhage 01/05/2010 Unspecified Contraceptive Surveillance 6 07/19/2012 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 Tobacco use disorder 01/26/2018 documented as of this encounter (statuses as of 02/23/2022) [facility]2015 History of Past illness Narrative* Problem Noted Date Resolved Date Unspecified sleep apnea 04/01/2015 04/04/20 19 Solar Lentigines 05/11/2010 12/30/2014 Actinic Damage///Sun-Damaged Skin 05/11/2010 12/30/2014 Other seborrheic keratosis 05/11/201012/30 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 12/30/2014 Routine general medical exam ination at a health care facility 01/05/2010 12/30/2014 Routine gynecological examination 01/05/2010 12/30/2014 Overview: [facility], [place] Pain in limb 10/12/2009 07/19/2012 Congenital pes planus 10/12/2009 12/30/2014 Capsulitis 10/12/2009 12/30/2014 Irritated//Inflamed Seborrheic Keratosis 009 12/30/2014 Viral warts, unspecified 05/05/2009 015 Contact dermatitis and other eczema due to plants (except food) 05/05/2009 12/30/2014 Contact dermatitis and other eczema, due to unspecified cause 05/05/2009 12/30/2014 Skin Tag Papillomas 05/05/2009 12/30/2014 Diarrhea 10/08/2008 01/05/2010 Acute gastritis without mention of hemorrhage 01/05/2010 Unspecified Contraceptive Surveillance 6 07/19/2012 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 Tobacco use disorder 01/26/2018 documented as of this encounter (statuses as of 04/28/2022) [facility] History of Past illness Narrative* Problem Noted Date Resolved Date Unspecified sleep apnea 04/01/2015 04/04/20 19 Solar Lentigines 05/11/2010 12/30/2014 Actinic Damage///Sun-Damaged Skin 05/11/2010 12/30/2014 Other seborrheic keratosis 05/11/201012/30 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 12/30/2014 Routine general medical exam ination at a health care facility 01/05/2010 12/30/2014 Routine gynecological examination 01/05/2010 12/30/2014 Overview: [facility] [place] Pain in limb 10/12/2009 07/19/2012 Congenital pes planus 10/12/2009 12/30/2014 Capsulitis 10/12/2009 12/30/2014 Irritated//Inflamed Seborrheic Keratosis 009 12/30/2014 Viral warts, unspecified 05/05/2009 015 Contact dermatitis and other eczema due to plants (except food) 05/05/2009 12/30/2014 Contact dermatitis and other eczema, due to unspecified cause 05/05/2009 12/30/2014 Skin Tag Papillomas 05/05/2009 12/30/2014 Diarrhea 10/08/2008 01/05/2010 Acute gastritis without mention of hemorrhage 01/05/2010 Unspecified Contraceptive Surveillance 6 07/19/2012 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 Tobacco use disorder 01/26/2018 documented as of this encounter (statuses as of 05/13/2022) [facility] History of Past illness Narrative* Problem Noted Date Resolved Date Unspecified sleep apnea 04/01/2015 04/04/20 19 Solar Lentigines 05/11/2010 12/30/2014 Actinic Damage///Sun-Damaged Skin 05/11/2010 12/30/2014 Other seborrheic keratosis 05/11/201012/30 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 12/30/2014 Routine general medical exam ination at a health care facility 01/05/2010 12/30/2014 Routine gynecological examination 01/05/2010 12/30/2014 Overview: [facility] [place] Pain in limb 10/12/2009 07/19/2012 Congenital pes planus 10/12/2009 12/30/2014 Capsulitis 10/12/2009 12/30/2014 Irritated//Inflamed Seborrheic Keratosis 009 12/30/2014 Viral warts, unspecified 05/05/2009 015 Contact dermatitis and other eczema due to plants (except food) 05/05/2009 12/30/2014 Contact dermatitis and other eczema, due to unspecified cause 05/05/2009 12/30/2014 Skin Tag Papillomas 05/05/2009 12/30/2014 Diarrhea 10/08/2008 01/05/2010 Acute gastritis without mention of hemorrhage 01/05/2010 Unspecified Contraceptive Surveillance 6 07/19/2012 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 Tobacco use disorder 01/26/2018 documented as of this encounter (statuses as of 05/24/2022) [facility] History of Past illness Narrative* Problem Noted Date Resolved Date Unspecified sleep apnea 04/01/2015 04/04/20 19 Solar Lentigines 05/11/2010 12/30/2014 Actinic Damage///Sun-Damaged Skin 05/11/2010 12/30/2014 Other seborrheic keratosis 05/11/201012/30 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 12/30/2014 Routine general medical exam ination at a health care facility 01/05/2010 12/30/2014 Routine gynecological examination 01/05/2010 12/30/2014 Overview: [facility], [facility] [place] Pain in limb 10/12/2009 07/19/2012 Congenital pes planus 10/12/2009 12/30/2014 Capsulitis 10/12/2009 12/30/2014 Irritated//Inflamed Seborrheic Keratosis 009 12/30/2014 Viral warts, unspecified 05/05/2009 015 Contact dermatitis and other eczema due to plants (except food) 05/05/2009 12/30/2014 Contact dermatitis and other eczema, due to unspecified cause 05/05/2009 12/30/2014 Skin Tag Papillomas 05/05/2009 12/30/2014 Diarrhea 10/08/2008 01/05/2010 Acute gastritis without mention of hemorrhage 01/05/2010 Unspecified Contraceptive Surveillance 6 07/19/2012 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 Tobacco use disorder 01/26/2018 documented as of this encounter (statuses as of 05/30/2022) [facility] History of Past illness Narrative* Problem Noted Date Resolved Date Unspecified sleep apnea 04/01/2015 04/04/20 19 Solar Lentigines 05/11/2010 12/30/2014 Actinic Damage///Sun-Damaged Skin 05/11/2010 12/30/2014 Other seborrheic keratosis 05/11/201012/30 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 12/30/2014 Routine general medical exam ination at a health care facility 01/05/2010 12/30/2014 Routine gynecological examination 01/05/2010 12/30/2014 Overview: [facility] [place] Pain in limb 10/12/2009 07/19/2012 Congenital pes planus 10/12/2009 12/30/2014 Capsulitis 10/12/2009 12/30/2014 Irritated//Inflamed Seborrheic Keratosis 009 12/30/2014 Viral warts, unspecified 05/05/2009 015 Contact dermatitis and other eczema due to plants (except food) 05/05/2009 12/30/2014 Contact dermatitis and other eczema, due to unspecified cause 05/05/2009 12/30/2014 Skin Tag Papillomas 05/05/2009 12/30/2014 Diarrhea 10/08/2008 01/05/2010 Acute gastritis without mention of hemorrhage 01/05/2010 Unspecified Contraceptive Surveillance 6 07/19/2012 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 Tobacco use disorder 01/26/2018 documented as of this encounter (statuses as of 06/03/2022) [facility] History of Past illness Narrative* Problem Noted Date Resolved Date Unspecified sleep apnea 04/01/2015 04/04/20 19 Solar Lentigines 05/11/2010 12/30/2014 Actinic Damage///Sun-Damaged Skin 05/11/2010 12/30/2014 Other seborrheic keratosis 05/11/201012/30 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 12/30/2014 Routine general medical exam ination at a health care facility 01/05/2010 12/30/2014 Routine gynecological examination 01/05/2010 12/30/2014 Overview: [facility], [facility] [place] Pain in limb 10/12/2009 07/19/2012 Congenital pes planus 10/12/2009 12/30/2014 Capsulitis 10/12/2009 12/30/2014 Irritated//Inflamed Seborrheic Keratosis 009 12/30/2014 Viral warts, unspecified 05/05/2009 015 Contact dermatitis and other eczema due to plants (except food) 05/05/2009 12/30/2014 Contact dermatitis and other eczema, due to unspecified cause 05/05/2009 12/30/2014 Skin Tag Papillomas 05/05/2009 12/30/2014 Diarrhea 10/08/2008 01/05/2010 Acute gastritis without mention of hemorrhage 01/05/2010 Unspecified Contraceptive Surveillance 6 07/19/2012 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 Tobacco use disorder 01/26/2018 documented as of this encounter (statuses as of 07/18/2022) [facility] History of Past illness Narrative* Problem Noted Date Resolved Date Unspecified sleep apnea 04/01/2015 04/04/20 19 Solar Lentigines 05/11/2010 12/30/2014 Actinic Damage///Sun-Damaged Skin 05/11/2010 12/30/2014 Other seborrheic keratosis 05/11/201012/30 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 12/30/2014 Routine general medical exam ination at a health care facility 01/05/2010 12/30/2014 Routine gynecological examination 01/05/2010 12/30/2014 Overview: [facility] [place] Pain in limb 10/12/2009 07/19/2012 Congenital pes planus 10/12/2009 12/30/2014 Capsulitis 10/12/2009 12/30/2014 Irritated//Inflamed Seborrheic Keratosis 009 12/30/2014 Viral warts, unspecified 05/05/2009 015 Contact dermatitis and other eczema due to plants (except food) 05/05/2009 12/30/2014 Contact dermatitis and other eczema, due to unspecified cause 05/05/2009 12/30/2014 Skin Tag Papillomas 05/05/2009 12/30/2014 Diarrhea 10/08/2008 01/05/2010 Acute gastritis without mention of hemorrhage 01/05/2010 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 08/11/2022 Unspecified Contraceptive Surveillance 6 07/19/2012 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 GERD (gastroesophageal reflux disease) 08/11/2022 Tobacco use disorder 01/26/2018 documented as of this encounter (statuses as of 08/11/2022) [facility] History of Past illness Narrative* Problem Noted Date Resolved Date Unspecified sleep apnea 04/01/2015 04/04/20 19 Solar Lentigines 05/11/2010 12/30/2014 Actinic Damage///Sun-Damaged Skin 05/11/2010 12/30/2014 Other seborrheic keratosis 05/11/201012/30 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 12/30/2014 Routine general medical exam ination at a health care facility 01/05/2010 12/30/2014 Routine gynecological examination 01/05/2010 12/30/2014 Overview: [facility], [facility] [place] Pain in limb 10/12/2009 07/19/2012 Congenital pes planus 10/12/2009 12/30/2014 Capsulitis 10/12/2009 12/30/2014 Irritated//Inflamed Seborrheic Keratosis 009 12/30/2014 Viral warts, unspecified 05/05/2009 015 Contact dermatitis and other eczema due to plants (except food) 05/05/2009 12/30/2014 Contact dermatitis and other eczema, due to unspecified cause 05/05/2009 12/30/2014 Skin Tag Papillomas 05/05/2009 12/30/2014 Diarrhea 10/08/2008 01/05/2010 Acute gastritis without mention of hemorrhage 01/05/2010 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 08/11/2022 Unspecified Contraceptive Surveillance 6 07/19/2012 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 GERD (gastroesophageal reflux disease) 08/11/2022 Tobacco use disorder 01/26/2018 documented as of this encounter (statuses as of 08/22/2022) [facility] History of Past illness Narrative* Problem Noted Date Resolved Date Unspecified sleep apnea 04/01/2015 04/04/20 19 Solar Lentigines 05/11/2010 12/30/2014 Actinic Damage///Sun-Damaged Skin 05/11/2010 12/30/2014 Other seborrheic keratosis 05/11/201012/30 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 12/30/2014 Routine general medical exam ination at a health care facility 01/05/2010 12/30/2014 Routine gynecological examination 01/05/2010 12/30/2014 Overview: [facility], [facility] [place] Pain in limb 10/12/2009 07/19/2012 Congenital pes planus 10/12/2009 12/30/2014 Capsulitis 10/12/2009 12/30/2014 Irritated//Inflamed Seborrheic Keratosis 009 12/30/2014 Viral warts, unspecified 05/05/2009 015 Contact dermatitis and other eczema due to plants (except food) 05/05/2009 12/30/2014 Contact dermatitis and other eczema, due to unspecified cause 05/05/2009 12/30/2014 Skin Tag Papillomas 05/05/2009 12/30/2014 Diarrhea 10/08/2008 01/05/2010 Acute gastritis without mention of hemorrhage 01/05/2010 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 08/11/2022 Unspecified Contraceptive Surveillance 6 07/19/2012 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 GERD (gastroesophageal reflux disease) 08/11/2022 Tobacco use disorder 01/26/2018 documented as of this encounter (statuses as of 08/27/2022) [facility] History of Past illness Narrative* Problem Noted Date Resolved Date Unspecified sleep apnea 04/01/2015 04/04/20 19 Solar Lentigines 05/11/2010 12/30/2014 Actinic Damage///Sun-Damaged Skin 05/11/2010 12/30/2014 Other seborrheic keratosis 05/11/201012/30 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 12/30/2014 Routine general medical exam ination at a health care facility 01/05/2010 12/30/2014 Routine gynecological examination 01/05/2010 12/30/2014 Overview: [facility], [facility] [place] Pain in limb 10/12/2009 07/19/2012 Congenital pes planus 10/12/2009 12/30/2014 Capsulitis 10/12/2009 12/30/2014 Irritated//Inflamed Seborrheic Keratosis 009 12/30/2014 Viral warts, unspecified 05/05/2009 015 Contact dermatitis and other eczema due to plants (except food) 05/05/2009 12/30/2014 Contact dermatitis and other eczema, due to unspecified cause 05/05/2009 12/30/2014 Skin Tag Papillomas 05/05/2009 12/30/2014 Diarrhea 10/08/2008 01/05/2010 Acute gastritis without mention of hemorrhage 01/05/2010 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 08/11/2022 Unspecified Contraceptive Surveillance 6 07/19/2012 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 GERD (gastroesophageal reflux disease) 08/11/2022 Tobacco use disorder 01/26/2018 documented as of this encounter (statuses as of 09/08/2022) [facility] History of Past illness Narrative* Problem Noted Date Resolved Date Unspecified sleep apnea 04/01/2015 04/04/20 19 Solar Lentigines 05/11/2010 12/30/2014 Actinic Damage///Sun-Damaged Skin 05/11/2010 12/30/2014 Other seborrheic keratosis 05/11/201012/30 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 12/30/2014 Routine general medical exam ination at a health care facility 01/05/2010 12/30/2014 Routine gynecological examination 01/05/2010 12/30/2014 Overview: [facility] [place] Pain in limb 10/12/2009 07/19/2012 Congenital pes planus 10/12/2009 12/30/2014 Capsulitis 10/12/2009 12/30/2014 Irritated//Inflamed Seborrheic Keratosis 009 12/30/2014 Viral warts, unspecified 05/05/2009 015 Contact dermatitis and other eczema due to plants (except food) 05/05/2009 12/30/2014 Contact dermatitis and other eczema, due to unspecified cause 05/05/2009 12/30/2014 Skin Tag Papillomas 05/05/2009 12/30/2014 Diarrhea 10/08/2008 01/05/2010 Acute gastritis without mention of hemorrhage 01/05/2010 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 08/11/2022 Unspecified Contraceptive Surveillance 6 07/19/2012 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 GERD (gastroesophageal reflux disease) 08/11/2022 Tobacco use disorder 01/26/2018 documented as of this encounter (statuses as of 10/27/2022) [facility] History of Past illness Narrative* Problem Noted Date Resolved Date Unspecified sleep apnea 04/01/2015 04/04/20 19 Solar Lentigines 05/11/2010 12/30/2014 Actinic Damage///Sun-Damaged Skin 05/11/2010 12/30/2014 Other seborrheic keratosis 05/11/201012/30 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 12/30/2014 Routine general medical exam ination at a health care facility 01/05/2010 12/30/2014 Routine gynecological examination 01/05/2010 12/30/2014 Overview: [facility] [place] Pain in limb 10/12/2009 07/19/2012 Congenital pes planus 10/12/2009 12/30/2014 Capsulitis 10/12/2009 12/30/2014 Irritated//Inflamed Seborrheic Keratosis 009 12/30/2014 Viral warts, unspecified 05/05/2009 015 Contact dermatitis and other eczema due to plants (except food) 05/05/2009 12/30/2014 Contact dermatitis and other eczema, due to unspecified cause 05/05/2009 12/30/2014 Skin Tag Papillomas 05/05/2009 12/30/2014 Diarrhea 10/08/2008 01/05/2010 Acute gastritis without mention of hemorrhage 01/05/2010 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 08/11/2022 Unspecified Contraceptive Surveillance 6 07/19/2012 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 GERD (gastroesophageal reflux disease) 08/11/2022 Tobacco use disorder 01/26/2018 documented as of this encounter (statuses as of 11/03/2022) [facility] History of Past illness Narrative* Problem Noted Date Resolved Date Unspecified sleep apnea 04/01/2015 04/04/20 19 Solar Lentigines 05/11/2010 12/30/2014 Actinic Damage///Sun-Damaged Skin 05/11/2010 12/30/2014 Other seborrheic keratosis 05/11/201012/30 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 12/30/2014 Routine general medical exam ination at a health care facility 01/05/2010 12/30/2014 Routine gynecological examination 01/05/2010 12/30/2014 Overview: [facility], [facility] [place] Pain in limb 10/12/2009 07/19/2012 Congenital pes planus 10/12/2009 12/30/2014 Capsulitis 10/12/2009 12/30/2014 Irritated//Inflamed Seborrheic Keratosis 009 12/30/2014 Viral warts, unspecified 05/05/2009 015 Contact dermatitis and other eczema due to plants (except food) 05/05/2009 12/30/2014 Contact dermatitis and other eczema, due to unspecified cause 05/05/2009 12/30/2014 Skin Tag Papillomas 05/05/2009 12/30/2014 Diarrhea 10/08/2008 01/05/2010 Acute gastritis without mention of hemorrhage 01/05/2010 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 08/11/2022 Unspecified Contraceptive Surveillance 6 07/19/2012 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 GERD (gastroesophageal reflux disease) 08/11/2022 Tobacco use disorder 01/26/2018 documented as of this encounter (statuses as of 11/23/2022) [facility] History of Past illness Narrative* Problem Noted Date Resolved Date Unspecified sleep apnea 04/01/2015 04/04/20 19 Solar Lentigines 05/11/2010 12/30/2014 Actinic Damage///Sun-Damaged Skin 05/11/2010 12/30/2014 Other seborrheic keratosis 05/11/201012/30 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 12/30/2014 Routine general medical exam ination at a health care facility 01/05/2010 12/30/2014 Routine gynecological examination 01/05/2010 12/30/2014 Overview: [facility], [facility] [place] Pain in limb 10/12/2009 07/19/2012 Congenital pes planus 10/12/2009 12/30/2014 Capsulitis 10/12/2009 12/30/2014 Irritated//Inflamed Seborrheic Keratosis 009 12/30/2014 Viral warts, unspecified 05/05/2009 015 Contact dermatitis and other eczema due to plants (except food) 05/05/2009 12/30/2014 Contact dermatitis and other eczema, due to unspecified cause 05/05/2009 12/30/2014 Skin Tag Papillomas 05/05/2009 12/30/2014 Diarrhea 10/08/2008 01/05/2010 Acute gastritis without mention of hemorrhage 01/05/2010 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 08/11/2022 Unspecified Contraceptive Surveillance 6 07/19/2012 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 GERD (gastroesophageal reflux disease) 08/11/2022 Tobacco use disorder 01/26/2018 documented as of this encounter (statuses as of 12/26/2022) [facility] History of Past illness Narrative* Problem Noted Date Resolved Date Unspecified sleep apnea 04/01/2015 04/04/20 19 Solar Lentigines 05/11/2010 12/30/2014 Actinic Damage///Sun-Damaged Skin 05/11/2010 12/30/2014 Other seborrheic keratosis 05/11/201012/30 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 12/30/2014 Routine general medical exam ination at a health care facility 01/05/2010 12/30/2014 Routine gynecological examination 01/05/2010 12/30/2014 Overview: [facility], [facility] [place] Pain in limb 10/12/2009 07/19/2012 Congenital pes planus 10/12/2009 12/30/2014 Capsulitis 10/12/2009 12/30/2014 Irritated//Inflamed Seborrheic Keratosis 009 12/30/2014 Viral warts, unspecified 05/05/2009 015 Contact dermatitis and other eczema due to plants (except food) 05/05/2009 12/30/2014 Contact dermatitis and other eczema, due to unspecified cause 05/05/2009 12/30/2014 Skin Tag Papillomas 05/05/2009 12/30/2014 Diarrhea 10/08/2008 01/05/2010 Acute gastritis without mention of hemorrhage 01/05/2010 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 08/11/2022 Unspecified Contraceptive Surveillance 6 07/19/2012 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 GERD (gastroesophageal reflux disease) 08/11/2022 Tobacco use disorder 01/26/2018 documented as of this encounter (statuses as of 12/28/2022) [facility] History of Past illness Narrative* Problem Noted Date Resolved Date Unspecified sleep apnea 04/01/2015 04/04/20 19 Solar Lentigines 05/11/2010 12/30/2014 Actinic Damage///Sun-Damaged Skin 05/11/2010 12/30/2014 Other seborrheic keratosis 05/11/201012/30 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 12/30/2014 Routine general medical exam ination at a health care facility 01/05/2010 12/30/2014 Routine gynecological examination 01/05/2010 12/30/2014 Overview: [facility], [facility] [place] Pain in limb 10/12/2009 07/19/2012 Congenital pes planus 10/12/2009 12/30/2014 Capsulitis 10/12/2009 12/30/2014 Irritated//Inflamed Seborrheic Keratosis 009 12/30/2014 Viral warts, unspecified 05/05/2009 015 Contact dermatitis and other eczema due to plants (except food) 05/05/2009 12/30/2014 Contact dermatitis and other eczema, due to unspecified cause 05/05/2009 12/30/2014 Skin Tag Papillomas 05/05/2009 12/30/2014 Diarrhea 10/08/2008 01/05/2010 Acute gastritis without mention of hemorrhage 01/05/2010 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 08/11/2022 Unspecified Contraceptive Surveillance 6 07/19/2012 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 GERD (gastroesophageal reflux disease) 08/11/2022 Tobacco use disorder 01/26/2018 documented as of this encounter (statuses as of 01/17/2023) [facility] History of Past illness Narrative* Problem Noted Date Resolved Date Unspecified sleep apnea 04/01/2015 04/04/20 19 Solar Lentigines 05/11/2010 12/30/2014 Actinic Damage///Sun-Damaged Skin 05/11/2010 12/30/2014 Other seborrheic keratosis 05/11/201012/30 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 12/30/2014 Routine general medical exam ination at a health care facility 01/05/2010 12/30/2014 Routine gynecological examination 01/05/2010 12/30/2014 Overview: [facility], [facility] [place] Pain in limb 10/12/2009 07/19/2012 Congenital pes planus 10/12/2009 12/30/2014 Capsulitis 10/12/2009 12/30/2014 Irritated//Inflamed Seborrheic Keratosis 009 12/30/2014 Viral warts, unspecified 05/05/2009 015 Contact dermatitis and other eczema due to plants (except food) 05/05/2009 12/30/2014 Contact dermatitis and other eczema, due to unspecified cause 05/05/2009 12/30/2014 Skin Tag Papillomas 05/05/2009 12/30/2014 Diarrhea 10/08/2008 01/05/2010 Acute gastritis without mention of hemorrhage 01/05/2010 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 08/11/2022 Unspecified Contraceptive Surveillance 6 07/19/2012 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 GERD (gastroesophageal reflux disease) 08/11/2022 Tobacco use disorder 01/26/2018 documented as of this encounter (statuses as of 02/09/2023) [facility]2015 History of Past illness Narrative* Problem Noted Date Resolved Date Unspecified sleep apnea 04/01/2015 04/04/20 19 Solar Lentigines 05/11/2010 12/30/2014 Actinic Damage///Sun-Damaged Skin 05/11/2010 12/30/2014 Other seborrheic keratosis 05/11/201012/30 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 12/30/2014 Routine general medical exam ination at a health care facility 01/05/2010 12/30/2014 Routine gynecological examination 01/05/2010 12/30/2014 Overview: [facility] [place] Pain in limb 10/12/2009 07/19/2012 Congenital pes planus 10/12/2009 12/30/2014 Capsulitis 10/12/2009 12/30/2014 Irritated//Inflamed Seborrheic Keratosis 009 12/30/2014 Viral warts, unspecified 05/05/2009 015 Contact dermatitis and other eczema due to plants (except food) 05/05/2009 12/30/2014 Contact dermatitis and other eczema, due to unspecified cause 05/05/2009 12/30/2014 Skin Tag Papillomas 05/05/2009 12/30/2014 Diarrhea 10/08/2008 01/05/2010 Acute gastritis without mention of hemorrhage 01/05/2010 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 08/11/2022 Unspecified Contraceptive Surveillance 6 07/19/2012 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 GERD (gastroesophageal reflux disease) 08/11/2022 Tobacco use disorder 01/26/2018 documented as of this encounter (statuses as of 02/27/2023) [facility] History of Past illness Narrative* Problem Noted Date Diagnosed Date Resolved Date Unspecified sleep apnea 04/01/201509/2018 Solar Lentigines 05/11/2010 12/30/2014 Actinic Damage///Sun-Damaged Skin 05/11/2010 12/30/2014 Other seborrheic keratosis 05/11/2010 0 12/30/2014 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 12/30/2014 Routine general medical exam ination at a health care facility 01/05/2010 12/30/2014 Routine gynecological examination 01/05/2010 12/30/2014 Overview: [facility], [facility] [place] Pain in limb 10/12/2009 07/19/2012 Congenital pes planus 10/12/20092014 Capsulitis 10/12/2009 12/30/2014 Irritated//Inflamed Seborrheic Keratosis 05/05/2009 12/30/2014 Viral warts, unspecified 05/05/2009 Contact dermatitis and other eczema due to plants (except food) 05/05/2009 12/30/2014 Contact dermatitis and other eczema, due to unspecified cause 05/05/2009 12/30/2014 Skin Tag Papillomas 05/05/2009 12/31/19 15 Diarrhea 10/08/2008 01/05/2010 Acute gastritis without mention of hemorrhage 10/08/19 09 01/05/2010 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 08/11/2022 Unspecified Contraceptive Surveillance 10/20/2005 07/19/2012 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 GERD (gastroesophageal reflux disease) 08/11/2022 Tobacco use disorder 018 documented as of this encounter (statuses as of 03/22/2023) [facility] History of Past illness Narrative* Problem Noted Date Diagnosed Date Resolved Date Unspecified sleep apnea 04/01/201509/2018 Solar Lentigines 05/11/2010 12/30/2014 Actinic Damage///Sun-Damaged Skin 05/11/2010 12/30/2014 Other seborrheic keratosis 05/11/2010 0 12/30/2014 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 12/30/2014 Routine general medical exam ination at a health care facility 01/05/2010 12/30/2014 Routine gynecological examination 01/05/2010 12/30/2014 Overview: [facility], [facility] [place] Pain in limb 10/12/2009 07/19/2012 Congenital pes planus 10/12/20092014 Capsulitis 10/12/2009 12/30/2014 Irritated//Inflamed Seborrheic Keratosis 05/05/2009 12/30/2014 Viral warts, unspecified 05/05/2009 Contact dermatitis and other eczema due to plants (except food) 05/05/2009 12/30/2014 Contact dermatitis and other eczema, due to unspecified cause 05/05/2009 12/30/2014 Skin Tag Papillomas 05/05/2009 12/31/19 15 Diarrhea 10/08/2008 01/05/2010 Acute gastritis without mention of hemorrhage 10/08/19 09 01/05/2010 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 08/11/2022 Unspecified Contraceptive Surveillance 10/20/2005 07/19/2012 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 GERD (gastroesophageal reflux disease) 08/11/2022 Tobacco use disorder 018 documented as of this encounter (statuses as of 04/04/2023) [facility] History of Past illness Narrative* Problem Noted Date Diagnosed Date Resolved Date Unspecified sleep apnea 04/01/2015 08/0 09/2018 Solar Lentigines 05/11/2010 12/30/2014 Actinic Damage///Sun-Damaged Skin 05/11/2010 12/30/2014 Other seborrheic keratosis 05/11/2010 0 12/30/2014 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 12/30/2014 Routine general medical exam ination at a health care facility 01/05/2010 12/30/2014 Routine gynecological examination 01/05/2010 12/30/2014 Overview: [facility], [facility] [place] Pain in limb 10/12/2009 07/19/2012 Congenital pes planus 10/12/20092014 Capsulitis 10/12/2009 12/30/2014 Irritated//Inflamed Seborrheic Keratosis 05/05/2009 12/30/2014 Viral warts, unspecified 05/05/2009 Contact dermatitis and other eczema due to plants (except food) 05/05/2009 12/30/2014 Contact dermatitis and other eczema, due to unspecified cause 05/05/2009 12/30/2014 Skin Tag Papillomas 05/05/2009 12/31/19 15 Diarrhea 10/08/2008 01/05/2010 Acute gastritis without mention of hemorrhage 10/08/19 09 01/05/2010 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 08/11/2022 Unspecified Contraceptive Surveillance 10/20/2005 07/19/2012 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 GERD (gastroesophageal reflux disease) 08/11/2022 Tobacco use disorder 018 documented as of this encounter (statuses as of 04/24/2023) [facility] History of Past illness Narrative* Problem Noted Date Diagnosed Date Resolved Date Unspecified sleep apnea 04/01/2015 08/0 09/2018 Solar Lentigines 05/11/2010 12/30/2014 Actinic Damage///Sun-Damaged Skin 05/11/2010 12/30/2014 Other seborrheic keratosis 05/11/2010 0 12/30/2014 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 12/30/2014 Routine general medical exam ination at a health care facility 01/05/2010 12/30/2014 Routine gynecological examination 01/05/2010 12/30/2014 [facility]: [facility] [place] Pain in limb 10/12/2009 07/19/2012 Congenital pes planus 10/12/20092014 Capsulitis 10/12/2009 12/30/2014 Irritated//Inflamed Seborrheic Keratosis 05/05/2009 12/30/2014 Viral warts, unspecified 05/05/2009 Contact dermatitis and other eczema due to plants (except food) 05/05/2009 12/30/2014 Contact dermatitis and other eczema, due to unspecified cause 05/05/2009 12/30/2014 Skin Tag Papillomas 05/05/2009 12/31/19 15 Diarrhea 10/08/2008 01/05/2010 Acute gastritis without mention of hemorrhage 10/08/19 09 01/05/2010 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 08/11/2022 Unspecified Contraceptive Surveillance 10/20/2005 07/19/2012 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 GERD (gastroesophageal reflux disease) 08/11/2022 Tobacco use disorder 018 documented as of this encounter (statuses as of 05/24/2023) [facility] History of Past illness Narrative* Problem Noted Date Diagnosed Date Resolved Date Unspecified sleep apnea 04/01/201509/2018 Solar Lentigines 05/11/2010 12/30/2014 Actinic Damage///Sun-Damaged Skin 05/11/2010 12/30/2014 Other seborrheic keratosis 05/11/2010 0 12/30/2014 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 12/30/2014 Routine general medical exam ination at a health care facility 01/05/2010 12/30/2014 Routine gynecological examination 01/05/2010 12/30/2014 Overview: [facility], [facility] [place] Pain in limb 10/12/2009 07/19/2012 Congenital pes planus 10/12/20092014 Capsulitis 10/12/2009 12/30/2014 Irritated//Inflamed Seborrheic Keratosis 05/05/2009 12/30/2014 Viral warts, unspecified 05/05/2009 Contact dermatitis and other eczema due to plants (except food) 05/05/2009 12/30/2014 Contact dermatitis and other eczema, due to unspecified cause 05/05/2009 12/30/2014 Skin Tag Papillomas 05/05/2009 12/31/19 15 Diarrhea 10/08/2008 01/05/2010 Acute gastritis without mention of hemorrhage 10/08/19 09 01/05/2010 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 08/11/2022 Unspecified Contraceptive Surveillance 10/20/2005 07/19/2012 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 GERD (gastroesophageal reflux disease) 08/11/2022 Tobacco use disorder 018 documented as of this encounter (statuses as of 06/13/2023) [facility] History of Past illness Narrative* Problem Noted Date Diagnosed Date Resolved Date Unspecified sleep apnea 04/01/201509/2018 Solar Lentigines 05/11/2010 12/30/2014 Actinic Damage///Sun-Damaged Skin 05/11/2010 12/30/2014 Other seborrheic keratosis 05/11/2010 0 12/30/2014 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 12/30/2014 Routine general medical exam ination at a health care facility 01/05/2010 12/30/2014 Routine gynecological examination 01/05/2010 12/30/2014 Overview: [facility], [facility] [place] Pain in limb 10/12/2009 07/19/2012 Congenital pes planus 10/12/20092014 Capsulitis 10/12/2009 12/30/2014 Irritated//Inflamed Seborrheic Keratosis 05/05/2009 12/30/2014 Viral warts, unspecified 05/05/2009 Contact dermatitis and other eczema due to plants (except food) 05/05/2009 12/30/2014 Contact dermatitis and other eczema, due to unspecified cause 05/05/2009 12/30/2014 Skin Tag Papillomas 05/05/2009 12/31/19 15 Diarrhea 10/08/2008 01/05/2010 Acute gastritis without mention of hemorrhage 10/08/19 09 01/05/2010 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 08/11/2022 Unspecified Contraceptive Surveillance 10/20/2005 07/19/2012 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 GERD (gastroesophageal reflux disease) 08/11/2022 Tobacco use disorder 018 documented as of this encounter (statuses as of 07/08/2023) [facility] History of Past illness Narrative* Problem Noted Date Diagnosed Date Resolved Date Unspecified sleep apnea 04/01/201509/2018 Solar Lentigines 05/11/2010 12/30/2014 Actinic Damage///Sun-Damaged Skin 05/11/2010 12/30/2014 Other seborrheic keratosis 05/11/2010 0 12/30/2014 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 12/30/2014 Routine general medical exam ination at a health care facility 01/05/2010 12/30/2014 Routine gynecological examination 01/05/2010 12/30/2014 Overview: [facility], [facility] [place] Pain in limb 10/12/2009 07/19/2012 Congenital pes planus 10/12/20092014 Capsulitis 10/12/2009 12/30/2014 Irritated//Inflamed Seborrheic Keratosis 05/05/2009 12/30/2014 Viral warts, unspecified 05/05/2009 Contact dermatitis and other eczema due to plants (except food) 05/05/2009 12/30/2014 Contact dermatitis and other eczema, due to unspecified cause 05/05/2009 12/30/2014 Skin Tag Papillomas 05/05/2009 12/31/19 15 Diarrhea 10/08/2008 01/05/2010 Acute gastritis without mention of hemorrhage 10/08/19 09 01/05/2010 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 08/11/2022 Unspecified Contraceptive Surveillance 10/20/2005 07/19/2012 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 GERD (gastroesophageal reflux disease) 08/11/2022 Tobacco use disorder 018 documented as of this encounter (statuses as of 07/09/2023) [facility] History of Past illness Narrative* Problem Noted Date Diagnosed Date Resolved Date Unspecified sleep apnea 04/01/2015 0809/2018 Solar Lentigines 05/11/2010 12/30/2014 Actinic Damage///Sun-Damaged Skin 05/11/2010 12/30/2014 Other seborrheic keratosis 05/11/2010 0 12/30/2014 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 12/30/2014 Routine general medical exam ination at a health care facility 01/05/2010 12/30/2014 Routine gynecological examination 01/05/2010 12/30/2014 Overview: [facility] [place] Pain in limb 10/12/2009 07/19/2012 Congenital pes planus 10/12/20092014 Capsulitis 10/12/2009 12/30/2014 Irritated//Inflamed Seborrheic Keratosis 05/05/2009 12/30/2014 Viral warts, unspecified 05/05/2009 Contact dermatitis and other eczema due to plants (except food) 05/05/2009 12/30/2014 Contact dermatitis and other eczema, due to unspecified cause 05/05/2009 12/30/2014 Skin Tag Papillomas 05/05/2009 12/31/19 15 Diarrhea 10/08/2008 01/05/2010 Acute gastritis without mention of hemorrhage 10/08/19 09 01/05/2010 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 08/11/2022 Unspecified Contraceptive Surveillance 10/20/2005 07/19/2012 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 GERD (gastroesophageal reflux disease) 08/11/2022 Tobacco use disorder 018 documented as of this encounter (statuses as of 07/17/2023) [facility] History of Past illness Narrative* Problem Noted Date Diagnosed Date Resolved Date Unspecified sleep apnea 04/01/201509/2018 Solar Lentigines 05/11/2010 12/30/2014 Actinic Damage///Sun-Damaged Skin 05/11/2010 12/30/2014 Other seborrheic keratosis 05/11/2010 0 12/30/2014 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 12/30/2014 Routine general medical exam ination at a health care facility 01/05/2010 12/30/2014 Routine gynecological examination 01/05/2010 12/30/2014 Overview: [facility], [facility] [place] Pain in limb 10/12/2009 07/19/2012 Congenital pes planus 10/12/20092014 Capsulitis 10/12/2009 12/30/2014 Irritated//Inflamed Seborrheic Keratosis 05/05/2009 12/30/2014 Viral warts, unspecified 05/05/2009 Contact dermatitis and other eczema due to plants (except food) 05/05/2009 12/30/2014 Contact dermatitis and other eczema, due to unspecified cause 05/05/2009 12/30/2014 Skin Tag Papillomas 05/05/2009 12/31/19 15 Diarrhea 10/08/2008 01/05/2010 Acute gastritis without mention of hemorrhage 10/08/19 09 01/05/2010 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 08/11/2022 Unspecified Contraceptive Surveillance 10/20/2005 07/19/2012 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 GERD (gastroesophageal reflux disease) 08/11/2022 Tobacco use disorder 018 documented as of this encounter (statuses as of 07/21/2023) [facility] History of Past illness Narrative* Problem Noted Date Diagnosed Date Resolved Date Unspecified sleep apnea 04/01/2015 0809/2018 Solar Lentigines 05/11/2010 12/30/2014 Actinic Damage///Sun-Damaged Skin 05/11/2010 12/30/2014 Other seborrheic keratosis 05/11/2010 0 12/30/2014 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 12/30/2014 Routine general medical exam ination at a health care facility 01/05/2010 12/30/2014 Routine gynecological examination 01/05/2010 12/30/2014 [facility]: [facility] [place] Pain in limb 10/12/2009 07/19/2012 Congenital pes planus 10/12/20092014 Capsulitis 10/12/2009 12/30/2014 Irritated//Inflamed Seborrheic Keratosis 05/05/2009 12/30/2014 Viral warts, unspecified 05/05/2009 Contact dermatitis and other eczema due to plants (except food) 05/05/2009 12/30/2014 Contact dermatitis and other eczema, due to unspecified cause 05/05/2009 12/30/2014 Skin Tag Papillomas 05/05/2009 12/31/19 15 Diarrhea 10/08/2008 01/05/2010 Acute gastritis without mention of hemorrhage 10/08/19 09 01/05/2010 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 08/11/2022 Unspecified Contraceptive Surveillance 10/20/2005 07/19/2012 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 GERD (gastroesophageal reflux disease) 08/11/2022 Tobacco use disorder 018 documented as of this encounter (statuses as of 08/04/2023) [facility] History of Past illness Narrative* Problem Noted Date Diagnosed Date Resolved Date Unspecified sleep apnea 04/01/201509/2018 Solar Lentigines 05/11/2010 12/30/2014 Actinic Damage///Sun-Damaged Skin 05/11/2010 12/30/2014 Other seborrheic keratosis 05/11/2010 0 12/30/2014 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 12/30/2014 Routine general medical exam ination at a health care facility 01/05/2010 12/30/2014 Routine gynecological examination 01/05/2010 12/30/2014 Overview: [facility], [facility] [place] Pain in limb 10/12/2009 07/19/2012 Congenital pes planus 10/12/20092014 Capsulitis 10/12/2009 12/30/2014 Irritated//Inflamed Seborrheic Keratosis 05/05/2009 12/30/2014 Viral warts, unspecified 05/05/2009 Contact dermatitis and other eczema due to plants (except food) 05/05/2009 12/30/2014 Contact dermatitis and other eczema, due to unspecified cause 05/05/2009 12/30/2014 Skin Tag Papillomas 05/05/2009 12/31/19 15 Diarrhea 10/08/2008 01/05/2010 Acute gastritis without mention of hemorrhage 10/08/19 09 01/05/2010 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 08/11/2022 Unspecified Contraceptive Surveillance 10/20/2005 07/19/2012 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 GERD (gastroesophageal reflux disease) 08/11/2022 Tobacco use disorder 018 documented as of this encounter (statuses as of 08/09/2023) [facility] History of Past illness Narrative* Problem Noted Date Diagnosed Date Resolved Date Unspecified sleep apnea 04/01/2015 08/0 09/2018 Solar Lentigines 05/11/2010 12/30/2014 Actinic Damage///Sun-Damaged Skin 05/11/2010 12/30/2014 Other seborrheic keratosis 05/11/2010 0 12/30/2014 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 12/30/2014 Routine general medical exam ination at a health care facility 01/05/2010 12/30/2014 Routine gynecological examination 01/05/2010 12/30/2014 Overview: [facility], [facility] [place] Pain in limb 10/12/2009 07/19/2012 Congenital pes planus 10/12/20092014 Capsulitis 10/12/2009 12/30/2014 Irritated//Inflamed Seborrheic Keratosis 05/05/2009 12/30/2014 Viral warts, unspecified 05/05/2009 Contact dermatitis and other eczema due to plants (except food) 05/05/2009 12/30/2014 Contact dermatitis and other eczema, due to unspecified cause 05/05/2009 12/30/2014 Skin Tag Papillomas 05/05/2009 12/31/19 15 Diarrhea 10/08/2008 01/05/2010 Acute gastritis without mention of hemorrhage 10/08/19 09 01/05/2010 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 08/11/2022 Unspecified Contraceptive Surveillance 10/20/2005 07/19/2012 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 GERD (gastroesophageal reflux disease) 08/11/2022 Tobacco use disorder 018 documented as of this encounter (statuses as of 10/09/2023) [facility] Diagnosis PMB (postmenopausal bleeding)- Primary Postmenopausal bleeding Abnormal uterine bleeding (AUB) [facility]* Diagnosis PMB (postmenopausal bleeding)- Primary Postmenopausal bleeding [facility]* Diagnosis Hypothyroidism, acquired Unspecified hypothyroidism [facility]* Diagnosis PMB (postmenopausal bleeding)- Primary Postmenopausal bleeding [facility]* Diagnosis Hyperglycemia Other abnormal glucose [facility]* Diagnosis Hypothyroidism, acquired Unspecified hypothyroidism Paresthesia Disturbance of skin sensation [facility] Diagnosis Encounter for screening mammogram for breast cancer [facility] Diagnosis Encounter for screening mammogram for breast cancer [facility] Diagnosis Hypothyroidism, acquired Unspecified hypothyroidism documented [facility]* Diagnosis Type 2 diabetes mellitus with diabetic polyneuropathy, without long-term current use of insulin (HCC)- Primary Encounter for immunization Need for other specified prophylactic vaccination against single bacterial disease Ischemic stroke of frontal lobe ([facility]) Coronary artery disease involving [place] coronary artery of [place] heart without angina pectoris Hyperlipidemia, unspecified hyperlipidemia type NELLY (obstructive sleep apnea) AHI 26.6 Obstructive sleep apnea (adult) (pediatric) Chronic cough Cough Irritable bowel syndrome without diarrhea Irritable bowel syndrome Gastroesophageal reflux disease without esophagitis Esophageal reflux Secondary hyperparathyroidism, non-renal (HCC) Secondary hyperparathyroidism, non-renal Hypothyroidism, acquired Unspecified hypothyroidism Hyperglycemia Other abnormal glucose Vitamin D deficiency Unspecified vitamin D deficiency Microalbuminuria Proteinuria 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 Neuropathy Mononeuritis of unspecified site Paresthesia Disturbance of skin sensation Primary hypertension Unspecified essential hypertension [facility] Diagnosis 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 [facility] Diagnosis Hypothyroidism, acquired Unspecified hypothyroidism [facility]* Diagnosis Neuropathy Mononeuritis of unspecified site Paresthesia Disturbance of skin sensation [facility]* Diagnosis Hyperglycemia Other abnormal glucose [facility] Diagnosis Sore throat- Primary Acute pharyngitis URI, acute Acute upper respiratory infections of unspecified site [facility] [facility] Diagnosis Neuropathy Mononeuritis of unspecified site Paresthesia Disturbance of skin sensation documented [facility] Diagnosis Encounter for screening for lung cancer- Primary History of tobacco abuse Personal history of tobacco use, presenting hazards to health [facility] Diagnosis Encounter for screening for lung cancer- Primary Tobacco use current Former tobacco use Personal history of tobacco use, presenting hazards to health documented in this encounter [facility]* Diagnosis Hyperglycemia Other abnormal glucose documented in this encounter [facility] note* Diagnosis Neuropathy Mononeuritis of unspecified site Paresthesia Disturbance of skin sensation Hypothyroidism, acquired Unspecified hypothyroidism documented in this encounter [facility] note* Diagnosis NELLY (obstructive sleep apnea)- Primary Obstructive sleep apnea (adult) (pediatric) Class 2 obesity with body mass index (BMI) of 39.0 to 39.9 in adult, unspecified obesity type, unspecified whether serious comorbidity present History of myocardial infarction Old myocardial infarction History of hypertension Personal history of other diseases of circulatory system History of diabetes mellitus Personal history of other endocrine, metabolic, and immunity disorders documented in this encounter [facility] note* Diagnosis History of tobacco abuse Personal history of tobacco use, presenting hazards to health Encounter for screening for lung cancer documented in this encounter [facility] note* Diagnosis Encounter for screening mammogram for breast cancer documented in this encounter [facility] note* Diagnosis Obstructive sleep apnea (adult) (pediatric)- Primary documented in this encounter [facility] for referral (narrative)* Diagnostic Procedure Only (Routine) - Authorized Specialty Diagnoses / Procedures Referred By Bernardo t Referred To Contact [facility] Diagnoses PMB (postmenopausal bleeding) Procedures PELVIC US WHI US PELVIC NONOBSTETRIC REAL-TIME IMAGE COMPLETE Annie Skelton APRN.CNP [address] [place] [address] [address] Referral ID Status Reason Start Date Expiration Date Visits Requested Visits Authorized [id number] Authorized Auto-Generat ed Referral 01/18/2022 01/18/2023 1 1 * Outpatient Procedure (Routine) - Pending Review Specialty Diagnoses / Procedures Referred By Bernardo t Referred To Contact [facility] Diagnoses Abnormal uterine bleeding (AUB) Procedures ENDOMETRIAL BIOPSY ENDOMETRIAL BX W/WO ENDOCERVIX BX W/O DILAT SPX Annie Skelton APRN.CNP [address] [place] [address] [id number] [place] [address] Referral ID Status Reason Start Date Expiration Date Visits Requested Visits Authorized [id number] Pending Review Auto-Generat ed Referral 01/18/2022 01/18/2023 1 1 [facility] for referral (narrative)* Diagnostic Procedure Only (Routine) - Pending Review Specialty Diagnoses / Procedures Referred By Contac t Referred To Contact [facility] Diagnoses Encounter for screening mammogram for breast cancer Procedures CÉSAR SCREENING SCREENING MAMMOGRAPHY BI 2-VIEW BREAST INC Reese Hardy MD [address] [place] [address] [facility] [address] [place] [address] Referral ID Status Reason Start Date Expiration Date Visits Requested Visits Authorized [id number] Pending Review Auto-Generat ed Referral 05/25/2022 06/24/2023 1 1 T [facility] for referral (narrative)* Diagnostic Procedure Only (Routine) - Closed Specialty Diagnoses / Procedures Referred By Bernardo clements Referred To Contact [facility] Diagnoses Encounter for screening mammogram for breast cancer Procedures CÉSAR SCREENING SCREENING MAMMOGRAPHY BI 2-[place] [address] [place] [address] [facility] [address] [place] [address] Referral ID Status Reason Start Date Expiration Date V isits Requested Visits Authorized [id number] Closed Auto-Generate d Referral 05/25/2022 06/24/2023 1 1 [facility] for referral (narrative)* Diagnostic Procedure Only (Routine) - Authorized Specialty Diagnoses / Procedures Referred By Bernardo t Referred To Contact [facility] Diagnoses Encounter for screening mammogram for breast cancer Procedures CÉSAR SCREENING SCREENING MAMMOGRAPHY BI 2-VIEW BREAST INC Reese Hardy MD [address] [place] [address] [facility] [address] [place] [address] Referral ID Status Reason Start Date Expiration Date Visits Requested Visits Authorized [id number] Authorized Auto-Generat ed Referral 07/12/2023 08/10/2024 1 1 [facility] for visit Narrative* Diagnostic Procedure Only (Routine) - Closed Specialty Diagnoses / Procedures Referred By Contac t Referred To Contact [facility] Diagnoses Encounter for screening mammogram for breast cancer Procedures CÉSAR SCREENING SCREENING MAMMOGRAPHY BI 2-VIEW BREAST INC CAD Reese Elizalde MD [address] [place] [address] [facility] [address] [place] [address] Referral ID Status Reason Start Date Expiration Date V isits Requested Visits Authorized [id number] Closed Auto-Generate d Referral 05/25/2022 06/24/2023 1 1 [facility] Summary Purpose Family History No Family History Records FoundNo Family History Records FoundNo Family History Records Found Advance Directives Documents on File 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 Advance Directive(s) 05/04/2020 9:59 AM Advance Directive(s) 06/26/2017 3:16 PM Documents on File 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 Advance Directive(s) 05/04/2020 9:59 AM Advance Directive(s) 06/26/2017 3:16 PM Reason for Referral Specialty Diagnoses / Procedures Referred By Contac t Referred To Contact CT [facility] Diagnoses History of tobacco abuse Encounter for screening for lung cancer Procedures CT LUNG SCREEN WO IVCON COMPUTED TOMOGRAPHY THORAX LW DOSE LNG CA SCR C- [place], DEVELOPMENT SPEC.WIRELESS SALES EXPERT [address] [place] [address] Ct Imaging Referral ID Status Reason Start Date Expiration Date Visits Requested Visits Authorized [id number] Authorized Auto-Generat ed Referral 03/21/2023 2023 1 1 Specialty Diagnoses / Procedures Referred By Contac t Referred To Contact CT [facility] Diagnoses Encounter for screening for lung cancer Former tobacco use Procedures CT LUNG SCREEN WO IVCON COMPUTED TOMOGRAPHY THORAX LW DOSE LNG CA SCR C- [place], Frank, DEVELOPMENT SPEC.WIRELESS SALES EXPERT [address] [place] [address] Ct Imaging Referral ID Status Reason Start Date Expiration Date Visits Requested Visits Authorized [id number] Pending Review Auto-Generat ed Referral 04/04/2024 05/03/2024 1 1 Specialty Diagnoses / Procedures Referred By Contac t Referred To Contact CT IMAGING Diagnoses History of tobacco abuse Encounter for screening for lung cancer Procedures CT LUNG SCREEN WO IVCON COMPUTED TOMOGRAPHY THORAX LW DOSE LNG CA SCR C- [place], Frank, DEVELOPMENT SPEC.WIRELESS SALES EXPERT [address] [place] [address] [place] [address] Referral ID Status Reason Start Date Expiration Date V isits Requested Visits Authorized [id number] Closed Auto-Generate d Referral 03/21/2023 2023 1 1 Additional Source Comments INFORMATION SOURCE (unrecogn ized section and content) DATE CREATED AUTHOR AUTHOR'S ORGANIZ ATION 09/26/2020 [facility] DATE CREATED AUTHOR AUTHOR'S ORGANIZ ATION 09/27/2023 [facility] Source Comments (unrecognize d section and content) In the event this informatio n is protected by the Federal Confidentiality of Alcohol and Drug Abuse Patient Records regulations: The Federal rules restrict any use of the information to criminally investigate or prosecute any alcohol or drug abuse patient.[facility] the event this information is protected by the Federal Confidentiality of Alcohol and Drug Abuse Patient Records regulations: The Federal rules restrict any use of the information to criminally investigate or prosecute any alcohol or drug abuse patient.[facility] Center[facility] the event this information is protected by the Federal Confidentiality of Alcohol and Drug Abuse Patient Records regulations: The Federal rules restrict any use of the information to criminally investigate or prosecute any alcohol or drug abuse patient.[facility] Center[facility] the event this information is protected by the Federal Confidentiality of Alcohol and Drug Abuse Patient Records regulations: The Federal rules restrict any use of the information to criminally investigate or prosecute any alcohol or drug abuse patient.[facility] Center[facility] the event this information is protected by the Federal Confidentiality of Alcohol and Drug Abuse Patient Records regulations: The Federal rules restrict any use of the information to criminally investigate or prosecute any alcohol or drug abuse patient.[facility] Center[facility] the event this information is protected by the Federal Confidentiality of Alcohol and Drug Abuse Patient Records regulations: The Federal rules restrict any use of the information to criminally investigate or prosecute any alcohol or drug abuse patient.[facility] Center[facility] the event this information is protected by the Federal Confidentiality of Alcohol and Drug Abuse Patient Records regulations: The Federal rules restrict any use of the information to criminally investigate or prosecute any alcohol or drug abuse patient.[facility] Center[facility] the event this information is protected by the Federal Confidentiality of Alcohol and Drug Abuse Patient Records regulations: The Federal rules restrict any use of the information to criminally investigate or prosecute any alcohol or drug abuse patient.[facility] Center[facility] the event this information is protected by the Federal Confidentiality of Alcohol and Drug Abuse Patient Records regulations: The Federal rules restrict any use of the information to criminally investigate or prosecute any alcohol or drug abuse patient.[facility] Center[facility] the event this information is protected by the Federal Confidentiality of Alcohol and Drug Abuse Patient Records regulations: The Federal rules restrict any use of the information to criminally investigate or prosecute any alcohol or drug abuse patient.[facility] Center[facility] the event this information is protected by the Federal Confidentiality of Alcohol and Drug Abuse Patient Records regulations: The Federal rules restrict any use of the information to criminally investigate or prosecute any alcohol or drug abuse patient.[facility] Center[facility] the event this information is protected by the Federal Confidentiality of Alcohol and Drug Abuse Patient Records regulations: The Federal rules restrict any use of the information to criminally investigate or prosecute any alcohol or drug abuse patient.[facility] Center[facility] the event this information is protected by the Federal Confidentiality of Alcohol and Drug Abuse Patient Records regulations: The Federal rules restrict any use of the information to criminally investigate or prosecute any alcohol or drug abuse patient.[facility] Center[facility] the event this information is protected by the Federal Confidentiality of Alcohol and Drug Abuse Patient Records regulations: The Federal rules restrict any use of the information to criminally investigate or prosecute any alcohol or drug abuse patient.[facility] Center[facility] the event this information is protected by the Federal Confidentiality of Alcohol and Drug Abuse Patient Records regulations: The Federal rules restrict any use of the information to criminally investigate or prosecute any alcohol or drug abuse patient.[facility] Center[facility] the event this information is protected by the Federal Confidentiality of Alcohol and Drug Abuse Patient Records regulations: The Federal rules restrict any use of the information to criminally investigate or prosecute any alcohol or drug abuse patient.[facility] CenterIn the event this information is protected by the Federal Confidentiality of Alcohol and Drug Abuse Patient Records regulations: The Federal rules restrict any use of the information to criminally investigate or prosecute any alcohol or drug abuse patient.[facility] Center[facility] the event this information is protected by the Federal Confidentiality of Alcohol and Drug Abuse Patient Records regulations: The Federal rules restrict any use of the information to criminally investigate or prosecute any alcohol or drug abuse patient.[facility] CenterIn the event this information is protected by the Federal Confidentiality of Alcohol and Drug Abuse Patient Records regulations: The Federal rules restrict any use of the information to criminally investigate or prosecute any alcohol or drug abuse patient.[facility] CenterIn the event this information is protected by the Federal Confidentiality of Alcohol and Drug Abuse Patient Records regulations: The Federal rules restrict any use of the information to criminally investigate or prosecute any alcohol or drug abuse patient.[facility] CenterIn the event this information is protected by the Federal Confidentiality of Alcohol and Drug Abuse Patient Records regulations: The Federal rules restrict any use of the information to criminally investigate or prosecute any alcohol or drug abuse patient.[facility] CenterIn the event this information is protected by the Federal Confidentiality of Alcohol and Drug Abuse Patient Records regulations: The Federal rules restrict any use of the information to criminally investigate or prosecute any alcohol or drug abuse patient.[facility] CenterIn the event this information is protected by the Federal Confidentiality of Alcohol and Drug Abuse Patient Records regulations: The Federal rules restrict any use of the information to criminally investigate or prosecute any alcohol or drug abuse patient.[facility] CenterIn the event this information is protected by the Federal Confidentiality of Alcohol and Drug Abuse Patient Records regulations: The Federal rules restrict any use of the information to criminally investigate or prosecute any alcohol or drug abuse patient.[facility] CenterIn the event this information is protected by the Federal Confidentiality of Alcohol and Drug Abuse Patient Records regulations: The Federal rules restrict any use of the information to criminally investigate or prosecute any alcohol or drug abuse patient.[facility] CenterIn the event this information is protected by the Federal Confidentiality of Alcohol and Drug Abuse Patient Records regulations: The Federal rules restrict any use of the information to criminally investigate or prosecute any alcohol or drug abuse patient.[facility] CenterIn the event this information is protected by the Federal Confidentiality of Alcohol and Drug Abuse Patient Records regulations: The Federal rules restrict any use of the information to criminally investigate or prosecute any alcohol or drug abuse patient.[facility] CenterIn the event this information is protected by the Federal Confidentiality of Alcohol and Drug Abuse Patient Records regulations: The Federal rules restrict any use of the information to criminally investigate or prosecute any alcohol or drug abuse patient.[facility] CenterIn the event this information is protected by the Federal Confidentiality of Alcohol and Drug Abuse Patient Records regulations: The Federal rules restrict any use of the information to criminally investigate or prosecute any alcohol or drug abuse patient.[facility] CenterIn the event this information is protected by the Federal Confidentiality of Alcohol and Drug Abuse Patient Records regulations: The Federal rules restrict any use of the information to criminally investigate or prosecute any alcohol or drug abuse patient.[facility] CenterIn the event this information is protected by the Federal Confidentiality of Alcohol and Drug Abuse Patient Records regulations: The Federal rules restrict any use of the information to criminally investigate or prosecute any alcohol or drug abuse patient.[facility] CenterIn the event this information is protected by the Federal Confidentiality of Alcohol and Drug Abuse Patient Records regulations: The Federal rules restrict any use of the information to criminally investigate or prosecute any alcohol or drug abuse patient.[facility] CenterIn the event this information is protected by the Federal Confidentiality of Alcohol and Drug Abuse Patient Records regulations: The Federal rules restrict any use of the information to criminally investigate or prosecute any alcohol or drug abuse patient.[facility] CenterIn the event this information is protected by the Federal Confidentiality of Alcohol and Drug Abuse Patient Records regulations: The Federal rules restrict any use of the information to criminally investigate or prosecute any alcohol or drug abuse patient.[facility] CenterIn the event this information is protected by the Federal Confidentiality of Alcohol and Drug Abuse Patient Records regulations: The Federal rules restrict any use of the information to criminally investigate or prosecute any alcohol or drug abuse patient.[facility] CenterIn the event this information is protected by the Federal Confidentiality of Alcohol and Drug Abuse Patient Records regulations: The Federal rules restrict any use of the information to criminally investigate or prosecute any alcohol or drug abuse patient.[facility] CenterIn the event this information is protected by the Federal Confidentiality of Alcohol and Drug Abuse Patient Records regulations: The Federal rules restrict any use of the information to criminally investigate or prosecute any alcohol or drug abuse patient.[facility] Reason for Visit (unrecogniz ed section and content) Reason Comments DUB Reason Comments Results Reason Onset Date Comments Refill Request 01/26/2022 Reason Onset Date Comments Refill Request 02/21/2022 Reason Onset Date Comments Refill Request 02/23/2022 Reason Onset Date Comments Refill Request 04/27/2022 Reason Onset Date Comments Refill Request 05/21/2022 Reason Onset Date Comments Refill Request 07/16/2022 Reason Comments 6 Month Exam Reason Comments Orders Reason Onset Date Comments Refill Request 09/03/2022 Reason Onset Date Comments Refill Request 10/26/2022 Reason Onset Date Comments Refill Request 11/02/2022 Reason Onset Date Comments Refill Request 11/23/2022 Reason Onset Date Comments Refill Request 12/24/2022 Reason Comments Sore Throat started with sinus p ressure and drainage x 1 week Reason Onset Date Comments Refill Request 01/14/2023 Reason Onset Date Comments Refill Request 02/08/2023 Reason Onset Date Comments Refill Request 02/27/2023 Reason Comments New Patient [facility] Specialty Diagnoses / Procedures Referred By Contac t Referred To Contact Diagnoses History of tobacco abuse Procedures CONSULT LUNG CANCER SCREENING CLINIC Reese Elizalde MD [address] [place] [address] Referral ID Status Reason Start Date Expiration Date Visits Requested Visits Authorized [id number] Ref Not Required PCP Requested Referral 02/13/2023 05/14/2023 1 1 Reason Onset Date Comments Refill Request 05/24/2023 Reason Onset Date Comments Refill Request 06/12/2023 Reason Comments New Patient Pt reported increase d fatigue, snoring not using CPAP x1 mth, [facility]. Reason Comments Radiology CT Specialty Diagnoses / Procedures Referred By Contac t Referred To Contact CT IMAGING Diagnoses History of tobacco abuse Encounter for screening for lung cancer [facility]AX LW DOSE LNG CA SCR Kayli- Frank Sanders, DEVELOPMENT SPEC.WIRELESS SALES EXPERT [id number] [facility] Referral ID Status Reason Start Date Expiration Date V isits Requested Visits Authorized [id number] Closed Auto-Generate d Referral 03/21/2023 2023 1 1 Reason Comments [facility] CPAP download Reason Comments Question Orders Reason Onset Date Comments Refill Request 10/07/2023 Care Teams (unrecognized sec tion and content) Chain Mortiser Operator Relationship Specialty Start Date End Date Reese Elizalde MD [address] [place] [address] PCP - General Family Practice 03/02/15 Chain Mortiser Operator Relationship Specialty Start Date End Date Reese Elizalde MD [address] [place] [address] PCP - General Family Practice 03/02/15 Chain Mortiser Operator Relationship Specialty Start Date End Date Reese Elizalde MD [address] [place] [address] PCP - General Family Practice 03/02/15 Chain Mortiser Operator Relationship Specialty Start Date End Date Reese Elizalde MD [address] [place] [address] PCP - General Family Practice 03/02/15 Chain Mortiser Operator Relationship Specialty Start Date End Date Reese Elizalde MD [address] [place] [address] PCP - General Family Practice 03/02/15 Chain Mortiser Operator Relationship Specialty Start Date End Date Reese Elizalde MD [address] [place] [address] PCP - General Family Practice 03/02/15 Chain Mortiser Operator Relationship Specialty Start Date End Date Reese Elizalde MD [address] [place] [address] PCP - General Family Practice 03/02/15 Chain Mortiser Operator Relationship Specialty Start Date End Date Reese Elizalde MD [address] [place] [address] PCP - General Family Medicine 03/02/15 Chain Mortiser Operator Relationship Specialty Start Date End Date Reese Elizalde MD [address] [place] [address] PCP - General Family Medicine 03/02/15 Chain Mortiser Operator Relationship Specialty Start Date End Date Reese Elizalde MD [address] [place] [address] PCP - General Family Medicine 03/02/15 Chain Mortiser Operator Relationship Specialty Start Date End Date Reese Elizalde MD [address] [place] [address] PCP - General Family Medicine 03/02/15 Chain Mortiser Operator Relationship Specialty Start Date End Date Reese Elizalde MD [address] [place] [address] PCP - General Family Medicine 03/02/15 Chain Mortiser Operator Relationship Specialty Start Date End Date Reese Elizalde MD [address] [place] [address] PCP - General Family Medicine 03/02/15 Chain Mortiser Operator Relationship Specialty Start Date End Date Reese Elizalde MD [address] [place] [address] PCP - General Family Medicine 03/02/15 Chain Mortiser Operator Relationship Specialty Start Date End Date Reese Elizalde MD [address] [place] [address] PCP - General Family Medicine 03/02/15 Chain Mortiser Operator Relationship Specialty Start Date End Date Reese Elizalde MD [address] [place] [address] PCP - General Family Medicine 03/02/15 Chain Mortiser Operator Relationship Specialty Start Date End Date Reese Elizalde MD [address] [place] [address] PCP - General Family Medicine 03/02/15 Chain Mortiser Operator Relationship Specialty Start Date End Date Reese Elizalde MD [address] [place] [address] PCP - General Family Medicine 03/02/15 Chain Mortiser Operator Relationship Specialty Start Date End Date Reese Elizalde MD [address] [place] [address] PCP - General Family Medicine 03/02/15 Chain Mortiser Operator Relationship Specialty Start Date End Date Reese Elizalde MD [address] [place] [address] PCP - General Family Medicine 03/02/15 Chain Mortiser Operator Relationship Specialty Start Date End Date Reese Elizalde MD [address] [place] [id number] PCP - General Family Medicine 03/02/15 Chain Mortiser Operator Relationship Specialty Start Date End Date Reese Elizalde MD [address] [place] [address] PCP - General Family Medicine 03/02/15 Chain Mortiser Operator Relationship Specialty Start Date End Date Reese Elizalde MD [address] [place] [address] PCP - General Family Medicine 03/02/15 Chain Mortiser Operator Relationship Specialty Start Date End Date Reese Elizalde MD [address] [place], [place] [address] PCP - General Family Medicine 03/02/15 Chain Mortiser Operator Relationship Specialty Start Date End Date Reese Elizalde MD [address] [place], [place] [id number] PCP - General Family Medicine 03/02/15 Chain Mortiser Operator Relationship Specialty Start Date End Date Reese Elizalde MD [address] [place], [place] [id number] PCP - General Family Medicine 03/02/15 Chain Mortiser Operator Relationship Specialty Start Date End Date Reese Elizalde MD [address] [place], [place] [id number] PCP - General Family Medicine 03/02/15 Chain Mortiser Operator Relationship Specialty Start Date End Date Reese Elizalde MD [address] [place], [place] [id number] PCP - General Family Medicine 03/02/15 FOR RECORDS PERTAINING TO PATIENTS WHO ARE OR HAVE BEEN ENROLLED IN A CHEMICAL DEPENDENCY/SUBSTANCEABUSE PROGRAM, SOME INFORMATION MAY BE OMITTED. This clinical summary was aggregated from multiple sources. Caution should be exercised in using it in the provision of clinical care. This summary normalizes information from multiple sources, and as a consequence, information in this document may materially change the coding, format and clinical context of patient data. In addition, data may be omitted in some cases. CLINICAL DECISIONS SHOULD BE BASED ON THE PRIMARY CLINICAL RECORDS. [facility] [employer] [facility]. provides no warranty or guarantee of the accuracy or completeness of information in this document.
[2023-10-26 19:41] VITALS: BP 119/50; PULSE 70; RESP 16; TEMP 37; O2SAT 97
[2023-10-26] MEDS: dexAMETHasone 4 MG Tablet 10 MG PO (20:15)
[2023-10-26] MEDS: HYDROcodone Bitartrate/Apap 5/325 Tablet PO (20:15)
[2023-10-26 20:19] VITALS: BP 114/84; PULSE 62; RESP 17; TEMP 37.1; O2SAT 97
== END 2023-10-26 20:20 | disposition home or self-care (01) ==
PROVIDERS: Emergency Provider Emergency Medicine; PCP Family Medicine; Visit Provider Emergency Medicine
DX: H57.12 Ocular pain, left eye (principal); E11.9 Type 2 diabetes mellitus without complications; E78.00 Pure hypercholesterolemia, unspecified; E03.9 Hypothyroidism, unspecified; Z87.891 Personal history of nicotine dependence; I25.10 Atherosclerotic heart disease of native coronary artery without angina pectoris; Z95.5 Presence of coronary angioplasty implant and graft; Z79.899 Other long term (current) drug therapy; E66.9 Obesity, unspecified; R22.9 Localized swelling, mass and lump, unspecified
CPT/HCPCS: 70481; 80048; 85025; 85652; 99285; Q9967; A4216

== ENCOUNTER 2023-11-21 09:48 | Observation (INO) | payer OTHER, SELFPAY ==
[2017-10-13 12:02] VITALS: BMI 38.5
[2023-11-21] VITALS (14 sets, daily range): BP systolic 91–114; BP diastolic 39–61; PULSE 56–89; RESP 16–20; TEMP 36–36.7; O2SAT 93–98; BMI 41.4; BMI 40.8
--- NOTE | 2023-11-21 10:02 | EKG12_ITS ---
Test Reason : CP Blood Pressure : / mmHG Vent. Rate : 080 BPM Atrial Rate : 080 BPM P-R Int : 142 ms QRS Dur : 086 ms QT Int : 386 ms P-R-T Axes : 048 -17 041 degrees QTc Int : 445 ms Sinus rhythm with frequent Premature ventricular complexes Minimal voltage criteria for LVH, may be normal variant ( R in aVL ) Inferior infarct , age undetermined Abnormal ECG Confirmed by Buddy Schultz ([id number]), publishing editor BERNARDO KHOURY ([id number]) on 11/23/2023 10:54:03 AM Referred By: JHONATAN/RU Confirmed By:Buddy Schultz
--- NOTE | 2023-11-21 10:02 | EDS_ITS ---
HPI History of Present Illness Chief Complaint: Chest Pain Detail of Chief Complaint: Chest pain Informant: patient Narrative Narrative: Patient presents with chest pain that started around 2 AM. She describes pressure retrosternally that radiates towards her neck. She has had similar pain in the past when she required 2 stents in 2018. She denies recent travel or surgery. Currently rates her pain about a 7 out of 10. She denies nausea or vomiting or significant shortness of breath. She had some mild lightheadedness. [facility] Medical History Atherosclerosis of coronary artery of [place] heart without angina pectoris Carotid artery dissection Hyperthyroidism Presence of stent in coronary artery (~11/02/17) Pure hypercholesterolemia STEMI (ST elevation myocardial infarction) Home Medications cholecalciferol (vitamin D3) 25 mcg (1,000 unit) capsule 1,000 unit PO DAILY supplement 10/09/17 [History Last Taken 11/01/17 08:00] metformin 500 mg tablet 500 mg PO DAILY DIABETES 10/09/17 [History Last Taken 11/01/17 08:00] levothyroxine 100 mcg tablet 100 mcg PO DAILY 09/10/18 [History Last Taken Unknown] oxybutynin chloride 10 mg tablet,extended release 24 hr 10 mg PO DAILY 05/29/20 [History Last Taken Unknown] omeprazole 40 mg capsule,delayed release 40 mg PO DAILY 09/27/20 [History Last Taken Unknown] aspirin 81 mg tablet,delayed release 81 mg PO DAILY@0800 #90 tabs 12/27/21 [Rx Last Taken Unknown] gabapentin 300 mg capsule 300 mg PO TID 08/18/22 [History Last Taken Unknown] nitroglycerin 0.4 mg sublingual tablet 0.4 mg sublingual Q5-15M PRN chest pain #25 tabs 08/18/22 [Rx Last Taken Unknown] lisinopril 5 mg tablet 5 mg PO DAILY blood pressure #90 tabs 02/12/23 [Rx Last Taken Unknown] atorvastatin 80 mg tablet 80 mg PO QHS #90 tabs 03/06/23 [Rx Last Taken Unknown] metoprolol tartrate 100 mg tablet 100 mg PO BID #180 tabs 09/07/23 [Rx Last Taken Unknown] Allergy/AdvReac Type Severity Reaction Status Date / Time No Known Allergies Allergy Verified 11/21/23 09:49 Family History Mother Diabetes Heart disease Hypertension Hypercholesterolemia CVA (cerebral vascular accident) Thyroid disorder Father Cancer Surgical History H/O Achilles tendon repair History of rotator cuff surgery (~2020) Presence of coronary angioplasty implant and graft (~11/02/17) Social History Smoking Status: Former smoker alcohol intake: current substance use type: does not use caffeine: Yes Type: carbonated beverages Number of servings: 3 what type of physical activity do you participate in: other details: cardiac re hab ROS ROS ED Review of Systems ROS Unobtainable: other Constitutional Constitutional ED: Reports lethargy; Denies chills, fever(s), sweats or weight loss Eyes Eyes: Denies blurry vision, change in vision or diplopia ENT ENT ED: Denies rhinorrhea or sore throat Cardiovascular Cardiovascular: Reports chest pain; Denies orthopnea or racing heartbeat Respiratory/Chest Respiratory/Chest: Denies cough, orthopnea or sputum Gastrointestinal Gastrointestinal: Denies abdominal pain, diarrhea, nausea or vomiting Genitourinary Genitourinary ED: Denies dysuria, hematuria or urinary frequency Musculoskeletal Musculoskeletal: Denies arthralgias, back pain, myalgias or neck pain Integumentary Denies abscess, Abrasions or rash Neurologic Neurologic: Denies headache(s) or weakness Psychiatric Psychiatric: Denies anxiety, depression or suicidal thoughts Endocrine Endocrinology: Denies polydipsia, polyphagia or polyuria Hematologic/Lymphatic Hematologic/Lymphatic: Denies easy bleeding, easy bruising or lymphadenopathy Allergic/Immunologic Allergic/Immunologic ED: Denies mouth swelling, tongue swelling or urticaria EXAM Physical Exam Const Vital Signs: 11/21/23 09:50 11/21/23 09:50 11/21/23 09:58 Temperature 98 F 98 F Temperature Source Temporal Temporal Pulse Rate 56 L 56 L Respiratory Rate 17 17 Respiratory Effort Short of Breath Blood Pressure 102/54 L 102/56 L Blood Pressure Mean 70 71 Pulse Ox 97 96 Oxygen Delivery Method Room Air 11/21/23 10:13 11/21/23 10:40 11/21/23 11:00 Temperature 97.8 F Temperature Source Temporal Pulse Rate 75 Respiratory Rate 20 H Respiratory Effort Blood Pressure 92/59 L 101/60 Blood Pressure Mean 70 73 Pulse Ox 96 98 Oxygen Delivery Method Room Air Room Air 11/21/23 11:14 11/21/23 11:20 Temperature 96.8 F L Temperature Source Temporal Pulse Rate 78 77 Respiratory Rate 16 Respiratory Effort Blood Pressure 101/60 100/50 L Blood Pressure Mean 66 Pulse Ox 93 Oxygen Delivery Method Room Air Positive well nourished and well developed General Appearance ED: well developed and NAD HEENT Reports TM's clear and moist mucous membranes normocephalic and atraumatic; Negative for trauma or tenderness Tympanic Membrane ED: Yes TM's clear Eyes PERRL and EOMs intact bilaterally General Eye ED: Negative for pale conjunctiva or scleral icterus Neck no lymphadenopathy, supple and no JVD General: Negative for tenderness Chest Wall inspection of chest normal and palpation of chest normal Chest: Negative for tenderness Resp normal respiratory effort and clear to auscultation bilaterally Effort and Inspection: Negative for respiratory distress or pain with movement Auscultation: Negative for rhonchi, wheezes or diminished lung sounds Cardio regular rate, regular rhythm, S1 normal heart sound, S2 normal heart sound and no murmurs Peripheral Pulses: pulses 2+ throughout GI normal to inspection, nondistended, normoactive bowel sounds, soft to palpation, non-tender, non-distended and no masses Back/Spine no CVA tenderness and no thoracic nor lumbar tenderness Extremity normal to inspection General Extremety ED: Negative for edema General Extremity: Negative for edema Neuro oriented x3, CN's II-XII intact bilaterally, no sensory deficits noted and gait normal Sensorium / Orientation: awake, alert, oriented to person, oriented to place and oriented to time Motor Exam: strength 5/5 throughout and strength abnormal Psych mental status grossly normal Skin no rashes or lesions noted and no wounds Heart Score History: Moderately Suspicious ECG: Nonspecific Repolarization Age: >45 - <65 years Risk Factors: >/= 3 Risk Factors or History of CAD Troponin: </= Normal Limit Score: 5 MDM MDM MDM Narrative Medical decision making narrative: Patient presents with chest pain that started around 2:30 AM. Woke up with tightness. She denies nausea or vomiting. IV line established. EKG obtained showed sinus rhythm with rate of 80 bpm with PVCs. Evidence of old inferior infarct. Patient will have an IV line established. She will be given aspirin and nitroglycerin sublingual. Lab workup and chest x-ray will be ordered. Patient received aspirin on arrival. She was ordered nitro but her pressure was marginal in the 90s to low 100s so initially was held. Her EKG showed a sinus rhythm with rate of an 80 bpm with frequent PVCs and bigeminy pattern at times. She had evidence of old infarct inferiorly. CBC with differential showed a white count of 8.1 with hemoglobin 11.6 and platelet count of 284. Chemistries were unremarkable. Troponin initially was normal at 6. Patient's heart score is a 5. Discussed with her potential for admission and stress testing and serial enzymes. Patient in agreement. Lab Data Attestation: I reviewed the patient's lab results. Labs: Laboratory Results - last 24 hr 11/21/23 10:05 WBC 8.1 RBC 4.47 Hgb 11.6 L Hct 38.7 MCV 86.6 MCH 26.0 L MCHC 30.0 L RDW Std Deviation 49.4 H RDW Coeff of [place]at 15.8 H Plt Count 284 MPV 12.0 Immature Gran % (Auto) 0.400 Neut % (Auto) 69.9 Lymph % (Auto) 22.5 [place] % (Auto) 5.0 Eos % (Auto) 1.5 Baso % (Auto) 0.7 Absolute Neuts (auto) 5.7 Absolute Lymphs (auto) 1.83 Nucleated RBC % 0 Sodium 141 Potassium 4.0 Chloride 109 H Carbon Dioxide 27.0 Anion Gap 5 BUN 13 Creatinine 0.85 Estim Creat Clear Calc 81.98 Est GFR (MDRD) Af Amer 87 Est GFR (MDRD) Non-Af 72 BUN/Creatinine Ratio 15.3 Glucose 145 H Calcium 8.9 Troponin I High Sens 6 Radiography Diagnostic Testing: Clinical Impression(s) from Imaging Studies Chest X-Ray 11/21/23 10:42 IMPRESSION: No acute abnormality is seen. Stable elevation of the right hemidiaphragm. Electronically Signed: Herb Ibarra MD at 11:04 EDT , 1 view chest x-ray obtained interpreted by myself as elevated right hemidiaphragm with no evidence of infiltrate or pneumothorax or acute disease process. Radiology in agreement. Discharge Plan Triage Chief Complaint: Chest Pain ED Provider: Jeet Gleason Dx/Rx/DC Orders Clinical Impression: Frequent PVCs, Chest pain Prescriptions: No Action levothyroxine 100 mcg tablet 100 mcg PO DAILY gabapentin 300 mg capsule 300 mg PO TID oxybutynin chloride 10 mg tablet extended release 24hr 10 mg PO DAILY nitroglycerin 0.4 mg tablet, sublingual 0.4 mg sublingual Q5-15M PRN (Reason: chest pain) Qty: 25 3RF Rx Instructions: do not exceed 3 doses per episode metformin 500 MG tablet 500 mg PO DAILY cholecalciferol (vitamin D3) 1,000 UNIT capsule 1,000 unit PO DAILY omeprazole 40 MG capsule,delayed release(DR/EC) 40 mg PO DAILY aspirin 81 mg tablet,delayed release (DR/EC) 81 mg PO DAILY@0800 Qty: 90 3RF Patient Comments: heart lisinopril 5 mg tablet 5 mg PO DAILY Qty: 90 3RF atorvastatin 80 mg tablet 80 mg PO QHS Qty: 90 3RF Patient Comments: cholesterol metoprolol tartrate 100 mg tablet 100 mg PO BID Qty: 180 3RF Primary Care Provider: Reese Elizalde Referrals: Reese Elizalde MD [Primary Care Provider] -
[2023-11-21] MEDS: Aspirin 81 MG TAB.CHEW 324 MG PO (10:15)
[2023-11-21] MEDS: 0.9% Normal Saline (1000mL) 1,000 ML 150 ML IV (10:16)
[2023-11-21 10:17] LABS: Absolute Lymphocyte Count 1.83 X10^3/uL (0.83-4.51); Absolute Neutrophil Count 5.7 X10^3/uL (2.0-7.7); Basophil# 0.06 X10^3/uL; Basophil% 0.7 % (0-1); Eosinophil# 0.12 X10^3/uL; Eosinophils% 1.5 % (0-5); Hematocrit 38.7 % (37-47); Hemoglobin 11.6 g/dL (12.0-15.0); Lymphocyte # 1.83 X10^3/ul (0.83-4.51); Lymphocyte % 22.5 % (19-41); Mean Corpuscular Volume 86.6 fL (81-99); Monocyte# 0.41 X10^3/uL; NRBC Flagged by Analyzer 0 % (0-5); Neutrophil # 5.69 X10^3/uL (2.7-7.7); Neutrophil % 69.9 % (47-70); Platelet Count 284 K/mm3 (150-450); RBC Distribution Width CV 15.8 % (11.6-14.6); RBC Distribution Width SD 49.4 fl (35.1-43.9); Red Blood Count 4.47 M/mm3 (4.2-5.4); White Blood Count 8.1 K/mm3 (4.4-11.0)
[2023-11-21 10:40] LABS: Anion Gap 5 (5-15); BUN 13 mg/dL (7-18); BUN/Creat Ratio 15.3 RATIO (10-20); Calcium,Total 8.9 mg/dL (8.5-10.1); Chloride 109 mmol/L (98-107); Creatinine, Serum 0.85 mg/dL (0.55-1.02); EST Glomerular Filtration Rate 72 mL/min (>60); Est Glom Filt Rate - Afr Amer 87 mL/min (>60); Estimated Creatinine Clearance 81.98 ml/min; Glucose 145 mg/dL (74-106); Sodium Level 141 mmol/L (136-145); Troponin-I HS (w/2H Reflex) 6 pg/mL (3.0-54.0)
--- NOTE | 2023-11-21 10:42 | RAD_ITS ---
STUDY: X-RAY CHEST REASON FOR EXAM: Female, 63 years old. Chest pain TECHNIQUE: Single AP portable view of the chest. COMPARISON: Comparison is made with prior study dated October 25, 2022. FINDINGS: EKG electrodes are seen. There is elevation of the right hemidiaphragm. No acute abnormality is seen. There is no demonstrated pleural abnormality. Normal size heart. Normal mediastinum and [place]. Normal visualized pulmonary arteries. There is atherosclerotic tortuosity of the aortic arch and descending thoracic aorta. Normal visualized thoracic spine. Normal visualized ribs, clavicles, and shoulders. There is no demonstrated abnormality of the visualized soft tissue structures of the upper abdomen. RAD/Chest 1 View (Portable) IMPRESSION: No acute abnormality is seen. Stable elevation of the right hemidiaphragm. Electronically Signed: Herb Ibarra MD at 11:04 EDT ,
[2023-11-21] MEDS: 0.9% Normal Saline (500mL Bag) 500 ML 999 ML IV (11:13)
[2023-11-21] MEDS: Nitroglycerin SL (ED/IMG/CATH) 0.4 MG TABLET SL (11:14)
--- NOTE | 2023-11-21 11:31 | NURSING ---
DR TERESA WISE
--- NOTE | 2023-11-21 11:53 | PCM.HP.STD ---
HPI - General General Date of Service: 11/21/23 Chief Complaint: Chest pain HPI Narrative MC MICHAEL, is a 63 F who presents with complaints of chest pain. Began around 2:30 AM. While sleeping and then woke her. It was across her chest. Worse with deep respirations. Presented emergency room and received aspirin and nitroglycerin and feels better. Has had chest pain and stents before. Before felt like more like heartburn which this does not. [facility] Medical History Atherosclerosis of coronary artery of [place] heart without angina pectoris Carotid artery dissection Hyperthyroidism Presence of stent in coronary artery (~11/02/17) Pure hypercholesterolemia STEMI (ST elevation myocardial infarction) Home Medications cholecalciferol (vitamin D3) 25 mcg (1,000 unit) capsule 1,000 unit PO DAILY supplement 10/09/17 [History Last Taken 11/21/23] metformin 500 mg tablet 500 mg PO DAILY DIABETES 10/09/17 [History Last Taken 11/21/23] levothyroxine 100 mcg tablet 100 mcg PO DAILY 09/10/18 [History Last Taken 11/21/23] oxybutynin chloride 10 mg tablet,extended release 24 hr 10 mg PO DAILY 05/29/20 [History Last Taken 11/21/23] omeprazole 40 mg capsule,delayed release 40 mg PO DAILY 09/27/20 [History Last Taken 11/21/23] aspirin 81 mg tablet,delayed release 81 mg PO DAILY@0800 [facility] #90 tabs 12/27/21 [Rx Last Taken 11/21/23] gabapentin 300 mg capsule 300 mg PO TID 08/18/22 [History Last Taken 11/21/23] nitroglycerin 0.4 mg sublingual tablet 0.4 mg sublingual Q5-15M PRN chest pain #25 tabs 08/18/22 [Rx Last Taken 11/21/23] lisinopril 5 mg tablet 5 mg PO DAILY blood pressure #90 tabs 02/12/23 [Rx Last Taken 11/21/23] atorvastatin 80 mg tablet 80 mg PO QHS cholesterol #90 tabs 03/06/23 [Rx Last Taken 11/20/23] metoprolol tartrate 100 mg tablet 100 mg PO BID #180 tabs 09/07/23 [Rx Last Taken 11/21/23] semaglutide 0.25 mg or 0.5 mg (2 mg/3 mL) subcutaneous pen injector (Ozempic) 0.25 mg subcut QWEEK 11/21/23 [History Last Taken 11/16/23] ticagrelor 90 mg tablet (Brilinta) 90 mg PO BID HEART 11/21/23 [History Last Taken Unknown] Allergy/AdvReac Type Severity Reaction Status Date / Time No Known Allergies Allergy Verified 11/21/23 09:49 Family History Mother Diabetes Heart disease Hypertension Hypercholesterolemia CVA (cerebral vascular accident) Thyroid disorder Father Cancer Surgical History H/O Achilles tendon repair History of rotator cuff surgery (~2020) Presence of coronary angioplasty implant and graft (~11/02/17) Social History Smoking Status: Former smoker alcohol intake: current substance use type: does not use caffeine: Yes Type: carbonated beverages Number of servings: 3 what type of physical activity do you participate in: other details: cardiac rehab Vital Signs Vital Signs Vital Signs: 11/21/23 09:50 11/21/23 09:50 11/21/23 09:58 Temperature 36.6 C 36.6 C Temperature Source Temporal Temporal Pulse Rate 56 L 56 L Respiratory Rate 17 17 Respiratory Effort Short of Breath Blood Pressure 102/54 L 102/56 L Blood Pressure Mean 70 71 Pulse Ox 97 96 Oxygen Delivery Method Room Air 11/21/23 10:13 11/21/23 10:40 11/21/23 11:00 Temperature 36.6 C Temperature Source Temporal Pulse Rate 75 Respiratory Rate 20 H Respiratory Effort Blood Pressure 92/59 L 101/60 Blood Pressure Mean 70 73 Pulse Ox 96 98 Oxygen Delivery Method Room Air Room Air 11/21/23 11:14 11/21/23 11:20 11/21/23 11:29 Temperature 36.0 C L Temperature Source Temporal Pulse Rate 78 77 Respiratory Rate 16 Respiratory Effort Blood Pressure 101/60 100/50 L 91/39 L Blood Pressure Mean 66 56 Pulse Ox 93 Oxygen Delivery Method Room Air Weight Weight: 109.6 kg Body Mass Index (BMI) 41.4 Physical Exam Const alert and no apparent distress Constitutional Narrative: Reproducible chest pain HEENT normocephalic and head/scalp atraumatic Resp normal respiratory effort, no retractions, no use of accessory muscles and clear to auscultation bilaterally Cardio regular rate, regular rhythm, S1 normal heart sound and S2 normal heart sound GI normal to inspection, nondistended, normoactive bowel sounds, soft to palpation, non-tender and non-distended Extremity normal to inspection and full ROM Psych affect normal Results Lab / Micro Data 11/21/23 10:05 11/21/23 10:05 Labs: Laboratory Results - last 24 hr 11/21/23 10:05: WBC 8.1, RBC 4.47, Hgb 11.6 L, Hct 38.7, MCV 86.6, MCH 26.0 L, MCHC 30.0 L, RDW Std Deviation 49.4 H, RDW Coeff of Talat 15.8 H, Plt Count 284, MPV 12.0, Immature Gran % (Auto) 0.400, Neut % (Auto) 69.9, Lymph % (Auto) 22.5, [place] % (Auto) 5.0, Eos % (Auto) 1.5, Baso % (Auto) 0.7, Absolute Neuts (auto) 5.7, Absolute Lymphs (auto) 1.83, Nucleated RBC % 0, Sodium 141, Potassium 4.0, Chloride 109 H, Carbon Dioxide 27.0, Anion Gap 5, BUN 13, Creatinine 0.85, Estim Creat Clear Calc 81.98, Est GFR (MDRD) Af Amer 87, Est GFR (MDRD) Non-Af 72, BUN/Creatinine Ratio 15.3, Glucose 145 H, Calcium 8.9, Troponin I High Sens 6 Imaging Radiology Impression Chest X-Ray 11/21/23 10:42 IMPRESSION: No acute abnormality is seen. Stable elevation of the right hemidiaphragm. Electronically Signed: Herb Ibarra MD at 11:04 EDT , Assessment & Plan Assessment/Plan (1) Chest pain: PLAN: Plan Chest pain Atypical. Reproducible. Though the patient does have risk factors including prior coronary artery disease requiring stents, diabetes and hypertension. Also former smoker. Told the patient we can do 1 of 2 options, she could be brought in to have a stress test performed on the or we can do another troponin and have her be discharged if that is normal and to follow-up with her primary care doctor. She chose the former. Will cycle troponins Stress test in the a.m. Chronic conditions Diabetes mellitus type 2: Continue with metformin patient just received her first dose of semaglutide recently. Note CAD: Continue with ticagrelor and aspirin. VTE prophylaxis: Low risk. Not indicated at this time. Charges/Coding Visit Charges Inpatient E&M: 04161 Init Hosp L2
--- NOTE | 2023-11-21 11:56 | NURSING ---
PCU OBS JOPPERI CHEST PAIN
[2023-11-21 12:13] LABS: Reflex Troponin-HS? (from REC) Y
[2023-11-21 12:35] LABS: Troponin-I HS 5 pg/mL (3.0-54.0)
[2023-11-21] MEDS: Gabapentin 300 MG Capsule PO ×2 (14:13→21:16)
--- NOTE | 2023-11-21 14:48 | EKG12_ITS ---
Test Reason : AM EKG Blood Pressure : / mmHG Vent. Rate : 079 BPM Atrial Rate : 079 BPM P-R Int : 146 ms QRS Dur : 086 ms QT Int : 376 ms P-R-T Axes : 044 -18 037 degrees QTc Int : 431 ms Sinus rhythm with frequent Premature ventricular complexes in a pattern of bigeminy Minimal voltage criteria for LVH, may be normal variant ( R in aVL ) Inferior infarct , age undetermined Abnormal ECG When compared with ECG of 21-NOV-2023 13:38, MANUAL COMPARISON REQUIRED, DATA IS UNCONFIRMED Confirmed by Buddy Schultz ([id number]), order editor BERNARDO KHOURY ([id number]) on 11/23/2023 11:10:05 AM Referred By: TERESA Confirmed By:Buddy Schultz
[2023-11-21 16:42] LABS: Troponin-I HS 5 pg/mL (3.0-54.0)
[2023-11-21] MEDS: 0.9% Saline Lock 10 ML Syringe IV (21:16)
[2023-11-21] MEDS: Atorvastatin Calcium 80 MG Tablet PO (21:16)
[2023-11-21] MEDS: TICAGRELOR 90 MG TABLET PO (21:16)
[2023-11-21] MEDS: Metoprolol Tartrate 100 MG Tablet PO (22:17)
[2023-11-22 03:19] VITALS: BP 107/53; PULSE 76; RESP 16; TEMP 36.4; O2SAT 94
--- NOTE | 2023-11-22 05:55 | EKG12_ITS ---
Test Reason : CP ADMIT Blood Pressure : / mmHG Vent. Rate : 059 BPM Atrial Rate : 059 BPM P-R Int : 156 ms QRS Dur : 084 ms QT Int : 438 ms P-R-T Axes : -04 -19 007 degrees QTc Int : 433 ms Sinus bradycardia with sinus arrhythmia Minimal voltage criteria for LVH, may be normal variant ( R in aVL ) Inferior infarct , age undetermined Abnormal ECG When compared with ECG of 21-NOV-2023 09:55, MANUAL COMPARISON REQUIRED, DATA IS UNCONFIRMED Confirmed by Buddy Schultz ([id number]), news video editor BERNARDO KHOURY ([id number]) on 11/23/2023 11:10:26 AM Referred By: JODI Confirmed By:Buddy Schultz
[2023-11-22 06:31] VITALS: BP 123/61; PULSE 81; RESP 17; TEMP 36.6; O2SAT 95
[2023-11-22] MEDS: Lisinopril 5 MG Tablet PO (06:32)
[2023-11-22] MEDS: Aspirin E.C. 81 MG Tablet PO (06:32)
[2023-11-22 07:07] LABS: Absolute Lymphocyte Count 2.49 X10^3/uL (0.83-4.51); Absolute Neutrophil Count 4.8 X10^3/uL (2.0-7.7); Basophil# 0.06 X10^3/uL; Basophil% 0.8 % (0-1); Eosinophil# 0.14 X10^3/uL; Eosinophils% 1.8 % (0-5); Hematocrit 36.8 % (37-47); Hemoglobin 11.5 g/dL (12.0-15.0); Lymphocyte # 2.49 X10^3/ul (0.83-4.51); Lymphocyte % 31.2 % (19-41); Mean Corp Hgb Conc 31.3 g/dL (32-36); Mean Corpuscular Hgb 26.6 pg (27.0-32.0); Mean Platelet Vol. 11.7 fl (6.2-12.0); Monocyte% 6.3 % (0-10); NRBC Flagged by Analyzer 0 % (0-5); Neutrophil # 4.78 X10^3/uL (2.7-7.7); Neutrophil % 59.6 % (47-70); Platelet Count 271 K/mm3 (150-450); RBC Distribution Width CV 15.9 % (11.6-14.6); RBC Distribution Width SD 49.6 fl (35.1-43.9); Red Blood Count 4.33 M/mm3 (4.2-5.4)
--- NOTE | 2023-11-22 07:32 | PCM.PN.HOSP ---
Reason for Visit Reason for Visit: Diagnoses Chest pain, unspecified (11/21/23) Subjective Subjective No further chest pain. No palpitations. Objective Data Objective Data Vital Signs: Vital Signs Temp Pulse Resp BP Pulse Ox O2 Del Method 36.6 C 81 17 123/61 H 95 Room Air 11/22/23 06:31 11/22/23 06:31 11/22/23 06:31 11/22/23 06:31 11/22/23 06:31 11/22/23 06:31 Oxygen Delivery Method Room Air Weight: 107.955 kg Body Mass Index (BMI) 40.8 Intake & Output: Intake and Output for Last 24 Hours 11/20/23 11/21/23 11/22/23 23:59 23:59 23:59 Intake Total 1092.5 / 1092.5 Balance 1092.5 / 1092.5 Lab / Micro Data 11/22/23 06:25 11/22/23 06:25 Labs: Laboratory Results - last 24 hr 11/21/23 10:05: WBC 8.1, RBC 4.47, Hgb 11.6 L, Hct 38.7, MCV 86.6, MCH 26.0 L, MCHC 30.0 L, RDW Std Deviation 49.4 H, RDW Coeff of Talat 15.8 H, Plt Count 284, MPV 12.0, Immature Gran % (Auto) 0.400, Neut % (Auto) 69.9, Lymph % (Auto) 22.5, [place] % (Auto) 5.0, Eos % (Auto) 1.5, Baso % (Auto) 0.7, Absolute Neuts (auto) 5.7, Absolute Lymphs (auto) 1.83, Nucleated RBC % 0, Sodium 141, Potassium 4.0, Chloride 109 H, Carbon Dioxide 27.0, Anion Gap 5, BUN 13, Creatinine 0.85, Estim Creat Clear Calc 81.98, Est GFR (MDRD) Af Amer 87, Est GFR (MDRD) Non-Af 72, BUN/Creatinine Ratio 15.3, Glucose 145 H, Calcium 8.9, Troponin I High Sens 6 11/21/23 12:13: Troponin I High Sens 5 11/21/23 16:15: Troponin I High Sens 5 11/22/23 06:25: WBC 8.0, RBC 4.33, Hgb 11.5 L, Hct 36.8 L, MCV 85.0, MCH 26.6 L, MCHC 31.3 L, RDW Std Deviation 49.6 H, RDW Coeff of [place]at 15.9 H, Plt Count 271, MPV 11.7, Immature Gran % (Auto) 0.300, Neut % (Auto) 59.6, Lymph % (Auto) 31.2, [place] % (Auto) 6.3, Eos % (Auto) 1.8, Baso % (Auto) 0.8, Absolute Neuts (auto) 4.8, Absolute Lymphs (auto) 2.49, Nucleated RBC % 0 Radiography Diagnostic Testing: Radiology Impression Chest X-Ray 11/21/23 10:42 IMPRESSION: No acute abnormality is seen. Stable elevation of the right hemidiaphragm. Electronically Signed: Herb Ibarra MD at 11:04 EDT , Physical Exam Const alert Constitutional Narrative: Up in chair. No acute distress. HEENT head/scalp atraumatic and moist oral mucous membranes Assessment & Plan Assessment/Plan (1) Chest pain: PLAN: Plan Chest pain Atypical. Reproducible. Though the patient does have risk factors including prior coronary artery disease requiring stents, diabetes and hypertension. Also former smoker. Told the patient we can do 1 of 2 options, she could be brought in to have a stress test performed on the or we can do another troponin and have her be discharged if that is normal and to follow-up with her primary care doctor. She chose the former. Will cycle troponins Stress test negative Feel chest pain is due to costochondritis PVCs Patient with bigeminy and trigeminy up quite frequently. Did review her previous records from November 2022. Patient did have a Holter monitor at that time that showed frequent PVCs at that time. I did discuss case with Dr. Olivares who recommends outpatient follow-up with cardiology and then then she may potentially need referral to electrophysiology but that can be facilitated as outpatient. Chronic conditions Diabetes mellitus type 2: Continue with metformin patient just received her first dose of semaglutide recently. Note CAD: Continue with ticagrelor and aspirin. Discharge home
[2023-11-22 08:47] LABS: ALB/GLOB Ratio 0.9 RATIO (0.9-2.4); AST(SGOT) 17 U/L (15-37); Alanine Aminotransfer ALT/SGPT 22 U/L (13-56); Albumin, Serum 3.2 g/dL (3.2-5.0); Alkaline Phosphatase 85 U/L (45-117); Anion Gap 8 (5-15); BUN 11 mg/dL (7-18); BUN/Creat Ratio 14.7 RATIO (10-20); Calcium,Total 9.1 mg/dL (8.5-10.1); Chloride 109 mmol/L (98-107); Creatinine, Serum 0.75 mg/dL (0.55-1.02); EST Glomerular Filtration Rate 83 mL/min (>60); Est Glom Filt Rate - Afr Amer 100 mL/min (>60); Estimated Creatinine Clearance 92.12 ml/min; Globulin 3.6 g/dL (2.2-4.2); Glucose 113 mg/dL (74-106); Magnesium 2.4 mg/dL (1.6-2.6); Protein, Total 6.8 g/dL (6.4-8.2); Sodium Level 140 mmol/L (136-145)
--- NOTE | 2023-11-22 12:14 | STRESSREP ---
Stress Test Report Pharmacologic myocardial perfusion stress test. 63-year-old lady with a history of chest pain Resting EKG demonstrates sinus rhythm with a rate of 78 bpm. Frequent premature ventricular complexes are noted. Resting blood pressure is 110/60 mmHg. 0.4 mg of regadenoson was infused per usual protocol followed by rapid intravenous saline flush injection. Continuous EKG monitoring was performed. The maximum heart rate was 91 bpm which was 57% of max impacted heart rate the maximum workload was 1 metabolic equivalent. At rest there were no ST or T wave changes noted to suggest ischemia and at peak infusion nonspecific ST changes were noted which did not meet the criteria for ischemia. No clinical angina is noted. The final blood pressure was 110/60 mmHg. Myocardial perfusion protocol. 15 point mCi of technetium 99m sestamibi was injected at rest. 0.4 mg of regadenoson was infused per usual protocol. At peak infusion 44 point mCi of technetium 99m sestamibi was injected stress images were obtained stress and rest images were reconstructed and compared in the short axis vertical long and horizontal long axis. Gated images were also obtained. Perfusion SPECT analysis: Review of the stress images demonstrate normal uptake of tracer noted in all areas of the myocardium. The resting images similar demonstrated normal uptake of tracer noted in all areas of the myocardium. No areas of reversibility are noted to suggest ischemia and no previous infarct is noted. Gated SPECT analysis: The gated ejection fraction is 60%. Conclusion: Normal pharmacologic myocardial perfusion stress test. Preserved ejection fraction.
[2023-11-22 12:30] VITALS: BP 113/57; PULSE 75; RESP 18; TEMP 36.6; O2SAT 95
--- NOTE | 2023-11-22 12:34 | DS.PCM_ITS ---
Providers Date of Admission: 11/21/23 Primary Care Physician: Dr. Reese Elizalde MD Reason For Visit: UNSTABLE ANGINA Diagnosis Discharge Diagnosis (1) Chest pain: Status: Acute Code(s): R07.9 - Chest pain, unspecified Plan Chest pain * Atypical. Reproducible. Though the patient does have risk factors including prior coronary artery disease requiring stents, diabetes and hypertension. Also former smoker. * Told the patient we can do 1 of 2 options, she could be brought in to have a stress test performed on the or we can do another troponin and have her be discharged if that is normal and to follow-up with her primary care doctor. She chose the former. * Will cycle troponins * Stress test negative * Feel chest pain is due to costochondritis PVCs * Patient with bigeminy and trigeminy up quite frequently. Did review her previous records from November 2022. Patient did have a Holter monitor at that time that showed frequent PVCs at that time. I did discuss case with Dr. Olivares who recommends outpatient follow-up with cardiology and then then she may potentially need referral to electrophysiology but that can be facilitated as outpatient. Chronic conditions * Diabetes mellitus type 2: Continue with metformin patient just received her first dose of semaglutide recently. * Note CAD: Continue with ticagrelor and aspirin. Discharge home Medications at Discharge Home Medications cholecalciferol (vitamin D3) 25 mcg (1,000 unit) capsule 1,000 unit PO DAILY supplement 10/09/17 metformin 500 mg tablet 500 mg PO DAILY DIABETES 10/09/17 levothyroxine 100 mcg tablet 100 mcg PO DAILY 09/10/18 oxybutynin chloride 10 mg tablet,extended release 24 hr 10 mg PO DAILY 05/29/20 omeprazole 40 mg capsule,delayed release 40 mg PO DAILY 09/27/20 aspirin 81 mg tablet,delayed release 81 mg PO DAILY@0800 [facility] #90 tabs 12/27/21 gabapentin 300 mg capsule 300 mg PO TID 08/18/22 nitroglycerin 0.4 mg sublingual tablet 0.4 mg sublingual Q5-15M PRN chest pain #25 tabs 08/18/22 lisinopril 5 mg tablet 5 mg PO DAILY blood pressure #90 tabs 02/12/23 atorvastatin 80 mg tablet 80 mg PO QHS cholesterol #90 tabs 03/06/23 metoprolol tartrate 100 mg tablet 100 mg PO BID #180 tabs 09/07/23 semaglutide 0.25 mg or 0.5 mg (2 mg/3 mL) subcutaneous pen injector (Ozempic) 0.25 mg subcut QWEEK 11/21/23 ticagrelor 90 mg tablet (Brilinta) 90 mg PO BID HEART 11/21/23 Hospital Course Operations None Procedures Stress test Summary of Care Provided Minutes Spent on Discharge: 30 Hospital Course: Patient presents with right-sided chest pain that went across her chest. Her taking a deep breath. It is reproducible on exam. Patient was brought into the hospital underwent a stress test that was normal. While she was here was noted that she was having frequent PVCs and bigeminy and trigeminy. I discussed case with Dr. Olivares about the PVCs and bigeminy and trigeminy. He recommended follo w-up with cardiology and she may need referral to electrophysiology. This was relayed to the patient. Patient made aware that if she has any issues where she has syncopal episodes with no warning that that could be concerning for a ventricular arrhythmia or if she is starts experiencing palpitations to notify someone or return to the emergency room. Weight / BMI Weight Weight: 107.955 kg Body Mass Index (BMI) 40.8 ABG / Lab / Microbiology Data 11/22/23 06:25 11/22/23 06:25 Laboratory: Laboratory Results - last 24 hr 11/21/23 12:13: Troponin I High Sens 5 11/21/23 16:15: Troponin I High Sens 5 11/22/23 06:25: WBC 8.0, RBC 4.33, Hgb 11.5 L, Hct 36.8 L, MCV 85.0, MCH 26.6 L, MCHC 31.3 L, RDW Std Deviation 49.6 H, RDW Coeff of Talat 15.9 H, Plt Count 271, MPV 11.7, Immature Gran % (Auto) 0.300, Neut % (Auto) 59.6, Lymph % (Auto) 31.2, [place] % (Auto) 6.3, Eos % (Auto) 1.8, Baso % (Auto) 0.8, Absolute Neuts (auto) 4.8, Absolute Lymphs (auto) 2.49, Nucleated RBC % 0, Sodium 140, Potassium 4.0, Chloride 109 H, Carbon Dioxide 23.0, Anion Gap 8, BUN 11, Creatinine 0.75, Estim Creat Clear Calc 92.12, Est GFR (MDRD) Af Amer 100, Est GFR (MDRD) Non-Af 83, BUN/Creatinine Ratio 14.7, Glucose 113 H, Calcium 9.1, Magnesium 2.4, Total Bilirubin 0.80, AST 17, ALT 22, Alkaline Phosphatase 85, Total Protein 6.8, Albumin 3.2, Globulin 3.6, Albumin/Globulin Ratio 0.9 D/C Instructions Discharge Diet: Low fat / Low cholesterol Meaningful Use Info Meaningful Use Diagnoses (Choose all that apply): None applicable Discharge Plan Admission Admit Date/Time: 11/21/23 11:46 Primary Reason for Your Visit: Chest pain Attending Provider: Ben Miller Primary Care Provider: Reese Elizalde Instructions Additional Instructions / Restrictions: Your chest pain workup here was normal. This is not cardiac in nature. It was reproducible so it may have been chest wall pain. Unclear how you would have developed chest wall pain in the melan[place] but no additional testing is necessary at this time. While you are here we monitored your heart rates and you had frequent PVCs, which you had before. I discussed with Dr. Olivares, of cardiology. He recommends outpatient follow-up. Incision planned with Dr. Schultz in February. If you are able to, see if he can get that appointment moved up sooner. If you experience palpitations or if you spell where you pass out and have no warning, notify your physician or return to the emergency room. Discharge Orders/Prescriptions Prescriptions: Continued levothyroxine 100 mcg tablet 100 mcg PO DAILY gabapentin 300 mg capsule 300 mg PO TID oxybutynin chloride 10 mg tablet extended release 24hr 10 mg PO DAILY nitroglycerin 0.4 mg tablet, sublingual 0.4 mg sublingual Q5-15M PRN (Reason: chest pain) Qty: 25 3RF Rx Instructions: do not exceed 3 doses per episode metformin 500 MG tablet 500 mg PO DAILY cholecalciferol (vitamin D3) 1,000 UNIT capsule 1,000 unit PO DAILY omeprazole 40 MG capsule,delayed release(DR/EC) 40 mg PO DAILY Ozempic 0.25 mg or 0.5 mg (2 mg/3 mL) pen injector 0.25 mg subcut QWEEK Brilinta 90 mg tablet 90 mg PO BID aspirin 81 mg tablet,delayed release (DR/EC) 81 mg PO DAILY@0800 Qty: 90 3RF lisinopril 5 mg tablet 5 mg PO DAILY Qty: 90 3RF atorvastatin 80 mg tablet 80 mg PO QHS Qty: 90 3RF Patient Comments: metoprolol tartrate 100 mg tablet 100 mg PO BID Qty: 180 3RF Referrals / Follow Up: Reese Elizalde MD [Primary Care Provider] - Disposition Disposition (needs filled in before D/C Order can be placed): Home, Self Care Charges/Coding Visit Charges Inpatient E&M: 30671 Disch Hosp >30min
[2023-11-22] MEDS: Cholecalciferol (VIT D3) 25 MCG TABLET (1,000 UNITS) PO (12:41)
[2023-11-22] MEDS: Pantoprazole Sodium 40 MG Tablet PO (12:41)
[2023-11-22 12:42] VITALS: PULSE 75
[2023-11-22] MEDS: Metoprolol Tartrate 100 MG Tablet PO (12:42)
[2023-11-22] MEDS: TICAGRELOR 90 MG TABLET PO (12:42)
[2023-11-22] MEDS: Tolterodine Tartrate 2 MG CAP.SA PO (12:42)
--- NOTE | 2023-11-22 12:57 | CASEMGMT ---
RN JILLIAN NOTE: Pt being discharged. RN CM to room. Pt sitting up in chair in room. Introduced self and role. Pt denies having any discharge planning needs/concerns. Zandra HERNANDEZN RN CM
== END 2023-11-22 13:20 | disposition home or self-care (01) ==
LOC: ED 10:27 → PCU 11:56
PROVIDERS: Family Medicine; Emergency Provider Emergency Medicine; PCP Family Medicine
DX: R07.89 Other chest pain (principal); I25.10 Atherosclerotic heart disease of native coronary artery without angina pectoris; R00.8 Other abnormalities of heart beat; Z79.82 Long term (current) use of aspirin; Z79.02 Long term (current) use of antithrombotics/antiplatelets; E78.00 Pure hypercholesterolemia, unspecified; Z87.891 Personal history of nicotine dependence; I49.3 Ventricular premature depolarization; Z79.899 Other long term (current) drug therapy; Z95.5 Presence of coronary angioplasty implant and graft; R42 Dizziness and giddiness; I25.2 Old myocardial infarction
CPT/HCPCS: 36415; 71045; 78452; 80048; 80053; 83735; 84484; 85025; 93005; 93017; 96360; 96361; 99221; 99285; A9500; A4216; G0378; J2785

== ENCOUNTER 2024-03-27 15:42 | Emergency (ER) | payer OTHER, SELFPAY ==
[2017-10-13 12:02] VITALS: BMI 38.5
[2024-03-27 15:43] VITALS: BP 109/88; PULSE 78; RESP 16; TEMP 36.7; O2SAT 98; BMI 40.1
[2024-03-27 16:05] VITALS: BP 104/59; BP 96/49; BP 99/56; PULSE 68; PULSE 72
--- NOTE | 2024-03-27 16:05 | EKG12_ITS ---
Test Reason : DIZZINESS Blood Pressure : / mmHG Vent. Rate : 071 BPM Atrial Rate : 071 BPM P-R Int : 168 ms QRS Dur : 086 ms QT Int : 386 ms P-R-T Axes : 030 -26 -01 degrees QTc Int : 419 ms Normal sinus rhythm Minimal voltage criteria for LVH, may be normal variant ( R in aVL ) Inferior infarct (cited on or before 09-OCT-2017) Possible Anterolateral infarct , age undetermined Abnormal ECG Confirmed by NILES PETERSEN, HERMINIA ([id number]), video tape editor LUIS EDUARDO FORMAN ([id number]) on 04/02/2024 1:45:04 PM Referred By: Confirmed By:YUKI CAGE MD
--- NOTE | 2024-03-27 16:05 | RAD_ITS ---
INDICATION: chest pain EXAMINATION/TECHNIQUE: X-RAY - portable upright AP chest x-ray COMPARISON: 11/21/2023 FINDINGS: LINES/DEVICES: None. LUNGS: No consolidation, edema or effusion. No pneumothorax. MEDIASTINUM AND CARDIOVASCULAR STRUCTURES: Cardiac silhouette stable within normal limits. BONES AND SOFT TISSUES: No acute changes. RAD/Chest 1 View (Portable) IMPRESSION: No radiographic evidence of acute cardiopulmonary disease. Electronically Signed: David Mak MD at 17:30 EDT ,
--- NOTE | 2024-03-27 16:05 | EX.ED.DYSGE1 ---
HPI History of Present Illness Chief Complaint: Dizziness Narrative Narrative: 63-year-old female presenting with fleeting episodes of lightheadedness. She states this only last for seconds. Patient states it has been going on since Monday. Patient denies any chest pain, palpitations, shortness of breath. No fevers or chills. No nausea or vomiting. No black or bloody stools. She notes that all of her medications are the same and she has not had anything new in 3 months. The last medication added was Ozempic and she has not had any side effects as of yet.. Patient notes that her blood pressure was a little lower the other day and 190 systolic. Patient is on lisinopril 5 mg and metoprolol 100 mg p.o. twice daily. [facility] Medical History Atherosclerosis of coronary artery of [place] heart without angina pectoris Carotid artery dissection Frequent PVCs Hyperthyroidism Presence of stent in coronary artery (~11/02/17) Pure hypercholesterolemia STEMI (ST elevation myocardial infarction) Home Medications ?Medication ?Instructions ?Recorded ?Last Taken ?Type cholecalciferol (vitamin D3) 25 1,000 unit PO DAILY supplement 10/09/17 11/21/23 History mcg (1,000 unit) capsule metformin 500 mg tablet 500 mg PO DAILY DIABETES 10/09/17 11/21/23 History levothyroxine 100 mcg tablet 100 mcg PO DAILY 09/10/18 11/21/23 History oxybutynin chloride 10 mg 10 mg PO DAILY 05/29/20 11/21/23 History tablet,extended release 24 hr omeprazole 40 mg capsule,delayed 40 mg PO DAILY 09/27/20 11/21/23 History release aspirin 81 mg tablet,delayed 81 mg PO DAILY@0800 [facility] 12/27/21 11/21/23 Rx release #90 tabs gabapentin 300 mg capsule 300 mg PO TID 08/18/22 11/21/23 History nitroglycerin 0.4 mg sublingual 0.4 mg sublingual Q5-15M PRN chest 08/18/22 11/21/23 Rx tablet pain #25 tabs metoprolol tartrate 100 mg tablet 100 mg PO BID #180 tabs 09/07/23 11/21/23 Rx lisinopril 5 mg tablet 5 mg PO DAILY blood pressure #90 12/07/23 Unknown Rx tabs semaglutide 0.25 mg or 0.5 mg (2 0.5 mg subcut QWEEK 12/15/23 Unknown History mg/3 mL) subcutaneous pen injector (Ozempic) atorvastatin 80 mg tablet 80 mg PO QHS cholesterol #90 tabs 12/20/23 Unknown Rx meclizine 12.5 mg tablet 12.5 mg PO TID PRN dizziness #14 03/27/24 Unknown Rx tabs Allergy/AdvReac Type Severity Reaction Status Date / Time No Known Allergies Allergy Verified 03/27/24 15:46 Family History Mother Diabetes Heart disease Hypertension Hypercholesterolemia CVA (cerebral vascular accident) Thyroid disorder Father Cancer Surgical History H/O Achilles tendon repair History of rotator cuff surgery (~2020) Presence of coronary angioplasty implant and graft (~11/02/17) Social History (Updated 03/27/24 @ 15:54 by Palma Lujan) household members: spouse housing: house Smoking Status: Former smoker alcohol intake: current substance use type: does not use caffeine: Yes Type: carbonated beverages Number of servings: 3 what type of physical activity do you participate in: other details: cardiac rehab ROS ROS ED Constitutional Constitutional ED: Denies chills, fever(s) or sweats Eyes Eyes: Denies blurry vision or change in vision ENT ENT ED: Denies ear pain or sore throat Cardiovascular Cardiovascular: Reports other Details: Lightheadedness ; Denies chest pain, palpitations or racing heartbeat Respiratory/Chest Respiratory/Chest: Denies cough, dyspnea or sputum Gastrointestinal Gastrointestinal: Denies abdominal pain, constipation, diarrhea, nausea or vomiting Genitourinary Genitourinary ED: Denies dysuria, hematuria or urinary frequency Musculoskeletal Musculoskeletal: Denies arthralgias, myalgias or neck pain Integumentary Denies abscess, Abrasions or rash Neurologic Neurologic: Denies headache(s), paresthesias or weakness Psychiatric Psychiatric: Denies anxiety, depression, suicidal ideation or suicidal thoughts Endocrine Endocrinology: Denies polydipsia or polyuria EXAM Physical Exam Const Vital Signs: 03/27/24 15:43 03/27/24 16:05 03/27/24 16:05 Temperature 98.0 F Temperature Source Temporal Pulse Rate 78 Pulse Rate [Lying] 68 Pulse Rate [Sitting (for 1 minute prior to obtaining)] 68 Pulse Rate [Standing (for 1 minute prior to obtaining)] 72 Respiratory Rate 16 Blood Pressure 109/88 H Blood Pressure [Lying] 96/49 L Blood Pressure [Sitting (for 1 minute prior to obtaining)] 99/56 L Blood Pressure [Standing (for 1 minute prior to obtaining)] 104/59 L Blood Pressure Mean 95 Blood Pressure Mean [Lying] 64 Blood Pressure Mean [Sitting (for 1 minute prior to obtaining)] 70 Blood Pressure Mean [Standing (for 1 minute prior to obtaining)] 74 Pulse Ox 98 Oxygen Delivery Method Room Air Room Air 03/27/24 17:46 Temperature 98 F Temperature Source Pulse Rate 73 Pulse Rate [Lying] Pulse Rate [Sitting (for 1 minute prior to obtaining)] Pulse Rate [Standing (for 1 minute prior to obtaining)] Respiratory Rate 14 Blood Pressure 93/43 L Blood Pressure [Lying] Blood Pressure [Sitting (for 1 minute prior to obtaining)] Blood Pressure [Standing (for 1 minute prior to obtaining)] Blood Pressure Mean 59 Blood Pressure Mean [Lying] Blood Pressure Mean [Sitting (for 1 minute prior to obtaining)] Blood Pressure Mean [Standing (for 1 minute prior to obtaining)] Pulse Ox 95 Oxygen Delivery Method Positive well nourished General Appearance ED: NAD; Negative for pallor HEENT Reports moist mucous membranes Eyes PERRL and EOMs intact bilaterally Chest Wall inspection of chest normal Resp normal respiratory effort and clear to auscultation bilaterally Cardio regular rate and regular rhythm Neuro oriented x3 and CN's II-XII intact bilaterally Sensorium / Orientation: alert Motor Exam: strength 5/5 throughout Psych mental status grossly normal Skin no rashes or lesions noted General Skin Exam: Negative for jaundice or pallor MDM MDM MDM Narrative Medical decision making narrative: Patient presenting with lightheadedness and intermittent episodes. Hopwood-Hallpike is negative. She is not describing vertiginous symptoms. She is concerned there is a cardiac etiology. Differential includes ACS, dysrhythmia,. Orthostatic hypotension, dehydration, anemia, electrolyte abnormalities. CBC will be obtained to assess white blood cell count, hemoglobin, platelets. BMP to assess renal function, electrolytes, glucose. High-sensitivity troponin and EKG to assess for ischemia/dysrhythmia. TSH will be added to check thyroid level. Chest x-ray to rule out pneumonia. Orthostatic vital signs will be obtained. CBC shows normal white blood cell count 8.8. Hemoglobin 7.2. Platelets are normal at 275. Renal function and electrolytes within normal limits. High-sensitivity troponin is 4. EKG interpreted by myself shows a sinus rhythm at 71 bpm without sign of ischemic change or dysrhythmia. Chest x-ray interpreted by myself shows no acute process. The radiologist interprets this and agrees. TSH was low at 0.25 however the patient is on Synthroid and her T4 and T3 are normal. Orthostatic vitals were negative. We reviewed all of her lab work and imaging together. I did not find any reason for her to be lightheaded. It is possible this could be a atypical presentation of a vertigo. I did write a prescription for meclizine that she can try to see if this helps with her symptoms. I recommended she follow-up with her PCP and/or cardiology if it continues. Return precautions were discussed. Impression: 1. Lightheadedness Lab Data Attestation: I reviewed the patient's lab results. Labs: Laboratory Results - last 24 hr 03/27/24 03/27/24 03/27/24 16:24 16:24 16:43 WBC Cancelled 8.8 Corrected WBC Cancelled RBC Cancelled 4.29 Hgb Cancelled 11.2 L Hct Cancelled 36.5 L MCV Cancelled 85.1 MCH Cancelled 26.1 L MCHC Cancelled 30.7 L RDW Std Deviation Cancelled 48.7 H RDW Coeff of Talat Cancelled 15.8 H Plt Count Cancelled 275 MPV Cancelled 11.3 Immature Gran % (Auto) Cancelled 0.100 Neut % (Auto) Cancelled 64.1 Lymph % (Auto) Cancelled 29.7 [place] % (Auto) Cancelled 4.5 Eos % (Auto) Cancelled 1.1 Baso % (Auto) Cancelled 0.5 Absolute Neuts (auto) Cancelled 5.6 Absolute Lymphs (auto) Cancelled 2.62 Total Counted Cancelled Neutrophils % (Manual) Cancelled Band Neutrophils % Cancelled Lymphocytes % (Manual) Cancelled Monocytes % (Manual) Cancelled Eosinophils % (Manual) Cancelled Basophils % (Manual) Cancelled Metamyelocytes % Cancelled Myelocytes % Cancelled Promyelocytes % Cancelled Blast Cells % Cancelled Plasma Cell % (Manual) Cancelled Other Cells % Cancelled Nucleated RBC % Cancelled 0 Nucleated RBCs/100 WBC Cancelled Differential Comment Cancelled Diff Path Review Cancelled Hypersegmented Neuts Cancelled Atypical Lymphocytes Cancelled Reactive Lymphocytes Cancelled Smudge Cells Cancelled Toxic Granulation Cancelled Toxic Vacuolation Cancelled Dohle Bodies Cancelled Robyn Rods Cancelled Platelet Estimate Cancelled Plt Morphology Comment Cancelled RBC Morphology Cancelled Cancelled Polychromasia Cancelled Hypochromasia Cancelled Basophilic Stippling Cancelled Anisocytosis Cancelled Microcytosis Cancelled Macrocytosis Cancelled Spherocytes Cancelled Sickle Cells Cancelled Target Cells Cancelled Tear Drop Cells Cancelled Ovalocytes Cancelled Stomatocytes Cancelled Márquez-Power Bodies Cancelled Yamini Cells Cancelled Bite Cells Cancelled Crenated Cell Cancelled Acanthocytes (Spur) Cancelled Rouleaux Cancelled Schistocytes Cancelled Sodium 142 Potassium 4.2 Chloride 110 H Carbon Dioxide 27.0 Anion Gap 5 BUN 11 Creatinine 0.84 Estim Creat Clear Calc 81.42 Est GFR (MDRD) Af Amer 89 Est GFR (MDRD) Non-Af 73 BUN/Creatinine Ratio 13.2 Glucose 114 H Calcium 9.0 Magnesium 2.4 Troponin I High Sens 4 TSH 0.25 L Free T4 1.18 Free T3 pg/dL 2.3 Radiography Diagnostic Testing: Clinical Impression(s) from Imaging Studies Chest X-Ray 03/27/24 16:05 IMPRESSION: No radiographic evidence of acute cardiopulmonary disease. Electronically Signed: David Mak MD at 17:30 EDT Reading Location ID and State: [facility] / [place] Tel , Service support , Discharge Plan Triage Chief Complaint: Dizziness ED Provider: Kenney Crow Dx/Rx/DC Orders Instructions: ED Dizziness, Uncertain Cause Prescriptions: New meclizine 12.5 mg tablet 12.5 mg PO TID PRN (Reason: dizziness) Qty: 14 0RF No Action levothyroxine 100 mcg tablet 100 mcg PO DAILY gabapentin 300 mg capsule 300 mg PO TID oxybutynin chloride 10 mg tablet extended release 24hr 10 mg PO DAILY nitroglycerin 0.4 mg tablet, sublingual 0.4 mg sublingual Q5-15M PRN (Reason: chest pain) Qty: 25 3RF Rx Instructions: do not exceed 3 doses per episode metformin 500 MG tablet 500 mg PO DAILY cholecalciferol (vitamin D3) 1,000 UNIT capsule 1,000 unit PO DAILY omeprazole 40 MG capsule,delayed release(DR/EC) 40 mg PO DAILY Ozempic 0.25 mg or 0.5 mg (2 mg/3 mL) pen injector 0.5 mg subcut QWEEK aspirin 81 mg tablet,delayed release (DR/EC) 81 mg PO DAILY@0800 Qty: 90 3RF metoprolol tartrate 100 mg tablet 100 mg PO BID Qty: 180 3RF lisinopril 5 mg tablet 5 mg PO DAILY Qty: 90 3RF atorvastatin 80 mg tablet 80 mg PO QHS Qty: 90 3RF Patient Comments: Primary Care Provider: Reese Elizalde Referrals: Reese Elizalde MD [Primary Care Provider] - Print Language: Kazakh Disposition Disposition: Home, Self Care Discharge Date/Time: 03/27/24 17:52
[2024-03-27 16:48] LABS: Absolute Lymphocyte Count 2.62 X10^3/uL (0.83-4.51); Absolute Neutrophil Count 5.6 X10^3/uL (2.0-7.7); Basophil# 0.04 X10^3/uL; Basophil% 0.5 % (0-1); Eosinophils% 1.1 % (0-5); Hematocrit 36.5 % (37-47); Hemoglobin 11.2 g/dL (12.0-15.0); Lymphocyte # 2.62 X10^3/ul (0.83-4.51); Lymphocyte % 29.7 % (19-41); Mean Corp Hgb Conc 30.7 g/dL (32-36); Mean Corpuscular Hgb 26.1 pg (27.0-32.0); Mean Corpuscular Volume 85.1 fL (81-99); Mean Platelet Vol. 11.3 fl (6.2-12.0); Monocyte% 4.5 % (0-10); NRBC Flagged by Analyzer 0 % (0-5); Neutrophil # 5.64 X10^3/uL (2.7-7.7); Neutrophil % 64.1 % (47-70); Platelet Count 275 K/mm3 (150-450); RBC Distribution Width CV 15.8 % (11.6-14.6); RBC Distribution Width SD 48.7 fl (35.1-43.9); Red Blood Count 4.29 M/mm3 (4.2-5.4); White Blood Count 8.8 K/mm3 (4.4-11.0)
[2024-03-27 17:03] LABS: Anion Gap 5 (5-15); BUN 11 mg/dL (7-18); BUN/Creat Ratio 13.2 RATIO (10-20); Chloride 110 mmol/L (98-107); Creatinine, Serum 0.84 mg/dL (0.55-1.02); EST Glomerular Filtration Rate 73 mL/min (>60); Est Glom Filt Rate - Afr Amer 89 mL/min (>60); Estimated Creatinine Clearance 81.42 ml/min; Glucose 114 mg/dL (74-106); Magnesium 2.4 mg/dL (1.6-2.6); Potassium 4.2 mmol/L (3.5-5.1); Sodium Level 142 mmol/L (136-145); Thyroid Stim Hormone (TSH) 0.25 uIU/mL (0.358-3.74); Troponin-I HS 4 pg/mL (3.0-54.0)
[2024-03-27 17:33] LABS: Free T3 2.3 pg/mL (2.18-3.98); T4 Free Direct 1.18 ng/dL (0.76-1.46)
[2024-03-27 17:46] VITALS: BP 93/43; PULSE 73; RESP 14; TEMP 36.6; O2SAT 95
== END 2024-03-27 17:52 | disposition home or self-care (01) ==
PROVIDERS: Emergency Provider Student in an Organized Health Care Education/Training Program; PCP Family Medicine; Visit Provider Student in an Organized Health Care Education/Training Program
DX: R42 Dizziness and giddiness (principal); Z87.891 Personal history of nicotine dependence; E78.00 Pure hypercholesterolemia, unspecified; Z79.890 Hormone replacement therapy; I25.10 Atherosclerotic heart disease of native coronary artery without angina pectoris; Z79.899 Other long term (current) drug therapy
CPT/HCPCS: 71045; 80048; 83735; 84439; 84443; 84481; 84484; 85025; 93005; 99285; A4216

== ENCOUNTER → 2025-01-28 | Outpatient (CLI) | payer BC, SELFPAY ==
[2017-10-13 12:02] VITALS: BMI 38.5
--- NOTE | 2025-01-28 16:50 | CT_ITS ---
PROCEDURE: CTA NECK W/WO CONTRAST 01/28/2025 REASON FOR EXAM: CAROTID ARTERY DISSECTION TECHNIQUE: CTA HEAD AND NECK WITH IV CONTRAST: Multiplanar and multisequence images were obtained. CONTRAST: 100 cc Isovue 370 One or more dose reduction techniques were used (e.g., Automated exposure control, adjustment of the mA and/or kV according to patient size, use of iterative reconstruction technique). RADIATION DOSE SUMMARY: CTDlvol: 631.16 mGy DLP: 645.69 mGycm FINDINGS: The aortic arch is normal in caliber. 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 The left and right common carotid artery are both normal in caliber. I do not have the benefit of prior studies. There is a slight degree of luminal irregularity of the mid cervical right internal carotid artery close to an area of streak artifact. There is also a focal area of contrast outpouching involving the distal left ICA which has luminal irregularity as well. The distal left ICA is relatively tortuous. On axial image 299 there may be a small pseudoaneurysm arising from the left ICA. This measures about 2.5 mm in diameter. Again, no prior studies. On the right, no similar finding is noted. There is an intraluminal linear filling defect in the distal left ICA is well which may represent a small dissection flap. I suspect that there is bilateral fibromuscular dysplasia. This is more prominent on the left than the right. Referring back to the axial images, the cervical vertebral arteries are normal. There is a normal vertebrobasilar junction. The basilar artery is normal. CT/CTA Neck W/WO Contrast IMPRESSION: 1. Bilateral internal carotid fibromuscular dysplasia. 2. Question small pseudoaneurysm on the left measuring 2.5 mm as well as what m ay be a small intimal flap. The intimal flap is identified on images 321 through 325 Reading Location: [facility]
[2025-01-28 16:53] LABS: CREATININE FINGERSTICK < 1.0 mg/dL (0.55-1.02)
== END | disposition home or self-care (01) ==
LOC: CT 15:54
PROVIDERS: PCP Family Medicine; Referring Provider Surgery Vascular Surgery; Visit Provider Surgery Vascular Surgery
DX: I65.23 Occlusion and stenosis of bilateral carotid arteries (principal); I21.3 ST elevation (STEMI) myocardial infarction of unspecified site; E11.9 Type 2 diabetes mellitus without complications; Z86.73 Personal history of transient ischemic attack (TIA), and cerebral infarction without residual deficits; I77.71 Dissection of carotid artery; E78.70 Disorder of bile acid and cholesterol metabolism, unspecified; I10 Essential (primary) hypertension
CPT/HCPCS: 70498; Q9967

== ENCOUNTER → 2025-03-26 | Outpatient (CLI) | payer BC, SELFPAY ==
[2017-10-13 12:02] VITALS: BMI 38.5
--- NOTE | 2025-03-26 10:04 | VDLE_ITS ---
Reason For Study Reason For Study: BLE Swelling RIGHT LEFT CFV is compressible, spontaneous, phasic, competent CFV is compressible, spontaneous, phasic, competent, and demonstrates normal augmentation. and demonstrates normal augmentation. FV is compressible, spontaneous, phasic, competent FV is compressible, spontaneous, phasic, competent and demonstrates normal augmentation. and demonstrates normal augmentation. POP V is compressible, spontaneous, phasic, competent POP V is compressible, spontaneous, phasic, competent and demonstrates normal augmentation. and demonstrates normal augmentation. T/P Trunk is compressible. T/P Trunk is compressible. PTV is compressible. PTV is compressible. RT PerV is compressible. LT PerV is compressible. SFJ is competent and measures 0.64 cm. SFJ is competent and measures 0.62 cm. GSV proximal thigh measures 0.47 x 0.53 cm. GSV proximal thigh measures 0.39 x 0.37 cm. GSV at knee measures 0.40 x 0.45 cm. GSV at knee measures 0.46 x 0.45 cm. GSV is competent throughout. GSV above knee is competent. SSV mid calf is competent and measures 0.34 x 0.31 GSV below knee is INCOMPETENT for greater than 0.5 cm. seconds. Procedure SSV mid calf is competent and measures 0.28 x 0.29 Exam performed in department. cm. This is a venous duplex using B-mode, color flow and spectral Doppler. The exam was diagnostic. Patient was scanned in reverse Trendelenburg position during reflux assessment. VL/Venous Duplex US - Sandoval Extrem Interpretation Summary No DVT or SVT. Left calf GSV with reflux. Ordering Physician: Delta Sutherland Referring Physician: Reese Elizalde Performed By: Yimi Lau RVT
== END | disposition home or self-care (01) ==
PROVIDERS: PCP Family Medicine; Referring Provider Surgery Vascular Surgery; Visit Provider Surgery Vascular Surgery
DX: I10 Essential (primary) hypertension (principal); M79.89 Other specified soft tissue disorders
CPT/HCPCS: 93970